=== PATIENT | male | born 1950 | race Caucasian/White ===

== ENCOUNTER 2018-05-23 15:29 | Observation (INO) | payer OTHER ==
[2018-05-23] MEDS ORDERED: FENTANYL CITR 100 MCG/2 ML ONE (16:17)
[2018-05-23] MEDS ORDERED: Ringers Lactate 1,000 ML IV ONE (16:17)
[2018-05-23] MEDS ORDERED: ONDANSETRON 4 MG/2 ML VIAL ONE (16:17)
[2018-05-23 16:32] LABS: Absolute Lymphocytes (CBC) 2.6 K/uL (0.7-4.9); Absolute Monocytes 1.2 K/uL (0.1-1.3); Absolute Neutrophil 11.6 K/uL (1.8-8.0); Basophils % 0.6 % (0-1.3); Eosinophils % 0.4 % (0-4.4); Hematocrit 50.7 % (39.6-49.0); Lymphocytes % 16.6 % (15.3-44.8); MCH 30.5 pg (27.0-35.0); MCV 88.4 fL (80-100); MPV 7.9 fL (7.6-11.3); Monocytes % 7.7 % (3.3-12.3); RBC Red Blood Cell Count 5.74 M/uL (4.33-5.43)
[2018-05-23 17:03] LABS: Albumin 4.3 g/dL (3.4-5.0); Bilirubin Direct 0.2 mg/dL (0-0.2); Bilirubin Total 0.8 mg/dL (0.2-1.0); Potassium 3.5 mmol/L (3.5-5.1); Protein, Total 8.4 g/dL (6.4-8.2)
--- NOTE | 2018-05-23 17:26 | RAD REPORT ---
EXAM DESCRIPTION: CT - Stone Protocol - 05/23/2018 5:17 pm CLINICAL HISTORY: Flank pain. abdominal pain COMPARISON: No comparisons TECHNIQUE: Axial images were obtained without oral or IV contrast. Lack of contrast limits solid org an and vascular assessment. The [id number] spans the entirety of the system partially obscuring uppermost abdomen and lung bases. Coronal reformatted images were obtained and reviewed. All CT scans are performed using dose optimization technique as appropriate and may include automated exposure control or mA/KV adjustment according to patient size. FINDINGS: The inferior lung bob are emphysematous but clear. Imaged portions of the liver and spleen show no suspicious findings on non-contrast imaging. The panc reas and adrenal glands are normal.Heavy atherosclerosis is present. No pathologic lymphadenopathy in the abdomen or pelvis. No urinary tract stones or obstructive uropathy. No bowel obstruction, free air, free fluid or abscess. Normal appendix noted. Fat containing umbilical hernia is noted measuring 4.6 x 4.6 cm with anterior abdominal wall fascia d efect measuring 2 cm. Larger fat containing supraumbilical hernia is present with hernia sac measurin g 6.8 x 4.4 cm and fascia defect measuring 2 cm. No bowel involvement seen in either hernia No significant bony abnormality. IMPRESSION: Fat containing ventral hernias as described above.
--- NOTE | 2018-05-23 18:34 | RAD REPORT ---
EXAM DESCRIPTION: US - Abdomen Exam Limited - 05/23/2018 6:20 pm CLINICAL HISTORY: epigastric abdominal pain COMPARISON: Stone Protocol dated 05/23/2018; CHEST PA AND LAT 2 VIEW dated 09/16/2015 FINDINGS: The gallbladder demonstrates no gallstones. No pericholecystic fluid or gallbladder wall t hickening. The common bile duct is normal measuring 3 mm. The liver demonstrates no findings of intrahepatic biliary dilatation. IMPRESSION: Unremarkable examination.
[2018-05-23] MEDS ORDERED: KETOROLAC 30 MG/ML INJ ONE (18:58)
[2018-05-23] MEDS ORDERED: DICYCLOMINE HCL 10 MG CAP ONE (18:58)
--- NOTE | 2018-05-23 20:16 | EDPHYS ---
Physician Documentation [facility] Name: Carlos Alberto Astorga Age: 68 yrs Sex: Male : 1950 Arrival Date: 05/23/2018 Time: 15:32 Bed 19 Private MD: Nilda Mills ED Physician Giacomo Oliver HPI: 05/23 15:51 This 68 yrs old Male presents to ER via Ambulatory with complaints of jmm Abdominal Pain. 15:51 The patient presents with abdominal pain in the epigastric area. Onset: The jmm symptoms/episode began/occurred gradually, 6 day(s) ago. The symptoms do not radiate. Associated signs and symptoms: Pertinent positives: nausea and vomiting, diarrhea. The symptoms are described as achy. This is a 68 year old male with a history of htn that presents to the ED with epigastric abdominal pain beginning approx 6 days ago with vomiting a diarrhea. Patient denies recent travel, sick contacts, recent abx use. . Historical: - Allergies: 15:42 Codeine; sv 15:42 Lotensin; sv 16:10 Iodinated Contrast Media - IV Dye (Hives); aa5 - PMHx: 15:42 Hypertension; Pneumonia; sv - PSHx: 15:42 colon resection; right finger; sv - Immunization history:: Flu vaccine is not up to date. - Social history:: Smoking status: Patient/guardian denies using tobacco. - Ebola Screening: : No symptoms or risks identified at this time. ROS: 15:51 Constitutional: Negative for fever, chills, and weight loss, Cardiovascular: Negative jmm for chest pain, palpitations, and edema, Respiratory: Negative for shortness of breath, cough, wheezing, and pleuritic chest pain. 15:51 Back: Negative for injury and pain, : Negative for injury, bleeding, discharge, and swelling, MS/Extremity: Negative for injury and deformity, Skin: Negative for injury, rash, and discoloration, Neuro: Negative for headache, weakness, numbness, tingling, and seizure. 15:51 Abdomen/GI: Positive for abdominal pain, nausea and vomiting, diarrhea. 15:51 All other systems are negative. Exam: 15:51 Head/Face: atraumatic. Chest/axilla: Normal chest wall appearance and motion. jmm Cardiovascular: Regular rate and rhythm. No edema appreciated Respiratory: Normal respirations, no respiratory distress appreciated 15:51 Constitutional: The patient appears in no acute distress, alert, awake. 15:51 Abdomen/GI: Inspection: abdomen appears normal, Bowel sounds: normal, Palpation: soft, moderate abdominal tenderness, in the right upper quadrant and left upper quadrant. 15:51 Musculoskeletal/extremity: ROM: intact in all extremities. 15:51 Skin: Appearance: Color: normal in color. 15:51 Neuro: Orientation: is normal, Mentation: is normal, Memory: is normal. 15:51 Psych: Behavior/mood is pleasant, cooperative. Vital Signs: 15:43 BP 127 / 86; Pulse 120; Resp 22; Temp 98.5; Pulse Ox 97% ; Weight 88.45 kg; Height 5 sv ft. 6 in. (167.64 cm); Pain 10/10; 16:35 BP 122 / 78; Pulse 83; Resp 18 S; Pulse Ox 98% on R/A; Pain 8/10; aa5 17:30 BP 127 / 71; Pulse 82; Resp 18 S; Pulse Ox 99% on R/A; aa5 19:39 BP 150 / 89; Pulse 69; Resp 17 S; Pulse Ox 98% on R/A; Pain 10/10; jd3 20:38 BP 137 / 74; Pulse 93; Resp 16 S; Pulse Ox 96% on R/A; jd3 15:43 Body Mass Index 31.47 (88.45 kg, 167.64 cm) sv MDM: 15:51 Patient medically screened. [facility] 18:24 Data reviewed: vital signs, nurses notes. [facility] 20:00 Data reviewed: lab test result(s), radiologic studies. [facility] 20:00 Counseling: I had a detailed discussion with the patient and/or guardian regarding: the [facility] historical points, exam findings, and any diagnostic results supporting the discharge/admit diagnosis, lab results, radiology results, the need for further work-up and treatment in the hospital. ED course: Patient continue to have abdominal pain which is not well relieved. Patient will be admitted for observation. . 20:12 ED course: I discussed the patient with Dr. Bennett whom accepted admission. . [facility] 05/23 15:53 Order name: Basic Metabolic Panel [facility] 05/23 15:53 Order name: CBC with Diff [facility] 05/23 15:53 Order name: Creatinine for Radiology [facility] 05/23 15:53 Order name: Hepatic Function [facility] 05/23 15:53 Order name: Lipase [facility] 05/23 15:53 Order name: Procalcitonin [facility] 05/23 15:53 Order name: Blood Culture Adult (2) [facility] 05/23 15:53 Order name: Lactate [facility] 05/23 16:33 Order name: CBC with Automated Diff; Complete Time: 16:49 EDMS 05/23 16:56 Order name: Creatinine (Radiology Only); Complete Time: 17:00 EDMS 05/23 17:03 Order name: Basic Metabolic Panel; Complete Time: 17:20 EDMS 05/23 17:03 Order name: Liver (Hepatic) Function; Complete Time: 17:20 EDMS 05/23 17:03 Order name: Lipase; Complete Time: 17:20 EDMS 05/23 17:11 Order name: Lactate; Complete Time: 17:20 EDMS 05/23 15:53 Order name: IV Saline Lock; Complete Time: 16:39 [facility] 05/23 15:53 Order name: Labs collected and sent; Complete Time: 16:39 [facility] 05/23 17:02 Order name: CT Stone Protocol [facility] 05/23 17:25 Order name: Procalcitonin; Complete Time: 17:32 EDMS 05/23 17:26 Order name: CT; Complete Time: 17:32 EDMS 05/23 17:35 Order name: US Abdomen Limited [facility] 05/23 18:35 Order name: US; Complete Time: 18:37 EDMS Administered Medications: 16:10 Drug: Lactated Ringers Solution 1000 ml Route: IV; Rate: 61437 bolus; Site: right aa5 forearm; 17:07 Follow up: IV Status: Completed infusion aa5 16:10 Drug: fentaNYL (PF) 50 mcg Route: IVP; Site: right forearm; aa5 16:20 Follow up: Response: No adverse reaction aa5 16:10 Drug: Zofran 4 mg Route: IVP; Site: right forearm; aa5 16:20 Follow up: Response: No adverse reaction aa5 17:06 Drug: fentaNYL (PF) 50 mcg Route: IVP; Site: right forearm; aa5 17:11 Follow up: Response: No adverse reaction aa5 18:55 Drug: Ketorolac 15 mg Route: IVP; Site: right forearm; aa5 19:00 Follow up: Response: No adverse reaction aa5 18:55 Drug: Bentyl 20 mg Route: PO; aa5 21:30 Follow up: Response: No adverse reaction jd3 Disposition: 05/23/18 20:13 Hospitalization ordered by Ted Bennett for Observation. Preliminary diagnosis is Generalized abdominal pain. - Bed requested for Telemetry/MedSurg (observation). - Status is Observation. jd3 - Condition is Stable. - Problem is new. - Symptoms are unchanged. UTI on Admission? No Signatures: Dispatcher [employer] EDMS Dara Das, RN RN Rolando Mckeon PA PA jmm Calderon, Audri RN RN aa Margarita Yoo RN RN Monty Bautista RN RN jd3 Corrections: (The following items were deleted from the chart) 20:37 20:13 Hospitalization Ordered by Ted Bennett MD for Observation. Preliminary cg diagnosis is Generalized abdominal pain. Bed requested for Telemetry/MedSurg (observation). Status is Observation. Condition is Stable. Problem is new. Symptoms are unchanged. UTI on Admission? No. tomas 21:31 20:37 05/23/2018 20:13 Hospitalization Ordered by Ted Bennett MD for Observation. jd3 Preliminary diagnosis is Generalized abdominal pain. Bed requested for Telemetry/MedSurg (observation). Status is Observation. Condition is Stable. Problem is new. Symptoms are unchanged. UTI on Admission? No.
--- NOTE | 2018-05-23 20:16 | ER ---
Nurse's Notes [facility] Name: Carlos Alberto Astorga Age: 68 yrs Sex: Male : 1950 Arrival Date: 05/23/2018 Time: 15:32 Bed 19 Private MD: Nilda Mills Diagnosis: Generalized abdominal pain Presentation: 05/23 15:40 Presenting complaint: Patient states: abd pain from a hernia pain started 6 days ago. sv Pt reports unable to eat a well and diarrhea. Transition of care: patient was not received from another setting of care. Onset of symptoms was May 2018. Care prior to arrival: None. 15:40 Method Of Arrival: Ambulatory sv 15:40 Acuity: MONIKA 3 sv 16:00 Initial Sepsis Screen: Does the patient meet any 2 criteria? HR > 90 bpm. Does the aa5 patient have a suspected source of infection? No. Patient's initial sepsis screen is negative. 16:00 Risk Assessment: Do you want to hurt yourself or someone else? Patient reports no aa5 desire to harm self or others. Triage Assessment: 15:44 General: Appears in no apparent distress. uncomfortable, Behavior is calm, cooperative, sv appropriate for age. Pain: Complains of pain in right upper quadrant and left upper quadrant Pain currently is 10 out of 10 on a pain scale. Neuro: Level of Consciousness is awake, alert, obeys commands, Oriented to person, place, time, situation, Moves all extremities. Full function Gait is steady. Respiratory: Respiratory effort is even, unlabored, Respiratory pattern is regular, symmetrical. GI: Reports upper abdominal pain, diarrhea, intolerance of food. Historical: - Allergies: 15:42 Codeine; sv 15:42 Lotensin; sv 16:10 Iodinated Contrast Media - IV Dye (Hives); aa5 - PMHx: 15:42 Hypertension; Pneumonia; sv - PSHx: 15:42 colon resection; right finger; sv - Immunization history:: Flu vaccine is not up to date. - Social history:: Smoking status: Patient/guardian denies using tobacco. - Ebola Screening: : No symptoms or risks identified at this time. Screenin:00 Abuse screen: Denies threats or abuse. Nutritional screening: No deficits noted. aa5 Tuberculosis screening: No symptoms or risk factors identified. Fall Risk None identified. Assessment: 16:00 General: Appears uncomfortable, Behavior is calm, cooperative. Pain: Complains of pain aa5 in left upper quadrant Pain does not radiate. Pain currently is 10 out of 10 on a pain scale. Quality of pain is described as sharp, tender, Pain began 1 week ago Is continuous. Neuro: Level of Consciousness is awake, alert, obeys commands, Oriented to person, place, time, situation. Cardiovascular: Heart tones S1 S2 present Rhythm is regular. Respiratory: Airway is patent Respiratory effort is even, unlabored, Respiratory pattern is regular, symmetrical. GI: Abdomen is round Bowel sounds present X 4 quads. Abdomen is tender to palpation in right upper quadrant and left upper quadrant Reports diarrhea, Patient currently denies nausea, vomiting. : No signs and/or symptoms were reported regarding the genitourinary system. EENT: No signs and/or symptoms were reported regarding the EENT system. Derm: Skin is pink, warm \T\ dry. Musculoskeletal: Range of motion: intact in all extremities. 16:20 Reassessment: Patient and/or family updated on plan of care and expected duration. Pain aa5 level reassessed. Patient is alert, oriented x 3, equal unlabored respirations, skin warm/dry/pink. Patient states feeling better. Pt sitting up in bed. Pt's at bedside. . Pain: Pain currently is 8 out of 10 on a pain scale. 17:30 Reassessment: Patient and/or family updated on plan of care and expected duration. Pain aa5 level reassessed. Patient is alert, oriented x 3, equal unlabored respirations, skin warm/dry/pink. Pain: Pain currently is 6 out of 10 on a pain scale. 18:55 Reassessment: Patient is alert, oriented x 3, equal unlabored respirations, skin aa5 warm/dry/pink. Pain: Pain currently is 10 out of 10 on a pain scale. 19:38 Reassessment: Patient appears in no apparent distress at this time. No changes from jd3 previously documented assessment. Patient and/or family updated on plan of care and expected duration. Pain level reassessed. Patient is alert, oriented x 3, equal unlabored respirations, skin warm/dry/pink. 20:38 Reassessment: Patient appears in no apparent distress at this time. No changes from jd3 previously documented assessment. Patient and/or family updated on plan of care and expected duration. Pain level reassessed. Patient is alert, oriented x 3, equal unlabored respirations, skin warm/dry/pink. 21:29 Reassessment: Patient appears in no apparent distress at this time. No changes from jd3 previously documented assessment. Patient and/or family updated on plan of care and expected duration. Pain level reassessed. Patient is alert, oriented x 3, equal unlabored respirations, skin warm/dry/pink. report given to Best MAST. Vital Signs: 15:43 BP 127 / 86; Pulse 120; Resp 22; Temp 98.5; Pulse Ox 97% ; Weight 88.45 kg; Height 5 sv ft. 6 in. (167.64 cm); Pain 10/10; 16:35 BP 122 / 78; Pulse 83; Resp 18 S; Pulse Ox 98% on R/A; Pain 8/10; aa5 17:30 BP 127 / 71; Pulse 82; Resp 18 S; Pulse Ox 99% on R/A; aa5 19:39 BP 150 / 89; Pulse 69; Resp 17 S; Pulse Ox 98% on R/A; Pain 10/10; jd3 20:38 BP 137 / 74; Pulse 93; Resp 16 S; Pulse Ox 96% on R/A; jd3 15:43 Body Mass Index 31.47 (88.45 kg, 167.64 cm) sv ED Course: 15:32 Patient arrived in ED. mr 15:33 Nilda Mills MD is Private Physician. mr 15:41 Triage completed. sv 15:44 Arm band placed on Patient placed in an exam room, on a stretcher. sv 15:46 Rolando Mckeon PA is PHCP. [facility] 15:46 Giacomo Oliver MD is Attending Physician. [facility] 15:49 Inez Quiñones, KEZIA is Primary Nurse. aa5 16:00 Patient has correct armband on for positive identification. Placed in gown. Bed in low aa5 position. Call light in reach. Side rails up X2. 16:05 Initial lab(s) drawn, by me, sent to lab. Inserted saline lock: 20 gauge in right aa5 forearm, using aseptic technique. Blood collected. 16:44 No provider procedures requiring assistance completed. aa5 16:49 Radiology exam delayed due to lab results not completed at this time. (BUN/Creatinine). nj 17:[address] via wheelchair. nj 17:17 CT completed. Patient tolerated procedure well. Patient moved back from CT. la 19:00 Report given to KEZIA Millan. aa5 20:13 Ted Bennett MD is Hospitalizing Provider. [facility] 21:30 Patient admitted, IV remains in place. jd3 Administered Medications: 16:10 Drug: Lactated Ringers Solution 1000 ml Route: IV; Rate: 60013 bolus; Site: right aa5 forearm; 17:07 Follow up: IV Status: Completed infusion aa5 16:10 Drug: fentaNYL (PF) 50 mcg Route: IVP; Site: right forearm; aa5 16:20 Follow up: Response: No adverse reaction aa5 16:10 Drug: Zofran 4 mg Route: IVP; Site: right forearm; aa5 16:20 Follow up: Response: No adverse reaction aa5 17:06 Drug: fentaNYL (PF) 50 mcg Route: IVP; Site: right forearm; aa5 17:11 Follow up: Response: No adverse reaction aa5 18:55 Drug: Ketorolac 15 mg Route: IVP; Site: right forearm; aa5 19:00 Follow up: Response: No adverse reaction aa5 18:55 Drug: Bentyl 20 mg Route: PO; aa5 21:30 Follow up: Response: No adverse reaction jd3 Outcome: 20:13 Decision to Hospitalize by Provider. [facility] 21:29 Admitted to Med/surg accompanied by tech, via wheelchair, room 406, with chart, Report jd3 called to Best MAST 21:29 Condition: stable 21:29 Instructed on the need for admit, Demonstrated understanding of instructions. 21:31 Patient left the ED. jd3 Signatures: Dara Das RN RN Rolando Smalls PA PA [facility] Vesna Teixeira Inez Quiñones RN RN aa5 Stanislav Garcia Jonathon, RN RN jd3 Corrections: (The following items were deleted from the chart) 15:45 15:43 Pulse 120bpm; Resp 22bpm; Pulse Ox 97%; Temp 98.5F; 88.45 kg; Height 5 ft. 6 in.; sv BMI: 31.4; Pain 10/10; sv
[2018-05-23] MEDS ORDERED: ONDANSETRON 4 MG/2 ML VIAL IV PRN (20:46)
[2018-05-23] MEDS ORDERED: ACETAMINOPHEN 500 MG TAB PO PRN (20:46)
[2018-05-23] MEDS: MORPHINE 2 MG/ML SYR IV PRN (22:11)
[2018-05-23] MEDS: NA CHLORIDE 0.9% 1,000 ML IV SCH (22:11)
[2018-05-23 22:41] VITALS: BMI 26.6
[2018-05-23 23:08] LABS: Urine Appearance TURBID; Urine Blood NEGATIVE (NEG); Urine Color DK YELLOW; Urine Glucose NEGATIVE (NEG); Urine Protein NEGATIVE (NEG); Urine Specific Gravity 1.025 (1.005-1.030); Urine Urobilinogen 0.2 mg/dL (0.2-1.0)
[2018-05-23 23:16] LABS: Urine Microscopic Reflex ORDER UMIC
[2018-05-23 23:37] LABS: Urine Bilirubin NEGATIVE (NEG)
[2018-05-24 01:22] LABS: Urine Amorphous Sediment 4+ /HPF (NONE SEEN); Urine Bacteria >50 /HPF (NONE SEEN); Urine Culture Reflex Order NOT NEEDED; Urine RBC NONE SEEN /HPF (NONE SEEN)
[2018-05-24] MEDS: MORPHINE 2 MG/ML SYR IV PRN ×2 (02:47→12:29)
[2018-05-24 04:19] LABS: Absolute Lymphocytes (CBC) 2.3 K/uL (0.7-4.9); Absolute Monocytes 1.2 K/uL (0.1-1.3); Absolute Neutrophil 10.1 K/uL (1.8-8.0); Basophils % 0.7 % (0-1.3); Hematocrit 43.3 % (39.6-49.0); Lymphocytes % 16.7 % (15.3-44.8); MCH 30.9 pg (27.0-35.0); MCV 89.7 fL (80-100); MPV 8.3 fL (7.6-11.3); Monocytes % 8.9 % (3.3-12.3); RBC Red Blood Cell Count 4.83 M/uL (4.33-5.43)
[2018-05-24 04:30] LABS: Albumin 3.4 g/dL (3.4-5.0); Bilirubin Total 0.6 mg/dL (0.2-1.0); Potassium 3.4 mmol/L (3.5-5.1); Protein, Total 6.7 g/dL (6.4-8.2)
[2018-05-24] MEDS ORDERED: MAGNESIUM HYDROXIDE 8% 30 ML PO ONE (05:50)
[2018-05-24] MEDS: NA CHLORIDE 0.9% 1,000 ML IV SCH ×2 (06:03→17:00)
--- NOTE | 2018-05-24 07:25 | P.HP ---
Certification for Inpatient Patient admitted to: Observation With expected LOS: <2 Midnights Patient will require the following post-hospital care: None Practitioner: I am a practitioner with admitting privileges, knowledge of patient current condition, hospital course, and medical plan of care. Services: Services provided to patient in accordance with Admission requirements found in Title 42 Section 412.3 of the Code of Federal Regulations Patient History Date of Service: 05/23/18 Reason for admission: Abdominal pain; leukocytosis History of Present Illness: Patient is a 68-year-old gentleman who came to the hospital with intractable abdominal pain. Patient also had leukocytosis. Pain was mainly lateral to the umbilicus. Patient's symptoms were not improving. Patient came into the emergency room for further evaluation. In the emergency room patient's workup revealed that he had of ventral hernia with fat that appear to be trapped. On exam his abdomen was distended. The hernia was reducible. Afterwards, he was still having some tenderness in that region. We decided to admit him to the hospital as he is not been moving any gas. Will go ahead and admit him to the hospital and reassess in. He has not had a bowel movement in a few days either. He may need a laxative to assist him. Allergies benazepril HCl [From Lotensin] Allergy (Verified 07/04/14 22:10) Hives codeine Allergy (Verified 07/04/14 22:10) Hives/Rash codeine sulfate Allergy (Uncoded 07/04/14 22:15) Unknown iv dye Allergy (Uncoded 07/04/14 22:10) Anaphylaxis Home Medications: Lisinopril [Prinivil*] 20 mg PO DAILY 07/04/14 Sertraline [Zoloft*] 100 mg PO DAILY 05/23/18 - Past Medical/Surgical History Has patient received pneumonia vaccine in the past: Yes Diabetic: No -: Ventral hernia -: HTN -: COPD -: colon resection -: middle right finger surgery - Family History Father History Unknown: Yes Mother History Unknown: Yes - Social History Smoking Status: Former smoker Alcohol use: No CD- Drugs: No Caffeine use: Yes Place of Residence: Home Review of Systems 10-point ROS is otherwise unremarkable Physical Examination - Vital Signs Temperature: 98 F Blood Pressure: 114/63 Pulse: 82 Respirations: 20 Pulse Ox (%): 96 - Physical Exam General: Alert, In no apparent distress, Oriented x3 HEENT: Atraumatic, Normocephalic, PERRLA, Mucous membr. moist/pink Neck: Supple, 2+ carotid pulse no bruit, JVD not distended, No Thyromegaly Respiratory: Clear to auscultation bilaterally, Normal air movement Cardiovascular: Normal pulses, Regular rate/rhythm, Normal S1 S2, No rubs, No murmurs Gastrointestinal: Soft and benign, Non-distended, No tenderness Musculoskeletal: No clubbing, No swelling, No contractures Integumentary: No rashes Neurological: Normal gait - Studies Laboratory Data (last 24 hrs) 05/23/18 16:15: Creatinine 1.00 05/23/18 16:15: WBC 15.5 H, Hgb 17.5, Hct 50.7 H, Plt Count 342 05/23/18 16:15: Sodium 133 L, Potassium 3.5, BUN 19 H, Creatinine 1.00, Glucose 106, Total Bilirubin 0.8, AST 22, ALT 25, Alkaline Phosphatase 65, Lipase 130 Assessment & Plan - Plan 1. Continue with IV hydration 2. Continue with IV antibiotics 3. Continue with pain control 4. Start clear liquid diet in the morning if symptoms improve 5. GI & general surgery consultation as an outpatient to evaluate repair of hernia 6. Serial H&H, and we will monitor CBC, BMP, LFTs and lipase along with electrolytes. 7. GI and DVT prophylaxis - Advance Directives Does patient have a Living Will: No Does patient have a Durable POA for Healthcare: No - Code Status/Comfort Care Code Status Assessed: Yes Code Status: Full Code Critical Care: No Time Spent Managing PTS Care (In Minutes): 50
[2018-05-24] MEDS ORDERED: INFLUENZA VACCINE (for 3y+) 0.5 ML DOSE IMVAC ONE (08:00)
[2018-05-24] MEDS: SERTRALINE HCL 100 MG TAB PO SCH (09:20)
[2018-05-24] MEDS: LISINOPRIL 20 MG TAB PO SCH (09:20)
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
[2018-05-24] MEDS ORDERED: TRAMADOL HCL 50 MG TAB PO PRN (17:26)
[2018-05-24 22:35] VITALS: O2SAT 95
[2018-05-25] MEDS: LISINOPRIL 20 MG TAB PO SCH (10:02)
[2018-05-25] MEDS: SERTRALINE HCL 100 MG TAB PO SCH (10:02)
[2018-05-25 12:39] VITALS: BP 156/78; TEMP 98.4
--- NOTE | 2018-05-25 16:07 | P.DS ---
Admission Date: 05/23/18 Discharge Date: 05/25/18 Disposition: ROUTINE DISCHARGE Discharge Condition: GOOD Reason for Admission: Abdominal pain; leukocytosis Procedures: Ventral hernia reduction in the ER Brief History of Present Illness: Patient is a 68-year-old gentleman who came to the hospital with intractable abdominal pain. Patient also had leukocytosis. Pain was mainly lateral to the umbilicus. Patient's symptoms were not improving. Patient came into the emergency room for further evaluation. In the emergency room patient's workup revealed that he had of ventral hernia with fat that appear to be trapped. On exam his abdomen was distended. The hernia was reducible. Afterwards, he was still having some tenderness in that region. We decided to admit him to the hospital as he is not been moving any gas. Will go ahead and admit him to the hospital and reassess in. He has not had a bowel movement in a few days either. He may need a laxative to assist him. Hospital Course: Patient was admitted for a hernia, reduced in the ER. Hernia, reduced Patient was started on a clear liquid diet,. Uncooperative with the diet, stating that he does not do liquid diet because he does not like it. He needs to eat fried steak and things like that. Explained to patient that the reason we start with clear liquids because of the reason he came in with abdominal pain. Patient does not want to listen stated he wanted food. Regular diet given to patient, though he still refused to eat hospital food because he did not like the taste of it. He got multiple trays for breakfast, so pretty and cooperative. Refused medications, though stated that he did not refused medications. Patient not complaining of pain, noted donuts on the table, outside food as well. He states he is tolerating the food well without any abdominal pain, nausea or vomiting. The time of my exam, patient was visibly upset with the food situation and stated that he was not happy with the food the was not in any acute distress. He was hemodynamically stable. He was discharged with instructions for outpatient consultation for general surgery for the hernia repair. Information provided to patient. He was also instructed to follow up with his primary care physician in 1 week. He will need outpatient surgical consultation for repair. Diarrhea This is likely secondary to milk a magnesia that he received earlier this morning. Stool studies negative, diarrhea resolved. Essential Hypertension Stable, no changes made to his medication on discharge Vital Signs/Physical Exam: Temp Pulse Resp BP Pulse Ox 98.4 F 112 H 20 156/78 H 96 05/25/18 12:00 05/25/18 12:00 05/25/18 12:00 05/25/18 12:00 05/25/18 12:00 General: Alert, In no apparent distress, Oriented x3 HEENT: Atraumatic, PERRLA, EOMI Neck: Supple, JVD not distended Respiratory: Clear to auscultation bilaterally, Normal air movement Cardiovascular: Regular rate/rhythm, Normal S1 S2 Gastrointestinal: Normal bowel sounds, No tenderness Musculoskeletal: No tenderness Integumentary: No rashes Neurological: Normal speech, Normal tone, Normal affect Lymphatics: No axilla or inguinal lymphadenopathy Laboratory Data at Discharge: WBC 13.9 K/uL (4.3-10.9) H 05/24/18 03:38 Hgb 14.9 g/dL (13.6-17.9) D 05/24/18 03:38 Hct 43.3 % (39.6-49.0) 05/24/18 03:38 Plt Count 256 K/uL (152-406) D 05/24/18 03:38 Sodium 135 mmol/L (136-145) L 05/24/18 03:38 Potassium 3.4 mmol/L (3.5-5.1) L 05/24/18 03:38 BUN 20 mg/dL (7-18) H 05/24/18 03:38 Creatinine 0.90 mg/dL (0.55-1.3) 05/24/18 03:38 Glucose 98 mg/dL (74-106) 05/24/18 03:38 Total Bilirubin 0.6 mg/dL (0.2-1.0) 05/24/18 03:38 AST 16 U/L (15-37) 05/24/18 03:38 ALT 21 U/L (12-78) 05/24/18 03:38 Alkaline Phosphatase 52 U/L (45-117) 05/24/18 03:38 Lipase 130 U/L (73-393) 05/23/18 16:15 Home Medications: Lisinopril [Prinivil*] 20 mg PO DAILY 07/04/14 Sertraline [Zoloft*] 100 mg PO DAILY 05/23/18 Patient Discharge Instructions: Please follow up with your primary care physician in 1 week. We recommend that you discuss a posisble surgery consultation outpatient for evaluation of your hernia. Your primary care physician will be able to help you with that but we have also provided information for a surgeon with your discharge paperwork. Diet: GI soft, as tolerated Activity: Ad yeison Followup: Nilda Mills MD [Primary Care Provider] - Time spent managing pt's care (in minutes): 55
== END 2018-05-25 14:08 | disposition home or self-care (01) ==
LOC: ER 15:29 → ERHOLD 20:32 → 4TH 21:11
PROVIDERS: ADMIT Hospitalist; ATTEND Hospitalist
DX: K43.9 Ventral hernia without obstruction or gangrene (principal); R19.7 Diarrhea, unspecified; I10 Essential (primary) hypertension; J44.9 Chronic obstructive pulmonary disease, unspecified; R10.9 Unspecified abdominal pain
CPT/HCPCS: 36415; 74176; 76377; 76705; 80048; 80053; 80076; 82274; 83605; 83690; 84145; 85025 ×2; 87040 ×2; 87086; 87088; 87493; 96361; 96374; 96375; 99285; J2270 ×2; J2405; J3010; J7030 ×2; 81003; 81015; G0378

== ENCOUNTER 2021-03-31 09:56 | Emergency (ER) | payer OTHER ==
[2021-03-31] MEDS ORDERED: MORPHINE 4 MG/ML SYR ONE ×3 (10:56→18:38)
[2021-03-31] MEDS ORDERED: NA CHLORIDE 0.9% 1,000 ML ONE ×2 (10:57→15:33)
[2021-03-31] MEDS ORDERED: ONDANSETRON 4 MG/2 ML VIAL ONE ×2 (10:57→18:38)
[2021-03-31 11:15] LABS: Absolute Lymphocytes (CBC) 1.9 K/uL (0.7-4.9); Basophils % 0.6 % (0-1.3); Hematocrit 48.9 % (39.6-49.0); Lymphocytes % 13.3 % (15.3-44.8); MPV 7.6 fL (7.6-11.3); RBC Red Blood Cell Count 5.32 M/uL (4.33-5.43)
[2021-03-31 11:26] LABS: Albumin 3.7 g/dL (3.4-5.0); Bilirubin Direct 0.1 mg/dL (0-0.2); Bilirubin Total 0.5 mg/dL (0.2-1.0); Protein, Total 8.1 g/dL (6.4-8.2)
[2021-03-31] MEDS ORDERED: FAMOTIDINE 20 MG/2 ML VIAL IV ONE (12:19)
[2021-03-31] MEDS ORDERED: METHYLPREDNISOLONE 125 MG INJ ONE (12:19)
[2021-03-31] MEDS ORDERED: DIPHENHYDRAMINE 50 MG/ML VIAL ONE (12:19)
--- NOTE | 2021-03-31 12:54 | RAD REPORT ---
EXAM DESCRIPTION: CTAbdomen Pelvis W Contrast - 03/31/2021 12:39 pm CLINICAL HISTORY: Abdominal pain. ABD PAIN COMPARISON: No comparisons TECHNIQUE: Biphasic CT imaging of the abdomen and pelvis was performed with 100 ml non-ionic IV cont rast. All CT scans are performed using dose optimization technique as appropriate and may include automated exposure control or mA/KV adjustment according to patient size. FINDINGS: Emphysematous changes are present in the lung bases. Mild fatty liver is present. The spleen, pancreas, adrenal glands show no suspicious findings. Small nodule left adrenal gland measuring 12 mm is noted probably an adenoma. Both kidneys are normal in si ze without no mass or hydronephrosis. There is quite significant atherosclerotic vascular disease of aorta and iliac vessels. 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 Moderate fat containing umbilical hernia is seen. Moderate to large fat containing ventral hernia is seen along the midline superior to the umbilicus. Several mildly prominent fluid filled and contrast filled small bowel loops are present in a non orga nized pattern. An obstruction is not evident. No free air is seen. No evidence of significant lymphad enopathy. Moderate lumbosacral degenerative changes. IMPRESSION: Mild nonspecific small bowel dilatation seen in an non-organized pattern, likely represe nting an ileus. Follow-up study would be recommended if the patient develops obstruction like symptom s. Moderate fat containing umbilical hernia gland large fat containing supraumbilical ventral hernia see n. Heavy aortoiliac atherosclerosis.
--- NOTE | 2021-03-31 13:57 | EDPHYS ---
Physician Documentation [facility] Name: Carlos Alberto Astorga Age: 71 yrs Sex: Male : 1950 Arrival Date: 03/31/2021 Time: 09:57 Bed 27 Private MD: Monty [facility] ED Physician Paxton Mendes HPI: 03/31 13:23 This 71 yrs old Male presents to ER via Wheelchair with complaints of kb Abdominal Pain. 13:23 The patient presents with abdominal pain. Onset: The symptoms/episode began/occurred 2 kb month(s) ago. The symptoms do not radiate. Associated signs and symptoms: none. The symptoms are described as constant. Modifying factors: The symptoms are alleviated by nothing, the symptoms are aggravated by nothing. Severity of pain: At its worst the pain was moderate in the emergency department the pain is unchanged. The patient has not experienced similar symptoms in the past. The patient has been recently seen by a physician: admitted to [place] 3 weeks ago with pneumonia. States he had this pain then, but they didn't address it. Historical: - Allergies: 10:09 Codeine; aa5 10:09 Iodinated Contrast Media - IV Dye (Hives); aa5 10:09 Lotensin; aa5 - PMHx: 10:09 Hypertension; Pneumonia; COPD; aa5 - PSHx: 10:09 Colon resection; Perforated colon repair; aa5 - Immunization history:: Client reports receiving the 1st dose of the Covid vaccine. - Social history:: Smoking status: Patient denies any tobacco usage or history of. ROS: 13:22 Constitutional: Negative for fever, chills, and weight loss. kb 13:22 Abdomen/GI: Positive for abdominal pain, Negative for nausea, vomiting, and diarrhea. 13:22 All other systems are negative. Exam: 13:22 Constitutional: This is a well developed, well nourished patient who is awake, alert, kb and in no acute distress. Head/Face: Normocephalic, atraumatic. ENT: Moist Mucous membranes Respiratory: Respirations even and unlabored. No increased work of breathing, no retractions or nasal flaring. Skin: Warm, dry with normal turgor. Normal color. MS/ Extremity: Pulses equal, no cyanosis. Neurovascular intact. Full, normal range of motion. Neuro: Awake and alert, GCS 15, oriented to person, place, time, and situation. Moves all extremities. Normal gait. Psych: Awake, alert, with orientation to person, place and time. Behavior, mood, and affect are within normal limits. 13:22 Abdomen/GI: Inspection: abdomen appears normal, Bowel sounds: normal, in all quadrants, Palpation: soft, in all quadrants, mild abdominal tenderness, in all quadrants, Hernia: noted in the epigastric area. Vital Signs: 10:00 BP 154 / 93; Pulse 130; Resp 20 S; Temp 98.4(O); Pulse Ox 96% on R/A; Weight 73.94 kg aa5 (R); Height 5 ft. 6 in. (167.64 cm) (R); 11:00 BP 113 / 65; Pulse 89; Resp 18; Pulse Ox 100% ; kh1 12:00 BP 150 / 99; Pulse 120; Resp 20; Temp 98.0(TE); Pulse Ox 100% ; kh1 14:00 BP 127 / 77; Pulse 101 MON; Resp 18 S; Pulse Ox 95% on R/A; kh1 15:00 BP 126 / 60; Pulse 81; Resp 20; Pulse Ox 100% on R/A; kh1 16:00 BP 141 / 88; Pulse 116; Resp 18; Pulse Ox 96% ; kh1 17:30 BP 134 / 68; Pulse 117; Resp 20; Pulse Ox 95% ; kh1 20:00 BP 138 / 75; Pulse 112; Resp 20; Temp 98.4(O); Pulse Ox 94% on R/A; cc4 10:00 Body Mass Index 26.31 (73.94 kg, 167.64 cm) aa5 MDM: 10:08 Patient medically screened. kb 13:23 Data reviewed: vital signs, nurses notes. Data interpreted: Pulse oximetry: on room air kb is 100 %. Interpretation: normal. 13:32 Counseling: I had a detailed discussion with the patient and/or guardian regarding: the kb historical points, exam findings, and any diagnostic results supporting the discharge/admit diagnosis, lab results, radiology results, the need for further work-up and treatment in the hospital. Physician consultation: was called at 13:32, regarding admission, to the medical/surgical unit. patient's condition, and will see patient in ED, shortly, Case discussed with BERENICE Shipman with the hospitalist group. 14:42 Physician consultation: Alejandro Cr MD was contacted at 14:43, regarding consult, after kb a discussion of the case, a recommendation for transfer for higher level of care is made. ED course: Hospitalist and surgeon request transfer due to significant atherosclerosis. . 17:17 ED course: Pt has been accepted for transfer to [facility] by hospitalist with an kb accepted consult by vascular surgery to tele. Awaiting room assignment. 03/31 10:09 Order name: Basic Metabolic Panel; Complete Time: 11:32 kb 03/31 10:09 Order name: CBC with Diff; Complete Time: 11:22 kb 03/31 10:09 Order name: Hepatic Function; Complete Time: 11:32 kb 03/31 10:09 Order name: Lipase; Complete Time: 11:32 kb 03/31 14:37 Order name: Lactate; Complete Time: 15:55 kb 03/31 10:09 Order name: CT Abd/Pelvis - IV Contrast Only; Complete Time: 12:55 kb 03/31 17:27 Order name: SARS-COV-2 RT PCR; Complete Time: 20:55 EDMS 03/31 19:33 Order name: Lactate Sepsis 2 HR Follow-up; Complete Time: 20:55 EDMS 03/31 10:09 Order name: IV Saline Lock; Complete Time: 10:42 kb 03/31 10:09 Order name: Labs collected and sent; Complete Time: 10:42 kb Administered Medications: 10:41 Drug: NS 0.9% 1000 ml Route: IV; Rate: 1000 ml; Site: left forearm; kh1 10:41 Drug: Zofran (Ondansetron) 4 mg Route: IVP; Site: left forearm; kh1 10:41 Drug: morphine 4 mg Route: IVP; Site: left forearm; kh1 12:05 Drug: Pepcid (famotidine) 20 mg Route: IVP; Site: left forearm; kh1 12:05 Drug: SOLU-Medrol (methylPrednisoLONE) 125 mg Route: IVP; Site: left forearm; kh1 12:05 Drug: Benadryl (diphenhydrAMINE) 25 mg Route: IVP; Site: left forearm; kh1 13:04 Drug: morphine 4 mg Route: IVP; Site: left antecubital; kh1 15:25 Drug: Flagyl (metroNIDAZOLE) 500 mg Volume: 100 ml; Route: IVPB; Rate: 200 ml/hr; kh1 Infused Over: 30 mins; Site: left forearm; 15:25 Drug: NS 0.9% 1000 ml Route: IV; Rate: 75 ml/hr; Site: left forearm; kh1 16:15 Drug: Cipro (ciprofloxacin) 400 mg Volume: 200 ml; Route: IVPB; Infused Over: 60 mins; kh1 Site: left forearm; 18:25 Drug: morphine 4 mg Route: IVP; Site: left forearm; kh1 18:25 Drug: Zofran (Ondansetron) 4 mg Route: IVP; Site: left forearm; kh1 Disposition: 04/01 05:53 Co-signature as Attending Physician, Paxton Mendes MD I agree with the assessment and neela plan of care. Disposition Summary: 03/31/21 17:17 Transfer Ordered Transfer Location: [facility] kb Reason: Higher level of care kb Condition: Stable(03/31/21 17:17) kb Problem: new(03/31/21 17:17) kb Symptoms: are unchanged(03/31/21 17:17) kb Accepting Physician: (03/31/21 21:33) cc4 Diagnosis - Ileus kb - Significant athlerosclerosis kb - Abdominal pain, Generalized(03/31/21 17:17) kb - Elevated white blood cell count(03/31/21 17:17) kb Forms: - Medication Reconciliation Form kb - SBAR form kb Signatures: Dispatcher [employer] EDJuly Blackwell, NEENAC TUBE WASHER-Paxton Malloy MD MD cha Mickail, Joel, PA PA jmm Calderon, Audri, RN RN Radha Guerrero 1 Janie Ware, RN RN cc4 Corrections: (The following items were deleted from the chart) 03/31 14:44 13:56 Observation kb kb 14:44 13:56 Jose Young kb kb 14:44 13:56 Telemetry/MedSurg (observation) kb kb 14:44 13:56 Stable kb kb 14:44 13:56 new kb kb 14:44 13:56 are unchanged kb kb 14:44 13:56 Standard kb kb 14:44 13:56 kb kb 14:44 13:56 Ileus kb kb 14:44 13:56 Elevated white blood cell count kb kb 14:44 13:56 Abdominal pain, Generalized kb kb 16:14 14:38 CORONAVIRUS+MR.LAB.BRZ ordered. EDMS EDMS 21:33 17:17 Dr pisano cc4
--- NOTE | 2021-03-31 13:57 | ER ---
Nurse's Notes [facility] Name: Carlos Alberto Astorga Age: 71 yrs Sex: Male : 1950 Arrival Date: 03/31/2021 Time: 09:57 Bed 27 Private MD: Timur Millan Diagnosis: Ileus;Significant athlerosclerosis ;Abdominal pain, Generalized;Elevated white blood cell count Presentation: 03/31 10:00 Chief complaint: Patient states: abdominal pain x "months". Pt states "I was admitted aa5 with Pneumonia about 3 weeks ago at [facility]". Pt reports vomiting yesterday. 10:00 Coronavirus screen: vomiting. Ebola Screen: Patient negative for fever greater than or aa5 equal to 101.5 degrees Fahrenheit, and additional compatible Ebola Virus Disease symptoms. Initial Sepsis Screen: Does the patient meet any 2 criteria? HR > 90 bpm. Does the patient have a suspected source of infection? No. Patient's initial sepsis screen is negative. Risk Assessment: Do you want to hurt yourself or someone else? Patient reports no desire to harm self or others. Onset of symptoms was 2020. 10:00 Method Of Arrival: Wheelchair aa5 10:00 Acuity: MONIKA 3 aa5 Historical: - Allergies: 10:09 Codeine; aa5 10:09 Iodinated Contrast Media - IV Dye (Hives); aa5 10:09 Lotensin; aa5 - PMHx: 10:09 Hypertension; Pneumonia; COPD; aa5 - PSHx: 10:09 Colon resection; Perforated colon repair; aa5 - Immunization history:: Client reports receiving the 1st dose of the Covid vaccine. - Social history:: Smoking status: Patient denies any tobacco usage or history of. Screenin:50 Abuse screen: Denies threats or abuse. Nutritional screening: No deficits noted. kh1 Tuberculosis screening: No symptoms or risk factors identified. Fall Risk None identified. IV access (20 points). Gait- Normal/Bed Rest/Wheelchair (0 pts). Assessment: 10:48 General: Appears in no apparent distress. uncomfortable, Behavior is cooperative, kh1 anxious. Pain: Complains of pain in abdomen Pain does not radiate. Pain currently is 10 out of 10 on a pain scale. at worst was 10 out of 10 on a pain scale. level that patient reports is acceptable is 3 out of 10 on a pain scale. Quality of pain is described as sharp. 10:48 Neuro: No deficits noted. Level of Consciousness is awake, alert, obeys commands, kh1 confused, Oriented to person, place, time, situation, Appropriate for age Gait is Speech is normal, Facial symmetry appears normal. GI: Abdomen is round distended, Abd is soft Abdomen is tender to palpation Reports lower abdominal pain, upper abdominal pain, nausea, vomiting. 13:12 Reassessment: Patient appears in no apparent distress at this time. No changes from [facility] previously documented assessment. Patient and/or family updated on plan of care and expected duration. Pain level reassessed. Patient is alert, oriented x 3, equal unlabored respirations, skin warm/dry/pink. 15:26 Reassessment: Patient appears in no apparent distress at this time. No changes from [facility] previously documented assessment. Patient and/or family updated on plan of care and expected duration. Pain level reassessed. Patient is alert, oriented x 3, equal unlabored respirations, skin warm/dry/pink. GI: No deficits noted. 16:30 Reassessment: Patient appears in no apparent distress at this time. No changes from [facility] previously documented assessment. Patient and/or family updated on plan of care and expected duration. Pain level reassessed. Patient is alert, oriented x 3, equal unlabored respirations, skin warm/dry/pink. 17:30 Reassessment: Patient appears in no apparent distress at this time. No changes from [facility] previously documented assessment. Patient and/or family updated on plan of care and expected duration. Pain level reassessed. Patient is alert, oriented x 3, equal unlabored respirations, skin warm/dry/pink. 20:00 Reassessment: Patient appears in no apparent distress at this time. Standing \\T\\ bedside cc4 urinating 350 ml clear yellow urine per urinal with no stated difficulty; reports feeling better \\T\\ present time; sinus tachycardia with VR 112 noted; BP 138/75; RR 20; T 98.4 oral; O2 sat 94% RA; abd distended with sluggish BS's auscultated x 4 quads of abd; IV NS patent/infusing left inner FA \\T\\ 75 ml/hr/pump with no s/sx's of infiltration/infection of site; NADN. 20:40 Reassessment: Report telephoned to Sunny Acuña RN \\T\\ [facility] in [place], [facility]; dial-a -flow added to IV NS primary line for transport via EMS to [place]; awaiting transport; v/u of transport; NADN. 21:27 Reassessment: Patient appears in no apparent distress at this time. Transferred to [address] via stretcher per [facility]; NADN.. Vital Signs: 10:00 BP 154 / 93; Pulse 130; Resp 20 S; Temp 98.4(O); Pulse Ox 96% on R/A; Weight 73.94 kg aa5 (R); Height 5 ft. 6 in. (167.64 cm) (R); 11:00 BP 113 / 65; Pulse 89; Resp 18; Pulse Ox 100% ; kh1 12:00 BP 150 / 99; Pulse 120; Resp 20; Temp 98.0(TE); Pulse Ox 100% ; kh1 14:00 BP 127 / 77; Pulse 101 MON; Resp 18 S; Pulse Ox 95% on R/A; kh1 15:00 BP 126 / 60; Pulse 81; Resp 20; Pulse Ox 100% on R/A; kh1 16:00 BP 141 / 88; Pulse 116; Resp 18; Pulse Ox 96% ; kh1 17:30 BP 134 / 68; Pulse 117; Resp 20; Pulse Ox 95% ; kh1 20:00 BP 138 / 75; Pulse 112; Resp 20; Temp 98.4(O); Pulse Ox 94% on R/A; 4 10:00 Body Mass Index 26.31 (73.94 kg, 167.64 cm) aa5 ED Course: 09:57 Patient arrived in ED. as 09:57 Timur Millan DO is Private Physician. as 10:07 July Huynh [facility]-C [facility] kb 10:07 Paxton Mendes MD is Attending Physician. kb 10:08 Arm band placed on Patient placed in an exam room, on a stretcher. aa5 10:09 Triage completed. aa5 10:14 Radha Templeton is Primary Nurse. kh1 10:42 Basic Metabolic Panel Sent. kh1 10:42 CBC with Diff Sent. kh1 10:42 Hepatic Function Sent. kh1 10:42 Lipase Sent. kh1 10:50 Patient has correct armband on for positive identification. Bed in low position. Call kh1 light in reach. Side rails up X 1. lehr cutter on. Pulse ox on. NIBP on. 12:41 CT Abd/Pelvis - IV Contrast Only In Process Unspecified. EDMS 13:56 Jose Young is Hospitalizing Provider. kb 15:22 initiated transfer to [facility]. bd 15:25 Lactate Sent. kh1 15:30 pt denied at [facility], no med surg,tele or icu beds at this time. bd 15:41 initiated transfer to [facility]. bd 20:00 No provider procedures requiring assistance completed. IV is patent, is intact, with cc4 fluids infusing freely. 21:27 Maintain EMS IV. Dressing intact. Site clean \\T\\ dry. Gauge \\T\\ site: #20 g angiocath/IV NS cc 4 \\T\\ 75ml/hr/dial-a-flow left inner forearm with no s/sx's of infiltration/infection.. Patient transferred, IV remains in place. Administered Medications: 10:41 Drug: NS 0.9% 1000 ml Route: IV; Rate: 1000 ml; Site: left forearm; kh1 10:41 Drug: Zofran (Ondansetron) 4 mg Route: IVP; Site: left forearm; kh1 10:41 Drug: morphine 4 mg Route: IVP; Site: left forearm; kh1 12:05 Drug: Pepcid (famotidine) 20 mg Route: IVP; Site: left forearm; kh1 12:05 Drug: SOLU-Medrol (methylPrednisoLONE) 125 mg Route: IVP; Site: left forearm; kh1 12:05 Drug: Benadryl (diphenhydrAMINE) 25 mg Route: IVP; Site: left forearm; kh1 13:04 Drug: morphine 4 mg Route: IVP; Site: left antecubital; kh1 15:25 Drug: Flagyl (metroNIDAZOLE) 500 mg Volume: 100 ml; Route: IVPB; Rate: 200 ml/hr; kh1 Infused Over: 30 mins; Site: left forearm; 15:25 Drug: NS 0.9% 1000 ml Route: IV; Rate: 75 ml/hr; Site: left forearm; kh1 16:15 Drug: Cipro (ciprofloxacin) 400 mg Volume: 200 ml; Route: IVPB; Infused Over: 60 mins; 1 Site: left forearm; 18:25 Drug: morphine 4 mg Route: IVP; Site: left forearm; kh1 18:25 Drug: Zofran (Ondansetron) 4 mg Route: IVP; Site: left forearm; [facility] Outcome: 13:56 Decision to Hospitalize by Provider. kb 17:17 ER care complete, transfer ordered by MD. kb 21:27 Transferred by ground EMS to [facility], Transfer form completed. cc4 21:27 Condition: stable 21:27 Instructed on the need for transfer, Demonstrated understanding of 21:33 Patient left the ED. cc4 Signatures: Dispatcher [employer] EDJuly Blackwell, ASSISTANT PURCHASING MANAGER-C ASSISTANT PURCHASING MANAGER-Ckb Leah Sanchez Amelia as Calderon, Audri, RN RN Radha Guerrero [facility] Janie Ware RN RN cc4 Corrections: (The following items were deleted from the chart) 15:29 11:00 BP 100 / 60; Pulse 81bpm; Resp 20bpm; Pulse Ox 100% RA; [place] [id number] 16:14 15:25 CORONAVIRUS+CHLOÉNeva drawn and sent. [facility] EDNY
[2021-03-31] MEDS ORDERED: CIPROFLOXACIN 400mg IV 400 MG/200 ML BAG IV ONE (15:29)
[2021-03-31] MEDS ORDERED: METRONIDAZOLE 500mg IVPB 500 MG/100 ML BAG IV ONE (15:30)
[2021-04-01 08:19] VITALS: BP 138/75; TEMP 98.4; O2SAT 94
== END 2021-03-31 21:33 | disposition short-term general hospital (02) ==
LOC: ER 09:56
DX: K56.7 Ileus, unspecified (principal); I70.90 Unspecified atherosclerosis; D72.829 Elevated white blood cell count, unspecified; I10 Essential (primary) hypertension; Z20.822 Contact with and (suspected) exposure to COVID-19; Z88.5 Allergy status to narcotic agent; Z88.8 Allergy status to other drugs, medicaments and biological substances
CPT/HCPCS: 85025; 80048; 36415; 80076; 83605 ×2; 83690; 74177; 99285; U0003; Q9967; J1200; J7030 ×2; J2930; J2405 ×2; J0744

== ENCOUNTER 2021-04-05 18:24 | Emergency (ER) | payer OTHER ==
[2021-04-05] MEDS ORDERED: METHYLPREDNISOLONE 125 MG INJ ONE (20:23)
[2021-04-05] MEDS ORDERED: DIPHENHYDRAMINE 50 MG/ML VIAL ONE ×2 (20:23→22:08)
[2021-04-05] MEDS ORDERED: MORPHINE 2 MG/ML SYR ONE (20:23)
[2021-04-05 20:24] LABS: Basophils % 0.2 % (0-1.3); Hematocrit 53.8 % (39.6-49.0); Lymphocytes % 6.6 % (15.3-44.8); MPV 7.3 fL (7.6-11.3)
[2021-04-05] MEDS ORDERED: FAMOTIDINE 20 MG/2 ML VIAL IV ONE (20:24)
[2021-04-05] MEDS ORDERED: NA CHLORIDE 0.9% 1,000 ML ONE ×2 (20:24→23:46)
[2021-04-05] MEDS ORDERED: ONDANSETRON 4 MG/2 ML VIAL ONE (20:24)
[2021-04-05 20:40] LABS: Albumin 4.2 g/dL (3.4-5.0); Bilirubin Direct 0.2 mg/dL (0-0.2); Bilirubin Total 0.9 mg/dL (0.2-1.0); Protein, Total 8.1 g/dL (6.4-8.2)
[2021-04-05 20:53] LABS: Platelet Estimate INCR; Platelets, Giant SEEN
[2021-04-05 20:54] LABS: Blood Morphology Comment NOT SEEN (NOT SEEN)
[2021-04-05] MEDS ORDERED: HYDROMORPHONE HCL 2 MG/ML inj ONE ×2 (21:13→23:23)
[2021-04-05] MEDS ORDERED: NA CHLORIDE 0.9% 100 ML ONE (22:20)
[2021-04-05] MEDS ORDERED: PIPERACIL/TAZO 3.375 GM VIAL IV ONE (22:20)
[2021-04-05 22:56] LABS: Urine Blood Negative (Negative); Urine Glucose Negative (Negative); Urine Protein Negative (Negative)
[2021-04-06 00:52] LABS: Protime INR 1.36
--- NOTE | 2021-04-06 02:00 | ER ---
Nurse's Notes [facility] Name: Carlos Alberto Astorga Age: 71 yrs Sex: Male : 1950 Arrival Date: 04/05/2021 Time: 18:25 Bed 19 Private MD: Diagnosis: Upper abdominal pain, unspecified-Possible Mesenteric Ischemia;Nausea with vomiting, unspecified Presentation: 04/05 18:59 Chief complaint: Severe upper abdominal pain x 2 days, recently inpatient at [facility] for hb ileus. Coronavirus screen: At this time, the client does not indicate any symptoms associated with coronavirus-19. Ebola Screen: No symptoms or risks identified at this time. Initial Sepsis Screen: Does the patient meet any 2 criteria? No. Patient's initial sepsis screen is negative. Does the patient have a suspected source of infection? No. Patient's initial sepsis screen is negative. Risk Assessment: Do you want to hurt yourself or someone else? Patient reports no desire to harm self or others. Onset of symptoms was April 04, 2021. 18:59 Method Of Arrival: Wheelchair hb 18:59 Acuity: MONIKA 3 hb Historical: - Allergies: 19:00 Codeine; hb 19:00 Iodinated Contrast Media - IV Dye (Hives); hb 19:00 Lotensin; hb - PMHx: 19:00 COPD; Hypertension; Pneumonia; hb - PSHx: 19:00 colon resection; Perforated colon repair; hb - Immunization history:: Client reports receiving the 2nd dose of the Covid vaccine, Flu vaccine is up to date. - Social history:: Smoking status: Patient denies any tobacco usage or history of. Screenin:10 Abuse screen: Denies threats or abuse. Denies injuries from another. Nutritional bs2 screening: No deficits noted. Tuberculosis screening: No symptoms or risk factors identified. Fall Risk None identified. Assessment: 19:10 General: Appears in no apparent distress. uncomfortable, well groomed, well developed, bs2 well nourished, Behavior is calm, cooperative, appropriate for age. Pain: Complains of pain in paraumbilical area and left upper quadrant and right upper quadrant and epigastric area Pain currently is 10 out of 10 on a pain scale. Pain began gradually, 1 day ago. Neuro: No deficits noted. Cardiovascular: No deficits noted. Respiratory: Respiratory pattern is tachypnea. GI: Bowel sounds hypoactive in right upper quadrant, left upper quadrant, right lower quadrant and left lower quadrant Abd is soft X 4 quads Abdomen is tender to palpation in umbilical area, right upper quadrant and left upper quadrant Reports upper abdominal pain, constipation. : No signs and/or symptoms were reported regarding the genitourinary system. EENT: No signs and/or symptoms were reported regarding the EENT system. Derm: No signs and/or symptoms reported regarding the dermatologic system. Vital Signs: 18:59 BP 106 / 69; Pulse 96; Resp 20; Temp 98.1; Pulse Ox 100% on R/A; Pain 10/10; hb 20:00 BP 127 / 83; Pulse 97; Resp 22; Pulse Ox 100% on R/A; bs2 21:00 BP 137 / 78; Pulse 83; Resp 24; Pulse Ox 100% on R/A; bs2 22:00 BP 138 / 70; Pulse 94; Resp 24; Temp 97.9(O); Pulse Ox 100% ; bs2 23:00 BP 119 / 83; Pulse 94; Resp 19; Pulse Ox 100% ; bs2 10 00:00 BP 118 / 72; Pulse 92; Resp 15; Pulse Ox 100% ; bs2 01:00 BP 100 / 70; Pulse 89; Resp 19; Pulse Ox 96% on R/A; bs2 02:00 BP 110 / 72; Pulse 85; Resp 19; Temp 98.4; Pulse Ox 100% ; bs2 ED Course: 04/05 18:25 Patient arrived in ED. as 19:00 Triage completed. hb 19:00 Arm band placed on. hb 19:06 Odilon Acosta MD is Attending Physician. mh7 19:10 Patient has correct armband on for positive identification. Placed in gown. Bed in low bs2 position. Call light in reach. Side rails up X 1. monitoring and evaluation advisor on. Pulse ox on. NIBP on. Door closed. Warm blanket given. Pillow given. 19:10 Inserted saline lock: 20 gauge in right hand, using aseptic technique. bs2 19:45 Ashley Prasad, RN is Primary Nurse. bs2 20:10 Basic Metabolic Panel Sent. bs2 20:10 CBC with Diff Sent. bs2 20:10 Hepatic Function Sent. bs2 20:10 Lipase Sent. bs2 20:10 No provider procedures requiring assistance completed. Inserted saline lock: 20 gauge bs2 in left antecubital area, using aseptic technique. Blood collected. 21:45 Blood Culture Adult (2) Sent. bs2 22:42 Chest Single View XRAY In Process Unspecified. EDMS 22:43 Angio Aorta For Dissection In Process Unspecified. EDMS 04/06 00:19 Protime (+inr) Sent. bs2 00:20 COVID-19 : Document "Date of Symptom Onset" if Symptomatic. Sent. bs2 00:31 Ptt, Activated Sent. bs2 00:31 Lactate Sent. bs2 00:51 Initiated transfer at [facility] with Kaylee Barker. tt3 01:01 Called to update Kaylee and inform her Dr. Acosta was requesting to speak to the tt3 surgeon. 01:14 Kaylee called back with their surgeon to consult with Dr. Acosta regarding the tt3 transfer request. 01:47 Kaylee called back with Dr. Samuels, the hospitalist to consult with Dr. Acosta tt3 regarding the transfer request. 02:04 Kaylee gave admin approval. The accepting physician is Dr. Samuels. The pt is going tt3 to [facility] to Room 1605. Nurse to call report to or [phone]. 02:47 Patient transferred, IV remains in place. bs2 Administered Medications: 04/05 20:09 Drug: Pepcid (famotidine) 20 mg Route: IVP; Site: right hand; bs2 21:45 Follow up: Response: No adverse reaction bs2 20:09 Drug: Benadryl (diphenhydrAMINE) 25 mg Route: IVP; Site: right hand; bs2 21:45 Follow up: Response: No adverse reaction bs2 20:09 Drug: SOLU-Medrol (methylPrednisoLONE) 125 mg Route: IVP; Site: right hand; bs2 21:45 Follow up: Response: No adverse reaction bs2 20:10 Drug: NS 0.9% 1000 ml Route: IV; Rate: 1000 ml; Site: right hand; bs2 21:50 Follow up: IV Status: Completed infusion; IV Intake: 1000ml bs2 20:10 Drug: morphine 2 mg Route: IVP; Site: right hand; bs2 21:46 Follow up: Response: Adverse reaction, Physician notified; Adverse reaction, Physician bs2 notifiedm pt had red hives and itching on RT arm, IV was located posterior RT wrist and rash with itching developed on the entire circumfrence of RT arm from Wrist to upper arm. Benadryl was given immediately after rash finally resolved about 45 min later. 20:10 Drug: Zofran (Ondansetron) 4 mg Route: IVP; Site: right hand; bs2 21:46 Follow up: Response: No adverse reaction bs2 21:18 Drug: Dilaudid (HYDROmorphone) 0.5 mg Route: IVP; Site: right wrist; bs2 22:15 Follow up: Response: No adverse reaction; Pain is decreased bs2 21:44 Drug: Benadryl (diphenhydrAMINE) 25 mg Route: IVP; Site: left antecubital; bs2 23:05 Follow up: Response: No adverse reaction bs2 22:49 Drug: Zosyn (piperacillin-tazobactam) 3.375 grams Route: IVPB; Infused Over: 60 mins; bs2 Site: right hand; 23:51 Follow up: IV Status: Completed infusion; IV Intake: 100ml bs2 23:05 Drug: Dilaudid (HYDROmorphone) 0.5 mg Route: IVP; Site: right wrist; bs2 04/06 00:19 Follow up: Response: No adverse reaction; Pain is decreased bs2 04/05 23:38 Drug: NS 0.9% 1000 ml Route: IV; Rate: 100 ml/hr; Site: right hand; bs2 04/06 02:49 Follow up: IV Status: Infusion continued upon transfer bs2 02:15 Drug: Dilaudid (HYDROmorphone) 0.5 mg Route: IVP; Site: right hand; bs2 02:29 Follow up: Response: No adverse reaction; Pain is decreased bs2 Intake: 04/05 21:50 IV: 1000ml; Total: 1000ml. bs2 23:51 IV: 100ml; Total: 1100ml. bs2 Outcome: 04/06 01:59 ER care complete, transfer ordered by MD. martini 02:46 Transferred by ground EMS to [facility], [facility] [place], Transfer form completed. bs2 X-rays sent w/ patient. 02:46 Condition: stable 02:46 Discharge instructions given to patient, significant other, Instructed on the need for transfer. 03:03 Patient left the ED. bs2 Signatures: Dispatcher [employer] Laine Hernandes Heather, RN RN Odilon Acosta MD MD 7 Skip Urias 3 Ashley Prasad RN RN bs2
--- NOTE | 2021-04-06 02:00 | EDPHYS ---
Physician Documentation [facility] Name: Carlos Alberto Astorga Age: 71 yrs Sex: Male : 1950 Arrival Date: 04/05/2021 Time: 18:25 Bed 19 Private MD: ED Physician Odilon Acosta HPI: 04/05 19:30 This 71 yrs old Male presents to ER via Wheelchair with complaints of mh7 Abdominal Pain - ileus. 19:30 The patient presents with abdominal pain in the upper abdomen. Onset: The mh7 symptoms/episode began/occurred 5 day(s) ago. The symptoms do not radiate. 19:30 Associated signs and symptoms: Pertinent positives: nausea and vomiting, Pertinent mh7 negatives: anorexia, blood in stools, chest pain, constipation, diarrhea, dysuria, fever, headache, hematuria, palpitations, shortness of breath, testicular pain, vomiting blood. 19:30 The symptoms are described as intermittent, vague, waxing/waning. Modifying factors: mh7 The symptoms are alleviated by nothing, the symptoms are aggravated by nothing. Severity of pain: At its worst the pain was moderate 2 day(s) ago, in the emergency department the pain is unchanged despite home interventions. The patient has been recently seen at the [facility], last week. Historical: - Allergies: 19:00 Codeine; hb 19:00 Iodinated Contrast Media - IV Dye (Hives); hb 19:00 Lotensin; hb - PMHx: 19:00 COPD; Hypertension; Pneumonia; hb - PSHx: 19:00 colon resection; Perforated colon repair; hb - Immunization history:: Client reports receiving the 2nd dose of the Covid vaccine, Flu vaccine is up to date. - Social history:: Smoking status: Patient denies any tobacco usage or history of. ROS: 19:30 Constitutional: Negative for fever, chills, and weight loss, Eyes: Negative for injury, mh7 pain, redness, and discharge, ENT: Negative for injury, pain, and discharge, Neck: Negative for injury, pain, and swelling, Cardiovascular: Negative for chest pain, palpitations, and edema, Respiratory: Negative for shortness of breath, cough, wheezing, and pleuritic chest pain, Back: Negative for injury and pain, : Negative for injury, bleeding, discharge, and swelling, MS/Extremity: Negative for injury and deformity, Skin: Negative for injury, rash, and discoloration, Neuro: Negative for headache, weakness, numbness, tingling, and seizure, Psych: Negative for depression, anxiety, suicide ideation, homicidal ideation, and hallucinations, Allergy/Immunology: Negative for hives, rash, and allergies, Endocrine: Negative for neck swelling, polydipsia, polyuria, polyphagia, and marked weight changes, Hematologic/Lymphatic: Negative for swollen nodes, abnormal bleeding, and unusual bruising. Exam: 19:30 Head/Face: Normocephalic, atraumatic. Eyes: Pupils equal round and reactive to light, mh7 extra-ocular motions intact. Lids and lashes normal. Conjunctiva and sclera are non-icteric and not injected. Cornea within normal limits. Periorbital areas with no swelling, redness, or edema. Neck: Trachea midline, no thyromegaly or masses palpated, and no cervical lymphadenopathy. Supple, full range of motion without nuchal rigidity, or vertebral point tenderness. No Meningismus. Chest/axilla: Normal chest wall appearance and motion. Nontender with no deformity. No lesions are appreciated. Cardiovascular: Regular rate and rhythm with a normal S1 and S2. No gallops, murmurs, or rubs. Normal PMI, no JVD. No pulse deficits. Respiratory: Lungs have equal breath sounds bilaterally, clear to auscultation and percussion. No rales, rhonchi or wheezes noted. No increased work of breathing, no retractions or nasal flaring. 19:30 Back: No spinal tenderness. No costovertebral tenderness. Full range of motion. Skin: Warm, dry with normal turgor. Normal color with no rashes, no lesions, and no evidence of cellulitis. MS/ Extremity: Pulses equal, no cyanosis. Neurovascular intact. Full, normal range of motion. Neuro: Awake and alert, GCS 15, oriented to person, place, time, and situation. Cranial nerves II-XII grossly intact. Motor strength 5/5 in all extremities. Sensory grossly intact. Cerebellar exam normal. Normal gait. Psych: Awake, alert, with orientation to person, place and time. Behavior, mood, and affect are within normal limits. 19:30 Constitutional: The patient appears in no acute distress, alert, awake, uncomfortable. 19:30 Abdomen/GI: Inspection: scar(s), are noted in the epigastric area, Bowel sounds: normal, in all quadrants, Palpation: moderate abdominal tenderness, in the epigastric area, right upper quadrant and left upper quadrant, mass, is not appreciated, rebound tenderness, is not appreciated, voluntary guarding, is not appreciated, involuntary guarding, is not appreciated, no appreciated organomegaly, Rectal exam: the exam is deferred, because of patient request, Indicators: McBurney's point is not tender, Hernandez's sign is negative, Rovsing's sign is negative, Obturator sign is negative, Psoas sign is negative, Liver: no appreciated palpable abnormalities, Hernia: noted in the paraumbilical area, incarceration, is not appreciated, tenderness, is not appreciated. Vital Signs: 18:59 BP 106 / 69; Pulse 96; Resp 20; Temp 98.1; Pulse Ox 100% on R/A; Pain 10/10; hb 20:00 BP 127 / 83; Pulse 97; Resp 22; Pulse Ox 100% on R/A; bs2 21:00 BP 137 / 78; Pulse 83; Resp 24; Pulse Ox 100% on R/A; bs2 22:00 BP 138 / 70; Pulse 94; Resp 24; Temp 97.9(O); Pulse Ox 100% ; bs2 23:00 BP 119 / 83; Pulse 94; Resp 19; Pulse Ox 100% ; bs2 10/03 00:00 BP 118 / 72; Pulse 92; Resp 15; Pulse Ox 100% ; bs2 01:00 BP 100 / 70; Pulse 89; Resp 19; Pulse Ox 96% on R/A; bs2 02:00 BP 110 / 72; Pulse 85; Resp 19; Temp 98.4; Pulse Ox 100% ; bs2 MDM: 01:56 Differential diagnosis: bowel obstruction, diverticulitis, Mesenteric ischemia or mh7 infarction, non-specific abd pain, pancreatitis, Peptic Ulcer Disease. Data reviewed: vital signs, nurses notes. Data interpreted: Pulse oximetry: on room air is 100 %. Interpretation: normal. Counseling: I had a detailed discussion with the patient and/or guardian regarding: the historical points, exam findings, and any diagnostic results supporting the discharge/admit diagnosis, lab results, radiology results, the need to transfer to another facility, [facility] does not immediately have the required specialist. Response to treatment: the patient's symptoms have mildly improved after treatment. 01:59 Patient medically screened. [facility] 04/05 19:45 Order name: Basic Metabolic Panel; Complete Time: 20:50 [facility] 04/05 19:45 Order name: CBC with Diff; Complete Time: 20:56 [facility] 04/05 19:45 Order name: Hepatic Function; Complete Time: 20:50 [facility] 04/05 19:45 Order name: Lipase; Complete Time: 20:50 [facility] 04/05 20:30 Order name: Manual Differential; Complete Time: 20:56 [facility] 04/05 20:51 Order name: Blood Culture Adult (2) [facility] 04/05 21:31 Order name: COVID-19 : Document "Date of Symptom Onset" if Symptomatic. lp1 04/05 21:32 Order name: Lactate; Complete Time: 01:10 [facility] 04/05 22:56 Order name: Urine Dipstick-Ancillary; Complete Time: 23:24 [facility] 04/05 23:24 Order name: Protime (+inr); Complete Time: 01:04 [facility] 04/05 23:24 Order name: Ptt, Activated; Complete Time: 01:04 [facility] 04/06 00:31 Order name: SARS-COV-2 RT PCR; Complete Time: 00:41 [facility] 04/05 20:41 Order name: Angio Aorta For Dissection [facility] 04/05 21:31 Order name: Chest Single View XRAY [facility] 04/05 19:45 Order name: IV Saline Lock; Complete Time: 20:10 [facility] 04/05 19:45 Order name: Labs collected and sent; Complete Time: 20:10 [facility] 04/05 19:45 Order name: Urine Dipstick-Ancillary (obtain specimen); Complete Time: 00:20 [facility] Administered Medications: 04/05 20:09 Drug: Pepcid (famotidine) 20 mg Route: IVP; Site: right hand; bs2 21:45 Follow up: Response: No adverse reaction bs2 20:09 Drug: Benadryl (diphenhydrAMINE) 25 mg Route: IVP; Site: right hand; bs2 21:45 Follow up: Response: No adverse reaction bs2 20:09 Drug: SOLU-Medrol (methylPrednisoLONE) 125 mg Route: IVP; Site: right hand; bs2 21:45 Follow up: Response: No adverse reaction bs2 20:10 Drug: NS 0.9% 1000 ml Route: IV; Rate: 1000 ml; Site: right hand; bs2 21:50 Follow up: IV Status: Completed infusion; IV Intake: 1000ml bs2 20:10 Drug: morphine 2 mg Route: IVP; Site: right hand; bs2 21:46 Follow up: Response: Adverse reaction, Physician notified; Adverse reaction, Physician bs2 notifiedm pt had red hives and itching on RT arm, IV was located posterior RT wrist and rash with itching developed on the entire circumfrence of RT arm from Wrist to upper arm. Benadryl was given immediately after rash finally resolved about 45 min later. 20:10 Drug: Zofran (Ondansetron) 4 mg Route: IVP; Site: right hand; bs2 21:46 Follow up: Response: No adverse reaction bs2 21:18 Drug: Dilaudid (HYDROmorphone) 0.5 mg Route: IVP; Site: right wrist; bs2 22:15 Follow up: Response: No adverse reaction; Pain is decreased bs2 21:44 Drug: Benadryl (diphenhydrAMINE) 25 mg Route: IVP; Site: left antecubital; bs2 23:05 Follow up: Response: No adverse reaction bs2 22:49 Drug: Zosyn (piperacillin-tazobactam) 3.375 grams Route: IVPB; Infused Over: 60 mins; bs2 Site: right hand; 23:51 Follow up: IV Status: Completed infusion; IV Intake: 100ml bs2 23:05 Drug: Dilaudid (HYDROmorphone) 0.5 mg Route: IVP; Site: right wrist; bs2 04/06 00:19 Follow up: Response: No adverse reaction; Pain is decreased bs2 04/05 23:38 Drug: NS 0.9% 1000 ml Route: IV; Rate: 100 ml/hr; Site: right hand; bs2 04/06 02:49 Follow up: IV Status: Infusion continued upon transfer bs2 02:15 Drug: Dilaudid (HYDROmorphone) 0.5 mg Route: IVP; Site: right hand; bs2 02:29 Follow up: Response: No adverse reaction; Pain is decreased bs2 Disposition Summary: 04/06/21 01:59 Transfer Ordered Transfer Location: [place] [address] Reason: Higher level of care mh7 Condition: Fair mh7 Problem: an ongoing problem mh7 Symptoms: have improved mh7 Accepting Physician: Dr. Samuels(04/06/21 03:03) bs2 Diagnosis - Upper abdominal pain, unspecified - Possible Mesenteric Ischemia mh7 - Nausea with vomiting, unspecified mh7 Forms: - Medication Reconciliation Form 7 - SBAR form 7 Signatures: Dispatcher [employer] EDMS Cristian Wild, PHYTOCHEMISTRY PROFESSOR-C PHYTOCHEMISTRY PROFESSOR-Cla1 Sophia Landin, RN RN Odilon Acosta MD MD 7 Ashley Prasad RN RN bs2 Corrections: (The following items were deleted from the chart) 04/05 20:35 19:49 Abdomen Pelvis W Con+CT.RAD.BRZ ordered. EDMS EDMS 20:41 20:06 Abdomen Angio+CT.RAD.BRZ ordered. EDMS EDMS 21:32 21:32 CORONAVIRUS+MR.LAB.BRZ ordered. EDMS EDMS 23:26 21:31 CORONAVIRUS ordered. EDMS EDMS 04/06 03:03 01:59 Dr. Samuels 7 bs2
[2021-04-06 03:25] VITALS: BP 110/72; TEMP 98.4; O2SAT 100
[2021-04-06] MEDS ORDERED: HYDROMORPHONE HCL 2 MG/ML inj ONE (04:07)
--- NOTE | 2021-04-06 07:58 | RAD REPORT ---
EXAM DESCRIPTION: RAD - Chest Single View - 04/05/2021 10:42 pm CLINICAL HISTORY: COUGH COMPARISON: CHEST PA AND LAT 2 VIEW dated 09/16/2015; CHEST SINGLE VIEW dated 07/04/2014; CHEST PA AN D LAT 2 VIEW dated 01/20/2013; CHEST PA AND LAT 2 VIEW dated 01/20/2012; Angio Aorta For Dissection da ria 04/05/2021 FINDINGS: Lines: None. Lungs: Increasing ill-defined opacities in the right mid lung and lung base. Calcified right upper lo be nodule. Pleural: No significant pleural effusions or pneumothorax. Cardiac: The heart size is within normal limits. Bones: No acute fractures. Other: IMPRESSION: Mild increased nonspecific reticulonodular opacities in the right lung could reflect a m ild or developing pneumonia.
--- NOTE | 2021-04-07 11:50 | RAD REPORT ---
EXAM DESCRIPTION: CT - Angio Aorta For Dissection - 04/06/2021 6:01 am CLINICAL HISTORY: 71 years, Male, ABD PAIN COMPARISON: 01/28/2021. TECHNIQUE: Multiple transaxial tomograms from the thoracic and abdominal aorta from the lung apex to the ischial tuberosities performed after the administration of large bolus of IV contrast for comple te opacification of the thoracic, abdominal aorta and iliac arteries utilizing 3 mm slice thickness a t 3 mm interval reconstruction. 2-D and 3-D multiplanar reformats, volume rendering technique and maximum intensity projection images were generated and reviewed. This exam was performed according to our departmental dose-optimization protocol, which includes auto mated exposure control, adjustment of the mA and/or kV according to patient size and/or use of iterat lawrence reconstruction technique. FINDINGS: Thoracic aorta: The thoracic aorta demonstrate intimal aortic calcification at the ascending aorta, aortic arch and d escending portion. There is no evidence for dissection and/or significant aneurysm. The ascending por tion measured 3.5 x 3.5 cm on image 55, the aortic arch measured 2.7 cm on image 34, the descending p ortion measured 2.8 x 2.9 cm on image 59. The aortic arch demonstrate minimal intimal calcification a t the origin of the great vessels with no evidence for significant proximal stenosis/or occlusion. Abdominal aorta: The abdominal aorta demonstrate atherosclerotic disease with the soft plaque. The thoracoabdominal ju nction measured 2.9 x 3 cm on image 92 the proximal aspect measured 2.1 x 2.2 cm, the midportion gutierrez ured 1.7 x 1.7 cm, the distal portion measured 2.5 x 2.4 cm on image 120. The left common iliac artery measured 1.6 cm on image 149, the right common iliac artery is markedly decreased in caliber measuring 0.5 cm on image 148 corresponding to at least a 50% stenosis. There is significant atheromatous plaque formation internal iliac arteries with significant focal are as of stenosis. The celiac trunk at its origin demonstrate significant atheromatous plaque formation an/or stenting w ith the focus of greater than 50% stenosis on image 99 and post stenotic dilatation. 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 There is occlusion o f the inferior mesenteric artery. There are single bilateral renal arteries with the ostial lesions and questionable significant stenos is right renal artery. Chest: The lung parenchyma demonstrate the presence of centrilobular emphysematous changes throughout . Calcified granuloma right upper lobe on image 51. Minimal dependent atelectatic changes lung bases. The trachea mainstem bronchus demonstrate to be unremarkable. There is no pleural/or pericardial eff usions. The heart is normal in size. There are coronary artery calcifications. There is no significan t mediastinal and/or hilar lymphadenopathy. The axillary regions demonstrate to be clear. The bone wi ndows demonstrate deformity of the posterior lower right ribs corresponding to old healed fractures. Abdomen and pelvis: The liver, gallbladder, spleen, adrenal glands, pancreas demonstrate to be unrema rkable. The kidneys demonstrate normal uptake of contrast media. There is no evidence for nephrolithiasis and /or hydronephrosis The opacified stomach demonstrate to be well distended with no gross abnormalities. There are fluid-f illed large bowel. Mild prominence of small bowel loops within the right flank. No definitive mucosal abnormality and/or enhancement could be identified. The urinary bladder is normal. The prostate gland is unremarkable. There is no evidence for ascites . There is no evidence for lymphadenopathy. The bone windows demonstrate to be unremarkable. There is a anterior superior abdominal wall hernia containing omentum on image [id number]. IMPRESSION: Atherosclerotic disease of the thoracic aorta and abdominal aorta. No evidence for significant aneurysm and/or dissection of the thoracic aorta. 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 Recommend follow-up every 3 years. Reference: J Am Co ll Radiol 2013;10:789-794. 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 There is significant atheromatous plaque formation internal iliac arteries with significant focal are as of stenosis. There is a anterior superior abdominal wall hernia containing omentum. Centrilobular emphysematous changes throughout the lung parenchyma. Dilated small bowel loops and fluid-filled large bowel. In light of the patient's significant atheros clerotic disease of the visceral branches possibility of early changes of mesenteric ischemia cannot be totally excluded. Correlate clinically. Electronically signed by: Cuco Wallace MD 04/05/2021 11:09 PM CDT Due to temporary technical issues with the PACS/Fluency reporting system, reports are being signed by the in house radiologist without review as a courtesy to ensure prompt reporting. The interpreting r adiologist is fully responsible for the content of the report.
== END 2021-04-06 03:03 | disposition short-term general hospital (02) ==
LOC: ER 18:24
DX: R10.10 Upper abdominal pain, unspecified (principal); R11.2 Nausea with vomiting, unspecified; Z88.6 Allergy status to analgesic agent; Z91.09 Other allergy status, other than to drugs and biological substances; Z88.8 Allergy status to other drugs, medicaments and biological substances; Z20.822 Contact with and (suspected) exposure to COVID-19
CPT/HCPCS: 87040 ×2; 85025; 80048; 36415; 85610; 80076; 83605; 85730; 81003; 83690; 71275; 74175; 71045; 99285; U0003; Q9967; J1200 ×2; J2543; J1170 ×3; J2270; J7030 ×2; J2930; J2405

== ENCOUNTER 2022-03-25 08:37 | Emergency (ER) | payer OTHER ==
--- OUTSIDE RECORDS SUMMARY | 2022-03-25 08:46 | XMS REPORT | Continuity of Care Document ---
:1950 Author Organization [facility] t Address [address] [place] [address] Care Team Providers Name Role Phone No, Pcp [facility] Primary Care Physician Unavailable Timur Millan Attending Clinician Unavailable Nilda Mills Attending Clinician Unavailable DANYELL WALLACE Attending Clinician Unavailable Kimmy Samuels MD Attending Clinician [phone] Radha Christine MD Attending Clinician RADHA CHRISTINE Attending Clinician Unavailable New Barber MD Attending Clinician Raffy Cowan MD Attending Clinician [phone] Danyell Wallace MD Attending Clinician Brijesh Rahman MD Attending Clinician Heather Soto MD Attending Clinician Tim-Mbayo_A_AH Attending Clinician Unavailable DANYELL WALLACE Admitting Clinician Unavailable KIMMY SAMUELS Admitting Clinician Unavailable ANABELLE HOPKINS Admitting Clinician Unavailable Tim-Mbayo_A_AH Admitting Clinician Unavailable Payers Payer Name Policy Type Policy Number Effective Date Expiration Date [facility] [id number] 2021 00:00:00 [facility] [id number] 2019 TEXTEDDY 00:00:00 (MEDICARE REPLACEMENT/ADVANT AGE - HMO) Problems Condition Condition Condition Status Onset Resolution Last Treating Co mments Source Name Details Category Date Date Treatment Clinician Date Mesenteric Mesenteric Disease Active 2020-[address] ischemia ischemia [facility] 00 [place] Depression Depression Disease Active 2020-[address] , , 0-03 [facility] unspecifie unspecifie 00:00: Me dical d d 00 Center depression depression type type History of History of Disease Active 2020-[address] intravascu intravascu 0-03 [facility] kes lar stent lar stent 00:00: Medi kenney placement placement 00 Cent er Hyperlipid Hyperlipid Disease Active 2020-[address] emia, emia, 0-03 [facility] unspecifie unspecifie 00:00: Me dical d d 00 Center hyperlipid hyperlipid emia type emia type Hypertensi Hypertensi Disease Active 2020-[address] on on 0-03 [facility] 00:[facility]: Medical 00 [place] JENNIFER (acute JENNIFER (acute Disease Active 2020-[address] kidney kidney 0-03 [facility] injury) injury) 00:00: Medical 00 [place] Ileus Ileus Disease Active [facility] 00 [place] Abdominal Abdominal Disease Active [facility] pain pain 9-28 [facility] 00:[facility]: Medical 00 Center Allergies, Adverse Reactions, Alerts Allergy Allergy Status Severity Reaction(s) Onset Inactive Treating Comm ents Source Name Type Date Date Clinician EPILOBIU Allergy Active 2020-[address] [facility] 0-05 [facility] ANGUSTIF 00:00: Medical OLIUM 00 Center Epilobiu Propensi Active 2020-[address] [facility] m ty to 0-05 [facility] Angustif adverse 00:00: Medical olium reaction 00 Center s CODEINE Allergy Active High Hives [facility] Center IODINE Allergy Active High Hives [facility] 00:[facility] Medical 00 Center BENAZEPR Allergy Active [facility] [place] [facility] 00[facility] Medical 00 Center Iodine Propensi Active Hives [facility] ty to 9-27 [facility] adverse 00:00: Medical reaction 00 Center s Benazepr Propensi Active [facility] to 9-27 [facility] adverse 00:00: Medical reaction 00 Center s Codeine Propensi Active Hives [facility] ty to 9-27 [facility] adverse 00:00: Medical reaction 00 [place] s codeine Adverse Active Info Not Common Reaction Available Spiri t - [facility] Family History Family Member Diagnosis Comments Start Date Stop Date Source Natural father No Known Problem [facility] Natural mother No Known Problem [facility] Social History Social Habit Start Date Stop Date Quantity Comments Source Tobacco use and 2021-04-06 2021-04-[address] [facility] exposure 00:00:00 00:00:00 [facility] Center Sex Assigned At [address] [facility] 00:00:00 00:00:00 [facility] Center Medications Ordered Filled Start Stop Current Ordering Indication Dosage Frequency Signature Comments Components Source Medication Medication Date Date Medication? Clinician (SIG) Name Name zinc 2020-07 Yes 50mg QD Take [address] [facility] gluconate 0-13 by mouth [facility] 50 mg 15:05: daily. Medical tablet 45 [place] zinc 2020-07 Yes 50mg QD Take [address] gluconate 0-13 by mouth [facility] 50 mg 15:05: daily. Medical tablet 45 [place] aspirin 81 2020-07 No 81mg QD Take [address] [facility] MG chewable 0-13 - tablet (81 L [facility]kes tablet 00:00: 23:59 mg total) Medic al 00 :00 by mouth Center daily for 90 days. pantoprazol 2020-07 No 40mg QD Take [address] [facility] e 0-13 -11 tablet (40 [facility] (PROTONIX) 00:00: 23:59 mg total) M edical 40 MG 00 :00 by mouth Center tablet daily for 90 days. tamsulosin 2020-07 No .4mg QD Take [address] [facility] [address] (FLOMAX) 0-13 -11 capsule [facility] 0.4 mg Cap 00:00: 23:59 (0.4 mg Med ical 24 hr 00 :00 total) by Center capsule mouth daily for 90 days. aspirin 81 2020-07 81mg QD Take [address] [facility] [address] MG chewable 0-07-15 tablet (81 L ukes tablet 00:00: 23:59 mg total) Medic al 00 :00 by mouth Center daily for 90 days. pantoprazol 2020-07 40mg QD Take [address] [facility] e -07-15 tablet (40 [facility] (PROTONIX) 00:00: 23:59 mg total) M edical 40 MG 00 :00 by mouth Center tablet daily for 90 days. tamsulosin 2020-07 .4mg QD Take [address] (FLOMAX) 07-15 capsule [facility] 0.4 mg Cap 00:00: 23:59 (0.4 mg Med ical 24 hr 00 :00 total) by Center capsule mouth daily for 90 days. HYDROcodone 2020-07 No 1{tbl} Take [address] -acetaminop 0-13 10-23 tablet by Maryse antony (NORCO 00:00: 23:59 mouth Medic al 5-325) 00 :00 every 6 Center 5-325 mg (six) per tablet hours as needed for up to 10 days. Max Daily Amount: 4 tablets HYDROcodone 2020-07 1{tbl} Take [address] -acetaminop 0-13 10-23 tablet by Maryse antony (NORCO 00:00: 23:59 mouth Medic al 5-325) 00 :00 every 6 Center 5-325 mg (six) per tablet hours as needed for up to 10 days. Max Daily Amount: 4 tablets lisinopril- No 1{tbl} QD Take [address] hydroCHLORO 9-30 09-30 tablet by Maryse rush thiazide 08:40: 00:00 mouth Medical (PRINZIDE,Z 20 :00 daily. Center ESTORETIC) 20-12.5 mg per tablet buPROPion No 150mg QD Take [address] (WELLBUTRIN 9-30 09-30 mg by Luadri XL) 150 MG 08:40: 00:00 mouth Medic al 24 hr 20 :00 daily. Center tablet pravastatin No 40mg QD Take [address] (PRAVACHOL) 04-03 by mouth Latoya es 40 MG 08:40: 00:00 daily. Medical tablet 20 :00 [place] clopidogreL No 75mg QD Take [address] (PLAVIX) 75 04-03 by mouth Latoya es mg tablet 08:40: 00:00 daily. Medic al 20 :00 [place] lisinopril- No 1{tbl} QD Take [address] hydroCHLORO 04-03 tablet by Maryse rush thiazide 08:40: 00:00 mouth Medical (PRINZIDE,Z 20 :00 daily. [place] ESTORETIC) 20-12.5 mg per tablet buPROPion No 150mg QD Take [address] (WELLBUTRIN 04-0330 mg by [facility] XL) 150 MG 08:40: 00:00 mouth Medic al 24 hr 20 :00 daily. [place] tablet pravastatin No 40mg QD Take [address] (PRAVACHOL) 04-03 by mouth Latoya es 40 MG 08:40: 00:00 daily. Medical tablet 20 :00 [place] clopidogreL No 75mg QD Take [address] (PLAVIX) 75 04-03 by mouth Latoya es mg tablet 08:40: 00:00 daily. Medic al 20 :00 [place] buPROPion Yes 150mg QD Take 1 [facility] (WELLBUTRIN 9-30 tablet [facility] XL) 150 MG 00:00: (150 mg Medi kenney 24 hr 00 total) by Center tablet mouth daily. buPROPion Yes 150mg QD Take 1 [facility] (WELLBUTRIN 9-30 tablet [facility] XL) 150 MG 00:00: (150 mg Medi kenney 24 hr 00 total) by Center tablet mouth daily. metoprolol No 50mg QD Take [address] succinate 04-03 tablet (50 Latoya es (TOPROL-XL) 00:00: 23:59 mg total) Medical 50 MG 24 hr 00 :00 by mouth Cent er tablet daily for 90 days. clopidogreL No 75mg QD Take [address] (PLAVIX) 75 04-03-29 tablet (75 L ukes mg tablet 00:00: 23:59 mg total) Me dical 00 :00 by mouth Center daily for 90 days. pravastatin 2020- No 40mg QD Take [address] (PRAVACHOL) 04-03- tablet (40 L ukes 40 MG 00:00: 23:59 mg total) Medica l tablet 00 :00 by mouth Center daily for 90 days. metoprolol 2020- No 50mg QD Take [address] succinate 04-03- tablet (50 Latoya es (TOPROL-XL) 00:00: 23:59 mg total) Medical 50 MG 24 hr 00 :00 by mouth Cent er tablet daily for 90 days. clopidogreL 2020- No 75mg QD Take [address] (PLAVIX) 75 04-03- tablet (75 L ukes mg tablet 00:00: 23:59 mg total) Me dical 00 :00 by mouth Center daily for 90 days. pravastatin 2020- No 40mg QD Take [address] (PRAVACHOL) 04-03- tablet (40 L ukes 40 MG 00:00: 23:59 mg total) Medica l tablet 00 :00 by mouth Center daily for 90 days. lisinopril- 2020- No 1{tbl} QD Take [address] hydroCHLORO 9-30 10-13 tablet by Maryse kes thiazide 00:00: 00:00 mouth Medical (PRINZIDE,Z 00 :[address] ESTORETIC) 90 days. 20-12.5 mg per tablet lisinopril- 2020- No 1{tbl} QD Take [address] hydroCHLORO 9-30 10-13 tablet by Maryse kes thiazide 00:00: 00:00 mouth Medical (PRINZIDE,Z 00 :[address] ESTORETIC) 90 days. 20-12.5 mg per tablet apixaban 2020- No 5mg Q.5D Take [address] (ELIQUIS) 5 -30 10-12 tablet (5 Maryse kes mg Tab 00:00: 00:00 mg total) Medic al tablet 00 :00 by mouth 2 Center (two) times daily for 90 days. apixaban No 5mg Q.5D Take [address] (ELIQUIS) 5 -30 10-12 tablet (5 Maryse kes mg Tab 00:00: 00:00 mg total) Medic al tablet 00 :00 by mouth 2 Center (two) times daily for 90 days. HYDROcodone 2020- No 1{tbl} Take [address] -acetaminop 9-30 -30 tablet by Maryse antony (NORCO 00:00: 00:00 mouth Medic al 10-325) 00 :00 every 6 Center 10-325 mg (six) per tablet hours as needed for Pain for up to 10 days. Max Daily Amount: 4 tablets HYDROcodone 2020- No 1{tbl} Take [address] -acetaminop -30 -30 tablet by Maryse antony (NORCO 00:00: 00:00 mouth Medic al 10-325) 00 :00 every 6 Center 10-325 mg (six) per tablet hours as needed for Pain for up to 10 days. Max Daily Amount: 4 tablets Zoloft Zoloft Yes Nilda 1 tablet Comm on 02-01 [facility] 00:00: - [facility] 00 [facility] Cyclobenzap Cyclobenzap Yes Nilda 1 tablet Common rine HCl rine HCl Millender as needed [facility] Symbicort Symbicort Yes Nilda 2 puffs C ommon Millender [facility] Breo Breo Yes Nilda 1 puff Common Ellipta Ellipta Millender Spir it [facility] Zoloft Zoloft Yes Nilda 1 tablet Common Millender [facility] Zestoretic Zestoretic Yes Nilda 1 tablet Common Millender [facility] Clopidogrel Clopidogrel Yes Nilda 1 tablet Common Bisulfate Bisulfate Millender [facility] Sertraline Sertraline Yes Nilda 1 tablet Common HCl HCl Millender [facility] Ventolin Ventolin Yes Nilda 2 puffs as Common HFA HFA Millender needed [facility] ProAir ProAir Yes Nilda 2 puffs as Comm on RespiClick RespiClick Millender needed [facility] Pravastatin Pravastatin Yes Nilda 1 tablet Common Sodium Sodium Millender in evening [facility] Lisinopril/ Lisinopril/ 2020- No Nilda 1 tablet Common HCTZ HCTZ 10-28 [facility] 00:00 - CHI :00 [facility] Immunizations Ordered Immunization Filled Immunization Date Status Commen ts Source Name Name TDAP > 7 TDAP > 7 2019-02-01 Completed Common [facility] Years-Adacel Years-Adacel 00:00:00 - [facility] Vital Signs Vital Name Observation Time Observation Value Comments Source HEIGHT 2021-03-31 22:55:00 167.6 cm WEIGHT 2021-03-31 22:55:00 70.353 kg HEIGHT 2021-03-31 22:55:00 167.6 cm WEIGHT 2021-03-31 22:55:00 70.353 kg HEIGHT 2021-03-31 22:55:00 167.6 cm WEIGHT 2021-03-31 22:55:00 70.353 kg Systolic blood 2021-04-16 11:50:00 110 mm[Hg] [facility] Diastolic blood 2021-04-16 11:50:00 56 mm[Hg] [facility] Heart rate 2021-04-16 11:50:00 77 /min [facility] Body temperature 2021-04-16 11:50:00 36.56 Syl [facility] Respiratory rate 2021-04-16 11:50:00 20 /min [facility] Oxygen saturation in 2021-04-16 11:50:00 98 /min [facility] Arterial blood by Medical Ce nter Pulse oximetry Body height 2021-03-31 22:55:00 167.6 cm [facility] Body weight 2021-03-31 22:55:00 70.353 kg [facility] BMI 2021-03-31 22:55:00 25.03 kg/m2 [facility] Procedures Procedure Date / Time Performed Performing Clinician Sourc e COMPREHENSIVE METABOLIC 2021-04-15 12:28:00 Edward Sampson [facility] CBC (HEMOGRAM ONLY) 2021-04-15 04:09:00 Khouqclaire, [facility] CBC W/PLT COUNT & AUTO 2021-04-14 14:20:17 Sunil [facility] CBC W/PLT COUNT & AUTO 2021-04-14 14:20:17 Sunil [facility] ARTERIOGRAM, PERIPHERAL 2021-04-14 12:04:00 [facility] SARS-COV2/RT-PCR ([facility] & 2021-04-14 10:41:00 [facility] 2021-04-14 [facility]OLIC PANEL (7) 2021-04-14 04:25:00 Radha Christine [facility] CBC (HEMOGRAM ONLY) 2021-04-14 04:25:00 Khouqakbarr, [facility] APTT 2021-04-13 18:19:00 [facility] 2021-04-13 12:19:00 [facility] CBC (HEMOGRAM ONLY) 2021-04-13 04:32:00 Bc, [facility] APTT 2021-04-13 04:32:00 [facility] APTT 2021-04-12 22:31:00 [facility] APTT 2021-04-12 15:58:00 [facility] LIPID PANEL 2021-04-12 08:44:00 [facility] HEMOGLOBIN A1C 2021-04-12 08:44:00 Flacaargstephane [facility] APTT 2021-04-12 08:44:00 Bc [facility] US RENAL COMPLETE 2021-04-12 06:20:00 [facility] APTT 2021-04-12 05:37:00 [facility] CBC (HEMOGRAM ONLY) 2021-04-12 05:37:00 [facility] 2021-04-11 22:00:00 [facility] APTT 2021-04-11 13:07:00 [facility] CBC (HEMOGRAM ONLY) 2021-04-11 04:00:00 [facility] BASIC METABOLIC PANEL (7) 2021-04-11 04:00:00 Darlyn Monsonee p [facility] PHOSPHORUS 2021-04-11 04:00:00 [facility] MAGNESIUM 2021-04-11 04:00:00 [facility] 2021-04-11 04:00:00 [facility] CATHETERIZATION, HEART, 2021-04-10 07:14:00 Nolan-Ra [facility] LEFT, WITH PERCUTANEOUS [facility] CORONARY INTERVENTION CBC (HEMOGRAM ONLY) 2021-04-10 03:38:00 [facility] bridgeTiara [facility] BASIC METABOLIC PANEL (7) 2021-04-10 03:38:00 [facility]me[facility]view [facility] centershayne, Darlynee p [facility] PHOSPHORUS 2021-04-10 03:38:00 Darlyn Monsoneep [facility] MAGNESIUM 2021-04-10 03:38:00 [facility] APTT 2021-04-10 03:38:00 [facility] HIGH SENSITIVITY TROPONIN 2021-04-09 21:24:00 Ali, Govind [facility] I [facility] APTT 2021-04-09 21:24:00 Bc [facility] ECG 12-LEAD 2021-04-09 19:22:31 Radha Christine [facility] APTT 2021-04-09 14:33:00 Bc [facility] APTT 2021-04-09 13:14:00 [facility] CBC (HEMOGRAM ONLY) 2021-04-09 06:13:00 [facility]k [facility] hospitalReuben castorena [facility] BASIC METABOLIC PANEL (7) 2021-04-09 06:13:00 Yaredmeadowview regional medical centerTiara bella p [facility] PHOSPHORUS 2021-04-09 06:13:00 Reuben Monson [facility] MAGNESIUM 2021-04-09 06:13:00 [facility] Reuben [facility] PROTHROMBIN TIME/INR 2021-04-09 06:13:00 Adrián [facility] APTT 2021-04-09 06:13:00 Bc [facility] ABORH, MANUAL 2021-04-09 06:13:00 Stacy Guevara [facility] APTT 2021-04-08 23:52:00 Bc [facility] TYPE AND SCREEN, 2021-04-08 23:52:00 Had[facility]id [facility] AUTOMATED [facility] APTT 2021-04-08 14:09:00 Bc [facility] NM MYOCARDIAL PERFUSION 2021-04-08 11:58:00 Camryn [facility] PET/CT (REST & STRESS) Raffy Hamm enter TREADMILL 2021-04-08 11:19:20 Unknown, Hl7 [facility] TOLERANCE(NON-NUCLEAR Medical Ce nter TREADMILL) ECG 12-LEAD 2021-04-08 11:07:49 Unknown, Hl7 Doctor [facility] ECG 12-LEAD 2021-04-08 11:07:49 Unknown, Hl7 [facility] ECG 12-LEAD 2021-04-08 11:07:49 Unknown, Hl7 [facility] 2D ECHO MODE W/O DOPPLER 2021-04-08 08:19:[address] [facility] APTT 2021-04-08 07:19:00 [facility] CBC (HEMOGRAM ONLY) 2021-04-08 04:29:00 [facility] BASIC METABOLIC PANEL (7) 2021-04-08 04:29:00 [facility] PHOSPHORUS 2021-04-08 04:29:00 [facility] MAGNESIUM 2021-04-08 04:29:00 [facility] APTT 2021-04-08 04:29:00 [facility] APTT 2021-04-07 21:42:[address] [facility] [address] ABDOMEN/PELVIS WITHOUT 2021-04-07 21:03:00 [facility] IV CONTRAST [facility] Center CBC W/PLT COUNT & AUTO 2021-04-07 17:46:00 [facility] DIFFERENTIAL [facility] CBC W/PLT COUNT & AUTO 2021-04-07 17:46:00 [facility] (CELLAVISION MANUAL DIFF) 2021-04-07 17:46:00 [facility] APTT 2021-04-07 13:08:00 Vamshi Yancey [facility] C. DIFFICILE GDH TOXIN 2021-04-07 11:58:00 [facility] SARS-COV2/RT-PCR ([facility] & 2021-04-07 11:56:00 Vamshi Yancey [facility] REF LABS) [facility] ECG 12-LEAD 2021-04-07 10:30:28 [facility] LACTIC ACID, VENOUS 2021-04-07 10:20:00 [facility] APTT 2021-04-07 04:33:00 [facility] CBC (HEMOGRAM ONLY) 2021-04-07 04:33:00 [facility] Reuben [facility] BASIC METABOLIC PANEL (7) 2021-04-07 04:33:00 [facility] HospitalkristyazTiara p [facility] PHOSPHORUS 2021-04-07 04:33:00 Yaredmeadowview regional medical centerliangTiara terryp [facility] MAGNESIUM 2021-04-07 04:33:00 [facility] Reuben [facility] PROTHROMBIN TIME/INR 2021-04-07 04:33:00 [facility] PLATELET COUNT 2021-04-06 20:33:00 [facility] APTT 2021-04-06 20:33:00 [facility] COMPREHENSIVE METABOLIC 2021-04-06 06:21:00 Adrian Kimmy I [facility] CBC W/PLT COUNT & AUTO 2021-04-06 06:21:00 [facility] MAGNESIUM 2021-04-06 06:21:00 [facility] LACTIC ACID, VENOUS 2021-04-06 06:21:00 [facility] CBC W/PLT COUNT & AUTO 2021-04-06 06:21:00 [facility] (CELLAVISION MANUAL DIFF) 2021-04-06 06:21:00 [facility] VASCULAR DIAGRAM -SCAN 2021-04-06 00:00:00 Provider, Default [facility] CARDIAC CATH REPORT - 2021-04-06 00:00:00 Provider, Default [facility] CTA ABDOMEN & PELVIS 2021-04-02 10:08:00 LaceyBrijesh [facility] CBC (HEMOGRAM ONLY) 2021-04-02 05:31:00 Lacey OnealTae [facility] BASIC METABOLIC PANEL (7) 2021-04-02 05:31:00 LaceyKoryRosalba I [facility] HEPATIC FUNCTION PANEL 2021-04-02 05:31:00 Lacey OnealalfredoVirgilg [facility] LACTIC ACID, VENOUS 2021-04-01 11:33:00 [facility] LIPASE 2021-04-01 11:33:00 [facility] BASIC METABOLIC PANEL (7) 2021-04-01 04:08:00 Anabelle Hopkins [facility] CBC W/PLT COUNT & AUTO 2021-04-01 04:08:00 Anabelle Hopkins [facility] CBC W/PLT COUNT & AUTO 2021-04-01 04:08:00 Anabelle Hopkins [facility] ECG 12-LEAD 2021-04-01 00:39:29 Unknown, 7 [facility] ECG 12-LEAD 2021-04-01 00:39:29 Unknown, 7 [facility] ECG 12-LEAD 2021-04-01 00:39:29 Unknown, 7 [facility] ECG 12-LEAD 2021-04-01 00:38:45 Unknown, 7 [facility] ECG 12-LEAD 2021-04-01 00:38:45 Unknown, 7 [facility] ECG 12-LEAD 2021-04-01 00:38:45 Unknown, 7 [facility] ECG 12-LEAD 2021-04-01 00:36:50 Unknown, 7 [facility] ECG 12-LEAD 2021-04-01 00:36:50 Unknown, Hl7 Doctor [facility] ECG 12-LEAD 2021-04-01 00:36:50 Unknown, Hl7 Doctor [facility] ECG 12-LEAD 2021-04-01 00:35:07 Anabelle Hopkins [facility] ECG 12-LEAD 2021-04-01 00:35:07 Unknown, Hl7 Doctor [facility] ECG 12-LEAD 2021-04-01 00:35:07 Unknown, Hl7 Doctor [facility] Plan of Care Planned Activity Planned Date Details Comments Source Future Scheduled 2029-02-01 DTAP/TDAP/TD VACCINES [facility]00 (2 - Td or Tdap) [code Medic al Center = DTAP/TDAP/TD VACCINES (2 - Td or Tdap)] Future Scheduled 2029-02-01 DTAP/TDAP/TD VACCINES [facility] Test 00:00:00 (2 - Td or Tdap) [code Medic al Center = DTAP/TDAP/TD VACCINES (2 - Td or Tdap)] Future Scheduled 2022-03-[address] [facility] Test 00:00:00 WELLNESS (YEAR 2 or Medical Center FIRST YEAR if no IPPE) [code = MEDICARE ANNUAL WELLNESS (YEAR 2 or FIRST YEAR if no IPPE)] Future Scheduled 2022-03-05 INFLUENZA VACCINE (#1) [facility] 00:[facility]:00 [code = INFLUENZA Medical Ce nter VACCINE (#1)] Future Scheduled 2022-03-05 INFLUENZA VACCINE (#1) [facility] 00:00:00 [code = INFLUENZA Medical Ce nter VACCINE (#1)] Future Scheduled 2021-07-05 FALLS RISK SCREENING [facility] Test 00:00:00 [code = FALLS RISK Medical C enter SCREENING] Future Scheduled 2021-07-05 FALLS RISK SCREENING [facility] Test 00:00:00 [code = FALLS RISK Medical C enter SCREENING] Future Scheduled 2021-04-11 COVID-19 VACCINE (2 - [facility] 00:00:00 Moderna series) [code = [facility] COVID-19 VACCINE (2 - Moderna series)] Future Scheduled 2021-04-11 COVID-19 VACCINE (2 - [facility] 00:00:00 Moderna series) [code = [facility] COVID-19 VACCINE (2 - Moderna series)] Future Scheduled 2021-03-05 Medicare IPPE (WELCOME [facility] 00:00:00 TO MEDICARE) [code = [facility] Center Medicare IPPE (WELCOME TO MEDICARE)] Future Scheduled 2013-01-11 PNEUMOCOCCAL 65+ YRS ([address] [facility] Test 00:00:00 - PCV) [code = Medical Cente r PNEUMOCOCCAL 65+ YRS (1 - PCV)] Future Scheduled 2013-01-11 PNEUMOCOCCAL 65+ YRS ([address] [facility] Test 00:00:00 - PCV) [code = Medical Cente r PNEUMOCOCCAL 65+ YRS (1 - PCV)] Future Scheduled 1998-01-11 SHINGLES VACCINES ([address] [facility] Test 00:00:00 2) [code = SHINGLES [facility] Center VACCINES (1 of 2)] Future Scheduled 1998-01-11 SHINGLES VACCINES ([address] [facility] Test 00:00:00 2) [code = SHINGLES Medical Center VACCINES (1 of 2)] Future Scheduled 1966-01-11 HEPATITIS C SCREENING [facility] 00:00:00 [code = HEPATITIS C Medical Center SCREENING] Future Scheduled 1966-01-11 HEPATITIS C SCREENING [facility] 00:00:00 [code = HEPATITIS C Medical Center SCREENING] Future Scheduled 1948 CT Colonography (combo) [facility] Test 00:00:00 [code = CT Colonography [facility] Center (combo)] Future Scheduled 1948 Screening for malignant [facility] Test 00:00:00 neoplasm of colon Medical Ce nter (procedure) [code = [id number]] Future Scheduled 1948 Screening for malignant [facility] Test 00:00:00 neoplasm of [facility] (procedure) [code = 317811881] Future Scheduled 1948 Screening for malignant [facility] 00:00:00 neoplasm of colon Medical Ce [facility]ter (procedure) [code = 204307805] Future Scheduled 1948 Screening for malignant [facility] 00:00:00 neoplasm of colon Medical Ce [facility] (procedure) [code = 928679592] Future Scheduled 1948 Sigmoidoscopy [facility]code = [facility]] Medical Cente r Future Scheduled 1948 CT Colonography (combo) [facility] 00:00:00 [code = CT Colonography [facility] (combo)] Future Scheduled 1948 Screening for malignant [facility] 00:00:00 neoplasm of colon Medical Ce [facility]ter (procedure) [code = 390079638] Future Scheduled 1948 Screening for malignant [facility] 00:00:00 neoplasm of colon Medical Ce [facility]ter (procedure) [code = 888216205] Future Scheduled 1948 Screening for malignant [facility] 00:00:00 neoplasm of colon Medical Ce [facility]ter (procedure) [code = 666526016] Future Scheduled 1948 Screening for malignant [facility] 00:00:00 neoplasm of colon Medical Ce nter (procedure) [code = 846305501] Future Scheduled 1948 Sigmoidoscopy [facility]code = [facility]oscopy] Medical Cente r Encounters Start End Encounter Admission Attending Care Care Encounter Source Date/Time Date/Time Type Type Clinicians Facility Department ID 2022-03-23 Outpatient Millan, STLMLC [facility] [id number] Common 13:35:00 Timur [facility] 2022-03-19 Outpatient Millan, STLMLC ST[facility] [id number] Common 10:14:01 Timur [facility] 2022-03-18 Outpatient Millan, STLMLC STLC [id number] Common 10:24:00 Timur [facility] 2021-07-30 Outpatient Millan, STLMLC STLC [id number] Common 14:08:27 Timur 70568 [facility] 2021-07-30 Outpatient Millan, STLMLC STLC [id number] Common 13:42:10 Timur 05848 [facility] 2021-07-30 Outpatient STLMLC STLMLC [id number] Common 13:41:40 56109 [facility] 2021-07-30 Outpatient Millender, STLMLC STLMLC [id number] Common 13:29:53 Nilda 50177 [facility] 2021-07-30 Outpatient Millender, STLMLC STLMLC [id number] Common 11:19:20 Nilda 23413 [facility] 2021-04-13 Inpatient ER WALLACE, [facility] [id number] [facility] 14:05:01 [facility] 2022-03-19 2022-03-19 ambulatory STLMLC STLMLC [id number] Common 00:00:00 00:00:00 [facility] 2022-03-19 2022-03-19 ambulatory STLMLC STLMLC [id number] Common 00:00:00 00:00:00 [facility] 2022-03-19 2022-03-19 ambulatory STLMLC STLMLC [id number] Common 00:00:00 00:00:00 [facility] 2021-11-18 2021-11-18 ambulatory STLMLC STLMLC [id number] Common 00:00:00 00:00:00 [facility] 2021-11-11 2021-11-11 ambulatory STLMLC STLMLC [id number] Common 00:00:00 00:00:00 [facility] 2021-08-19 2021-08-19 ambulatory STLMLC STLMLC [id number] Common 00:00:00 00:00:00 [facility] 2021-05-01 2021-05-01 Outpatient STLMLC STLMLC [id number] Common 00:00:00 00:00:00 [facility] 2021-04-30 2021-04-30 Outpatient STLMLC STLMLC [id number] Common 00:00:00 00:00:00 [facility] 2021-04-21 2021-04-21 Outpatient STLMLC STLMLC [id number] Common 00:00:00 00:00:00 [facility] 2021-04-06 2021-04-16 Hospital ER Kimmy Samuels [facility] [id number] [facility] 04[facility]06:00 13:20:00 Encounter Maddie [facility] 2021-04-06 2021-04-16 Inpatient ER RADHA CHRISTINE [facility] Cardiology 2 [id number] SLE 04:06:00 13:20:00 2021-04-06 2021-04-16 [facility] Kimmy Samuels [facility] [id number] [facility] 04[facility]06:00 13:20:00 Encounter Se [facility] 2021-04-14 2021-04-14 Surgery Sunil [facility] [id number] 12:47:00 15:20:00 [facility] 2021-04-14 2021-04-14 Surgery Sunil [facility] [id number] 12:47:00 15:20:00 [facility] 2021-04-10 2021-04-10 Surgery Francisco-Cam [facility] [id number] 07:00[facility]00 [facility] 2021-04-10 2021-04-10 Surgery [facility] [id number] 07:00[facility]00 09:28[facility]00 [facility] 2021-04-07 2021-04-[address] [facility] [id number] [facility] 00:00:00 23:59:00 Jose Medicin e 2021-04-06 2021-04-06 Travel [facility] [id number] [facility] 00:[facility]00 00:00:00 [facility] 2021-04-06 2021-04-06 Travel [facility] [id number] [facility] 00:[facility] 00:00:00 [facility] 2021-04-04 2021-04-04 Outpatient [facility] [id number] Common 00:00:00 00:00:00 [facility] 2021-03-31 2021-04-03 [facility] [id number] 22:25:00 10:52:00 [facility] 2021-03-[facility] 2021-04-03 [facility] Danyell Wallace [facility] [id number] 22:25:00 10:52:00 Encounter Brijesh Rahman, [facility] 2021-04-01 2021-04-[address] [facility] [id number] [facility] 00:00:00 23:59:00 Jose Medicin e 2021-04-01 2021-04-01 Orders [facility] [id number] 00:00:00 00:00:[address] [facility] 2021-04-01 2021-04-01 Orders [facility] [id number] 00:00:00 00:00:[address] [facility] 2021-03-21 2021-03-21 Outpatient STLMLC STLMLC [id number] Common 00:00:00 00:00:00 [facility] 2021-03-21 2021-03-21 Outpatient STLMLC STLMLC [id number] Common 00:00:00 00:00:00 [facility] 2021-03-03 2021-03-03 Outpatient STLMLC STLMLC [id number] Common 00:00:00 00:00:00 [facility] 2021-02-25 2021-02-25 Outpatient STLMLC STLMLC [id number] Common 00:00:00 00:00:00 [facility] 2019-08-31 2019-08-31 Outpatient Tim-Mbayo VFP VFP [id number] [facility] 02:42:00 02:42:00 _A_AH [id number] [facility] Pract[facility] 2019-08-31 2019-08-31 Outpatient Tim-Mbayo VFP VFP [address] 02:42:00 02:42:00 _A_AH 24285 Family Practic e 2019-08-31 2019-08-31 Outpatient Dusty [facility]LORP [facility] 02:42:00 02:42:00 _A_AH 71568 Family Practic e 2019-08-31 2019-08-31 Outpatient Dusty TAYLORP [facility] [address] [place] [address] 02:42:00 02:42:00 _A_AH 22046 Family Practic e 2019-08-31 2019-08-31 Outpatient Dusty TAYLORP [address] 02:42:00 02:42:00 _A_AH 43815 Family Practic e 2019-02-01 2019-02-01 Outpatient Azalea Sunil [id number] Common 10:00:00 10:00:00 [facility] 2018-01-26 2018-01-26 Outpatient Azalea Barber [id number] Common 10:00:00 10:00:00 [facility] Results Test Description Test Time Test Comments Results Result Comments Source Comprehensive metabolic panel 2021-04-15 12:55:32 Test Item Value Reference Range Interpretation Comme nts Protein, Total (test 6.1 See_Comment [Autom ated message] The code = 2885-2) system which generated this result tra nsmitted reference range : 6.0 - 8.3 gm/dL. The reference range was not u sed to interpret this result as normal/abnormal . Albumin (test code = 3.5 g/dL 3.5-5.0 04953-1) Alkaline Phosphatase 49 U/L 40-150 (test code = 6768-6) Total Bilirubin (test 0.5 mg/dL 0.2-1.2 code = 1975-2) Sodium (test code = 138 meq/L 980-080 6092-2) Potassium (test code = 4.1 meq/L 3.5-5.1 2823-3) Chloride (test code = 103 meq/L 98-107 5-0) CO2 (test code = 2027-9) 29 meq/L 22-29 BUN (test code = 3094-0) 12 mg/dL 7-21 Creatinine (test code = 0.75 mg/dL 0.57-1.25 0-0) Glucose (test code = 110 mg/dL 70-105 H 2345-7) Calcium (test code = 8.9 mg/dL 8.4-10.2 57425-9) AST (test code = 1920-8) 29 U/L 5-34 ALT (test code = 1742-6) 58 U/L 6-55 H EGFR (test code = 102 mL/min/1.73 [place] 00841-8) ACCURATE CRE ATININE CLEARANCE IN SC EDICTING GLOMERULAR FILT RATION RATE. ESTIMATED GFR IS NOT APPLICABLE FOR DIALYSIS PATIEN TS. PATRICIA (test code = PATRICIA) Machine Shop Inspector ID - MANISHA Zhang Lab Interpretation (test Abnormal code = 54778-6) [id number] 12:55:32 Test Item Value Reference Range Interpretation Comments Protein, Total (test 6.1 See_Comment [Autom ated code = 2885-2) message] The system which generated this result transmit ria reference range : 6.0 - 8.3 gm/dL . The reference range was not u sed to interpret th is result as normal/abnormal . Albumin (test code = 3.5 g/dL 3.5-5.0 55069-6) Alkaline Phosphatase 49 U/L 40-150 (test code = 6768-6) Total Bilirubin (test 0.5 mg/dL 0.2-1.2 code = 1975-2) Sodium (test code = 138 meq/L 379-119 8613-2) Potassium (test code 4.1 meq/L 3.5-5.1 = 2823-3) Chloride (test code = 103 meq/L 98-107 5-0) CO2 (test code = 29 meq/L 22-29 2027-9) BUN (test code = 12 mg/dL 7-21 3094-0) Creatinine (test code 0.75 mg/dL 0.57-1.25 = 2160-0) Glucose (test code = 110 mg/dL 70-105 H 2345-7) Calcium (test code = 8.9 mg/dL 8.4-10.2 22574-9) AST (test code = 29 U/L 5-34 1920-8) ALT (test code = 58 U/L 6-55 H 1742-6) EGFR (test code = 102 mL/min/1.[place] [address]-1) NOT ACCURATE CREATININE CLEARANCE IN PREDICTING GLOMERULAR FILTRATION RATE . ESTIMATED GFR I S NOT APPLICABLE FOR DIALYSIS PATIEN TS. PATRICIA (test code = PATRICIA) Machine Shop Inspector ID Jessica NEVES F Lab Interpretation Abnormal (test code = 30206-9) [facility] [id number] 12:55:32 Test Item Value Reference Range Interpretation Comments TOTAL PROTEIN 6.1 gm/dL 6.0-8.3 (BEAKER) (test code = 770) ALBUMIN (BEAKER) 3.5 g/dL 3.5-5.0 (test code = 1145) ALKALINE PHOSPHATASE 49 U/L 40-150 (BEAKER) (test code = 346) BILIRUBIN TOTAL 0.5 mg/dL 0.2-1.2 (BEAKER) (test code = 377) SODIUM (BEAKER) (test 138 meq/L 136-145 code = 381) POTASSIUM (BEAKER) 4.1 meq/L 3.5-5.1 (test code = 379) CHLORIDE (BEAKER) 103 meq/L 98-107 (test code = 382) CO2 (BEAKER) (test 29 meq/L 22-29 code = 355) BLOOD UREA NITROGEN 12 mg/dL 7-21 (BEAKER) (test code = 354) CREATININE (BEAKER) 0.75 mg/dL 0.57-1.25 (test code = 358) GLUCOSE RANDOM 110 mg/dL 70-105 H (BEAKER) (test code = 652) CALCIUM (BEAKER) 8.9 mg/dL 8.4-10.2 (test code = 697) AST (SGOT) (BEAKER) 29 U/L 5-34 (test code = 353) ALT (SGPT) (BEAKER) 58 U/L 6-55 H (test code = 347) EGFR (BEAKER) (test 102 ESTIMATE D GFR IS code = 1092) mL/min/1.73 sq NOT ACCURA TE m CREATININE CLEARANCE IN PREDICTING GLOMERULAR FILTRATION RATE . ESTIMATED GFR I S NOT APPLICABLE FOR DIALYSIS PATIEN TS. Machine Shop Inspector GRETCHEN NEVES [facility] (hemogram only)2021-04-15 04:42:51 Test Item Value Reference Range Interpretation Comments WBC (test code = 6690-2) 7.8 See_Comment [A utomated message] The system Swoopo generated this result transmitted ref erence range: 3.5 - 10 .5 K/L. The refe rence range was not u sed to interpret this result as normal/abnor mal. RBC (test code = 789-8) 3.76 See_Comment L [Au tomated message] The system Swoopo generated this result transmitted ref erence range: 4.63 - 6 .08 M/L. The refe rence range was not u sed to interpret this result as normal/abnor mal. MCHC (test code = 786-4) 32.6 See_Comment L [A utomated message] The system Swoopo generated this result transmitted ref erence range: 32.3 - 3 6.5 GM/DL. The refe rence range was not u sed to interpret this result as normal/abnor mal. Hematocrit (test code = 35.3 % 40.1-51.0 L 4544-3) MCV (test code = 787-2) 93.9 fL 79.0-92.2 H MCH (test code = 785-6) 30.6 pg 25.7-32.2 RDW (test code = 788-0) 12.9 % 11.6-14.4 Platelets (test code = 173 See_Comment [Aut omated message] 777-3) The system Swoopo generated this result transmitted ref erence range: 150 - 45 0 K/CU MM. The referen ce range was not u sed to interpret this result as normal/abnor mal. MPV (test code = 9.6 fL 9.4-12.4 45869-9) nRBC (test code = 413) 0 See_Comment [Aut omated message] The system Swoopo generated this result transmitted ref erence range: 0 - 0 /1 00 WBC. The refere nce range was not u sed to interpret this result as normal/abnor mal. Lab Interpretation (test Abnormal code = 63074-7) [facility]15 04:42:51 Test Item Value Reference Range Interpretation Comments WBC (test code = 6690-2) 7.8 See_Comment [A utomated message] The system Swoopo generated this result transmitted ref erence range: 3.5 - 10 .5 K/L. The refe rence range was not u sed to interpret this result as normal/abnor mal. RBC (test code = 789-8) 3.76 See_Comment L [Au tomated message] The system Swoopo generated this result transmitted ref erence range: 4.63 - 6 .08 M/L. The refe rence range was not u sed to interpret this result as normal/abnor mal. MCHC (test code = 786-4) 32.6 See_Comment L [A utomated message] The system Swoopo generated this result transmitted ref erence range: 32.3 - 3 6.5 GM/DL. The refe rence range was not u sed to interpret this result as normal/abnor mal. Hematocrit (test code = 35.3 % 40.1-51.0 L 4544-3) MCV (test code = 787-2) 93.9 fL 79.0-92.2 H MCH (test code = 785-6) 30.6 pg 25.7-32.2 RDW (test code = 788-0) 12.9 % 11.6-14.4 Platelets (test code = 173 See_Comment [Aut omated message] 777-3) The system Swoopo generated this result transmitted ref erence range: 150 - 45 0 K/CU MM. The referen ce range was not u sed to interpret this result as normal/abnor mal. MPV (test code = 9.6 fL 9.4-12.4 78988-4) nRBC (test code = 413) 0 See_Comment [Aut omated message] The system Swoopo generated this result transmitted ref erence range: 0 - 0 /1 00 WBC. The refere nce range was not u sed to interpret this result as normal/abnor mal. Lab Interpretation (test Abnormal code = 28842-0) [facility]2021-04-15 04:42:51 Test Item Value Reference Range Interpretation Comments WHITE BLOOD CELL COUNT (BEAKER) 7.8 K/ L 3.5-10.5 (test code = 775) RED BLOOD CELL COUNT (BEAKER) 3.76 M/ L 4.63-6.08 L (test code = 761) HEMOGLOBIN (BEAKER) (test code = 11.5 GM/DL 13.7-17.5 L 410) HEMATOCRIT (BEAKER) (test code = 35.3 % 40.1-51.0 L 411) MEAN CORPUSCULAR VOLUME (BEAKER) 93.9 fL 79.0-92.2 H (test code = 753) MEAN CORPUSCULAR HEMOGLOBIN 30.6 pg 25.7-32.2 (BEAKER) (test code = 751) MEAN CORPUSCULAR HEMOGLOBIN CONC 32.6 GM/DL 32.3-36.5 (BEAKER) (test code = 752) RED CELL DISTRIBUTION WIDTH 12.9 % 11.6-14.4 (BEAKER) (test code = 412) PLATELET COUNT (BEAKER) (test 173 K/CU MM 150-450 code = 756) MEAN PLATELET VOLUME (BEAKER) 9.6 fL 9.4-12.4 (test code = 754) NUCLEATED RED BLOOD CELLS 0 /100 WBC 0-0 (BEAKER) (test code = 413) SARS-CoV2/RT-PCR (Asymptomatic ONLY)2021-04-14 21:00:57 Test Item Value Reference Range Interpretation Comments SARS-COV2/RT-PCR (test Negative Negative code = 75603-5) PATRICIA (test code = PATRICIA) Negative result for this test determines that SARS-CoV-2 RNA was not present in the specimen above the Limit of Detection (LOD). However, Negative results do not preclude SARS-CoV-2 infection and should not be used as the sole basis for treatment or patient management decisions. Negative results must be combined with clinical observations, patient history, and epidemiological information. A false negative result may occur if a specimen is improperly collected, transported, or handled. A false negative result should be considered if patient's recent exposures or clinical presentation indicate that COVID-19 (SARS-CoV-2) is likely and diagnostic tests for other causes of illness are negative. Re-testing should be considered in cases of suspected false negatives. The limit of detection for this assay is 100 copies/mL. This SARS-CoV-2 test is a real-time RT_PCR test intended for the qualitative detection of nucleic acid from SARS-CoV-2 in a nasopharyngeal swab specimen collected from individuals suspected of COVID-19 by their healthcare provider. This test has not been Food and Drug Administration (FDA) cleared or approved. This is a modified version of an approved Emergency Use Authorization (EUA) and is in the process of review by the FDA. Once authorized by the FDA, the issued EUA will be effective until the declaration that circumstances exist justifying the authorization of the emergency use of in vitro diagnostic tests for detection and/or diagnosis of COVID-19 is terminated under Section 564(b)(2) of the Act or the EUA is revoked under Section 564(g) of the Act. Testing was performed using the [employer] SARS-CoV-2 assay. Fact Sheet for Healthcare Providers:https://www.reina saucedali/vinny/RT SARS-CoV-2 HCP Fact Sheet 51-743747.pdf Fact Sheet for Healthcare Patients:https://www.ollie lora[employer]/vinny/RT SARS-CoV-2 Patient Fact Sheet EN 51-009049S8.pdf Lab Interpretation Normal (test code = 25097-7) [facility]2021-04-14 21:00:57 Test Item Value Reference Range Interpretation Comments SARS-COV2/RT-PCR (test Negative Negative code = 90016-6) PATRICIA (test code = PATRICIA) Negative result for this test determines that SARS-CoV-2 RNA was not present in the specimen above the Limit of Detection (LOD). However, Negative results do not preclude SARS-CoV-2 infection and should not be used as the sole basis for treatment or patient management decisions. Negative results must be combined with clinical observations, patient history, and epidemiological information. A false negative result may occur if a specimen is improperly collected, transported, or handled. A false negative result should be considered if patient's recent exposures or clinical presentation indicate that COVID-19 (SARS-CoV-2) is likely and diagnostic tests for other causes of illness are negative. Re-testing should be considered in cases of suspected false negatives. The limit of detection for this assay is 100 copies/mL. This SARS-CoV-2 test is a real-time RT_PCR test intended for the qualitative detection of nucleic acid from SARS-CoV-2 in a nasopharyngeal swab specimen collected from individuals suspected of COVID-19 by their healthcare provider. This test has not been Food and Drug Administration (FDA) cleared or approved. This is a modified version of an approved Emergency Use Authorization (EUA) and is in the process of review by the FDA. Once authorized by the FDA, the issued EUA will be effective until the declaration that circumstances exist justifying the authorization of the emergency use of in vitro diagnostic tests for detection and/or diagnosis of COVID-19 is terminated under Section 564(b)(2) of the Act or the EUA is revoked under Section 564(g) of the Act. Testing was performed using the Tr[employer] SARS-CoV-2 assay. Fact Sheet for Healthcare Providers:https://www.reina hobson/vinny/RT SARS-CoV-2 HCP Fact Sheet 51-875748.pdf Fact Sheet for Healthcare Patients:https://www.ollie mariOpal Labs/vinny/RT SARS-CoV-2 Patient Fact Sheet EN 51-199186W1.pdf Lab Interpretation Normal (test code = 09451-3) [facility])2021-04-14 21:00:57 Test Item Value Reference Range Interpretation Comments SARS-COV2/RT-PCR (test code = Negative Negative 5022266) Negative result for this test determines that SARS-CoV-2 RNA was not present in the specimen above the Limit of Detection (LOD). However, Negative results do not preclude SARS-CoV-2 infection and should not be used as the sole basis for treatment or patient management decisions. Negative results must be combined with clinical observations, patient history, and epidemiological information. A false negative result may occur if a specimen is improperly collected, transported, or handled. A false negative result should be considered if patient's recent exposures or clinical presentation indicate that COVID-19 (SARS-CoV-2) is likely and diagnostic tests for other causes of illness are negative. Re-testing should be considered in cases of suspected false negatives.The limit of detection for this assay is 100 copies/mL.This SARS-CoV-2 test is a real-time RT_PCR test intended for the qualitative detection of nucleic acid from SARS-CoV-2 in a nasopharyngeal swab specimen collected from individuals suspected of COVID-19 by their healthcare provider.This test has not been Food and Drug Administration (FDA) cleared or approved. This is a modified version of an approved Emergency Use Authorization (EUA) and is in the process of review by the FDA. Once authorized by the FDA, the issued EUA will be effective until the declaration that circumstances exist justifying the authorization of the emergency use of in vitro diagnostic tests for detection and/or diagnosis of COVID-19 is terminated under Section 564(b)(2) of the Act or the EUA is revoked under Section 564(g) of the Act.Testing was performed using [employer] SARS-CoV-2 assay.Fact Sheet for Healthcare Providers:https://www.[employer]Foot.[employer]al [facility]/vinny/RT SARS-CoV-2 HCP Fact Sheet 51- 650744.pdfFact Sheet for Healthcare Patients:https://www.[employer]Net/vinny/RT SARS-CoV-2 Patient Fact Sheet EN 51-817773E3.pdfCBC with platelet count + automated [id number] 14:44:30 Test Item Value Reference Range Interpretation Comments WBC (test code = 6690-2) 6.7 See_Comment [A utomated message] The system Swoopo generated this result transmitted ref erence range: 3.5 - 10 .5 K/L. The refe rence range was not u sed to interpret this result as normal/abnor mal. RBC (test code = 789-8) 3.95 See_Comment L [Au tomated message] The system Swoopo generated this result transmitted ref erence range: 4.63 - 6 .08 M/L. The refe rence range was not u sed to interpret this result as normal/abnor mal. MCHC (test code = 786-4) 33.6 See_Comment L [A utomated message] The system Swoopo generated this result transmitted ref erence range: 32.3 - 3 6.5 GM/DL. The refe rence range was not u sed to interpret this result as normal/abnor mal. Hematocrit (test code = 36.6 % 40.1-51.0 L 4544-3) MCV (test code = 787-2) 92.7 fL 79.0-92.2 H MCH (test code = 785-6) 31.1 pg 25.7-32.2 RDW (test code = 788-0) 13.1 % 11.6-14.4 Platelets (test code = 172 See_Comment [Aut omated message] 777-3) The system Swoopo generated this result transmitted ref erence range: 150 - 45 0 K/CU MM. The referen ce range was not u sed to interpret this result as normal/abnor mal. MPV (test code = 9.6 fL 9.4-12.4 61050-9) nRBC (test code = 413) 0 See_Comment [Aut omated message] The system Swoopo generated this result transmitted ref erence range: 0 - 0 /1 00 WBC. The refere nce range was not u sed to interpret this result as normal/abnor mal. % Neutros (test code = 57 % 429) % Lymphs (test code = 29 % 430) % Monos (test code = 10 % 431) % Eos (test code = 432) 3 % % Baso (test code = 437) 1 % # Neutros (test code = 3.83 See_Comment [Aut omated message] 670) The system Swoopo generated this result transmitted ref erence range: 1.78 - 5 .38 K/L. The refe rence range was not u sed to interpret this result as normal/abnor mal. # Lymphs (test code = 1.94 See_Comment [Auto mated message] 414) The system Swoopo generated this result transmitted ref erence range: 1.32 - 3 .57 K/L. The refe rence range was not u sed to interpret this result as normal/abnor mal. # Monos (test code = 0.66 See_Comment [Autom ated message] 415) The system Swoopo generated this result transmitted ref erence range: 0.30 - 0 .82 K/L. The refe rence range was not u sed to interpret this result as normal/abnor mal. # Eos (test code = 416) 0.21 See_Comment [Au tomated message] The system Swoopo generated this result transmitted ref erence range: 0.04 - 0 .54 K/L. The refe rence range was not u sed to interpret this result as normal/abnor mal. # Baso (test code = 417) 0.05 See_Comment [A utomated message] The system Swoopo generated this result transmitted ref erence range: 0.01 - 0 .08 K/L. The refe rence range was not u sed to interpret this result as normal/abnor mal. Immature 0 % 0-1 Granulocytes-Relative (test code = 2801) Lab Interpretation (test Abnormal code = 22219-6) [facility] with platelet count + automated [id number] 14:44:30 Test Item Value Reference Range Interpretation Comments WBC (test code = 6690-2) 6.7 See_Comment [A utomated message] The system [employer]woopo generated this result transmitted ref erence range: 3.5 - 10 .5 K/L. The refe rence range was not u sed to interpret this result as normal/abnor mal. RBC (test code = 789-8) 3.95 See_Comment L [Au tomated message] The system [employer] generated this result transmitted ref erence range: 4.63 - 6 .08 M/L. The refe rence range was not u sed to interpret this result as normal/abnor mal. MCHC (test code = 786-4) 33.6 See_Comment L [A utomated message] The system [employer] generated this result transmitted ref erence range: 32.3 - 3 6.5 GM/DL. The refe rence range was not u sed to interpret this result as normal/abnor mal. Hematocrit (test code = 36.6 % 40.1-51.0 L 4544-3) MCV (test code = 787-2) 92.7 fL 79.0-92.2 H MCH (test code = 785-6) 31.1 pg 25.7-32.2 RDW (test code = 788-0) 13.1 % 11.6-14.4 Platelets (test code = 172 See_Comment [Aut omated message] 557-3) The system [employer] generated this result transmitted ref erence range: 150 - 45 0 K/CU MM. The referen ce range was not u sed to interpret this result as normal/abnor mal. MPV (test code = 9.6 fL 9.4-12.4 35263-1) nRBC (test code = 413) 0 See_Comment [Aut omated message] The system [employer] generated this result transmitted ref erence range: 0 - 0 /1 00 WBC. The refere nce range was not u sed to interpret this result as normal/abnor mal. % Neutros (test code = 57 % 429) % Lymphs (test code = 29 % 430) % Monos (test code = 10 % 431) % Eos (test code = 432) 3 % % Baso (test code = 437) 1 % # Neutros (test code = 3.83 See_Comment [Aut omated message] 670) The system [employer] generated this result transmitted ref erence range: 1.78 - 5 .38 K/L. The refe rence range was not u sed to interpret this result as normal/abnor mal. # Lymphs (test code = 1.94 See_Comment [Auto mated message] 414) The system [employer] generated this result transmitted ref erence range: 1.32 - 3 .57 K/L. The refe rence range was not u sed to interpret this result as normal/abnor mal. # Monos (test code = 0.66 See_Comment [Autom ated message] 415) The system [employer] generated this result transmitted ref erence range: 0.30 - 0 .82 K/L. The refe rence range was not u sed to interpret this result as normal/abnor mal. # Eos (test code = 416) 0.21 See_Comment [Au tomated message] The system [employer] generated this result transmitted ref erence range: 0.04 - 0 .54 K/L. The refe rence range was not u sed to interpret this result as normal/abnor mal. # Baso (test code = 417) 0.05 See_Comment [A utomated message] The system [employer] generated this result transmitted ref erence range: 0.01 - 0 .08 K/L. The refe rence range was not u sed to interpret this result as normal/abnor mal. Immature 0 % 0-1 Granulocytes-Relative (test code = 2801) Lab Interpretation (test Abnormal code = 92707-5) [facility] W/PLT COUNT & AUTO [id number] 14:44:30 Test Item Value Reference Range Interpretation Comments WHITE BLOOD CELL COUNT (BEAKER) 6.7 K/ L 3.5-10.5 (test code = 775) RED BLOOD CELL COUNT (BEAKER) 3.95 M/ L 4.63-6.08 L (test code = 761) HEMOGLOBIN (BEAKER) (test code = 12.3 GM/DL 13.7-17.5 L 410) HEMATOCRIT (BEAKER) (test code = 36.6 % 40.1-51.0 L 411) MEAN CORPUSCULAR VOLUME (BEAKER) 92.7 fL 79.0-92.2 H (test code = 753) MEAN CORPUSCULAR HEMOGLOBIN 31.1 pg 25.7-32.2 (BEAKER) (test code = 751) MEAN CORPUSCULAR HEMOGLOBIN CONC 33.6 GM/DL 32.3-36.5 (BEAKER) (test code = 752) RED CELL DISTRIBUTION WIDTH 13.1 % 11.6-14.4 (BEAKER) (test code = 412) PLATELET COUNT (BEAKER) (test 172 K/CU MM 150-450 code = 756) MEAN PLATELET VOLUME (BEAKER) 9.6 fL 9.4-12.4 (test code = 754) NUCLEATED RED BLOOD CELLS 0 /100 WBC 0-0 (BEAKER) (test code = 413) NEUTROPHILS RELATIVE PERCENT 57 % (BEAKER) (test code = 429) LYMPHOCYTES RELATIVE PERCENT 29 % (BEAKER) (test code = 430) MONOCYTES RELATIVE PERCENT 10 % (BEAKER) (test code = 431) EOSINOPHILS RELATIVE PERCENT 3 % (BEAKER) (test code = 432) BASOPHILS RELATIVE PERCENT 1 % (BEAKER) (test code = 437) NEUTROPHILS ABSOLUTE COUNT 3.83 K/ L 1.78-5.38 (BEAKER) (test code = 670) LYMPHOCYTES ABSOLUTE COUNT 1.94 K/ L 1.32-3.57 (BEAKER) (test code = 414) MONOCYTES ABSOLUTE COUNT (BEAKER) 0.66 K/ L 0.30-0.82 (test code = 415) EOSINOPHILS ABSOLUTE COUNT 0.21 K/ L 0.04-0.54 (BEAKER) (test code = 416) BASOPHILS ABSOLUTE COUNT (BEAKER) 0.05 K/ L 0.01-0.08 (test code = 417) IMMATURE GRANULOCYTES-RELATIVE 0 % 0-1 PERCENT (BEAKER) (test code = 2801) Basic Metabolic [id number] 06:44:09 Test Item Value Reference Range Interpretation Comments Sodium (test code = 139 meq/L 748-350 3265-2) Potassium (test code = 3.6 meq/L 3.5-5.1 2823-3) Chloride (test code = 104 meq/L 98-107 2075-0) CO2 (test code = 28 meq/L -2027-) BUN (test code = 14 mg/dL - 3094-0) Creatinine (test code 0.73 mg/dL 0.57-1.25 = 2160-0) Glucose (test code = 109 mg/dL 70-105 H 2345-7) Calcium (test code = 8.8 mg/dL 8.4-10.2 64889-6) EGFR (test code = 105 mL/min/1.[place] [address]-7) NOT ACCURATE CREATININE CLEARANCE IN PREDICTING GLOMERULAR FILTRATION RATE . ESTIMATED GFR I S NOT APPLICABLE FOR DIALYSIS PATIENTS. PATRICIA (test code = PATRICIA) Machine Shop Inspector ID - PIAYA L Lab Interpretation Abnormal (test code = 80609-2) [facility] [id number] 06:44:09 Test Item Value Reference Range Interpretation Comments Sodium (test code = 139 meq/L 039-681 7969-2) Potassium (test code = 3.6 meq/L 3.5-5.1 2823-3) Chloride (test code = 104 meq/L 98-107 5-0) CO2 (test code = 28 meq/L 2027-9) BUN (test code = 14 mg/dL - 3094-0) Creatinine (test code 0.73 mg/dL 0.57-1.25 = 2160-0) Glucose (test code = 109 mg/dL 70-105 H 2345-7) Calcium (test code = 8.8 mg/dL 8.4-10.2 41047-0) EGFR (test code = 105 mL/min/1.[place] [address]-0) NOT ACCURATE CREATININE CLEARANCE IN PREDICTING GLOMERULAR FILTRATION RATE . ESTIMATED GFR I S NOT APPLICABLE FOR DIALYSIS PATIENTS. PATRICIA (test code = PATRICIA) Machine Shop Inspector ID - GIO Mcguire Lab Interpretation Abnormal (test code = 25210-3) [facility] [id number] 06:44:09 Test Item Value Reference Range Interpretation Comments SODIUM (BEAKER) 139 meq/L 136-145 (test code = 381) POTASSIUM (BEAKER) 3.6 meq/L 3.5-5.1 (test code = 379) CHLORIDE (BEAKER) 104 meq/L 98-107 (test code = 382) CO2 (BEAKER) (test 28 meq/L 22-29 code = 355) BLOOD UREA NITROGEN 14 mg/dL 7-21 (BEAKER) (test code = 354) CREATININE (BEAKER) 0.73 mg/dL 0.57-1.25 (test code = 358) GLUCOSE RANDOM 109 mg/dL 70-105 H (BEAKER) (test code = 652) CALCIUM (BEAKER) 8.8 mg/dL 8.4-10.2 (test code = 697) EGFR (BEAKER) (test 105 mL/min/1.73 ESTIM ATED GFR IS code = 1092) sq m NOT ACCURATE CREATININE CLEARANCE IN PREDICTING GLOMERULAR FILTRATION RATE . ESTIMATED GFR I S NOT APPLICABLE FOR DIALYSIS PATIEN TS. Machine Shop Inspector ID - GIO [id number] 05:23:01 Test Item Value Reference Range Interpretation Comments PTT (test code = 73124-9) 28.7 See_Comment [ Automated message] The system Swo[employer] generated this result transmitted ref erence range: 22.5 - 3 6.0 seconds. The re ference range was not u sed to interpret this result as normal/abnor mal. Lab Interpretation (test Normal code = 95390-4) [facility] Test Item Value Reference Range Interpretation Comments PTT (test code = 78706-0) 28.7 See_Comment [ Automated message] The system [employer] generated this result transmitted ref erence range: 22.5 - 3 6.0 seconds. The re ference range was not u sed to interpret this result as normal/abnor mal. Lab Interpretation (test Normal code = 16141-1) [facility] 05:23[facility]01 Test Item Value Reference Range Interpretation Comments PARTIAL THROMBOPLASTIN TIME 28.7 seconds 22.5-36.0 (BEAKER) (test code = 760) CBC (HEMOGRAM ONLY)2021-04-14 04:39:46 Test Item Value Reference Range Interpretation Comments WHITE BLOOD CELL COUNT (BEAKER) 7.3 K/ L 3.5-10.5 (test code = 775) RED BLOOD CELL COUNT (BEAKER) 4.10 M/ L 4.63-6.08 L (test code = 761) HEMOGLOBIN (BEAKER) (test code = 12.6 GM/DL 13.7-17.5 L 410) HEMATOCRIT (BEAKER) (test code = 37.8 % 40.1-51.0 L 411) MEAN CORPUSCULAR VOLUME (BEAKER) 92.2 fL 79.0-92.2 (test code = 753) MEAN CORPUSCULAR HEMOGLOBIN 30.7 pg 25.7-32.2 (BEAKER) (test code = 751) MEAN CORPUSCULAR HEMOGLOBIN CONC 33.3 GM/DL 32.3-36.5 (BEAKER) (test code = 752) RED CELL DISTRIBUTION WIDTH 13.1 % 11.6-14.4 (BEAKER) (test code = 412) PLATELET COUNT (BEAKER) (test 183 K/CU MM 150-450 code = 756) MEAN PLATELET VOLUME (BEAKER) 9.3 fL 9.4-12.4 L (test code = 754) NUCLEATED RED BLOOD CELLS 0 /100 WBC 0-0 (BEAKER) (test code = 413) [id number] 18:39:22 Test Item Value Reference Range Interpretation Comments PARTIAL THROMBOPLASTIN TIME 65.1 seconds 22.5-36.0 H (BEAKER) (test code = 760) [id number] 12:50:08 Test Item Value Reference Range Interpretation Comments PARTIAL THROMBOPLASTIN TIME 68.6 seconds 22.5-36.0 H (BEAKER) (test code = 760) [id number] 05:10:10 Test Item Value Reference Range Interpretation Comments PARTIAL THROMBOPLASTIN TIME 97.4 seconds 22.5-36.0 H (BEAKER) (test code = 760) CBC (HEMOGRAM ONLY)2021-04-13 04:51:03 Test Item Value Reference Range Interpretation Comments WHITE BLOOD CELL COUNT (BEAKER) 7.9 K/ L 3.5-10.5 (test code = 775) RED BLOOD CELL COUNT (BEAKER) 4.16 M/ L 4.63-6.08 L (test code = 761) HEMOGLOBIN (BEAKER) (test code = 12.8 GM/DL 13.7-17.5 L 410) HEMATOCRIT (BEAKER) (test code = 38.4 % 40.1-51.0 L 411) MEAN CORPUSCULAR VOLUME (BEAKER) 92.3 fL 79.0-92.2 H (test code = 753) MEAN CORPUSCULAR HEMOGLOBIN 30.8 pg 25.7-32.2 (BEAKER) (test code = 751) MEAN CORPUSCULAR HEMOGLOBIN CONC 33.3 GM/DL 32.3-36.5 (BEAKER) (test code = 752) RED CELL DISTRIBUTION WIDTH 12.9 % 11.6-14.4 (BEAKER) (test code = 412) PLATELET COUNT (BEAKER) (test 188 K/CU MM 150-450 code = 756) MEAN PLATELET VOLUME (BEAKER) 9.5 fL 9.4-12.4 (test code = 754) NUCLEATED RED BLOOD CELLS 0 /100 WBC 0-0 (BEAKER) (test code = 413) [id number] 22:49:02 Test Item Value Reference Range Interpretation Comments PARTIAL THROMBOPLASTIN TIME 66.1 seconds 22.5-36.0 H (BEAKER) (test code = 760) [id number] 16:14:23 Test Item Value Reference Range Interpretation Comments PARTIAL THROMBOPLASTIN TIME 94.6 seconds 22.5-36.0 H (BEAKER) (test code = 760) Hemoglobin [id number] 10:50:57 Test Item Value Reference Range Interpretation Comments Hemoglobin A1C (test code = 4548-4) 6.1 % 4.3-6.1 Lab Interpretation (test code = Normal 85392-6) [facility] [id number] 10:50:57 Test Item Value Reference Range Interpretation Comments Hemoglobin A1C (test code = 4548-4) 6.1 % 4.3-6.1 Lab Interpretation (test code = Normal 90734-8) [facility] [id number] 10:50:57 Test Item Value Reference Range Interpretation Comments HEMOGLOBIN A1C (BEAKER) (test code = 6.1 % 4.3-6.1 368) Lipid [id number] 10:07:44 Test Item Value Reference Range Interpretation Comments Triglycerides (test 144 mg/dL code = 2571-8) Cholesterol (test code 154 mg/dL = 3-3) HDL (test code = 32 mg/dL 2084-9) LDL Calculated (test 93 mg/dL code = 24919-5) PATRICIA (test code = PATRICIA) Triglyceride Reference Range: Low Risk <150 Borderline 150-199 High Risk 200-499 Very High Risk >=500 Cholesterol Reference Range: Low Risk <200 Borderline 200-239 High Risk >240 HDL Cholesterol Reference Range: Low Risk >=60 High Risk <40 LDL Cholesterol Reference Range: Optimal <100 Near Optimal 100-129 Borderline 130-159 High 160-189 Very High >=190 Machine Shop Inspector ID - DB [facility] [id number] 10:07:44 Test Item Value Reference Range Interpretation Comments Triglycerides (test 144 mg/dL code = 2571-8) Cholesterol (test code 154 mg/dL = 2093-3) HDL (test code = 32 mg/dL 2084-9) LDL Calculated (test 93 mg/dL code = 05005-4) PATRICIA (test code = PATRICIA) Triglyceride Reference Range: Low Risk <150 Borderline 150-199 High Risk 200-499 Very High Risk >=500 Cholesterol Reference Range: Low Risk <200 Borderline 200-239 High Risk >240 HDL Cholesterol Reference Range: Low Risk >=60 High Risk <40 LDL Cholesterol Reference Range: Optimal <100 Near Optimal 100-129 Borderline 130-159 High 160-189 Very High >=190 Machine Shop Inspector ID - DB [facility] [id number] 10:07:44 Test Item Value Reference Range Interpretation Comments TRIGLYCERIDES (BEAKER) (test code = 144 mg/dL 540) CHOLESTEROL (BEAKER) (test code = 154 mg/dL 631) HDL CHOLESTEROL (JEFERSON) (test code 32 mg/dL = 976) LDL CHOLESTEROL CALCULATED (JEFERSON) 93 mg/dL (test code = 633) Triglyceride Reference Range: Low Risk <150 Borderline 150-199 High Risk 200- 499 Very High Risk >=500Cholesterol Reference Range: Low Risk <200 Borderline 200-239 High Risk >240HDL Cholesterol Reference Range: Low Risk >=60 High Risk <40LDL Cholesterol Reference Range: Optimal <100 Near Optimal 100-129 Borderline 130-159 High 160-189 Very High >=190 Machine Shop Inspector ID - [id number] 09:15:58 Test Item Value Reference Range Interpretation Comments PARTIAL THROMBOPLASTIN TIME 65.5 seconds 22.5-36.0 H (JEFERSON) (test code = 760) U/S, RENAL, [id number] 06:46:00Reason for exam:->?[facility] : 1950 Sex: MFINAL REPORT Ultrasound of the Kidneys Clinical History: ?BPH Comparison: None. Discussion: Sonographic evaluation of the kidneys was performed. Right kidney: 9.8 x 4.6 x 4.8 cm, with cortical thickness of 1.0 cm. Normal cortical echogenicity. No mass. No shadowing calculus. No hydronephrosis. Left kidney: 11.4 x 5.3 x 5.2 cm, with cortical thickness of 1.4 cm. Normal cortical echogenicity. No mass. No shadowing calculus. No hydronephrosis. Limited doppler evaluation of bilateral main renal arteries and veins demonstrate patency. Bladder: Unremarkable. Impression: No hydronephrosis. Signed: Brandi Russell MDReport Verified Date/Time: 04/12/2021 06:46:19 [facility] (HEMOGRAM ONLY)2021-04-12 06:30:24 Test Item Value Reference Range Interpretation Comments WHITE BLOOD CELL COUNT 9.5 K/ L 3.5-10.5 (BEAKER) (test code = 775) RED BLOOD CELL COUNT 4.31 M/ L 4.63-6.08 L (BEAKER) (test code = 761) HEMOGLOBIN (BEAKER) 13.4 GM/DL 13.7-17.5 L (test code = 410) HEMATOCRIT (BEAKER) 39.7 % 40.1-51.0 L (test code = 411) MEAN CORPUSCULAR 92.1 fL 79.0-92.2 Discordant MCV VOLUME (BEAKER) (test result s compared to code = 753) previous result s; clinical correl ation required. MEAN CORPUSCULAR 31.1 pg 25.7-32.2 HEMOGLOBIN (BEAKER) (test code = 751) MEAN CORPUSCULAR 33.8 GM/DL 32.3-36.5 HEMOGLOBIN CONC (BEAKER) (test code = 752) RED CELL DISTRIBUTION 12.9 % 11.6-14.4 WIDTH (BEAKER) (test code = 412) PLATELET COUNT 197 K/CU MM 150-450 (BEAKER) (test code = 756) MEAN PLATELET VOLUME 9.7 fL 9.4-12.4 (BEAKER) (test code = 754) NUCLEATED RED BLOOD 0 /100 WBC 0-0 CELLS (BEAKER) (test code = 413) [id number] 06:22:45 Test Item Value Reference Range Interpretation Comments PARTIAL THROMBOPLASTIN TIME 141.1 seconds 22.5-36.0 H (BEAKER) (test code = 760) [id number] 22:22:12 Test Item Value Reference Range Interpretation Comments PARTIAL THROMBOPLASTIN TIME 92.4 seconds 22.5-36.0 H (BEAKER) (test code = 760) [id number] 14:39:42 Test Item Value Reference Range Interpretation Comments PARTIAL THROMBOPLASTIN TIME 29.4 seconds 22.5-36.0 (BEAKER) (test code = 760) [id number] 04:29:23 Test Item Value Reference Range Interpretation Comments PARTIAL THROMBOPLASTIN TIME 54.0 seconds 22.5-36.0 H (BEAKER) (test code = 760) [id number] 04:28:43 Test Item Value Reference Range Interpretation Comments Phosphorus (test code = 2.2 mg/dL 2.3-4.7 L 2777-1) PATRICIA (test code = PATRICIA) Machine Shop Inspector ID - jrl Lab Interpretation (test Abnormal code = 90589-2) [facility] 04:28:43 Test Item Value Reference Range Interpretation Comments Phosphorus (test code = 2.2 mg/dL 2.3-4.7 L 2777-1) PATRICIA (test code = PATRICIA) Machine Shop Inspector ID - jrl Lab Interpretation (test Abnormal code = 17096-4) [facility] 04:28:43 Test Item Value Reference Range Interpretation Comments PHOSPHORUS (BEAKER) (test code = 2.2 mg/dL 2.3-4.7 L 604) Machine Shop Inspector ID - [id number] 04:28:42 Test Item Value Reference Range Interpretation Comments Magnesium (test code = 1.9 mg/dL 1.6-2.6 58168-2) PATRICIA (test code = PATRICIA) Machine Shop Inspector ID - jrl Lab Interpretation (test Normal code = 44453-9) [facility] 04:28:42 Test Item Value Reference Range Interpretation Comments Magnesium (test code = 1.9 mg/dL 1.6-2.6 86121-8) PATRICIA (test code = PATRICIA) Machine Shop Inspector ID - jrl Lab Interpretation (test Normal code = 29885-9) [facility] 04:28:42 Test Item Value Reference Range Interpretation Comments MAGNESIUM (BEAKER) (test code = 1.9 mg/dL 1.6-2.6 627) Machine Shop Inspector ID - jrlBASIC METABOLIC [id number] 04:28:41 Test Item Value Reference Range Interpretation Comments SODIUM (BEAKER) 140 meq/L 136-145 (test code = 381) POTASSIUM (BEAKER) 3.4 meq/L 3.5-5.1 L (test code = 379) CHLORIDE (BEAKER) 103 meq/L 98-107 (test code = 382) CO2 (BEAKER) (test 25 meq/L 22-29 code = 355) BLOOD UREA NITROGEN 15 mg/dL 7-21 (BEAKER) (test code = 354) CREATININE (BEAKER) 0.74 mg/dL 0.57-1.25 (test code = 358) GLUCOSE RANDOM 105 mg/dL 70-105 (BEAKER) (test code = 652) CALCIUM (BEAKER) 9.2 mg/dL 8.4-10.2 (test code = 697) EGFR (BEAKER) (test 104 mL/min/1.73 ESTIM ATED GFR IS code = 1092) sq m NOT ACCURATE CREATININE CLEARANCE IN PREDICTING GLOMERULAR FILTRATION RATE . ESTIMATED GFR I S NOT APPLICABLE FOR DIALYSIS PATIEN TS. Machine Shop Inspector ID - jrlCBC (HEMOGRAM ONLY)2021-04-11 04:14:58 Test Item Value Reference Range Interpretation Comments WHITE BLOOD CELL COUNT 13.7 K/ L 3.5-10.5 H (BEAKER) (test code = 775) RED BLOOD CELL COUNT 4.73 M/ L 4.63-6.08 (BEAKER) (test code = 761) HEMOGLOBIN (BEAKER) 14.5 GM/DL 13.7-17.5 (test code = 410) HEMATOCRIT (BEAKER) 40.9 % 40.1-51.0 (test code = 411) MEAN CORPUSCULAR 86.5 fL 79.0-92.2 Discordant result VOLUME (BEAKER) (test compar ed to previous code = 753) result. Clinica l correlation req uired MEAN CORPUSCULAR 30.7 pg 25.7-32.2 HEMOGLOBIN (BEAKER) (test code = 751) MEAN CORPUSCULAR 35.5 GM/DL 32.3-36.5 HEMOGLOBIN CONC (BEAKER) (test code = 752) RED CELL DISTRIBUTION 12.6 % 11.6-14.4 WIDTH (BEAKER) (test code = 412) PLATELET COUNT 247 K/CU MM 150-450 (BEAKER) (test code = 756) MEAN PLATELET VOLUME 9.0 fL 9.4-12.4 L (BEAKER) (test code = 754) NUCLEATED RED BLOOD 0 /100 WBC 0-0 CELLS (BEAKER) (test code = 413) CBC (HEMOGRAM ONLY)2021-04-10 05:40:47 Test Item Value Reference Range Interpretation Comments WHITE BLOOD CELL COUNT (BEAKER) 9.9 K/ L 3.5-10.5 (test code = 775) RED BLOOD CELL COUNT (BEAKER) 4.73 M/ L 4.63-6.08 (test code = 761) HEMOGLOBIN (BEAKER) (test code = 14.5 GM/DL 13.7-17.5 410) HEMATOCRIT (BEAKER) (test code = 43.4 % 40.1-51.0 411) MEAN CORPUSCULAR VOLUME (BEAKER) 91.8 fL 79.0-92.2 (test code = 753) MEAN CORPUSCULAR HEMOGLOBIN 30.7 pg 25.7-32.2 (BEAKER) (test code = 751) MEAN CORPUSCULAR HEMOGLOBIN CONC 33.4 GM/DL 32.3-36.5 (BEAKER) (test code = 752) RED CELL DISTRIBUTION WIDTH 12.7 % 11.6-14.4 (BEAKER) (test code = 412) PLATELET COUNT (BEAKER) (test 262 K/CU MM 150-450 code = 756) MEAN PLATELET VOLUME (BEAKER) 9.5 fL 9.4-12.4 (test code = 754) NUCLEATED RED BLOOD CELLS 0 /100 WBC 0-0 (BEAKER) (test code = 413) [id number] 05:34:03 Test Item Value Reference Range Interpretation Comments PHOSPHORUS (BEAKER) (test code = 2.8 mg/dL 2.3-4.7 604) Machine Shop Inspector ID - ISMAEL [id number] 05:34:02 Test Item Value Reference Range Interpretation Comments MAGNESIUM (BEAKER) (test code = 1.6 mg/dL 1.6-2.6 627) Machine Shop Inspector ID - ISMAEL MBASIC METABOLIC [id number] 05:34:01 Test Item Value Reference Range Interpretation Comments SODIUM (BEAKER) 140 meq/L 136-145 (test code = 381) POTASSIUM (BEAKER) 2.9 meq/L 3.5-5.1 L (test code = 379) CHLORIDE (BEAKER) 102 meq/L 98-107 (test code = 382) CO2 (BEAKER) (test 27 meq/L 22-29 code = 355) BLOOD UREA NITROGEN 8 mg/dL 7-21 (BEAKER) (test code = 354) CREATININE (BEAKER) 0.70 mg/dL 0.57-1.25 (test code = 358) GLUCOSE RANDOM 96 mg/dL 70-105 (BEAKER) (test code = 652) CALCIUM (BEAKER) 8.8 mg/dL 8.4-10.2 (test code = 697) EGFR (BEAKER) (test 111 mL/min/1.73 ESTIM ATED GFR IS code = 1092) sq m NOT ACCURATE CREATININE CLEARANCE IN PREDICTING GLOMERULAR FILTRATION RATE . ESTIMATED GFR I S NOT APPLICABLE FOR DIALYSIS PATIEN TS. Machine Shop Inspector ID - ISMAEL [id number] 05:12:09 Test Item Value Reference Range Interpretation Comments PARTIAL THROMBOPLASTIN TIME 92.0 seconds 22.5-36.0 H (BEAKER) (test code = 760) High Sensitivity Troponin I ([facility]/[place] Only)2021-04-09 22:25:20 Test Item Value Reference Range Interpretation Comments Troponin I HS (test 24 pg/ml See_Comment [[employer] code = 60123-3) message] The system which generated this result transmitted reference range : <=35. The reference range was not used to interpret this result as normal/abnormal . PATRICIA (test code = Machine Shop Inspector ID - PATRICIA) CDPThe ENGINEERING MATHEMATICIAN STAT High Sensitivity Troponin-I results should be used in conjunction with other diagnostic information such as ECG, clinical observations and information, and patient symptoms to aid in the diagnosis of SC. Lab Interpretation Normal (test code = 19265-9) [facility]/[place] Only) 2021-04-09 22:25:20 Test Item Value Reference Range Interpretation Comments Troponin I HS (test 24 pg/ml See_Comment [[employer] code = 00764-8) message] The system which generated this result transmitted reference range : <=35. The reference range was not used to interpret this result as normal/abnormal . PATRICIA (test code = Machine Shop Inspector ID - PATRICIA) CDPThe ENGINEERING MATHEMATICIAN STAT High Sensitivity Troponin-I results should be used in conjunction with other diagnostic information such as ECG, clinical observations and information, and patient symptoms to aid in the diagnosis of SC. Lab Interpretation Normal (test code = 02203-2) [facility] TROPONIN [id number] 22:25:20 Test Item Value Reference Range Interpretation Comments HIGH SENSITIVITY 24 pg/ml See_Comment [Automated message] TROPONIN I (test code = The system which [id number]) generated this result transmitted ref erence range: <=35. Th e reference range was not used to int erpret this result as normal/abnormal . Machine Shop Inspector ID - CDPThe ENGINEERING MATHEMATICIAN STAT High Sensitivity Troponin-I results should be used in conjunction with other diagnostic information such as ECG, clinical observations and information, and patient symptoms to aid in the diagnosis of SC.[id number] 21:46:16 Test Item Value Reference Range Interpretation Comments PARTIAL THROMBOPLASTIN TIME 73.0 seconds 22.5-36.0 H (BEAKER) (test code = 760) [id number] 14:58:24 Test Item Value Reference Range Interpretation Comments PARTIAL THROMBOPLASTIN TIME 26.1 seconds 22.5-36.0 (BEAKER) (test code = 760) [id number] 14:49:24 Test Item Value Reference Range Interpretation Comments PARTIAL THROMBOPLASTIN TIME 26.0 seconds 22.5-36.0 (BEAKER) (test code = 760) ABORH, [id number] 08:22:00 Test Item Value Reference Range Interpretation Comments ABO Grouping (test code = 2588) B Rh Factor (test code = 2589) [facility] [id number] 08:22:00 Test Item Value Reference Range Interpretation Comments ABO Grouping (test code = 2588) B Rh Factor (test code = 2589) [facility] 07:30:43 Test Item Value Reference Range Interpretation Comments PHOSPHORUS (BEAKER) (test code = 2.0 mg/dL 2.3-4.7 L 604) Machine Shop Inspector ID - ISMAEL [id number] 07:30:42 Test Item Value Reference Range Interpretation Comments MAGNESIUM (BEAKER) (test code = 1.7 mg/dL 1.6-2.6 627) Machine Shop Inspector ID - ISMAEL MBASIC METABOLIC [id number] 07:30:41 Test Item Value Reference Range Interpretation Comments SODIUM (BEAKER) 140 meq/L 136-145 (test code = 381) POTASSIUM (BEAKER) 3.7 meq/L 3.5-5.1 (test code = 379) CHLORIDE (BEAKER) 103 meq/L 98-107 (test code = 382) CO2 (BEAKER) (test 28 meq/L 22-29 code = 355) BLOOD UREA NITROGEN 8 mg/dL 7-21 (BEAKER) (test code = 354) CREATININE (BEAKER) 0.73 mg/dL 0.57-1.25 (test code = 358) GLUCOSE RANDOM 111 mg/dL 70-105 H (BEAKER) (test code = 652) CALCIUM (BEAKER) 8.6 mg/dL 8.4-10.2 (test code = 697) EGFR (BEAKER) (test 105 mL/min/1.73 ESTIM ATED GFR IS code = 1092) sq m NOT ACCURATE CREATININE CLEARANCE IN PREDICTING GLOMERULAR FILTRATION RATE . ESTIMATED GFR I S NOT APPLICABLE FOR DIALYSIS PATIEN TS. Machine Shop Inspector ID - ISMAEL [id number] 07:24:03 Test Item Value Reference Range Interpretation Comments PARTIAL THROMBOPLASTIN TIME 101.7 seconds 22.5-36.0 H (BEAKER) (test code = 760) Prothrombin time/[id number] 07:20:53 Test Item Value Reference Interpretation Comments Range Protime (test code = 14.5 See_Comment H [Autom ated 9582-2) message] The system which generated this result transmitted reference range : 11.9 - 14.2 seconds. The reference range was not used to interpret this result as normal/abnormal . INR (test code = 1.15 See_Comment [Automated 4501-6) message] The system which generated this result transmitted reference range : <=5.90. The reference range was not used to interpret this result as normal/abnormal . PATRICIA (test code = RECOMMENDED PATRICIA) COUMADIN/WARFARIN INR THERAPY RANGESSTANDARD DOSE: 2.0 - 3.0 Includes: PROPHYLAXIS for venous thrombosis, systemic embolization; TREATMENT for venous thrombosis and/or pulmonary embolus.HIGH RISK: Target INR is 2.5-3.5 for patients with mechanical heart valves. Lab Interpretation Abnormal (test code = 11728-2) [facility]/[id number] 07:20:53 Test Item Value Reference Interpretation Comments Range Protime (test code = 14.5 See_Comment H [Autom ated 5902-2) message] The system which generated this result transmitted reference range : 11.9 - 14.2 seconds. The reference range was not used to interpret this result as normal/abnormal . INR (test code = 1.15 See_Comment [Automated 6301-6) message] The system which generated this result transmitted reference range : <=5.90. The reference range was not used to interpret this result as normal/abnormal . PATRICIA (test code = RECOMMENDED PATRICIA) COUMADIN/WARFARIN INR THERAPY RANGESSTANDARD DOSE: 2.0 - 3.0 Includes: PROPHYLAXIS for venous thrombosis, systemic embolization; TREATMENT for venous thrombosis and/or pulmonary embolus.HIGH RISK: Target INR is 2.5-3.5 for patients with mechanical heart valves. Lab Interpretation Abnormal (test code = 63655-8) [facility] HospitalPROTHROMBIN TIME/[id number] 07:20:53 Test Item Value Reference Range Interpretation Comments PROTIME (BEAKER) 14.5 seconds 11.9-14.2 H (test code = 759) INR (BEAKER) (test 1.15 See_Comment [Automat ed message] code = 370) The system [employer] generated this result transmitted ref erence range: <=5.90. The reference range was not used to int erpret this result as normal/abnormal . RECOMMENDED COUMADIN/WARFARIN INR THERAPY RANGESSTANDARD DOSE: 2.0 - 3.0 Includes: PROPHYLAXIS for venous thrombosis, systemic embolization; TREATMENT for venous thrombosis and/or pulmonary embolus.HIGH RISK: Target INR is 2.5-3.5 for patients with mechanical heart valves.CBC (HEMOGRAM ONLY)2021-04-09 07:15:15 Test Item Value Reference Range Interpretation Comments WHITE BLOOD CELL COUNT (BEAKER) 11.3 K/ L 3.5-10.5 H (test code = 775) RED BLOOD CELL COUNT (BEAKER) 4.31 M/ L 4.63-6.08 L (test code = 761) HEMOGLOBIN (BEAKER) (test code = 13.4 GM/DL 13.7-17.5 L 410) HEMATOCRIT (BEAKER) (test code = 40.0 % 40.1-51.0 L 411) MEAN CORPUSCULAR VOLUME (BEAKER) 92.8 fL 79.0-92.2 H (test code = 753) MEAN CORPUSCULAR HEMOGLOBIN 31.1 pg 25.7-32.2 (BEAKER) (test code = 751) MEAN CORPUSCULAR HEMOGLOBIN CONC 33.5 GM/DL 32.3-36.5 (BEAKER) (test code = 752) RED CELL DISTRIBUTION WIDTH 12.9 % 11.6-14.4 (BEAKER) (test code = 412) PLATELET COUNT (BEAKER) (test 240 K/CU MM 150-450 code = 756) MEAN PLATELET VOLUME (BEAKER) 9.3 fL 9.4-12.4 L (test code = 754) NUCLEATED RED BLOOD CELLS 0 /100 WBC 0-0 (BEAKER) (test code = 413) Type and screen, [id number] 00:43:00 Test Item Value Reference Range Interpretation Comments ABO/RH AUTOMATED (BEAKER) (test B POSITIVE code = 2260) Ab Scrn (test code = 890-4) NEGATIVE [facility], [id number] 00:43:00 Test Item Value Reference Range Interpretation Comments ABO/RH AUTOMATED (BEAKER) (test B POSITIVE code = 2260) Ab Scrn (test code = 890-4) NEGATIVE [facility] 00:14:02 Test Item Value Reference Range Interpretation Comments PARTIAL THROMBOPLASTIN TIME 73.8 seconds 22.5-36.0 H (BEAKER) (test code = 760) [id number] 14:25:15 Test Item Value Reference Range Interpretation Comments PARTIAL THROMBOPLASTIN TIME 28.3 seconds 22.5-36.0 (BEAKER) (test code = 760) PET/CT, CARDIAC PERF REST AND [id number] 14:20:00Reason for exam:->pre op [facility]OL[facility] : 1950 Sex: MFINAL REPORT PROCEDURE: MYOCARDIAL PERFUSION PET/CT IMAGING (Rest/Stress)CPT CODE: 20760 INDICATION: Preoperative evaluation CARDIOVASCULAR PROFILE:CAD History: NoneSymptoms: NoneRisk Factors: Hypertension, hyperlipidemia, peripheral vascular diseaseBMI: 25.1Medications: Metoprolol, pra vastatin STRESS PROTOCOL:Pharmacologic stress was achieved with a 10-second intravenous infusion of regadenoson 0.4 mg. The radiopharmaceutical was administered 30 seconds after the start of the regadenoson infusion. IMAGING PROTOCOL:Limited low-dose CT imaging was performed for attenuation correction. 40.0 mCi of Rb-82 chloride was injected intravenously at rest, and gated PET images were obtained. Then, 40.0 mCi of Rb-82 chloride was injected intravenously at peak stress, and gated PET images wereobtained. REST FINDINGS:HR: 90/minBP: 122/73 mmHgPrelim. EKG: Inferolateral T wave inversions.Perfusion: There is mild perfusion defect in the mid to apical inferior wall.Wall Motion: Normal (LVEF 57%).LV Volume: Normal. STRESS FINDINGS:HR: 115/min (78% of MPHR)BP: 151/70 mmHgPrelim. EKG: Inferolateral T wave inversions.Symptoms: Flushing (treatment not required).Perfusion: There is a moderate perfusion defect of the mid to apical inferior wall.Wall Motion: Normal (LVEF 57%).LV Volume: Not significantly changed from rest. IMPRESSION:1. Abnormal study.2. Abnormal myocardial perfusion. There is a moderate size, moderate severity, most reversible perfusion abnormality in the mid to apical-inferolateral wall of the LV.3. Normal resting LVEF, which does not deteriorate with pharmacologic stress.4. Normal extracardiac tracer distribution.5. There is no prior study for comparison. Signed: Hayden, Eleni MDRepnhan Verified Date/Time: 04/08/2021 14:20:41 Reading Location: [address] ReadingRoom 2D Echo W/O Doppler(No Doppler)2021-04-08 12:22:07Ejection FractionSLEH ECHO [facility](No Doppler)2021-04-08 12:22:07Ejection FractionSLEH ECHO HEARTLAB [facility]AP[facility]2021-10-05 07:45:41 Test Item Value Reference Range Interpretation Comments PARTIAL THROMBOPLASTIN TIME 57.8 seconds 22.5-36.0 H (BEAKER) (test code = 760) [id number] 05:42:59 Test Item Value Reference Range Interpretation Comments PHOSPHORUS (BEAKER) (test code = 2.2 mg/dL 2.3-4.7 L 604) Machine Shop Inspector ID - ISMAEL MBASIC METABOLIC [id number] 05:42:58 Test Item Value Reference Range Interpretation Comments SODIUM (BEAKER) 138 meq/L 136-145 (test code = 381) POTASSIUM (BEAKER) 3.5 meq/L 3.5-5.1 (test code = 379) CHLORIDE (BEAKER) 103 meq/L 98-107 (test code = 382) CO2 (BEAKER) (test 25 meq/L 22-29 code = 355) BLOOD UREA NITROGEN 8 mg/dL 7-21 (BEAKER) (test code = 354) CREATININE (BEAKER) 0.73 mg/dL 0.57-1.25 (test code = 358) GLUCOSE RANDOM 80 mg/dL 70-105 (BEAKER) (test code = 652) CALCIUM (BEAKER) 8.1 mg/dL 8.4-10.2 L (test code = 697) EGFR (BEAKER) (test 105 mL/min/1.73 ESTIM ATED GFR IS code = 1092) sq m NOT ACCURATE CREATININE CLEARANCE IN PREDICTING GLOMERULAR FILTRATION RATE . ESTIMATED GFR I S NOT APPLICABLE FOR DIALYSIS PATIEN TS. Machine Shop Inspector ID - ISMAEL [id number] 05:42:58 Test Item Value Reference Range Interpretation Comments MAGNESIUM (BEAKER) (test code = 1.6 mg/dL 1.6-2.6 627) Machine Shop Inspector GRETCHEN GUAMAN2021-10-05 05:35:30 Test Item Value Reference Range Interpretation Comments PARTIAL THROMBOPLASTIN TIME 129.2 seconds 22.5-36.0 H (BEAKER) (test code = 760) CBC (HEMOGRAM ONLY)2021-04-08 05:06:32 Test Item Value Reference Range Interpretation Comments WHITE BLOOD CELL COUNT (BEAKER) 12.5 K/ L 3.5-10.5 H (test code = 775) RED BLOOD CELL COUNT (BEAKER) 4.22 M/ L 4.63-6.08 L (test code = 761) HEMOGLOBIN (BEAKER) (test code = 13.3 GM/DL 13.7-17.5 L 410) HEMATOCRIT (BEAKER) (test code = 39.9 % 40.1-51.0 L 411) MEAN CORPUSCULAR VOLUME (BEAKER) 94.5 fL 79.0-92.2 H (test code = 753) MEAN CORPUSCULAR HEMOGLOBIN 31.5 pg 25.7-32.2 (BEAKER) (test code = 751) MEAN CORPUSCULAR HEMOGLOBIN CONC 33.3 GM/DL 32.3-36.5 (BEAKER) (test code = 752) RED CELL DISTRIBUTION WIDTH 12.8 % 11.6-14.4 (BEAKER) (test code = 412) PLATELET COUNT (BEAKER) (test 241 K/CU MM 150-450 code = 756) MEAN PLATELET VOLUME (BEAKER) 9.3 fL 9.4-12.4 L (test code = 754) NUCLEATED RED BLOOD CELLS 0 /100 WBC 0-0 (BEAKER) (test code = 413) SARS-COV2/RT-PCR ([facility])2021-04-07 22:58:34 Test Item Value Reference Range Interpretation Comments SARS-COV2/RT-PCR (test code = Negative Negative [id number]) Negative result for this test determines that SARS-CoV-2 RNA was not present in the specimen above the Limit of Detection (LOD). However, Negative results do not preclude SARS-CoV-2 infection and should not be used as the sole basis for treatment or patient management decisions. Negative results must be combined with clinical observations, patient history, and epidemiological information. A false negative result may occur if a specimen is improperly collected, transported, or handled. A false negative result should be considered if patient's recent exposures or clinical presentation indicate that COVID-19 (SARS-CoV-2) is likely and diagnostic tests for other causes of illness are negative. Re-testing should be considered in cases of suspected false negatives.The limit of detection for this assay is 100 copies/mL.This SARS-CoV-2 test is a real-time RT_PCR test intended for the qualitative detection of nucleic acid from SARS-CoV-2 in a nasopharyngeal swab specimen collected from individuals suspected of COVID-19 by their healthcare provider.This test has not been Food and Drug Administration (FDA) cleared or approved. This is a modified version of an approved Emergency Use Authorization (EUA) and is in the process of review by the FDA. Once authorized by the FDA, the issued EUA will be effective until the declaration that circumstances exist justifying the authorization of the emergency use of in vitro diagnostic tests for detection and/or diagnosis of COVID-19 is terminated under Section 564(b)(2) of the Act or the EUA is revoked under Section 564(g) of the Act.Testing was performed using [employer] SARS-CoV-2 assay.Fact Sheet for Healthcare Providers:https://www.TheSquareFoot.li/vinny/RT SARS-CoV-2 HCP Fact Sheet 51- 483652.pdfFact Sheet for Healthcare Patients:https://www.TheS[employer].li/vinny/RT SARS-CoV-2 Patient Fact Sheet EN 51-446262D9.[id number] 22:00:42 Test Item Value Reference Range Interpretation Comments PARTIAL THROMBOPLASTIN TIME 48.0 seconds 22.5-36.0 H (BEAKER) (test code = 760) CT, [id number] 21:33:00Pain and tenderness at the site of ventral abdominal herniaUnlisted Reason for Exam - Click Yes and Enter Reason Below- >NoWill this procedure require oral contrast?->No [facility]ENTER[facility]GA : 1950 Sex: MFINAL REPORT EXAM/TECHNIQUE: CT of the abdomen and pelvis without contrast. Lower dose optimization was performed. INDICATION: Abdominal pain. COMPARISON: CT abdomen and pelvis from 04/02/2021. FINDINGS: Lower thorax: Subpleural reticulation is present on the right. Liver: Unremarkable noncontrast appearance of the liver. Biliary: The gallbladder and intrahepatic and extrahepatic biliary systems are unremarkable. Spleen: Punctate calcifications likely reflect prior granulomatous process. Pancreas: Unremarkable. Adrenals: Left adrenal gland is thickened and irregular without discrete nodule. Kidneys: 2 mm right renal upper pole nonobstructing calculi. No hydronephrosis. Bowel: Normalappearance of the colon. Appendix is normal in appearance. Dilated loops of small bowel without transition point favors ileus. Lymph nodes: No lymphadenopathy by size criteria. Mesentery: No ascites. No pneumoperitoneum. Periumbilical fat-containing hernias. Pelvis: Prostatomegaly may represent benignprostatic hyperplasia. Seminal vesicles are unremarkable. The bladder is unremarkable in appearance.Vessels: Calcific atherosclerosis of the aorta and branch vessels without aneurysmal dilatation. Osseous: No acute osseous process. No suspicious osseous lesions. Impression: 1. Dilated loops of small bowel without focal transition point favors ileus/enteritis over small bowel obstruction. 2. Fat-containing periumbilical hernias are present. 3. Nonobstructing 2 mm calculus in the right renal upper pole. Signed: Nima Hale MDReport Verified Date/Time: 04/07/2021 21:33:08 Manual [id number] 18:30:02 Test Item Value Reference Range Interpretation Comments % Neutros (test code = 81 % 2816) % Lymphs (test code = 10 % 2817) % Monos (test code = 4 % 2818) % Promyelo (test code = 1 % 0-0 H 2825) % Bands (test code = 4 % 0-10 2826) # Neutros (test code = 18.87 K/ul 1.78-5.38 H 2830) # Lymphs (test code = 2.33 K/ul 1.32-3.57 2831) # Monos (test code = 0.93 K/uL 0.30-0.82 H 2832) # Promyelo (test code = 0.23 K/uL 0.00-0.00 H 2838) # Bands (test code = 0.93 K/uL 0.00-0.80 H 2840) Total Counted (test code 100 = 1351) Platelet Morphology (test Normal code = 486) Smudge Cells (test code = Present 1371) Anisocytosis (test code = 1+ few 961) Microcytes (test code = 1+ few 965) Platelet Conc (test code Adequate = 3438) PATRICIA (test code = PATRICIA) Machine Shop Inspector ID - gibran Tony comments: Slide comments: Lab Interpretation (test Abnormal code = 27842-2) [facility] [id number] 18:30:02 Test Item Value Reference Range Interpretation Comments % Neutros (test code = 81 % 2816) % Lymphs (test code = 10 % 2817) % Monos (test code = 4 % 2818) % Promyelo (test code = 1 % 0-0 H 2825) % Bands (test code = 4 % 0-10 2826) # Neutros (test code = 18.87 K/ul 1.78-5.38 H 2830) # Lymphs (test code = 2.33 K/ul 1.32-3.57 2831) # Monos (test code = 0.93 K/uL 0.30-0.82 H 2832) # Promyelo (test code = 0.23 K/uL 0.00-0.00 H 2838) # Bands (test code = 0.93 K/uL 0.00-0.80 H 2840) Total Counted (test code 100 = 1351) Platelet Morphology (test Normal code = 486) Smudge Cells (test code = Present 1371) Anisocytosis (test code = 1+ few 961) Microcytes (test code = 1+ few 965) Platelet Conc (test code Adequate = 3438) PATRICIA (test code = PATRICIA) Machine Shop Inspector ID - gibran Tony comments: Slide comments: Lab Interpretation (test Abnormal code = 83654-8) [facility](CELLAVISION MANUAL DIFF)2021-04-07 18:30:02 Test Item Value Reference Range Interpretation Comments NEUTROPHILS - REL 81 % (CELLAVISION)(BEAKER) (test code = 2816) LYMPHOCYTES - REL 10 % (CELLAVISION)(BEAKER) (test code = 2817) MONOCYTES - REL 4 % (CELLAVISION)(BEAKER) (test code = 2818) PROMYELOCYTES - REL 1 % 0-0 H (CELLAVSION)(BEAKER) (test code = 2825) BANDS - REL (CELLAVISION)(BEAKER) 4 % 0-10 (test code = 2826) NEUTROPHILS - ABS 18.87 K/ul 1.78-5.38 H (CELLAVISION)(BEAKER) (test code = 2830) LYMPHOCYTES - ABS 2.33 K/ul 1.32-3.57 (CELLAVISION)(BEAKER) (test code = 2831) MONOCYTES - ABS 0.93 K/uL 0.30-0.82 H (CELLAVISION)(BEAKER) (test code = 2832) PROMYELOCYTES - ABS 0.23 K/uL 0.00-0.00 H (CELLAVISION)(BEAKER) (test code = 2838) BANDS - ABS (CELLAVISION)(BEAKER) 0.93 K/uL 0.00-0.80 H (test code = 2840) TOTAL COUNTED (BEAKER) (test code 100 = 1351) PLT MORPHOLOGY (BEAKER) (test code Normal = 486) SMUDGE CELLS (BEAKER) (test code = Present 1371) ANISOCYTOSIS (BEAKER) (test code = 1+ few 961) MICROCYTES (BEAKER) (test code = 1+ few 965) PLATELET CONCENTRATION Adequate (CELLAVISION)(BEAKER) (test code = 3438) Machine Shop Inspector ID - gibran Tony comments: Slide comments:CBC W/PLT COUNT & AUTO [id number] 18:08:57 Test Item Value Reference Range Interpretation Comments WHITE BLOOD CELL COUNT (BEAKER) 23.3 K/ L 3.5-10.5 H (test code = 775) RED BLOOD CELL COUNT (BEAKER) 4.88 M/ L 4.63-6.08 (test code = 761) HEMOGLOBIN (BEAKER) (test code = 15.0 GM/DL 13.7-17.5 410) HEMATOCRIT (BEAKER) (test code = 45.4 % 40.1-51.0 411) MEAN CORPUSCULAR VOLUME (BEAKER) 93.0 fL 79.0-92.2 H (test code = 753) MEAN CORPUSCULAR HEMOGLOBIN 30.7 pg 25.7-32.2 (BEAKER) (test code = 751) MEAN CORPUSCULAR HEMOGLOBIN CONC 33.0 GM/DL 32.3-36.5 (BEAKER) (test code = 752) RED CELL DISTRIBUTION WIDTH 12.8 % 11.6-14.4 (BEAKER) (test code = 412) PLATELET COUNT (BEAKER) (test 321 K/CU MM 150-450 code = 756) MEAN PLATELET VOLUME (BEAKER) 8.7 fL 9.4-12.4 L (test code = 754) NUCLEATED RED BLOOD CELLS 0 /100 WBC 0-0 (BEAKER) (test code = 413) NEUTROPHILS RELATIVE PERCENT 77 % (BEAKER) (test code = 429) LYMPHOCYTES RELATIVE PERCENT 14 % (BEAKER) (test code = 430) MONOCYTES RELATIVE PERCENT 8 % (BEAKER) (test code = 431) EOSINOPHILS RELATIVE PERCENT 0 % (BEAKER) (test code = 432) BASOPHILS RELATIVE PERCENT 0 % (BEAKER) (test code = 437) NEUTROPHILS ABSOLUTE COUNT 17.83 K/ L 1.78-5.38 H (BEAKER) (test code = 670) LYMPHOCYTES ABSOLUTE COUNT 3.32 K/ L 1.32-3.57 (BEAKER) (test code = 414) MONOCYTES ABSOLUTE COUNT (BEAKER) 1.85 K/ L 0.30-0.82 H (test code = 415) EOSINOPHILS ABSOLUTE COUNT 0.05 K/ L 0.04-0.54 (BEAKER) (test code = 416) BASOPHILS ABSOLUTE COUNT (BEAKER) 0.06 K/ L 0.01-0.08 (test code = 417) IMMATURE GRANULOCYTES-RELATIVE 1 % 0-1 PERCENT (BEAKER) (test code = 2801) Clostridium difficile GDH [id number] 14:07:12 Test Item Value Reference Range Interpretation Comments C. Difficle Toxin Negative Negative (test code = 7861904415) C. Difficile [facility] Negative Negative No indicati on of Antigen (test code = Clostri dium 8508139500) difficile infection and n o colonization. Discontinue enteric isolati on and therapy. PATRICIA (test code = Testing performed PATRICIA) by [employer] Rapid Cassette Assay. For G[facility], published sensitivity of the assay is 98.7% compared to cytotoxicity testing. For Toxin AB, published sensitivity is 87.8% and specificity 99.4% compared to cytotoxicity testing.Verificati on of kit performance was done by the [facility] prior to clinical use. Lab Interpretation Normal (test code = 27931-6) [facility] [id number] 14:07:12 Test Item Value Reference Range Interpretation Comments C. Difficle Toxin Negative Negative (test code = 6112311612) C. Difficile G[facility] Negative Negative No indicati on of Antigen (test code = Clostri dium 1464874460) difficile infection and n o colonization. Discontinue enteric isolati on and therapy. PATRICIA (test code = Testing performed PATRICIA) by [employer] Rapid Cassette Assay. For GDH, published sensitivity of the assay is 98.7% compared to cytotoxicity testing. For Toxin AB, published sensitivity is 87.8% and specificity 99.4% compared to cytotoxicity testing.Verificati on of kit performance was done by the [facility] prior to clinical use. Lab Interpretation Normal (test code = 88245-4) [facility] DIFFICILE [facility] [id number] 14:07:12 Test Item Value Reference Range Interpretation Comments CDT TOXIN (test code Negative Negative = 1716875410) CDT [facility] ANTIGEN (test Negative Negative No ind ication of code = 4607566345) Clostridi um difficile infection and n o colonization. Discontinue ent morgan isolation and t herapy. Testing performed by [employer] Rapid Cassette Assay. For GDH, published sensitivity of the assay is 98.7% compared to cytotoxicity testing. For Toxin AB, published sensitivity is 87.8% and specificity 99.4% compared to cytotoxicity testing.Verification of kit performance was done by the [facility] prior to clinical use.[id number] 13:29:03 Test Item Value Reference Range Interpretation Comments PARTIAL THROMBOPLASTIN TIME 65.1 seconds 22.5-36.0 H (BEAKER) (test code = 760) Lactic acid, [id number] 10:36:33 Test Item Value Reference Range Interpretation Comments Lactate, Venous (test 1.04 mmol/L 0.50-2.20 Specim en code = 2872) slightly hemolyzed PATRICIA (test code = PATRICIA) Machine Shop Inspector ID Jessica Zhang Lab Interpretation Normal (test code = 34178-0) [facility], [id number] 10:36:33 Test Item Value Reference Range Interpretation Comments Lactate, Venous (test 1.04 mmol/L 0.50-2.20 Specim en code = 2872) slightly hemolyzed PATRICIA (test code = PATRICIA) Machine Shop Inspector ID Jessica Zhang Lab Interpretation Normal (test code = 55234-5) [facility]CT[facility]ID, [id number] 10:36:33 Test Item Value Reference Range Interpretation Comments LACTATE BLOOD VENOUS 1.04 mmol/L 0.50-2.20 Specime n slightly (2) (BEAKER) (test hemolyzed code = 2872) Machine Shop Inspector ID Jessica NEVES [id number] 06:41:06 Test Item Value Reference Range Interpretation Comments MAGNESIUM (BEAKER) (test code = 1.8 mg/dL 1.6-2.6 627) Machine Shop Inspector ID - ARVIND [id number] 06:41:06 Test Item Value Reference Range Interpretation Comments PHOSPHORUS (BEAKER) (test code = 1.8 mg/dL 2.3-4.7 L 604) Machine Shop Inspector ID - ARVIND WBASIC METABOLIC [id number] 06:41:05 Test Item Value Reference Range Interpretation Comments SODIUM (BEAKER) 138 meq/L 136-145 (test code = 381) POTASSIUM (BEAKER) 3.9 meq/L 3.5-5.1 (test code = 379) CHLORIDE (BEAKER) 106 meq/L 98-107 (test code = 382) CO2 (BEAKER) (test 25 meq/L 22-29 code = 355) BLOOD UREA NITROGEN 16 mg/dL 7-21 (BEAKER) (test code = 354) CREATININE (BEAKER) 0.74 mg/dL 0.57-1.25 (test code = 358) GLUCOSE RANDOM 82 mg/dL 70-105 (BEAKER) (test code = 652) CALCIUM (BEAKER) 8.4 mg/dL 8.4-10.2 (test code = 697) EGFR (BEAKER) (test 104 mL/min/1.73 ESTIM ATED GFR IS code = 1092) sq m NOT ACCURATE CREATININE CLEARANCE IN PREDICTING GLOMERULAR FILTRATION RATE . ESTIMATED GFR I S NOT APPLICABLE FOR DIALYSIS PATIEN TS. Machine Shop Inspector ID - ARVIND [id number] 06:36:06 Test Item Value Reference Range Interpretation Comments PARTIAL THROMBOPLASTIN TIME 49.3 seconds 22.5-36.0 H (BEAKER) (test code = 760) PROTHROMBIN TIME/[id number] 06:35:06 Test Item Value Reference Range Interpretation Comments PROTIME (BEAKER) 16.8 seconds 11.9-14.2 H (test code = 759) INR (BEAKER) (test 1.39 See_Comment [Automat ed message] code = 370) The system [employer] generated this result transmitted ref erence range: <=5.90. The reference range was not used to int erpret this result as normal/abnormal . RECOMMENDED COUMADIN/WARFARIN INR THERAPY RANGESSTANDARD DOSE: 2.0 - 3.0 Includes: PROPHYLAXIS for venous thrombosis, systemic embolization; TREATMENT for venous thrombosis and/or pulmonary embolus.HIGH RISK: Target INR is 2.5-3.5 for patients with mechanical heart valves.CBC (HEMOGRAM ONLY)2021-04-07 06:12:06 Test Item Value Reference Range Interpretation Comments WHITE BLOOD CELL COUNT (BEAKER) 22.6 K/ L 3.5-10.5 H (test code = 775) RED BLOOD CELL COUNT (BEAKER) 4.46 M/ L 4.63-6.08 L (test code = 761) HEMOGLOBIN (BEAKER) (test code = 13.8 GM/DL 13.7-17.5 410) HEMATOCRIT (BEAKER) (test code = 42.2 % 40.1-51.0 411) MEAN CORPUSCULAR VOLUME (BEAKER) 94.6 fL 79.0-92.2 H (test code = 753) MEAN CORPUSCULAR HEMOGLOBIN 30.9 pg 25.7-32.2 (BEAKER) (test code = 751) MEAN CORPUSCULAR HEMOGLOBIN CONC 32.7 GM/DL 32.3-36.5 (BEAKER) (test code = 752) RED CELL DISTRIBUTION WIDTH 13.0 % 11.6-14.4 (BEAKER) (test code = 412) PLATELET COUNT (BEAKER) (test 285 K/CU MM 150-450 code = 756) MEAN PLATELET VOLUME (BEAKER) 9.4 fL 9.4-12.4 (test code = 754) NUCLEATED RED BLOOD CELLS 0 /100 WBC 0-0 (BEAKER) (test code = 413) [id number] 21:01:04 Test Item Value Reference Range Interpretation Comments PARTIAL THROMBOPLASTIN TIME 29.7 seconds 22.5-36.0 (BEAKER) (test code = 760) Platelet [id number] 20:53:41 Test Item Value Reference Range Interpretation Comments Platelets (test code 325 See_Comment [Autom ated = 777-3) message] The system which generated this result transmit ria reference range : 150 - 450 K/CU MM. The reference range was not u sed to interpret th is result as normal/abnormal . PATRICIA (test code = PATRICIA) Machine Shop Inspector ID - [id number] Lab Interpretation Normal (test code = 83652-0) [facility] [id number] 20:53:41 Test Item Value Reference Range Interpretation Comments Platelets (test code 325 See_Comment [Autom ated = 777-3) message] The system which generated this result transmit ria reference range : 150 - 450 K/CU MM. The reference range was not u sed to interpret th is result as normal/abnormal . PATRICIA (test code = PATRICIA) Machine Shop Inspector ID - [id number] Lab Interpretation Normal (test code = 12548-5) [facility] [id number] 20:53:41 Test Item Value Reference Range Interpretation Comments PLATELET COUNT (BEAKER) (test 325 K/CU MM 150-450 code = 756) Machine Shop Inspector ID - [id number](CELLAVISION MANUAL DIFF)2021-04-06 08:15:11 Test Item Value Reference Range Interpretation Comments NEUTROPHILS - REL 95 % (CELLAVISION)(BEAKER) (test code = 2816) LYMPHOCYTES - REL 2 % (CELLAVISION)(BEAKER) (test code = 2817) MONOCYTES - REL 3 % (CELLAVISION)(BEAKER) (test code = 2818) NEUTROPHILS - ABS 27.08 K/ul 1.78-5.38 H (CELLAVISION)(BEAKER) (test code = 2830) LYMPHOCYTES - ABS 0.57 K/ul 1.32-3.57 L (CELLAVISION)(BEAKER) (test code = 2831) MONOCYTES - ABS 0.86 K/uL 0.30-0.82 H (CELLAVISION)(BEAKER) (test code = 2832) TOTAL COUNTED (BEAKER) (test code 100 = 1351) WBC MORPHOLOGY (BEAKER) (test code Normal = 487) GIANT PLATELETS (BEAKER) (test Present code = 313) LARGE PLT(BEAKER) (test code = Present 2156) BASOPHILIC STIPPLING (BEAKER) Present (test code = 473) ARTIFACT (CELLAVISION)(BEAKER) Present (test code = 3432) PLATELET CONCENTRATION Adequate (CELLAVISION)(BEAKER) (test code = 3438) Machine Shop Inspector ID - Manisha RecinosJaylen comments: Slide comments:CBC W/PLT COUNT & AUTO [id number] 08:15:10 Test Item Value Reference Range Interpretation Comments WHITE BLOOD CELL COUNT (BEAKER) 28.5 K/ L 3.5-10.5 H (test code = 775) RED BLOOD CELL COUNT (BEAKER) 4.78 M/ L 4.63-6.08 (test code = 761) HEMOGLOBIN (BEAKER) (test code = 14.9 GM/DL 13.7-17.5 410) HEMATOCRIT (BEAKER) (test code = 43.8 % 40.1-51.0 411) MEAN CORPUSCULAR VOLUME (BEAKER) 91.6 fL 79.0-92.2 (test code = 753) MEAN CORPUSCULAR HEMOGLOBIN 31.2 pg 25.7-32.2 (BEAKER) (test code = 751) MEAN CORPUSCULAR HEMOGLOBIN CONC 34.0 GM/DL 32.3-36.5 (BEAKER) (test code = 752) RED CELL DISTRIBUTION WIDTH 12.8 % 11.6-14.4 (BEAKER) (test code = 412) PLATELET COUNT (BEAKER) (test 386 K/CU MM 150-450 code = 756) MEAN PLATELET VOLUME (BEAKER) 9.2 fL 9.4-12.4 L (test code = 754) NUCLEATED RED BLOOD CELLS 0 /100 WBC 0-0 (BEAKER) (test code = 413) LACTIC ACID, [id number] 07:17:13 Test Item Value Reference Range Interpretation Comments LACTATE BLOOD VENOUS 0.95 mmol/L 0.50-2.20 Specime n moderately (2) (BEAKER) (test hemolyzed code = 2802) Machine Shop Inspector GRETCHEN SAMUELS WCOMPREHENSIVE METABOLIC [id number] 07:15:35 Test Item Value Reference Range Interpretation Comments TOTAL PROTEIN 6.2 gm/dL 6.0-8.3 Specimen sligh tly (BEAKER) (test code = hemoly zed 770) ALBUMIN (BEAKER) 3.4 g/dL 3.5-5.0 L Specimen sl ightly (test code = 1145) hemolyzed ALKALINE PHOSPHATASE 53 U/L 40-150 (BEAKER) (test code = 346) BILIRUBIN TOTAL 0.4 mg/dL 0.2-1.2 Specimen sli ghtly (BEAKER) (test code = hemoly zed 377) SODIUM (BEAKER) (test 135 meq/L 136-145 L code = 381) POTASSIUM (BEAKER) 4.1 meq/L 3.5-5.1 Specimen slightly (test code = 379) hemolyzed CHLORIDE (BEAKER) 105 meq/L 98-107 (test code = 382) CO2 (BEAKER) (test 20 meq/L 22-29 L code = 355) BLOOD UREA NITROGEN 25 mg/dL 7-21 H (BEAKER) (test code = 354) CREATININE (BEAKER) 0.79 mg/dL 0.57-1.25 Specimen slightly (test code = 358) hemolyzed GLUCOSE RANDOM 137 mg/dL 70-105 H (BEAKER) (test code = 652) CALCIUM (BEAKER) 8.3 mg/dL 8.4-10.2 L (test code = 697) AST (SGOT) (BEAKER) 20 U/L 5-34 Specimen slightly (test code = 353) hemolyzed ALT (SGPT) (BEAKER) 23 U/L 6-55 Specimen slightly (test code = 347) hemolyzed EGFR (BEAKER) (test 96 mL/min/1.73 ESTIMA RIA GFR IS code = 1092) sq m NOT ACCURATE CREATININE CLEARANCE IN PREDICTING GLOMERULAR FILTRATION RATE . ESTIMATED GFR I S NOT APPLICABLE FOR DIALYSIS PATIEN TS. 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 TECHNIQUE: CT angiography of the abdomen and pelvis, including precontrast, arterial phase, and venous phase. Positive oral contrast was administered. The examination was performed according to the departmental dose-optimization program, which includes automated exposure control, adjustment of the mA and/or kV according to patient size and/or use of iterative reconstruction technique. FINDINGS: Vascular Findings:Atherosclerotic calcifications: Extensive.Aorta: No aneurysm or dissection. Ectasia of the infrarenal abdominal aorta up to 2.8 cm in diameter. Ectasia of the distal descending thoracic aorta up to 3.7 cm in diameter.Celiac artery: Patent. 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 Reconstitution of the mid to distal superior mesenteric artery.JEREMIAS: A very diminutive and tortuous vessel is seen near the ex pected location of the inferior mesenteric artery.Renal arteries: Patent.Right common iliac artery: Moderately narrowed proximally.Left common iliac artery: Patent, 1.6 cm diameter ectasia Right external iliac artery: PatentLeft external iliac artery: Mildly narrowed proximally, otherwise patent.Rightinternal iliac artery: PatentLeft internal iliac artery: Occluded proximally. Reconstituted distally.Right common femoral artery: Severely narrowed distally.Left common femoral artery: Severely narrowed mid to distal.Bilateral superficial femoral arteries: Severely narrowed proximally.Bilateral profunda femoris arteries: Severely narrowed at the origin bilaterally with poststenotic ectasia on the right. SMV: Patent.IMV: Not visualized.IVC: Patent. Non-Vascular Findings:Lung bases: Mild emphysema.Liver: Unremarkable.Gallbladder and bile ducts: Unremarkable.Spleen: Unremarkable.Pancreas: Unremarkable.Adrenals: UnremarkableKidneys and ureters: Unremarkable.Bowel: Nondilated bowel with no wall thickening. No appendicitis. No hypoenhancing bowel or bowel wall thickening to suggest bowel ischemia, withlimited evaluation of the mucosa in the colon related to PO contrast.Bladder: Unremarkable.Reproductive organs: Moderate prostatomegaly with median lobe hypertrophy.Lymph nodes: Unremarkable.Peritoneum: Unremarkable.Vessels: As above.Abdominal wall: Large fat-containing periumbilical hernia and large fat-containing supraumbilical ventral hernia.Bones: An old healed right 10th rib fracture.. IMPRESSION: 1.Severe atherosclerotic disease. 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 Occluded left internal iliac artery with distal reconstitution. Severe narrowing of the bilateral common femoral arteries, bilateral proximal superficial femoral arteries, and origin of the bilateral profunda femoris arteries. 2.No hypoenhancing bowel or bowel wall thickening to suggest bowel ischemia, with limited evaluation of the mucosa in the colon related to PO contrast. 3.No normal inferior mesenteric artery identified. Inferior mesenteric artery is either occluded or very diminutive. No inferior mesenteric vein identified. There are a large number of anatomic variations regarding theinferior mesenteric vein. Signed: Morgan Fullerepnhan Verified Date/Time: 04/02/2021 12:38:28 Reading Location: [facility] C013Y CT Body Reading Room Hepatic function [id number] 07:57:44 Test Item Value Reference Range Interpretation Comments Protein, Total (test 7.5 See_Comment [Autom ated code = 2885-2) message] The system which generated this result transmit ria reference range : 6.0 - 8.3 gm/dL . The reference range was not u sed to interpret th is result as normal/abnormal . Albumin (test code = 4.1 g/dL 3.5-5.0 32050-5) Total Bilirubin (test 0.5 mg/dL 0.2-1.2 code = 1974-) Bilirubin, Direct 0.2 mg/dL 0.1-0.5 (test code = 1967-) Alkaline Phosphatase 77 U/L 40-150 (test code = 6768-6) AST (test code = 23 U/L 1919-8) ALT (test code = 22 U/L 1741-6) PATRICIA (test code = PATRICIA) Machine Shop Inspector ID - ADMIN Lab Interpretation Normal (test code = 91131-0) [facility] [id number] 07:57:44 Test Item Value Reference Range Interpretation Comments Protein, Total (test 7.5 See_Comment [Autom ated code = 2885-2) message] The system which generated this result transmit ria reference range : 6.0 - 8.3 gm/dL . The reference range was not u sed to interpret th is result as normal/abnormal . Albumin (test code = 4.1 g/dL 3.5-5.0 55858-1) Total Bilirubin (test 0.5 mg/dL 0.2-1.2 code = 1974-) Bilirubin, Direct 0.2 mg/dL 0.1-0.5 (test code = 1967-) Alkaline Phosphatase 77 U/L 40-150 (test code = 6768-6) AST (test code = 23 U/L 5-34 192-8) ALT (test code = 22 U/L -55 1742-6) PATRICIA (test code = PATRICIA) Machine Shop Inspector ID - ADMIN Lab Interpretation Normal (test code = 84314-6) [facility] [id number] 07:57:44 Test Item Value Reference Range Interpretation Comments TOTAL PROTEIN (BEAKER) (test code = 7.5 gm/dL 6.0-8.3 770) ALBUMIN (BEAKER) (test code = 1145) 4.1 g/dL 3.5-5.0 BILIRUBIN TOTAL (BEAKER) (test code 0.5 mg/dL 0.2-1.2 = 377) BILIRUBIN DIRECT (BEAKER) (test 0.2 mg/dL 0.1-0.5 code = 706) ALKALINE PHOSPHATASE (BEAKER) (test 77 U/L 40-150 code = 346) AST (SGOT) (BEAKER) (test code = 23 U/L 5-34 353) ALT (SGPT) (BEAKER) (test code = 22 U/L 6-55 347) Machine Shop Inspector ID - ADMINBASIC METABOLIC [id number] 07:57:43 Test Item Value Reference Range Interpretation Comments SODIUM (BEAKER) 139 meq/L 136-145 (test code = 381) POTASSIUM (BEAKER) 5.5 meq/L 3.5-5.1 H (test code = 379) CHLORIDE (BEAKER) 101 meq/L 98-107 (test code = 382) CO2 (BEAKER) (test 28 meq/L 22-29 code = 355) BLOOD UREA NITROGEN 18 mg/dL 7-21 (BEAKER) (test code = 354) CREATININE (BEAKER) 0.82 mg/dL 0.57-1.25 (test code = 358) GLUCOSE RANDOM 128 mg/dL 70-105 H (BEAKER) (test code = 652) CALCIUM (BEAKER) 10.0 mg/dL 8.4-10.2 (test code = 697) EGFR (BEAKER) (test 92 mL/min/1.73 ESTIMA RIA GFR IS code = 1092) sq m NOT ACCURATE CREATININE CLEARANCE IN PREDICTING GLOMERULAR FILTRATION RATE . ESTIMATED GFR I S NOT APPLICABLE FOR DIALYSIS PATIEN TS. Machine Shop Inspector ID - ADMINCBC (HEMOGRAM ONLY)2021-04-02 05:47:53 Test Item Value Reference Range Interpretation Comments WHITE BLOOD CELL COUNT (BEAKER) 13.4 K/ L 3.5-10.5 H (test code = 775) RED BLOOD CELL COUNT (BEAKER) 5.21 M/ L 4.63-6.08 (test code = 761) HEMOGLOBIN (BEAKER) (test code = 16.1 GM/DL 13.7-17.5 410) HEMATOCRIT (BEAKER) (test code = 50.0 % 40.1-51.0 411) MEAN CORPUSCULAR VOLUME (BEAKER) 96.0 fL 79.0-92.2 H (test code = 753) MEAN CORPUSCULAR HEMOGLOBIN 30.9 pg 25.7-32.2 (BEAKER) (test code = 751) MEAN CORPUSCULAR HEMOGLOBIN CONC 32.2 GM/DL 32.3-36.5 L (BEAKER) (test code = 752) RED CELL DISTRIBUTION WIDTH 12.8 % 11.6-14.4 (BEAKER) (test code = 412) PLATELET COUNT (BEAKER) (test 393 K/CU MM 150-450 code = 756) MEAN PLATELET VOLUME (BEAKER) 8.8 fL 9.4-12.4 L (test code = 754) NUCLEATED RED BLOOD CELLS 0 /100 WBC 0-0 (BEAKER) (test code = 413) [id number] 12:27:55 Test Item Value Reference Range Interpretation Comments Lipase (test code = 31 U/L 3040-3) PATRICIA (test code = PATRICIA) Machine Shop Inspector ID Jessica NEVES F Lab Interpretation (test Normal code = 37127-1) [facility]21-[facility] 12:27:55 Test Item Value Reference Range Interpretation Comments Lipase (test code = 31 U/L 3040-3) PATRICIA (test code = PATRICIA) Machine Shop Inspector ID - CAROLINA F Lab Interpretation (test Normal code = 58884-1) [facility] 12:27:55 Test Item Value Reference Range Interpretation Comments LIPASE (BEAKER) (test code = 749) 31 U/L Machine Shop Inspector ID MANISHA FLACTIC ACID, [id number] 12:17:53 Test Item Value Reference Range Interpretation Comments LACTATE BLOOD VENOUS (2) (BEAKER) 1.65 mmol/L 0.50-2.20 (test code = 2872) Machine Shop Inspector ID - MANISHA FBASIC METABOLIC [id number] 04:50:29 Test Item Value Reference Range Interpretation Comments SODIUM (BEAKER) 135 meq/L 136-145 L (test code = 381) POTASSIUM (BEAKER) 4.1 meq/L 3.5-5.1 (test code = 379) CHLORIDE (BEAKER) 100 meq/L 98-107 (test code = 382) CO2 (BEAKER) (test 25 meq/L 22-29 code = 355) BLOOD UREA NITROGEN 11 mg/dL 7-21 (BEAKER) (test code = 354) CREATININE (BEAKER) 0.89 mg/dL 0.57-1.25 (test code = 358) GLUCOSE RANDOM 120 mg/dL 70-105 H (BEAKER) (test code = 652) CALCIUM (BEAKER) 9.4 mg/dL 8.4-10.2 (test code = 697) EGFR (BEAKER) (test 84 mL/min/1.73 ESTIMA RIA GFR IS code = 1092) sq m NOT ACCURATE CREATININE CLEARANCE IN PREDICTING GLOMERULAR FILTRATION RATE . ESTIMATED GFR I S NOT APPLICABLE FOR DIALYSIS PATIEN TS. Machine Shop Inspector ID - ISMAEL MCBC W/PLT COUNT & AUTO [id number] 04:44:23 Test Item Value Reference Range Interpretation Comments WHITE BLOOD CELL COUNT (BEAKER) 15.3 K/ L 3.5-10.5 H (test code = 775) RED BLOOD CELL COUNT (BEAKER) 4.82 M/ L 4.63-6.08 (test code = 761) HEMOGLOBIN (BEAKER) (test code = 14.9 GM/DL 13.7-17.5 410) HEMATOCRIT (BEAKER) (test code = 45.2 % 40.1-51.0 411) MEAN CORPUSCULAR VOLUME (BEAKER) 93.8 fL 79.0-92.2 H (test code = 753) MEAN CORPUSCULAR HEMOGLOBIN 30.9 pg 25.7-32.2 (BEAKER) (test code = 751) MEAN CORPUSCULAR HEMOGLOBIN CONC 33.0 GM/DL 32.3-36.5 (BEAKER) (test code = 752) RED CELL DISTRIBUTION WIDTH 12.8 % 11.6-14.4 (BEAKER) (test code = 412) PLATELET COUNT (BEAKER) (test 410 K/CU MM 150-450 code = 756) MEAN PLATELET VOLUME (BEAKER) 8.8 fL 9.4-12.4 L (test code = 754) NUCLEATED RED BLOOD CELLS 0 /100 WBC 0-0 (BEAKER) (test code = 413) NEUTROPHILS RELATIVE PERCENT 81 % (BEAKER) (test code = 429) LYMPHOCYTES RELATIVE PERCENT 10 % (BEAKER) (test code = 430) MONOCYTES RELATIVE PERCENT 8 % (BEAKER) (test code = 431) EOSINOPHILS RELATIVE PERCENT 0 % (BEAKER) (test code = 432) BASOPHILS RELATIVE PERCENT 0 % (BEAKER) (test code = 437) NEUTROPHILS ABSOLUTE COUNT 12.39 K/ L 1.78-5.38 H (BEAKER) (test code = 670) LYMPHOCYTES ABSOLUTE COUNT 1.60 K/ L 1.32-3.57 (BEAKER) (test code = 414) MONOCYTES ABSOLUTE COUNT (BEAKER) 1.20 K/ L 0.30-0.82 H (test code = 415) EOSINOPHILS ABSOLUTE COUNT 0.00 K/ L 0.04-0.54 L (BEAKER) (test code = 416) BASOPHILS ABSOLUTE COUNT (BEAKER) 0.02 K/ L 0.01-0.08 (test code = 417) IMMATURE GRANULOCYTES-RELATIVE 1 % 0-1 PERCENT (BEAKER) (test code = 3391)
[2022-03-25 09:51] LABS: Absolute Lymphocytes (CBC) 1.8 K/uL (0.7-4.9); Hematocrit 45.7 % (39.6-49.0); Lymphocytes % 19.9 % (15.3-44.8); MCV 92.1 fL (80-100); MPV 7.2 fL (7.6-11.3); RBC Red Blood Cell Count 4.96 M/uL (4.33-5.43)
[2022-03-25] MEDS ORDERED: MORPHINE 2 MG/ML SYR ONE (09:56)
[2022-03-25] MEDS ORDERED: ONDANSETRON 4 MG/2 ML VIAL ONE (09:56)
[2022-03-25 10:10] LABS: Bilirubin Total 0.4 mg/dL (0.2-1.0); Potassium 4.5 mmol/L (3.5-5.1); Protein, Total 8.4 g/dL (6.4-8.2)
--- NOTE | 2022-03-25 11:03 | RAD REPORT ---
EXAM DESCRIPTION: RAD - Foot Left 3 View - 03/25/2022 10:14 am CLINICAL HISTORY: Left Foot pain FINDINGS: No fracture or dislocation is seen. No bony destructive lesions seen. No significant bone or joint abnormality noted
[2022-03-25] MEDS ORDERED: SMZ./TMP. 800/160 MG TABLET ONE (11:38)
[2022-03-25] MEDS ORDERED: DOXYCYCLINE 100 MG CAP PO ONE (11:38)
--- NOTE | 2022-03-25 13:26 | ER ---
Nurse's Notes [facility] Name: Carlos Alberto Astorga Age: 72 yrs Sex: Male : 1950 Arrival Date: 03/25/2022 Time: 08:41 Bed 13 Private MD: Timur Millan Diagnosis: Cellulitis of the Great Toe Presentation: 03/25 09:13 Chief complaint: Patient states: Wound to toe that does not seem to be healing. ss Coronavirus screen: Client denies travel out of the [place] in the last 14 days. Ebola Screen: Patient denies exposure to infectious person. Patient denies travel to an Ebola-affected area in the 21 days before illness onset. Initial Sepsis Screen: Does the patient meet any 2 criteria? No. Patient's initial sepsis screen is negative. Does the patient have a suspected source of infection? Yes: Bone or joint infection. Risk Assessment: Do you want to hurt yourself or someone else? Patient reports no desire to harm self or others. Onset of symptoms is unknown. 09:13 Method Of Arrival: Ambulatory ss 09:13 Acuity: MONIKA 3 ss Historical: - Allergies: 09:14 Codeine; ss 09:14 Iodinated Contrast Media - IV Dye (Hives); ss 09:14 Lotensin; ss - Home Meds: 11:31 tamsulosin 0.4 mg oral cap 1 cap once daily [Active]; pravastatin 40 mg oral tab 1 tab tw2 once daily [Active]; lisinopril-hydrochlorothiazide 20-12.5 mg oral tab 1 tab once daily [Active]; metoprolol tartrate 50 mg Oral tab 1 tab 2 times per day [Active]; bupropion HCl 300 mg Oral Tb24 1 tab once daily [Active]; clopidogrel 75 mg oral tab 1 tab once daily [Active]; Men's Daily oral cmpk [Active]; - PMHx: 09:14 COPD; Hypertension; Pneumonia; ss - PSHx: 09:14 colon resection; Perforated colon repair; ss - Immunization history:: Adult Immunizations. - Social history:: Smoking status: . Screenin:28 Abuse screen: Denies threats or abuse. Nutritional screening: No deficits noted. tw2 Tuberculosis screening: No symptoms or risk factors identified. Fall Risk None identified. Assessment: 10:27 Reassessment: Patient appears in no apparent distress at this time. No changes from tw2 previously documented assessment. Patient and/or family updated on plan of care and expected duration. Pain level reassessed. Patient is alert, oriented x 3, equal unlabored respirations, skin warm/dry/pink. 10:27 General: Appears in no apparent distress. well groomed, Behavior is calm, cooperative, tw2 appropriate for age. Pain: Complains of pain in left first toe and left second toe. Neuro: Level of Consciousness is awake, alert, obeys commands, Oriented to person, place, time, situation. Respiratory: Airway is patent Respiratory effort is even, unlabored, Respiratory pattern is regular, symmetrical. Derm: redness and wound noted to 2nd toe on the LEFT foot. redness noted to great toe and great toe joint medial aspect. 11:26 Reassessment: Patient appears in no apparent distress at this time. No changes from tw2 previously documented assessment. Patient and/or family updated on plan of care and expected duration. Pain level reassessed. Patient is alert, oriented x 3, equal unlabored respirations, skin warm/dry/pink. 12:37 Reassessment: Patient appears in no apparent distress at this time. No changes from tw2 previously documented assessment. Patient and/or family updated on plan of care and expected duration. Pain level reassessed. Patient is alert, oriented x 3, equal unlabored respirations, skin warm/dry/pink. 14:09 Reassessment: Patient appears in no apparent distress at this time. No changes from tw2 previously documented assessment. Patient and/or family updated on plan of care and expected duration. Pain level reassessed. Patient is alert, oriented x 3, equal unlabored respirations, skin warm/dry/pink. Vital Signs: 09:09 BP 143 / 94; Pulse 80; Resp 18; Temp 98.2; Pulse Ox 97% ; Weight 81.19 kg; Height 5 ft. kc6 4 in. (162.56 cm); Pain 10/10; 10:27 BP 111 / 66; Pulse 64; Resp 17; Pulse Ox 99% on R/A; tw2 11:26 BP 138 / 67; Pulse 66; Resp 17; Pulse Ox 100% on R/A; tw2 12:37 BP 130 / 70; Pulse 70; Resp 17; Pulse Ox 99% on R/A; tw2 13:43 BP 126 / 73; Pulse 65; Resp 17; Pulse Ox 99% on R/A; tw2 09:09 Body Mass Index 30.72 (81.19 kg, 162.56 cm) [facility] ED Course: 08:41 Patient arrived in ED. am2 08:41 Timur Millan DO is Private Physician. am2 08:55 Rolando Mckeon PA is PHCP. jm 08:56 Paxton Mendes MD is Attending Physician. [facility] 09:01 Bed in low position. Call light in reach. Adult w/ patient. Pulse ox on. NIBP on. tw2 09:14 Triage completed. ss 09:14 Arm band placed on right wrist. ss 09:22 Joanne Alcala, KEZIA is Primary Nurse. tw2 09:42 Inserted saline lock: 20 gauge in left antecubital area, using aseptic technique. Blood tw2 collected. 12:00 Awaiting: [facility] consult PRIOR to discharge. tw2 13:25 Edmond Bryant MD is Referral Physician. [facility] 13:49 Awaiting: prescriptions and discharge paper from provider. tw2 14:09 No provider procedures requiring assistance completed. IV discontinued, intact, tw2 bleeding controlled, No redness/swelling at site. Pressure dressing applied. Administered Medications: 09:54 Drug: Zofran (Ondansetron) 4 mg Route: IVP; Site: left antecubital; tw2 10:43 Follow up: Response: No adverse reaction tw2 09:56 Drug: morphine 2 mg {Note: RASS 0.} Route: IVP; Infused Over: 4 mins; Site: left tw2 antecubital; 10:43 Follow up: Response: No adverse reaction; Pain is decreased; RASS: Alert and Calm (0) tw2 11:30 Drug: Bactrim (trimethoprim-sulfamethoxazole) (160 mg-800 mg (DS) 1 tablet Route: PO; tw2 12:00 Follow up: Response: No adverse reaction tw2 11:30 Drug: Doxycycline 100 mg Route: PO; tw2 14:10 Follow up: Response: No adverse reaction tw2 Medication: 14:10 VIS not applicable for this client. tw2 Outcome: 13:26 Discharge ordered by . [facility] 14:09 Discharged to home via wheelchair, with significant other. tw2 14:09 Condition: stable 14:09 Discharge instructions given to patient, significant other, Instructed on discharge instructions, follow up and referral plans. medication usage, safety practices, wound care, [facility] instructions printed and given to pt and pts spouse. Demonstrated understanding of instructions, follow-up care, medications, wound care, Prescriptions given X 3. 14:10 Patient left the ED. tw2 Signatures: Rolando Mckeon PA PA jmm Smirch, Shelby, RN RN Joanne Alcala RN RN tw2 Rani Cochran am2 Luz Crocker kc6 Corrections: (The following items were deleted from the chart) 11:34 10:27 Reassessment: Patient appears in no apparent distress at this time. No changes tw2 from previously documented assessment. Patient and/or family updated on plan of care and expected duration. Pain level reassessed. Patient is alert, oriented x 3, equal unlabored respirations, skin warm/dry/pink. tw2
--- NOTE | 2022-03-25 13:27 | EDPHYS ---
Physician Documentation [facility] Name: Carlos Alberto Astorga Age: 72 yrs Sex: Male : 1950 Arrival Date: 03/25/2022 Time: 08:41 Bed 13 Private MD: [facility] ED Physician Paxton Mendes HPI: 03/25 11:25 This 72 yrs old Male presents to ER via Ambulatory with complaints of Wound Check - [facility] toe, Foot Pain. 11:25 This is a 72-year-old male with a history of COPD, hypertension the presents emerged [facility] department with complaints of swelling to the left great toe and fourth toe. Patient states symptoms began as a wound. Redness developed over the past few days. Patient also complains of pain. Denies fever or chills. Advised by his PCP to go to the ER for further evaluation. Historical: - Allergies: 09:14 Codeine; ss 09:14 Iodinated Contrast Media - IV Dye (Hives); ss 09:14 Lotensin; ss - Home Meds: 11:31 tamsulosin 0.4 mg oral cap 1 cap once daily [Active]; pravastatin 40 mg oral tab 1 tab tw2 once daily [Active]; lisinopril-hydrochlorothiazide 20-12.5 mg oral tab 1 tab once daily [Active]; metoprolol tartrate 50 mg Oral tab 1 tab 2 times per day [Active]; bupropion HCl 300 mg Oral Tb24 1 tab once daily [Active]; clopidogrel 75 mg oral tab 1 tab once daily [Active]; Men's Daily oral cmpk [Active]; - PMHx: 09:14 COPD; Hypertension; Pneumonia; ss - PSHx: 09:14 colon resection; Perforated colon repair; ss - Immunization history:: Adult Immunizations. - Social history:: Smoking status: . ROS: 09:13 Constitutional: Negative for fever, chills, and weight loss, Cardiovascular: Negative jm for chest pain, palpitations, and edema, Respiratory: Negative for shortness of breath, cough, wheezing, and pleuritic chest pain. 09:13 Skin: Positive for erythema. 09:13 All other systems are negative. Exam: 09:13 Constitutional: This is a well developed, well nourished patient who is awake, alert, jmm and in no acute distress. Head/Face: atraumatic. Eyes: EOMI, no conjunctival erythema appreciated ENT: Moist Mucus Membranes Neck: Trachea midline, Supple Chest/axilla: Normal chest wall appearance and motion. Cardiovascular: Regular rate and rhythm. No edema appreciated Respiratory: Normal respirations, no respiratory distress appreciated Abdomen/GI: Non distended Back: Normal ROM 09:13 Musculoskeletal/extremity: Full range of motion appreciated to the left great toe and fourth toe full dorsalis pedis pulse, compartments are soft, neurovascular intact. 09:13 Skin: erythema noted to the left great toe and the fourth toe. An ulcer is noted to the dorsum of the fourth toe at the proximal phalanx. 09:13 Neuro: Orientation: is normal, Mentation: is normal, Memory: is normal. 09:13 Psych: Behavior/mood is pleasant, cooperative, Affect is Vital Signs: 09:09 BP 143 / 94; Pulse 80; Resp 18; Temp 98.2; Pulse Ox 97% ; Weight 81.19 kg; Height 5 ft. kc6 4 in. (162.56 cm); Pain 10/10; 10:27 BP 111 / 66; Pulse 64; Resp 17; Pulse Ox 99% on R/A; tw2 11:26 BP 138 / 67; Pulse 66; Resp 17; Pulse Ox 100% on R/A; tw2 12:37 BP 130 / 70; Pulse 70; Resp 17; Pulse Ox 99% on R/A; tw2 13:43 BP 126 / 73; Pulse 65; Resp 17; Pulse Ox 99% on R/A; tw2 09:09 Body Mass Index 30.72 (81.19 kg, 162.56 cm) [facility] MDM: 09:01 Patient medically screened. [facility] 13:25 Data reviewed: vital signs, nurses notes. Counseling: I had a detailed discussion with terrence the patient and/or guardian regarding: the historical points, exam findings, and any diagnostic results supporting the discharge/admit diagnosis, lab results, radiology results, the need for outpatient follow up, to return to the emergency department if symptoms worsen or persist or if there are any questions or concerns that arise at home. 03/25 09:07 Order name: CBC with Diff; Complete Time: 10:14 [facility] 03/25 09:07 Order name: CMP; Complete Time: 10:14 [facility] 03/25 09:07 Order name: Lactate; Complete Time: 10:14 [facility] 03/25 09:07 Order name: Blood Culture Adult (2) [facility] 03/25 09:07 Order name: Foot Left 3 View XRAY [facility] 03/25 11:04 Order name: RAD; Complete Time: 11:06 EDMS 03/25 09:07 Order name: Saline Lock; Complete Time: 09:44 [facility] 03/25 13:08 Order name: [facility] EDMS Administered Medications: 09:54 Drug: Zofran (Ondansetron) 4 mg Route: IVP; Site: left antecubital; tw2 10:43 Follow up: Response: No adverse reaction tw2 09:56 Drug: morphine 2 mg {Note: RASS 0.} Route: IVP; Infused Over: 4 mins; Site: left tw2 antecubital; 10:43 Follow up: Response: No adverse reaction; Pain is decreased; RASS: Alert and Calm (0) tw2 11:30 Drug: Bactrim (trimethoprim-sulfamethoxazole) (160 mg-800 mg (DS) 1 tablet Route: PO; tw2 12:00 Follow up: Response: No adverse reaction tw2 11:30 Drug: Doxycycline 100 mg Route: PO; tw2 14:10 Follow up: Response: No adverse reaction tw2 Disposition Summary: 03/25/22 13:26 Discharge Ordered Location: Home [facility] Condition: Stable [facility] Diagnosis - Cellulitis of the Great Toe [facility] Followup: [facility] - With: Edmond Bryant MD - When: 2 - 3 days - Reason: Recheck today's complaints, Continuance of care, Re-evaluation by your physician Discharge Instructions: - Discharge Summary Sheet [facility] - Cellulitis, Adult [facility] Forms: - Medication Reconciliation Form [facility] - Thank You Letter [facility] - Antibiotic Education [facility] - Prescription Opioid Use [facility] Prescriptions: - Augmentin 875-125 mg Oral Tablet - take 1 tablet by ORAL route every 12 hours for 10 days; 20 tablet; Refills: 0, [facility] Product Selection Permitted - Doxycycline Hyclate 100 mg Oral Tablet - take 1 tablet by ORAL route every 12 hours; 20 tablet; Refills: 0, Product [facility] Selection Permitted - Tramadol 50 mg Oral Tablet - take 1 tablet by ORAL route every 8 hours as needed; 12 tablet; Refills: 0, [facility] Product Selection Permitted Signatures: Dispatcher [employer] Paxton Sood MD MD cha Mickail, Joel, PA PA jmm Smirch, Shelby, RN RN ss Joanne Alcala RN RN tw2
[2022-03-26 20:23] VITALS: TEMP 98.2
[2022-03-26 20:29] VITALS: O2SAT 99
[2022-03-26 20:31] VITALS: BP 126/73
== END 2022-03-25 14:10 | disposition home or self-care (01) ==
LOC: ER 08:37
DX: L03.032 Cellulitis of left toe (principal); I10 Essential (primary) hypertension; Z88.5 Allergy status to narcotic agent; Z88.8 Allergy status to other drugs, medicaments and biological substances; Z91.041 Radiographic dye allergy status
CPT/HCPCS: 87040 ×2; 85025; 36415; 83605; 80053; 73630; 99251; 96375; 96374; 99284; J2270; J2405

== ENCOUNTER 2022-05-13 09:52 | Inpatient (IN) | payer OTHER ==
--- OUTSIDE RECORDS SUMMARY | 2022-05-13 10:02 | XMS REPORT | Continuity of Care Document ---
:1950 Author Organization [facility] t Address [address] [place] [address] [address] [place] [address] Care Team Providers Name Role Phone No, Pcp [facility] Primary Care Physician Unavailable Timur Millan Attending Clinician Unavailable Nilda Mills Attending Clinician Unavailable DANYELL WALLACE Attending Clinician Unavailable Kimmy Samuels MD Attending Clinician [phone] Radha Christine MD Attending Clinician RADHA CHRISTINE Attending Clinician Unavailable New Barber MD Attending Clinician Raffy Cowan MD Attending Clinician [phone] Danyell Wallace MD Attending Clinician Brijesh Rahman MD Attending Clinician Heather Soto MD Attending Clinician Tim-Mbayo_A_AH Attending Clinician Unavailable DANYELL WALLACE Admitting Clinician Unavailable KIMMY SAMUELS Admitting Clinician Unavailable ANABELLE HOPKINS Admitting Clinician Unavailable Tim-Mbayo_A_AH Admitting Clinician Unavailable Payers Payer Name Policy Type Policy Number Effective Date Expiration Date S [facility] MAPS [id number] 2021 00:00:00 [facility] [id number] 2021 [facility] 00:00:00 - [facility] C1 [id number] 2021 [facility] 00:00:00 - [facility] C1 [id number] 2021 [facility] 00:00:[place] [id number] 2021 [facility] 00:[facility] - [place] [id number] 2021 [facility] 00:00:[address] - [facility] [place] [id number] 2019 - [employer] 00:00:00 (MEDICARE REPLACEMENT/ADV ANTAGE - HMO) Problems Condition Condition Condition Status Onset Resolution Last Treating Co mments Source Name Details Category Date Date Treatment Clinician Date Mesenteric Mesenteric Disease Active 2020-[address] ischemia ischemia [facility] 00 [place] Depression Depression Disease Active 2020-[address] , , [facility] unspecifie unspecifie 00:00: Me dical d d 00 [place] depression depression type type History of History of Disease Active 2020-[address] intravascu intravascu 0-03 Maryse kes lar stent lar stent 00:00: Medi kenney placement placement 00 Cent er Hyperlipid Hyperlipid Disease Active 2020-[address] emia, emia, 0-03 [facility] unspecifie unspecifie 00:00: Me dical d d 00 [place] hyperlipid hyperlipid emia type emia type Hypertensi Hypertensi Disease Active 2020-[address] on on 0-03 [facility] 00 [place] JENNIFER (acute JENNIFER (acute Disease Active 2020-[address] kidney kidney 0-03 [facility] injury) injury) 00:00: Medical 00 [place] Ileus Ileus Disease Active [facility] 00 [place] Abdominal Abdominal Disease Active [facility] pain pain 9- [facility] 00:[facility]: Medical 00 [place] [id number] Chronic Problem Commo n mesenteric Spirit ischemia - [facility] [id number] 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 30.0-30.9, [facility] Imaging Abnormal Problem Common result findings Spirit abnormal on - CHI diagnostic St imaging of [facility] other Medical specified Center body structures [id number] Ventral Problem Commo n hernia [facility] without - [facility] [id number] Bitten by Problem Com mon dog, Spirit initial - CH[facility] encounter [facility] [id number] Prediabete Problem Co mmon s Spirit CH[facility] [id number] Chronic Problem Common obstructiv [facility] e - [facility] Center type [id number] Leukocytos Problem Co mmon is, Spirit unspecifie - CHI d type [facility] [id number] Wound of Problem Comm on skin Spirit [facility] Disorder Prostate Problem Commo n of troubles [facility] prostate [facility] [id number] PVD Problem Common (periphera Spirit l vascular - CHI disease) [facility] [id number] MAEGAN Problem Common (generaliz Spirit ed anxiety - CHI disorder) [facility] [id number] 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 [id number] [place] [address] (BMI [facility] 30.0-34.9) - [facility] Seasonal Seasonal Problem Commo n allergy allergies [facility] Depression Depression Problem C ommon [facility] Allergies, Adverse Reactions, Alerts Allergy Allergy Status Severity Reaction(s) Onset Inactive Treating Comm ents Source Name Type Date Date Clinician EPILOBIU Allergy Active 2020-[address] [facility] [facility] 0-05 [facility] ANGUSTIF 00:00: Medical OLIUM 00 Center Epilobiu Propensi Active 2021-[address] m ty to 0-05 [facility] Angustif adverse 00:00: Medical olium reaction 00 Center s CODEINE Allergy Active High Hives 2020- [facility] 00[facility]: Medical 00 Center IODINE Allergy Active High Hives 2020-[address] [facility] 9[facility] 00:[facility]: Medical 00 Center BENAZEPR Allergy Active 2020- [facility] [place] [facility] 00:[facility]: Medical 00 Center Codeine Propensi Active Hives 2020- [facility] ty to 9-27 [facility] adverse 00:00: Medical reaction 00 Center s Iodine Propensi Active Hives [facility] ty to 9-27 [facility] adverse 00:00: Medical reaction 00 Center s Benazepr Propensi Active [facility] ty to 9-27 [facility] adverse 00:00: Medical reaction 00 Center s benazepr benazepr Active Unknown Commo n il il Spirit - [facility] Family History Family Member Diagnosis Comments Start Date Stop Date Source Natural father No Known Problem [facility] Natural mother No Known Problem [facility] Social History Social Habit Start Date Stop Date Quantity Comments Source History of Tobacco [facility] - Use [facility] Tobacco use and 2021-04-06 2021-04-06 Never used [facility] exposure 00:00:00 00:00:00 [facility] Sex [birth year] [facility] 00:00:00 00:00:00 [facility] Smoking Status Start Date Stop Date Source Former Smoker 2022-05-11 00:00:00 2022-05-11 00:00:00 Common S pirit - [facility] Medications Ordered Filled Start Stop Current Ordering Indication Dosage Frequency Signature Comments Components Source Medication Medication Date Date Medication? Clinician (SIG) Name Name Lisinopril/ Lisinopril/ 2021- No Lisinopril HCTZ HCTZ -15 -16 /HCTZ 00:00: 00:00 00 :00 Lisinopril/ Lisinopril/ 2021- No Lisinopril HCTZ HCTZ 2-15 -16 /HCTZ 20/12.5 20/12.5 00:00: 00:00 /12.5 00 :00 zinc 2020-07 Yes 50mg QD Take [address] gluconate 0-13 by mouth [facility] 50 mg 15:05: daily. Medical tablet 45 Center zinc 2020-07 Yes 50mg QD Take [address] gluconate 0-13 by mouth [facility] 50 mg 15:05: daily. Medical tablet 45 Center zinc 2020-07 Yes 50mg QD Take [address] gluconate 0-13 by mouth [facility] 50 mg 15:05: daily. Medical tablet 45 Center aspirin 81 2020-07- No 81mg QD Take [address] MG chewable 0-13 01-11 tablet (81 L ukes tablet 00:00: 23:59 mg total) Medic al 00 :00 by mouth Center daily for 90 days. pantoprazol 2020-07 No 40mg QD Take [address] e 0-13 -11 tablet (40 [facility] (PROTONIX) 00:00: 23:59 mg total) M edical 40 MG 00 :00 by mouth Center tablet daily for 90 days. tamsulosin 2020-07- No .4mg QD Take [address] (FLOMAX) 0-13 -11 capsule [facility] 0.4 mg Cap 00:00: 23:59 (0.4 mg Med ical 24 hr 00 :00 total) by Center capsule mouth daily for 90 days. aspirin 81 2020-07- No 81mg QD Take [address] MG chewable 0-13 -11 tablet (81 L ukes tablet 00:00: 23:59 mg total) Medic al 00 :00 by mouth Center daily for 90 days. pantoprazol 2020-07- No 40mg QD Take [address] e 0-13 01-11 tablet (40 [facility] (PROTONIX) 00:00: 23:59 mg total) M edical 40 MG 00 :00 by mouth Center tablet daily for 90 days. tamsulosin 2020-07- No .4mg QD Take [address] (FLOMAX) 0-13 01-11 capsule [facility] 0.4 mg Cap 00:00: 23:59 (0.4 mg Med ical 24 hr 00 :00 total) by Center capsule mouth daily for 90 days. aspirin 81 2020-07 81mg QD Take [address] MG chewable 07-15 tablet (81 L ukes tablet 00:00: 23:59 [...] mouth daily for 90 days. HYDROcodone 2020-07 1{tbl} Take 1 C HI [...] QD Take [address] hydroCHLORO - 09-30 tablet by Maryse rush thiazide 08:40: 00:00 mouth Medical (PRINZIDE,Z 20 :00 daily. Center ESTORETIC) 20-12.5 mg per tablet buPROPion 2020- No 150mg QD Take [address] (WELLBUTRIN -30 09-30 mg by [facility] XL) 150 MG 08:40: 00:00 mouth Medic al 24 hr 20 :00 daily. Center tablet pravastatin 2020- No 40mg QD Take [address] (PRAVACHOL) 9-30 09-30 by mouth Latoya es 40 MG 08:40: 00:00 daily. Medical tablet 20 :00 [place] clopidogreL No 75mg QD Take [address] (PLAVIX) 75 04-03 by mouth Latoya es mg tablet 08:40: 00:00 daily. Medic al 20 :00 [place] lisinopril- 2020- No 1{tbl} QD Take [address] hydroCHLORO 04-03 tablet by Maryse rush thiazide 08:40: 00:00 mouth Medical (PRINZIDE,Z 20 :00 daily. [place] ESTORETIC) 20-12.5 mg per tablet buPROPion 2020- No 150mg QD Take [address] (WELLBUTRIN 04-03-30 mg by [facility] XL) 150 MG 08:40: 00:00 mouth Medic al 24 hr 20 :00 daily. [facility] tablet pravastatin No 40mg QD Take [address] (PRAVACHOL) 04-03 by mouth Latoya es 40 MG 08:40: 00:00 daily. Medical tablet 20 :00 [place] clopidogreL No 75mg QD Take [address] (PLAVIX) 75 04-03 by mouth Latoya es mg tablet 08:40: 00:00 daily. Medic al 20 :00 [place] buPROPion Yes 150mg QD Take 1 [facility] t (WELLBUTRIN 9-30 tablet [facility] XL) 150 MG 00:00: (150 mg Medi kenney 24 hr 00 total) by Center tablet mouth daily. buPROPion Yes 150mg QD Take 1 [facility] t (WELLBUTRIN 9-30 tablet [facility] XL) 150 MG 00:00: (150 mg Medi kenney 24 hr 00 total) by Center tablet mouth daily. buPROPion 0 Yes 150mg QD Take 1 [facility] t (WELLBUTRIN 9-30 tablet [facility] XL) 150 MG 00:00: (150 mg Medi kenney 24 hr 00 total) by Center tablet mouth daily. metoprolol No 50mg QD Take [address] succinate 04-03 12-29 tablet (50 Latoya es (TOPROL-XL) 00:00: 23:59 mg total) Medical 50 MG 24 hr 00 :00 by mouth Cent er tablet daily for 90 days. clopidogreL 2020- No 75mg QD Take [address] (PLAVIX) 75 - 12-29 tablet (75 L ukes mg tablet 00:00: 23:59 mg total) Me dical 00 :00 by mouth Center daily for 90 days. pravastatin 2020- No 40mg QD Take [address] (PRAVACHOL) 04-03-29 tablet (40 L ukes 40 MG 00:00: 23:59 mg total) Medica l tablet 00 :00 by mouth Center daily for 90 days. metoprolol 2020- No 50mg QD Take [address] succinate -03 07- tablet (50 Latoya es (TOPROL-XL) 00:00: 23:59 [...] QD Take [address] (PLAVIX) 75 - 12-29 tablet (75 L ukes mg tablet 00:00: 23:59 mg total) Me dical 00 :00 by mouth Center daily for 90 days. pravastatin 2020- No 40mg QD Take [address] (PRAVACHOL) 9-30 12-29 tablet (40 L ukes 40 MG 00:00: 23:59 mg total) Medica l tablet 00 :00 by mouth Center daily for 90 days. lisinopril- 2020- No 1{tbl} QD Take [address] hydroCHLORO 9-30 10-13 tablet by Maryse rush thiazide 00:00: 00:00 mouth Medical (PRINZIDE,Z 00 :[address] ESTORETIC) 90 days. 20-12.5 mg per tablet lisinopril- 2020- No 1{tbl} QD Take [address] hydroCHLORO 9-30 10-13 tablet by Maryse rush thiazide 00:00: 00:00 mouth Medical (PRINZIDE,Z 00 :[address] ESTORETIC) 90 days. 20-12.5 mg per tablet apixaban 2020- No 5mg Q.5D Take [address] (ELIQUIS) 5 9-30 10-12 tablet (5 Maryse kes mg Tab 00:00: 00:00 mg total) Medic al tablet 00 :00 by mouth 2 Center (two) times daily for 90 days. apixaban 2020- No 5mg Q.5D Take [address] (ELIQUIS) 5 9-30 10-12 tablet (5 Maryse kes mg Tab 00:00: 00:00 mg total) Medic al tablet 00 :00 by mouth 2 Center (two) times daily for 90 days. HYDROcodone 2020- No 1{tbl} Take [address] -acetaminop 9-30 09-30 tablet by Maryse antony (NORCO 00:00: 00:00 mouth Medic al 10-325) 00 :00 every 6 Center 10-325 mg (six) per tablet hours as needed for Pain for up to 10 days. Max Daily Amount: 4 tablets HYDROcodone 2020- No 1{tbl} Take [address] -acetaminop 9-30 09-30 tablet by Maryse antony (NORCO 00:00: 00:00 mouth Medic al 10-325) 00 :00 every 6 Center 10-325 mg (six) per tablet hours as needed for Pain for up to 10 days. Max Daily Amount: 4 tablets Advair HFA Advair HFA No 2{puffs BID Advair HFA 230-21 230-21 9-17 } 230-21 MCG/ACT MCG/ACT 00:00: MCG/ACT 00 Advair HFA Advair HFA No 2{puffs BID Advair HFA 230-21 230-21 9-17 } 230-21 MCG/ACT MCG/ACT 00:00: MCG/ACT 00 Flomax 0.4 Flomax 0.4 2020- No 1{capsu QD Flomax 0.4 MG MG 03-21-17 le} MG 00:00: 00:00 00 :00 Flomax 0.4 Flomax 0.4 2020- No 1{capsu QD Flomax 0.4 MG MG - 10-17 le} MG 00:00: 00:00 00 :00 Zoloft Zoloft 2019-0 Yes Nilda 1 tablet Comm on 02-01 [facility] 00:00: - [facility] 00 [facility] Zoloft 50 Zoloft 50 2019-0 No 1{table Zoloft 50 MG MG 7-31 t} MG 00:00: 00 Zoloft 50 Zoloft 50 2018-0 No 1{table Zoloft 50 MG MG 7-31 t} MG 00:00: 00 Zoloft 50 Zoloft 50 2019-0 No 1{table Zoloft 50 MG MG 7-31 t} MG 00:00: 00 Ventolin Ventolin Yes Nilda 2 puffs as Common HFA HFA Millender needed [facility] ProAir ProAir Yes Nilda 2 puffs as Comm on RespiClick RespiClick Millender needed [facility] Pravastatin Pravastatin Yes Nilda 1 tablet Common Sodium Sodium Millender in evening [facility] Cyclobenzap Cyclobenzap Yes Nilda 1 tablet Common rine HCl rine HCl Millender as needed [facility] Symbicort Symbicort Yes Nilda 2 puffs C ommon Millender [facility] Breo Breo Yes Nilda 1 puff Common Ellipta Ellipta Millender Spir [facility] Zoloft Zoloft Yes Nilda 1 tablet Common Millender [facility] Zestoretic Zestoretic Yes Nilda 1 tablet Common Millender [facility] Clopidogrel Clopidogrel Yes Nilda 1 tablet Common Bisulfate Bisulfate [facility] Sertraline Sertraline Yes Nilda 1 tablet Common HCl HCl [facility] Flomax 0.4 Flomax 0.4 No 1{capsu QD Flomax 0.4 MG MG le} MG Pravastatin Pravastatin No Pravastati Sodium 40 Sodium 40 n Sodium MG MG 40 MG Vitamin D3 Vitamin D3 No 1{table QD Vitamin D3 125 MCG 125 MCG t} 125 MCG (5000 UT) (5000 UT) (5000 UT) buPROPion buPROPion No 1{table QD buPROPion HCl ER (XL) HCl ER (XL) t_in_th HCl ER 300 MG 300 MG e_morni (XL) 300 ng} MG traMADol traMADol No 1{table QD traMADol HCl 50 MG HCl 50 MG t_as_ne HCl 50 MG eded} Vitamin C Vitamin C No 1{table QD Vitamin C 500 MG 500 MG t} 500 MG Multi Multi No Multi Vitamin Vitamin Vitamin Mens Mens Mens Advair HFA Advair HFA No 2{puffs BID Advair HFA 230-21 230-21 } 230-21 MCG/ACT MCG/ACT MCG/ACT Aspirin 81 Aspirin 81 No 1{table QD Aspirin 81 MG MG t} MG Carvedilol Carvedilol No 1{table QD Carvedilol 12.5 MG 12.5 MG t_with_ 12.5 MG food} Zestoretic Zestoretic No 1{table QD Zestoretic 20-12.5 MG 20-12.5 MG t} 20-12.5 MG Ventolin Ventolin No 2{puffs QID Ventolin HFA 90 HFA 90 _as_nee HFA 90 MCG/ACT MCG/ACT ded} MCG/ACT Pravastatin Pravastatin No QD Pravastati Sodium 40 Sodium 40 n Sodium MG MG 40 MG Vitamin C Vitamin C No 1{table QD Vitamin C 500 MG 500 MG t} 500 MG ProAir ProAir No 2{puffs QID ProAir RespiClick RespiClick _as_nee RespiClick 108 (90 108 (90 ded} 108 (90 Base) Base) Base) MCG/ACT MCG/ACT MCG/ACT buPROPion buPROPion No 1{table QD buPROPion HCl ER (XL) HCl ER (XL) t_in_th HCl ER 300 MG 300 MG e_morni (XL) 300 ng} MG Vitamin D3 Vitamin D3 No 1{table QD Vitamin D3 125 MCG 125 MCG t} 125 MCG (5000 UT) (5000 UT) (5000 UT) Zinc 50 MG Zinc 50 MG No 1{table QD Zinc 50 MG t} Lisinopril- Lisinopril- No Lisinopril hydroCHLORO hydroCHLORO -hydroCHLO thiazide thiazide ROthiazide 20-12.5 MG 20-12.5 MG 20-12.5 MG Cyclobenzap Cyclobenzap No 1{table BID Cyclobenza rine HCl 10 rine HCl 10 t_as_ne luba HCl MG MG eded} 10 MG traMADol traMADol No 1{table QD traMADol HCl 50 MG HCl 50 MG t_as_ne HCl 50 MG eded} Multi Multi No Multi Vitamin Vitamin Vitamin Mens Mens Mens Zoloft 100 Zoloft 100 No 1{table QD Zoloft 100 mg mg t} mg Clopidogrel Clopidogrel No 1{table QD Clopidogre Bisulfate Bisulfate t} l 75 MG 75 MG Bisulfate 75 MG Pravastatin Pravastatin No Pravastati Sodium 40 Sodium 40 n Sodium MG MG 40 MG Carvedilol Carvedilol No 1{table QD Carvedilol 12.5 MG 12.5 MG t_with_ 12.5 MG food} Zestoretic Zestoretic No 1{table QD Zestoretic 20-12.5 MG 20-12.5 MG t} 20-12.5 MG Ventolin Ventolin No 2{puffs QID Ventolin HFA 90 HFA 90 _as_nee HFA 90 MCG/ACT MCG/ACT ded} MCG/ACT Pravastatin Pravastatin No QD Pravastati Sodium 40 Sodium 40 n Sodium MG MG 40 MG Vitamin C Vitamin C No 1{table QD Vitamin C 500 MG 500 MG t} 500 MG ProAir ProAir No 2{puffs QID ProAir RespiClick RespiClick _as_nee RespiClick 108 (90 108 (90 ded} 108 (90 Base) Base) Base) MCG/ACT MCG/ACT MCG/ACT buPROPion buPROPion No 1{table QD buPROPion HCl ER (XL) HCl ER (XL) t_in_th HCl ER 300 MG 300 MG e_morni (XL) 300 ng} MG Vitamin D3 Vitamin D3 No 1{table QD Vitamin D3 125 MCG 125 MCG t} 125 MCG (5000 UT) (5000 UT) (5000 UT) Zinc 50 MG Zinc 50 MG No 1{table QD Zinc 50 MG t} Lisinopril- Lisinopril- No Lisinopril hydroCHLORO hydroCHLORO -hydroCHLO thiazide thiazide ROthiazide 20-12.5 MG 20-12.5 MG 20-12.5 MG Cyclobenzap Cyclobenzap No 1{table BID Cyclobenza rine HCl 10 rine HCl 10 t_as_ne luba HCl MG MG eded} 10 MG traMADol traMADol No 1{table QD traMADol HCl 50 MG HCl 50 MG t_as_ne HCl 50 MG eded} Multi Multi No Multi Vitamin Vitamin Vitamin Mens Mens Mens Zoloft 100 Zoloft 100 No 1{table QD Zoloft 100 mg mg t} mg Clopidogrel Clopidogrel No 1{table QD Clopidogre Bisulfate Bisulfate t} l 75 MG 75 MG Bisulfate 75 MG Pravastatin Pravastatin No Pravastati Sodium 40 Sodium 40 n Sodium MG MG 40 MG Advair HFA Advair HFA No 2{puffs BID Advair HFA 230-21 230-21 } 230-21 MCG/ACT MCG/ACT MCG/ACT Flomax 0.4 Flomax 0.4 No 1{capsu QD Flomax 0.4 MG MG le} MG Lisinopril- Lisinopril- No Lisinopril hydroCHLORO hydroCHLORO -hydroCHLO thiazide thiazide ROthiazide 20-12.5 MG 20-12.5 MG 20-12.5 MG Multi Multi No Multi Vitamin Vitamin Vitamin Mens Mens Mens Cyclobenzap Cyclobenzap No 1{table BID Cyclobenza rine HCl 10 rine HCl 10 t_as_ne luba HCl MG MG eded} 10 MG Pravastatin Pravastatin No Pravastati Sodium 40 Sodium 40 n Sodium MG MG 40 MG ProAir ProAir No 2{puffs QID ProAir RespiClick RespiClick _as_nee RespiClick 108 (90 108 (90 ded} 108 (90 Base) Base) Base) MCG/ACT MCG/ACT MCG/ACT Vitamin C Vitamin C No 1{table QD Vitamin C 500 MG 500 MG t} 500 MG Vitamin D3 Vitamin D3 No 1{table QD Vitamin D3 125 MCG 125 MCG t} 125 MCG (5000 UT) (5000 UT) (5000 UT) buPROPion buPROPion No 1{table QD buPROPion HCl ER (XL) HCl ER (XL) t_in_th HCl ER 300 MG 300 MG e_morni (XL) 300 ng} MG Zinc 50 MG Zinc 50 MG No 1{table QD Zinc 50 MG t} traMADol traMADol No 1{table QD traMADol HCl 50 MG HCl 50 MG t_as_ne HCl 50 MG eded} Pravastatin Pravastatin No QD Pravastati Sodium 40 Sodium 40 n Sodium MG MG 40 MG Tamsulosin Tamsulosin No Tamsulosin HCl 0.4 MG HCl 0.4 MG HCl 0.4 MG Zestoretic Zestoretic No 1{table QD Zestoretic 20-12.5 MG 20-12.5 MG t} 20-12.5 MG Clopidogrel Clopidogrel No 1{table QD Clopidogre Bisulfate Bisulfate t} l 75 MG 75 MG Bisulfate 75 MG Zoloft 100 Zoloft 100 No 1{table QD Zoloft 100 mg mg t} mg Ventolin Ventolin No 2{puffs QID Ventolin HFA 90 HFA 90 _as_nee HFA 90 MCG/ACT MCG/ACT ded} MCG/ACT Carvedilol Carvedilol No 1{table QD Carvedilol 12.5 MG 12.5 MG t_with_ 12.5 MG food} Zinc 50 MG Zinc 50 MG No 1{table QD Zinc 50 MG t} Vitamin D3 Vitamin D3 No 1{table QD Vitamin D3 125 MCG 125 MCG t} 125 MCG (5000 UT) (5000 UT) (5000 UT) Advair HFA Advair HFA No 2{puffs BID Advair HFA 230-21 230-21 } 230-21 MCG/ACT MCG/ACT MCG/ACT ProAir ProAir No 2{puffs QID ProAir RespiClick RespiClick _as_nee RespiClick 108 (90 108 (90 ded} 108 (90 Base) Base) Base) MCG/ACT MCG/ACT MCG/ACT Multi Multi No Multi Vitamin Vitamin Vitamin Mens Mens Mens Pantoprazol Pantoprazol No Pantoprazo e Sodium e Sodium le Sodium Aspirin 81 Aspirin 81 No 1{table QD Aspirin 81 MG MG t} MG Clopidogrel Clopidogrel No 1{table QD Clopidogre Bisulfate Bisulfate t} l 75 MG 75 MG Bisulfate 75 MG Flomax 0.4 Flomax 0.4 No 1{capsu QD Flomax 0.4 MG MG le} MG Vitamin C Vitamin C No 1{table QD Vitamin C 500 MG 500 MG t} 500 MG traMADol traMADol No 1{table QD traMADol HCl 50 MG HCl 50 MG t_as_ne HCl 50 MG eded} Pravastatin Pravastatin No QD Pravastati Sodium 40 Sodium 40 n Sodium MG MG 40 MG buPROPion buPROPion No 1{table QD buPROPion HCl ER (XL) HCl ER (XL) t_in_th HCl ER 300 MG 300 MG e_morni (XL) 300 ng} MG Metoprolol Metoprolol No 1{table QD Metoprolol Succinate Succinate t} Succinate ER 50 MG ER 50 MG ER 50 MG Pravastatin Pravastatin No Pravastati Sodium 40 Sodium 40 n Sodium MG MG 40 MG Tamsulosin Tamsulosin No Tamsulosin HCl 0.4 MG HCl 0.4 MG HCl 0.4 MG Zinc 50 MG Zinc 50 MG No 1{table QD Zinc 50 MG t} Vitamin D3 Vitamin D3 No 1{table QD Vitamin D3 125 MCG 125 MCG t} 125 MCG (5000 UT) (5000 UT) (5000 UT) Advair HFA Advair HFA No 2{puffs BID Advair HFA 230-21 230-21 } 230-21 MCG/ACT MCG/ACT MCG/ACT ProAir ProAir No 2{puffs QID ProAir RespiClick RespiClick _as_nee RespiClick 108 (90 108 (90 ded} 108 (90 Base) Base) Base) MCG/ACT MCG/ACT MCG/ACT Multi Multi No Multi Vitamin Vitamin Vitamin Mens Mens Mens Pantoprazol Pantoprazol No Pantoprazo e Sodium e Sodium le Sodium Aspirin 81 Aspirin 81 No 1{table QD Aspirin 81 MG MG t} MG Clopidogrel Clopidogrel No 1{table QD Clopidogre Bisulfate Bisulfate t} l 75 MG 75 MG Bisulfate 75 MG Flomax 0.4 Flomax 0.4 No 1{capsu QD Flomax 0.4 MG MG le} MG Vitamin C Vitamin C No 1{table QD Vitamin C 500 MG 500 MG t} 500 MG traMADol traMADol No 1{table QD traMADol HCl 50 MG HCl 50 MG t_as_ne HCl 50 MG eded} Pravastatin Pravastatin No QD Pravastati Sodium 40 Sodium 40 n Sodium MG MG 40 MG buPROPion buPROPion No 1{table QD buPROPion HCl ER (XL) HCl ER (XL) t_in_th HCl ER 300 MG 300 MG e_morni (XL) 300 ng} MG Metoprolol Metoprolol No 1{table QD Metoprolol Succinate Succinate t} Succinate ER 50 MG ER 50 MG ER 50 MG Pravastatin Pravastatin No Pravastati Sodium 40 Sodium 40 n Sodium MG MG 40 MG Tamsulosin Tamsulosin No Tamsulosin HCl 0.4 MG HCl 0.4 MG HCl 0.4 MG Zinc 50 MG Zinc 50 MG No 1{table QD Zinc 50 MG t} Vitamin D3 Vitamin D3 No 1{table QD Vitamin D3 125 MCG 125 MCG t} 125 MCG (5000 UT) (5000 UT) (5000 UT) Advair HFA Advair HFA No 2{puffs BID Advair HFA 230-21 230-21 } 230-21 MCG/ACT MCG/ACT MCG/ACT ProAir ProAir No 2{puffs QID ProAir RespiClick RespiClick _as_nee RespiClick 108 (90 108 (90 ded} 108 (90 Base) Base) Base) MCG/ACT MCG/ACT MCG/ACT Multi Multi No Multi Vitamin Vitamin Vitamin Mens Mens Mens Pantoprazol Pantoprazol No Pantoprazo e Sodium e Sodium le Sodium Aspirin 81 Aspirin 81 No 1{table QD Aspirin 81 MG MG t} MG Clopidogrel Clopidogrel No 1{table QD Clopidogre Bisulfate Bisulfate t} l 75 MG 75 MG Bisulfate 75 MG Flomax 0.4 Flomax 0.4 No 1{capsu QD Flomax 0.4 MG MG le} MG Vitamin C Vitamin C No 1{table QD Vitamin C 500 MG 500 MG t} 500 MG traMADol traMADol No 1{table QD traMADol HCl 50 MG HCl 50 MG t_as_ne HCl 50 MG eded} Pravastatin Pravastatin No QD Pravastati Sodium 40 Sodium 40 n Sodium MG MG 40 MG buPROPion buPROPion No 1{table QD buPROPion HCl ER (XL) HCl ER (XL) t_in_th HCl ER 300 MG 300 MG e_morni (XL) 300 ng} MG Metoprolol Metoprolol No 1{table QD Metoprolol Succinate Succinate t} Succinate ER 50 MG ER 50 MG ER 50 MG Pravastatin Pravastatin No Pravastati Sodium 40 Sodium 40 n Sodium MG MG 40 MG Tamsulosin Tamsulosin No Tamsulosin HCl 0.4 MG HCl 0.4 MG HCl 0.4 MG Clopidogrel Clopidogrel No 1{table QD Clopidogre Bisulfate Bisulfate t} l 75 MG 75 MG Bisulfate 75 MG Flomax 0.4 Flomax 0.4 No 1{capsu QD Flomax 0.4 MG MG le} MG Zinc 50 MG Zinc 50 MG No 1{table QD Zinc 50 MG t} buPROPion buPROPion No 1{table QD buPROPion HCl ER (XL) HCl ER (XL) t_in_th HCl ER 300 MG 300 MG e_morni (XL) 300 ng} MG Multi Multi No Multi Vitamin Vitamin Vitamin Mens Mens Mens Vitamin C Vitamin C No 1{table QD Vitamin C 500 MG 500 MG t} 500 MG Pravastatin Pravastatin No Pravastati Sodium 40 Sodium 40 n Sodium MG MG 40 MG traMADol traMADol No 1{table QD traMADol HCl 50 MG HCl 50 MG t_as_ne HCl 50 MG eded} Vitamin D3 Vitamin D3 No 1{table QD Vitamin D3 125 MCG 125 MCG t} 125 MCG (5000 UT) (5000 UT) (5000 UT) Aspirin 81 Aspirin 81 No 1{table QD Aspirin 81 MG MG t} MG Metoprolol Metoprolol No 1{table QD Metoprolol Succinate Succinate t} Succinate ER 50 MG ER 50 MG ER 50 MG ProAir ProAir No 2{puffs QID ProAir RespiClick RespiClick _as_nee RespiClick 108 (90 108 (90 ded} 108 (90 Base) Base) Base) MCG/ACT MCG/ACT MCG/ACT Advair HFA Advair HFA No 2{puffs BID Advair HFA 230-21 230-21 } 230-21 MCG/ACT MCG/ACT MCG/ACT Tamsulosin Tamsulosin No Tamsulosin HCl 0.4 MG HCl 0.4 MG HCl 0.4 MG Pantoprazol Pantoprazol No Pantoprazo e Sodium e Sodium le Sodium Pravastatin Pravastatin No QD Pravastati Sodium 40 Sodium 40 n Sodium MG MG 40 MG Clopidogrel Clopidogrel No 1{table QD Clopidogre Bisulfate Bisulfate t} l 75 MG 75 MG Bisulfate 75 MG Pravastatin Pravastatin No QD Pravastati Sodium 40 Sodium 40 n Sodium MG MG 40 MG Vitamin D3 Vitamin D3 No 1{table QD Vitamin D3 125 MCG 125 MCG t} 125 MCG (5000 UT) (5000 UT) (5000 UT) Aspirin 81 Aspirin 81 No 1{table QD Aspirin 81 MG MG t} MG Multi Multi No Multi Vitamin Vitamin Vitamin Mens Mens Mens Vitamin C Vitamin C No 1{table QD Vitamin C 500 MG 500 MG t} 500 MG Tamsulosin Tamsulosin No Tamsulosin HCl 0.4 MG HCl 0.4 MG HCl 0.4 MG traMADol traMADol No 1{table QD traMADol HCl 50 MG HCl 50 MG t_as_ne HCl 50 MG eded} Pantoprazol Pantoprazol No Pantoprazo e Sodium e Sodium le Sodium Advair HFA Advair HFA No 2{puffs BID Advair HFA 230-21 230-21 } 230-21 MCG/ACT MCG/ACT MCG/ACT Zinc 50 MG Zinc 50 MG No 1{table QD Zinc 50 MG t} buPROPion buPROPion No buPROPion HCl ER (XL) HCl ER (XL) HCl ER 300 MG 300 MG (XL) 300 MG Pravastatin Pravastatin No Pravastati Sodium 40 Sodium 40 n Sodium MG MG 40 MG ProAir ProAir No 2{puffs QID ProAir RespiClick RespiClick _as_nee RespiClick 108 (90 108 (90 ded} 108 (90 Base) Base) Base) MCG/ACT MCG/ACT MCG/ACT Metoprolol Metoprolol No 1{table QD Metoprolol Succinate Succinate t} Succinate ER 50 MG ER 50 MG ER 50 MG Metoprolol Metoprolol No 1{table QD Metoprolol Succinate Succinate t} Succinate ER 50 MG ER 50 MG ER 50 MG Zinc 50 MG Zinc 50 MG No 1{table QD Zinc 50 MG t} traMADol traMADol No 1{table QD traMADol HCl 50 MG HCl 50 MG t_as_ne HCl 50 MG eded} Multi Multi No Multi Vitamin Vitamin Vitamin Mens Mens Mens Metoprolol Metoprolol No Metoprolol Succinate Succinate Succinate ER 50 MG ER 50 MG ER 50 MG Pravastatin Pravastatin No Pravastati Sodium 40 Sodium 40 n Sodium MG MG 40 MG buPROPion buPROPion No 1{table QD buPROPion HCl ER (XL) HCl ER (XL) t_in_th HCl ER 300 MG 300 MG e_morni (XL) 300 ng} MG buPROPion buPROPion No buPROPion HCl ER (XL) HCl ER (XL) HCl ER 300 MG 300 MG (XL) 300 MG Tamsulosin Tamsulosin No Tamsulosin HCl 0.4 MG HCl 0.4 MG HCl 0.4 MG Pantoprazol Pantoprazol No Pantoprazo e Sodium e Sodium le Sodium Vitamin C Vitamin C No 1{table QD Vitamin C 500 MG 500 MG t} 500 MG Advair HFA Advair HFA No 2{puffs BID Advair HFA 230-21 230-21 } 230-21 MCG/ACT MCG/ACT MCG/ACT Aspirin 81 Aspirin 81 No 1{table QD Aspirin 81 MG MG t} MG Flomax 0.4 Flomax 0.4 No 1{capsu QD Flomax 0.4 MG MG le} MG ProAir ProAir No 2{puffs QID ProAir RespiClick RespiClick _as_nee RespiClick 108 (90 108 (90 ded} 108 (90 Base) Base) Base) MCG/ACT MCG/ACT MCG/ACT Clopidogrel Clopidogrel No 1{table QD Clopidogre Bisulfate Bisulfate t} l 75 MG 75 MG Bisulfate 75 MG Pravastatin Pravastatin No QD Pravastati Sodium 40 Sodium 40 n Sodium MG MG 40 MG Vitamin D3 Vitamin D3 No 1{table QD Vitamin D3 125 MCG 125 MCG t} 125 MCG (5000 UT) (5000 UT) (5000 UT) Tamsulosin Tamsulosin No Tamsulosin HCl 0.4 MG HCl 0.4 MG HCl 0.4 MG Clopidogrel Clopidogrel No 1{table QD Clopidogre Bisulfate Bisulfate t} l 75 MG 75 MG Bisulfate 75 MG Metoprolol Metoprolol No Metoprolol Succinate Succinate Succinate ER 50 MG ER 50 MG ER 50 MG Pravastatin Pravastatin No Pravastati Sodium 40 Sodium 40 n Sodium MG MG 40 MG Lisinopril- Lisinopril- No Lisinopril hydroCHLORO hydroCHLORO -hydroCHLO thiazide thiazide ROthiazide 20-12.5 MG 20-12.5 MG 20-12.5 MG Metoprolol Metoprolol No 1{table QD Metoprolol Succinate Succinate t} Succinate ER 50 MG ER 50 MG ER 50 MG buPROPion buPROPion No buPROPion HCl ER (XL) HCl ER (XL) HCl ER 300 MG 300 MG (XL) 300 MG Pantoprazol Pantoprazol No Pantoprazo e Sodium e Sodium le Sodium Zinc 50 MG Zinc 50 MG No 1{table QD Zinc 50 MG t} ProAir ProAir No 2{puffs QID ProAir RespiClick RespiClick _as_nee RespiClick 108 (90 108 (90 ded} 108 (90 Base) Base) Base) MCG/ACT MCG/ACT MCG/ACT Pravastatin Pravastatin No QD Pravastati Sodium 40 Sodium 40 n Sodium MG MG 40 MG Flomax 0.4 Flomax 0.4 No 1{capsu QD Flomax 0.4 MG MG le} MG Vitamin D3 Vitamin D3 No 1{table QD Vitamin D3 125 MCG 125 MCG t} 125 MCG (5000 UT) (5000 UT) (5000 UT) buPROPion buPROPion No 1{table QD buPROPion HCl ER (XL) HCl ER (XL) t_in_th HCl ER 300 MG 300 MG e_morni (XL) 300 ng} MG traMADol traMADol No 1{table QD traMADol HCl 50 MG HCl 50 MG t_as_ne HCl 50 MG eded} Vitamin C Vitamin C No 1{table QD Vitamin C 500 MG 500 MG t} 500 MG Multi Multi No Multi Vitamin Vitamin Vitamin Mens Mens Mens Advair HFA Advair HFA No 2{puffs BID Advair HFA 230-21 230-21 } 230-21 MCG/ACT MCG/ACT MCG/ACT Aspirin 81 Aspirin 81 No 1{table QD Aspirin 81 MG MG t} MG Tamsulosin Tamsulosin No Tamsulosin HCl 0.4 MG HCl 0.4 MG HCl 0.4 MG Clopidogrel Clopidogrel No 1{table QD Clopidogre Bisulfate Bisulfate t} l 75 MG 75 MG Bisulfate 75 MG Metoprolol Metoprolol No Metoprolol Succinate Succinate Succinate ER 50 MG ER 50 MG ER 50 MG Pravastatin Pravastatin No Pravastati Sodium 40 Sodium 40 n Sodium MG MG 40 MG Lisinopril- Lisinopril- No Lisinopril hydroCHLORO hydroCHLORO -hydroCHLO thiazide thiazide ROthiazide 20-12.5 MG 20-12.5 MG 20-12.5 MG Metoprolol Metoprolol No 1{table QD Metoprolol Succinate Succinate t} Succinate ER 50 MG ER 50 MG ER 50 MG buPROPion buPROPion No buPROPion HCl ER (XL) HCl ER (XL) HCl ER 300 MG 300 MG (XL) 300 MG Pantoprazol Pantoprazol No Pantoprazo e Sodium e Sodium le Sodium Zinc 50 MG Zinc 50 MG No 1{table QD Zinc 50 MG t} ProAir ProAir No 2{puffs QID ProAir RespiClick RespiClick _as_nee RespiClick 108 (90 108 (90 ded} 108 (90 Base) Base) Base) MCG/ACT MCG/ACT MCG/ACT Pravastatin Pravastatin No QD Pravastati Sodium 40 Sodium 40 n Sodium MG MG 40 MG Flomax 0.4 Flomax 0.4 No 1{capsu QD Flomax 0.4 MG MG le} MG Vitamin D3 Vitamin D3 No 1{table QD Vitamin D3 125 MCG 125 MCG t} 125 MCG (5000 UT) (5000 UT) (5000 UT) buPROPion buPROPion No 1{table QD buPROPion HCl ER (XL) HCl ER (XL) t_in_th HCl ER 300 MG 300 MG e_morni (XL) 300 ng} MG traMADol traMADol No 1{table QD traMADol HCl 50 MG HCl 50 MG t_as_ne HCl 50 MG eded} Vitamin C Vitamin C No 1{table QD Vitamin C 500 MG 500 MG t} 500 MG Multi Multi No Multi Vitamin Vitamin Vitamin Mens Mens Mens Advair HFA Advair HFA No 2{puffs BID Advair HFA 230-21 230-21 } 230-21 MCG/ACT MCG/ACT MCG/ACT Aspirin 81 Aspirin 81 No 1{table QD Aspirin 81 MG MG t} MG Tamsulosin Tamsulosin No Tamsulosin HCl 0.4 MG HCl 0.4 MG HCl 0.4 MG Clopidogrel Clopidogrel No 1{table QD Clopidogre Bisulfate Bisulfate t} l 75 MG 75 MG Bisulfate 75 MG Metoprolol Metoprolol No Metoprolol Succinate Succinate Succinate ER 50 MG ER 50 MG ER 50 MG Pravastatin Pravastatin No Pravastati Sodium 40 Sodium 40 n Sodium MG MG 40 MG Lisinopril- Lisinopril- No Lisinopril hydroCHLORO hydroCHLORO -hydroCHLO thiazide thiazide ROthiazide 20-12.5 MG 20-12.5 MG 20-12.5 MG Metoprolol Metoprolol No 1{table QD Metoprolol Succinate Succinate t} Succinate ER 50 MG ER 50 MG ER 50 MG buPROPion buPROPion No buPROPion HCl ER (XL) HCl ER (XL) HCl ER 300 MG 300 MG (XL) 300 MG Pantoprazol Pantoprazol No Pantoprazo e Sodium e Sodium le Sodium Zinc 50 MG Zinc 50 MG No 1{table QD Zinc 50 MG t} ProAir ProAir No 2{puffs QID ProAir RespiClick RespiClick _as_nee RespiClick 108 (90 108 (90 ded} 108 (90 Base) Base) Base) MCG/ACT MCG/ACT MCG/ACT Pravastatin Pravastatin No QD Pravastati Sodium 40 Sodium 40 n Sodium MG MG 40 MG Flomax 0.4 Flomax 0.4 No 1{capsu QD Flomax 0.4 MG MG le} MG Vitamin D3 Vitamin D3 No 1{table QD Vitamin D3 125 MCG 125 MCG t} 125 MCG (5000 UT) (5000 UT) (5000 UT) buPROPion buPROPion No 1{table QD buPROPion HCl ER (XL) HCl ER (XL) t_in_th HCl ER 300 MG 300 MG e_morni (XL) 300 ng} MG traMADol traMADol No 1{table QD traMADol HCl 50 MG HCl 50 MG t_as_ne HCl 50 MG eded} Vitamin C Vitamin C No 1{table QD Vitamin C 500 MG 500 MG t} 500 MG Multi Multi No Multi Vitamin Vitamin Vitamin Mens Mens Mens Advair HFA Advair HFA No 2{puffs BID Advair HFA 230-21 230-21 } 230-21 MCG/ACT MCG/ACT MCG/ACT Aspirin 81 Aspirin 81 No 1{table QD Aspirin 81 MG MG t} MG Tamsulosin Tamsulosin No Tamsulosin HCl 0.4 MG HCl 0.4 MG HCl 0.4 MG Clopidogrel Clopidogrel No 1{table QD Clopidogre Bisulfate Bisulfate t} l 75 MG 75 MG Bisulfate 75 MG Metoprolol Metoprolol No Metoprolol Succinate Succinate Succinate ER 50 MG ER 50 MG ER 50 MG Pravastatin Pravastatin No Pravastati Sodium 40 Sodium 40 n Sodium MG MG 40 MG Lisinopril- Lisinopril- No Lisinopril hydroCHLORO hydroCHLORO -hydroCHLO thiazide thiazide ROthiazide 20-12.5 MG 20-12.5 MG 20-12.5 MG Metoprolol Metoprolol No 1{table QD Metoprolol Succinate Succinate t} Succinate ER 50 MG ER 50 MG ER 50 MG buPROPion buPROPion No buPROPion HCl ER (XL) HCl ER (XL) HCl ER 300 MG 300 MG (XL) 300 MG Pantoprazol Pantoprazol No Pantoprazo e Sodium e Sodium le Sodium Zinc 50 MG Zinc 50 MG No 1{table QD Zinc 50 MG t} ProAir ProAir No 2{puffs QID ProAir RespiClick RespiClick _as_nee RespiClick 108 (90 108 (90 ded} 108 (90 Base) Base) Base) MCG/ACT MCG/ACT MCG/ACT Pravastatin Pravastatin No QD Pravastati Sodium 40 Sodium 40 n Sodium MG MG 40 MG Flomax 0.4 Flomax 0.4 No 1{capsu QD Flomax 0.4 MG MG le} MG Vitamin D3 Vitamin D3 No 1{table QD Vitamin D3 125 MCG 125 MCG t} 125 MCG (5000 UT) (5000 UT) (5000 UT) buPROPion buPROPion No 1{table QD buPROPion HCl ER (XL) HCl ER (XL) t_in_th HCl ER 300 MG 300 MG e_morni (XL) 300 ng} MG traMADol traMADol No 1{table QD traMADol HCl 50 MG HCl 50 MG t_as_ne HCl 50 MG eded} Vitamin C Vitamin C No 1{table QD Vitamin C 500 MG 500 MG t} 500 MG Multi Multi No Multi Vitamin Vitamin Vitamin Mens Mens Mens Advair HFA Advair HFA No 2{puffs BID Advair HFA 230-21 230-21 } 230-21 MCG/ACT MCG/ACT MCG/ACT Aspirin 81 Aspirin 81 No 1{table QD Aspirin 81 MG MG t} MG Tamsulosin Tamsulosin No Tamsulosin HCl 0.4 MG HCl 0.4 MG HCl 0.4 MG Clopidogrel Clopidogrel No 1{table QD Clopidogre Bisulfate Bisulfate t} l 75 MG 75 MG Bisulfate 75 MG buPROPion buPROPion No buPROPion HCl ER (XL) HCl ER (XL) HCl ER 300 MG 300 MG (XL) 300 MG Lisinopril- Lisinopril- No Lisinopril hydroCHLORO hydroCHLORO -hydroCHLO thiazide thiazide ROthiazide 20-12.5 MG 20-12.5 MG 20-12.5 MG Metoprolol Metoprolol No Metoprolol Succinate Succinate Succinate ER 50 MG ER 50 MG ER 50 MG Metoprolol Metoprolol No 1{table QD Metoprolol Succinate Succinate t} Succinate ER 50 MG ER 50 MG ER 50 MG Pantoprazol Pantoprazol No Pantoprazo e Sodium e Sodium le Sodium Zinc 50 MG Zinc 50 MG No 1{table QD Zinc 50 MG t} ProAir ProAir No 2{puffs QID ProAir RespiClick RespiClick _as_nee RespiClick 108 (90 108 (90 ded} 108 (90 Base) Base) Base) MCG/ACT MCG/ACT MCG/ACT Flomax 0.4 Flomax 0.4 No 1{capsu QD Flomax 0.4 MG MG le} MG Pravastatin Pravastatin No Pravastati Sodium 40 Sodium 40 n Sodium MG MG 40 MG Vitamin D3 Vitamin D3 No 1{table QD Vitamin D3 125 MCG 125 MCG t} 125 MCG (5000 UT) (5000 UT) (5000 UT) buPROPion buPROPion No 1{table QD buPROPion HCl ER (XL) HCl ER (XL) t_in_th HCl ER 300 MG 300 MG e_morni (XL) 300 ng} MG traMADol traMADol No 1{table QD traMADol HCl 50 MG HCl 50 MG t_as_ne HCl 50 MG eded} Vitamin C Vitamin C No 1{table QD Vitamin C 500 MG 500 MG t} 500 MG Multi Multi No Multi Vitamin Vitamin Vitamin Mens Mens Mens Advair HFA Advair HFA No 2{puffs BID Advair HFA 230-21 230-21 } 230-21 MCG/ACT MCG/ACT MCG/ACT Aspirin 81 Aspirin 81 No 1{table QD Aspirin 81 MG MG t} MG Tamsulosin Tamsulosin No Tamsulosin HCl 0.4 MG HCl 0.4 MG HCl 0.4 MG Clopidogrel Clopidogrel No 1{table QD Clopidogre Bisulfate Bisulfate t} l 75 MG 75 MG Bisulfate 75 MG buPROPion buPROPion No buPROPion HCl ER (XL) HCl ER (XL) HCl ER 300 MG 300 MG (XL) 300 MG Zinc 50 MG Zinc 50 MG No 1{table QD Zinc 50 MG t} ProAir ProAir No 2{puffs QID ProAir RespiClick RespiClick _as_nee RespiClick 108 (90 108 (90 ded} 108 (90 Base) Base) Base) MCG/ACT MCG/ACT MCG/ACT Pantoprazol Pantoprazol No Pantoprazo e Sodium e Sodium le Sodium Multi Multi No Multi Vitamin Vitamin Vitamin Mens Mens Mens Pravastatin Pravastatin No Pravastati Sodium 40 Sodium 40 n Sodium MG MG 40 MG Lisinopril- Lisinopril- No Lisinopril hydroCHLORO hydroCHLORO -hydroCHLO thiazide thiazide ROthiazide 20-12.5 MG 20-12.5 MG 20-12.5 MG Vitamin D3 Vitamin D3 No 1{table QD Vitamin D3 125 MCG 125 MCG t} 125 MCG (5000 UT) (5000 UT) (5000 UT) Vitamin C Vitamin C No 1{table QD Vitamin C 500 MG 500 MG t} 500 MG traMADol traMADol No 1{table QD traMADol HCl 50 MG HCl 50 MG t_as_ne HCl 50 MG eded} Flomax 0.4 Flomax 0.4 No 1{capsu QD Flomax 0.4 MG MG le} MG Metoprolol Metoprolol No Metoprolol Succinate Succinate Succinate ER 50 MG ER 50 MG ER 50 MG Advair HFA Advair HFA No 2{puffs BID Advair HFA 230-21 230-21 } 230-21 MCG/ACT MCG/ACT MCG/ACT Aspirin 81 Aspirin 81 No 1{table QD Aspirin 81 MG MG t} MG Tamsulosin Tamsulosin No Tamsulosin HCl 0.4 MG HCl 0.4 MG HCl 0.4 MG Clopidogrel Clopidogrel No 1{table QD Clopidogre Bisulfate Bisulfate t} l 75 MG 75 MG Bisulfate 75 MG Metoprolol Metoprolol No Metoprolol Succinate Succinate Succinate ER 50 MG ER 50 MG ER 50 MG Pravastatin Pravastatin No Pravastati Sodium 40 Sodium 40 n Sodium MG MG 40 MG Lisinopril- Lisinopril- No Lisinopril hydroCHLORO hydroCHLORO -hydroCHLO thiazide thiazide ROthiazide 20-12.5 MG 20-12.5 MG 20-12.5 MG Metoprolol Metoprolol No 1{table QD Metoprolol Succinate Succinate t} Succinate ER 50 MG ER 50 MG ER 50 MG buPROPion buPROPion No buPROPion HCl ER (XL) HCl ER (XL) HCl ER 300 MG 300 MG (XL) 300 MG Pantoprazol Pantoprazol No Pantoprazo e Sodium e Sodium le Sodium Zinc 50 MG Zinc 50 MG No 1{table QD Zinc 50 MG t} ProAir ProAir No 2{puffs QID ProAir RespiClick RespiClick _as_nee RespiClick 108 (90 108 (90 ded} 108 (90 Base) Base) Base) MCG/ACT MCG/ACT MCG/ACT Pravastatin Pravastatin No QD Pravastati Sodium 40 Sodium 40 n Sodium MG MG 40 MG Flomax 0.4 Flomax 0.4 No 1{capsu QD Flomax 0.4 MG MG le} MG Vitamin D3 Vitamin D3 No 1{table QD Vitamin D3 125 MCG 125 MCG t} 125 MCG (5000 UT) (5000 UT) (5000 UT) buPROPion buPROPion No 1{table QD buPROPion HCl ER (XL) HCl ER (XL) t_in_th HCl ER 300 MG 300 MG e_morni (XL) 300 ng} MG traMADol traMADol No 1{table QD traMADol HCl 50 MG HCl 50 MG t_as_ne HCl 50 MG eded} Vitamin C Vitamin C No 1{table QD Vitamin C 500 MG 500 MG t} 500 MG Multi Multi No Multi Vitamin Vitamin Vitamin Mens Mens Mens Advair HFA Advair HFA No 2{puffs BID Advair HFA 230-21 230-21 } 230-21 MCG/ACT MCG/ACT MCG/ACT Aspirin 81 Aspirin 81 No 1{table QD Aspirin 81 MG MG t} MG Tamsulosin Tamsulosin No Tamsulosin HCl 0.4 MG HCl 0.4 MG HCl 0.4 MG Clopidogrel Clopidogrel No 1{table QD Clopidogre Bisulfate Bisulfate t} l 75 MG 75 MG Bisulfate 75 MG buPROPion buPROPion No buPROPion HCl ER (XL) HCl ER (XL) HCl ER 300 MG 300 MG (XL) 300 MG Lisinopril- Lisinopril- No Lisinopril hydroCHLORO hydroCHLORO -hydroCHLO thiazide thiazide ROthiazide 20-12.5 MG 20-12.5 MG 20-12.5 MG Metoprolol Metoprolol No Metoprolol Succinate Succinate Succinate ER 50 MG ER 50 MG ER 50 MG Metoprolol Metoprolol No 1{table QD Metoprolol Succinate Succinate t} Succinate ER 50 MG ER 50 MG ER 50 MG Pantoprazol Pantoprazol No Pantoprazo e Sodium e Sodium le Sodium Zinc 50 MG Zinc 50 MG No 1{table QD Zinc 50 MG t} ProAir ProAir No 2{puffs QID ProAir RespiClick RespiClick _as_nee RespiClick 108 (90 108 (90 ded} 108 (90 Base) Base) Base) MCG/ACT MCG/ACT MCG/ACT Lisinopril/ Lisinopril/ 2020- No Nilda 1 tablet [facility] 10-28 [facility] 00:00 - [facility] :00 [facility] Immunizations Ordered Immunization Filled Immunization Date Status Commen ts Source Name Name FLUZONE HIGH DOSE FLUZONE HIGH DOSE 2022-03-19 Completed [facility] OVER 65 OVER 65 10:03:00 - [facility] FLUZONE HIGH DOSE FLUZONE HIGH DOSE 2022-03-19 Completed [facility] OVER 65 OVER 65 10:03:00 - [facility] FLUZONE HIGH DOSE FLUZONE HIGH DOSE 2022-03-19 Completed [facility] OVER 65 OVER 65 10:03:00 - [facility] FLUZONE HIGH DOSE FLUZONE HIGH DOSE 2022-03-19 Completed [facility] OVER 65 OVER 65 10:03:00 - [facility] FLUZONE HIGH DOSE FLUZONE HIGH DOSE 2022-03-19 Completed [facility] OVER 65 OVER 65 10:03:00 - [facility] FLUZONE HIGH DOSE FLUZONE HIGH DOSE 2022-03-19 Completed [facility] OVER 65 OVER 65 10:03:00 - [facility] FLUZONE HIGH DOSE FLUZONE HIGH DOSE 2022-03-19 Completed [facility] OVER 65 OVER 65 10:03:00 - [facility] FLUZONE HIGH DOSE FLUZONE HIGH DOSE 2022-03-19 Completed [facility] OVER 65 OVER 65 10:03:00 [facility] Moderna COVID-19 Moderna COVID-19 2021-03-14 Completed [facility] Vaccine 10:18:00 [facility] Moderna COVID-19 Moderna COVID-19 2021-03-14 Completed [facility] Vacc[facility] 10:18:00 - [facility] Moderna COVID-19 Moderna COVID-19 2021-03-14 Completed [facility] Vaccine 10:18:00 - [facility] Moderna COVID-19 Moderna COVID-19 2021-03-14 Completed [facility] Vaccine 10:18:00 - [facility] Moderna COVID-19 Moderna COVID-19 2021-03-14 Completed [facility] Vaccine 10:18:00 - [facility] Moderna COVID-19 Moderna COVID-19 2021-03-14 Completed [facility] Vaccine 10:18:00 - [facility] Moderna COVID-19 Moderna COVID-19 2021-03-14 Completed [facility] Vaccine 10:18:00 - [facility] Moderna COVID-19 Moderna COVID-19 2021-03-14 Completed [facility] Vaccine 10:18:00 - [facility] Moderna COVID-19 Moderna COVID-19 2021-03-14 Completed [facility] Vaccine 10:18:00 - [facility] Moderna COVID-19 Moderna COVID-19 2021-03-14 Completed [facility] Vaccine 10:18:00 - [facility] Moderna COVID-19 Moderna COVID-19 2021-03-14 Completed [facility] Vaccine 10:18:00 - [facility] Moderna COVID-19 Moderna COVID-19 2021-03-14 Completed [facility]ine Vaccine 10:18:00 - [facility] Moderna COVID-19 Moderna COVID-19 2021-03-14 Completed [facility]ine Vaccine 10:18:00 - [facility] Moderna COVID-19 Moderna COVID-19 2021-03-14 Completed [facility] Vaccine 10:18:00 - [facility] Moderna COVID-19 Moderna COVID-19 2021-03-14 Completed [facility]ine Vaccine 10:18:00 - [facility] Moderna COVID-19 Moderna COVID-19 2021-03-14 Completed [facility] Vaccine 10:18:00 - [facility] Moderna COVID-19 Moderna COVID-19 2021-03-14 Completed [facility] Vaccine 10:18:00 - [facility] Adacel (Tdap) Adacel (Tdap) 2019-02-01 Completed [facility] 11:31:00 - [facility] Adacel (Tdap) Adacel (Tdap) 2019-02-01 Completed [facility] 11:31:00 - [facility] Adacel (Tdap) Adacel (Tdap) 2019-02-01 Completed [facility] 11:31:00 - [facility] Adacel (Tdap) Adacel (Tdap) 2019-02-01 Completed [facility] 11:31:00 - [facility] Adacel (Tdap) Adacel (Tdap) 2019-02-01 Completed [facility] 11:31:00 - [facility] Adacel (Tdap) Adacel (Tdap) 2019-02-01 Completed [facility] 11:31:00 - [facility] Adacel (Tdap) Adacel (Tdap) 2019-02-01 Completed [facility] 11:31:00 - [facility] Adacel (Tdap) Adacel (Tdap) 2019-02-01 Completed [facility] 11:31:00 - [facility] Adacel (Tdap) Adacel (Tdap) 2019-02-01 Completed [facility] 11:31:00 - [facility] Adacel (Tdap) Adacel (Tdap) 2019-02-01 Completed [facility] 11:31:00 - [facility] Adacel (Tdap) Adacel (Tdap) 2019-02-01 Completed [facility] 11:31:00 - [facility] Adacel (Tdap) Adacel (Tdap) 2019-02-01 Completed [facility] 11:31:00 - [facility] Adacel (Tdap) Adacel (Tdap) 2019-02-01 Completed [facility] 11:31:00 - [facility] Adacel (Tdap) Adacel (Tdap) 2019-02-01 Completed [facility] 11:31:00 - [facility] Adacel (Tdap) Adacel (Tdap) 2019-02-01 Completed [facility] 11:31:00 - [facility] Adacel (Tdap) Adacel (Tdap) 2019-02-01 Completed [facility] 11:31:00 - [facility] Adacel (Tdap) Adacel (Tdap) 2019-02-01 Completed [facility] 11:31:00 - [facility] TDAP > 7 TDAP > 7 2019-02-01 Completed [facility]Adacel Years-Adacel 00:00:00 - [facility] Vital Signs Vital Name Observation Time Observation Value Comments Source HEIGHT 2021-03-31 22:55:00 167.6 cm WEIGHT 2021-03-31 22:55:00 70.353 kg height 2022-03-19 09:40:00 64 [in_i] [facility] weight 2022-03-19 09:40:00 179 [lb_av] [facility] [place] temperature 2022-03-19 09:40:00 97.5 [degF] [facility] bmi 2022-03-19 09:40:00 30.72 kg/m2 [facility] oximetry 2022-03-19 09:40:00 96 % [facility] respiratory rate 2022-03-19 09:40:00 16 /min [facility] blood pressure 2022-03-19 09:40:00 138 mm[Hg] [facility] - systolic [facility] blood pressure 2022-03-19 09:40:00 72 mm[Hg] [facility] - diastolic [facility] height 2022-03-19 09:30:00 64 [in_i] [facility] weight 2022-03-19 09:30:00 179 [lb_av] [facility] temperature 2022-03-19 09:30:00 97.5 [degF] [facility] bmi 2022-03-19 09:30:00 30.72 kg/m2 [facility] oximetry 2022-03-19 09:30:00 96 % [facility] respiratory rate 2022-03-19 09:30:00 16 /min [facility] blood pressure 2022-03-19 09:30:00 138 mm[Hg] [facility] - systolic [facility] blood pressure 2022-03-19 09:30:00 72 mm[Hg] [facility] - diastolic [facility] height 2021-11-18 10:30:00 64.5 [in_i] [facility] weight 2021-11-18 10:30:00 181.6 [lb_av] [facility] temperature 2021-11-18 10:30:00 98.2 [degF] [facility] bmi 2021-11-18 10:30:00 30.69 kg/m2 [facility] oximetry 2021-11-18 10:30:00 96 % [facility] respiratory rate 2021-11-18 10:30:00 17 /min Comm on [facility] blood pressure 2021-11-18 10:30:00 132 mm[Hg] [facility] - systolic [facility] blood pressure 2021-11-18 10:30:00 67 mm[Hg] [facility] - diastolic [facility] height 2021-08-19 15:40:00 64.5 [in_i] Common [facility] weight 2021-08-19 15:40:00 179.8 [lb_av] [facility] temperature 2021-08-19 15:40:00 97.8 [degF] [facility] bmi 2021-08-19 15:40:00 30.38 kg/m2 [facility] oximetry 2021-08-19 15:40:00 97 % [facility] respiratory rate 2021-08-19 15:40:00 17 /min Comm on [facility] blood pressure 2021-08-19 15:40:00 138 mm[Hg] Common [facility] - systolic [facility] blood pressure 2021-08-19 15:40:00 70 mm[Hg] Common [facility] - diastolic [facility] height 2021-04-30 09:30:00 64.5 [in_i] Common [facility] weight 2021-04-30 09:30:00 161.4 [lb_av] [facility] temperature 2021-04-30 09:30:00 97.6 [degF] Common [facility] bmi 2021-04-30 09:30:00 27.27 kg/m2 [facility] oximetry 2021-04-30 09:30:00 97 % [facility] respiratory rate 2021-04-30 09:30:00 18 /min Comm on [facility] blood pressure 2021-04-30 09:30:00 131 mm[Hg] [facility] - systolic [facility] blood pressure 2021-04-30 09:30:00 72 mm[Hg] Common [facility] - diastolic [facility] HEIGHT 2021-03-31 22:55:00 167.6 cm WEIGHT 2021-03-31 22:55:00 70.353 kg height 2021-03-21 10:00:00 64.5 [in_i] Common [facility] weight 2021-03-21 10:00:00 163.6 [lb_av] [facility] temperature 2021-03-21 10:00:00 97.1 [degF] Common [facility] bmi 2021-03-21 10:00:00 27.65 kg/m2 [facility] oximetry 2021-03-21 10:00:00 97 % Common [facility] - [facility] respiratory rate 2021-03-21 10:00:00 18 /min Comm on [facility] - [facility] blood pressure 2021-03-21 10:00:00 139 mm[Hg] Common [facility] - systolic [facility] blood pressure 2021-03-21 10:00:00 60 mm[Hg] Common [facility] - diastolic [facility] Systolic blood 2021-04-16 11:50:00 110 mm[Hg] [facility] Diastolic blood 2021-04-16 11:50:00 56 mm[Hg] [facility] Heart rate 2021-04-16 11:50:00 77 /min [facility] Body temperature 2021-04-16 11:50:00 36.56 Syl [facility] Respiratory rate 2021-04-16 11:50:00 20 /min [facility] Oxygen saturation in 2021-04-16 11:50:00 98 /min [facility] Arterial blood by Medical Ce nter Pulse oximetry Body height 2021-03-31 22:55:00 167.6 cm [facility] Body weight 2021-03-31 22:55:00 70.353 kg [facility] BMI 2021-03-31 22:55:00 25.03 kg/m2 [facility] Procedures Procedure Date / Time Performed Performing Clinician Sour e COMPREHENSIVE METABOLIC 2021-04-15 12:28:00 Edward Sampson [facility] CBC (HEMOGRAM ONLY) 2021-04-15 04:09:[address] [facility] CBC W/PLT COUNT & AUTO 2021-04-14 14:20:17 [facility] CBC W/PLT COUNT & AUTO 2021-04-14 14:20:17 [facility] ARTERIOGRAM, PERIPHERAL 2021-04-14 12:04:00 [place] [facility] SARS-COV2/RT-PCR ([facility] & 2021-04-14 10:41:00 Bc, [facility] APTT 2021-04-14 04:34:[facility] BASIC METABOLIC PANEL (7) 2021-04-14 04:25:00 Maddie [facility] CBC (HEMOGRAM ONLY) 2021-04-14 04:25:00 Bc, [facility] APTT 2021-04-13 18:19:00 [facility] APTT 2021-04-13 12:19:00 [facility] CBC (HEMOGRAM ONLY) 2021-04-13 04:32[facility] 2021-04-13 04:32:00 [facility] AP[facility] 2021-04-12 22:31:00 [facility] AP[facility] 2021-04-12 15:58:00 [facility] LIPID PANEL 2021-04-12 08:44:00 [facility] HEMOGLOBIN A1C 2021-04-12 08:44:00 [facility] APTT 2021-04-12 08:44:00 Bc, [facility] US RENAL COMPLETE 2021-04-12 06:20:00 [facility] APTT 2021-04-12 05:37:00 [facility] CBC (HEMOGRAM ONLY) 2021-04-12 05:37:00 [facility] 2021-04-11 22:00:00 [facility] APTT 2021-04-11 13:07:[address] [facility] CBC (HEMOGRAM ONLY) 2021-04-11 04:00:00 DominikDarlyn castorenaeep [facility] BASIC METABOLIC PANEL (7) 2021-04-11 04:00:00 Yaredravenkell, Sudee p [facility] PHOSPHORUS 2021-04-11 04:00:00 [facility]a, Reuben [facility] MAGNESIUM 2021-04-11 04:00:00 [facility], [facility] APTT 2021-04-11 04:00:00 Se [facility] CATHETERIZATION, HEART, 2021-04-10 07:14:00 Camryn [facility] LEFT, WITH PERCUTANEOUS [facility] CORONARY INTERVENTION CBC (HEMOGRAM ONLY) 2021-04-10 03:38:00 [facility] Reuben [facility] BASIC METABOLIC PANEL (7) 2021-04-10 03:38:00 [facility] Sudee p [facility] PHOSPHORUS 2021-04-10 03:38:00 [facility], Reuben [facility] MAGNESIUM 2021-04-10 03:38:00 [facility] Reuben [facility] APTT 2021-04-10 03:38:[address] [facility] HIGH SENSITIVITY TROPONIN 2021-04-09 21:24:00 AliArshed [facility] APTT 2021-04-09 21:24:[address] [facility] ECG 12-LEAD 2021-04-09 19:22:31 Maddie [facility] APTT 2021-04-09 14:33:[address] [facility] APTT 2021-04-09 13:14:00 [facility] CBC (HEMOGRAM ONLY) 2021-04-09 06:13:00 Dominikkristymara, Reuben [facility] BASIC METABOLIC PANEL (7) 2021-04-09 06:13:00 Ermias, Darlynee p [facility] PHOSPHORUS 2021-04-09 06:13:00 Kubarbaramara, Reuben [facility] MAGNESIUM 2021-04-09 06:13:00 [facility]a, [facility] PROTHROMBIN TIME/INR 2021-04-09 06:13:00 [facility] APTT 2021-04-09 06:13:00 [facility] ABORH, MANUAL 2021-04-09 06:13:00 Stacy Guevara [facility] APTT 2021-04-08 23:52:[address] [facility] TYPE AND SCREEN, 2021-04-08 23:52:00 Adrián [facility] APTT 2021-04-08 14:09:[address] [facility] NM MYOCARDIAL PERFUSION 2021-04-08 11:58:00 [facility] & STRESS[facility] enter TREADMILL 2021-04-08 11:19:20 Unknown, Hl7 [facility] TOLERANCE(NON-NUCLEAR Medical Ce nter TREADMILL) ECG 12-LEAD 2021-04-08 11:07:49 Unknown, Hl7 [facility] ECG 12-LEAD 2021-04-08 11:07:49 Unknown, 7 [facility] 2D ECHO MODE W/O DOPPLER 2021-04-08 08:19:[address] [facility] APTT 2021-04-08 07:19:00 ArifRadha [facility] CBC (HEMOGRAM ONLY) 2021-04-08 04:29:00 KuchiReuben bella [facility] BASIC METABOLIC PANEL (7) 2021-04-08 04:29:00 Taira Monson p [facility] PHOSPHORUS 2021-04-08 04:29:00 [facility] MAGNESIUM 2021-04-08 04:29:00 [facility] APTT 2021-04-08 04:29:00 [facility] APTT 2021-04-07 21:42:00 [facility] CT ABDOMEN/PELVIS WITHOUT 2021-04-07 21:03:00 [facility] CONTRAST [facility] CBC W/PLT COUNT & AUTO 2021-04-07 17:46:00 [facility] CBC W/PLT COUNT & AUTO 2021-04-07 17:46:00 [facility] (CELLAVISION MANUAL DIFF) 2021-04-07 17:46:00 [facility] APTT 2021-04-07 13:08:[address] [facility] C. DIFFICILE GDH TOXIN 2021-04-07 11:58:00 [facility] SARS-COV2/RT-PCR ([facility] & 2021-04-07 11:56:00 Bc [facility] REF LABS) [facility] ECG 12-LEAD 2021-04-07 10:30:28 [facility] LACTIC ACID, VENOUS 2021-04-07 10:20:00 [facility] APTT 2021-04-07 04:33:00 Manoj Urbina [facility] CBC (HEMOGRAM ONLY) 2021-04-07 04:33:00 [facility] Reuben [facility] BASIC METABOLIC PANEL (7) 2021-04-07 04:33:00 [facility]ias [facility] PHOSPHORUS 2021-04-07 04:33:00 JonnyTiara terryp [facility] MAGNESIUM 2021-04-07 04:33:00 [facility]mara [facility] PROTHROMBIN TIME/INR 2021-04-07 04:33:00 Orefield Kimmy [facility] HC LAB PLATELET COUNT 2021-04-06 20:33:00 [facility] APTT 2021-04-06 20:33:00 [facility] Manoj [facility] COMPREHENSIVE METABOLIC 2021-04-06 06:21:00 [facility] CBC W/PLT COUNT & AUTO 2021-04-06 06:21:00 [facility] MAGNESIUM 2021-04-06 06:21:00 [facility] LACTIC ACID, VENOUS 2021-04-06 06:21:00 [facility] CBC W/PLT COUNT & AUTO 2021-04-06 06:21:00 [facility] (CELLAVISION MANUAL DIFF) 2021-04-06 06:21:00 [facility] VASCULAR DIAGRAM -SCAN 2021-04-06 00:00:00 Provider [facility] CARDIAC CATH REPORT - 2021-04-06 00:00:00 Provider, [facility] CTA ABDOMEN & PELVIS 2021-04-02 10:08:00 Brijesh Rahman [facility] CBC (HEMOGRAM ONLY) 2021-04-02 05:31:00 Brijesh Rahman [facility] BASIC METABOLIC PANEL (7) 2021-04-02 05:31:00 Brijesh Rahman [facility] HEPATIC FUNCTION PANEL 2021-04-02 05:31:00 Brijesh Rahman [facility] LACTIC ACID, VENOUS 2021-04-01 11:33:00 [facility] LIPASE 2021-04-01 11:33:00 [facility] BASIC METABOLIC PANEL (7) 2021-04-01 04:08:00 Anabelle Hopkins [facility] CBC W/PLT COUNT & AUTO 2021-04-01 04:08:[address] [facility] CBC W/PLT COUNT & AUTO 2021-04-01 04:08:[address] [facility] ECG 12-LEAD 2021-04-01 00:39:29 Unknown, [address] ECG 12-LEAD 2021-04-01 00:39:29 Unknown, [address] ECG 12-LEAD 2021-04-01 00:38:45 Unknown, 7 [facility] ECG 12-LEAD 2021-04-01 00:38:45 Unknown, [address] ECG 12-LEAD 2021-04-01 00:36:50 Unknown, [address] ECG 12-LEAD 2021-04-01 00:36:50 Unknown, [address] ECG 12-LEAD 2021-04-01 00:35:07 Anabelle Hopkins [facility] ECG 12-LEAD 2021-04-01 00:35:07 Unknown, 7 [facility] Plan of Care Planned Activity Planned Date [...] FIRST YEAR if no IPPE)] Future Scheduled 2022-03-[address] [facility] 00:00:00 Moderna series) [code = [facility] COVID-19 VACCINE (2 - Moderna series)] Future Scheduled 2021-04-11 COVID-19 VACCINE ([facility] Moderna series) [code = [facility] COVID-19 VACCINE (2 - Moderna series)] Future Scheduled 2021-04-11 COVID-19 VACCINE ([facility] 00:00[facility]00 Moderna series) [code = [facility] COVID-19 VACCINE (2 - Moderna series)] Future Scheduled 2021-03-05 Medicare IPPE (WELCOME [facility] 00:[facility]00 TO MEDICARE) [code = Medical Center Medicare IPPE (WELCOME TO MEDICARE)] Future [...] [facility] Test 00:00:00 2) [code = SHINGLES [facility] VACCINES (1 of 2)] Future Scheduled 1998-01-11 SHINGLES VACCINES ([address] [facility] 00:00:00 2) [code = SHINGLES [facility] VACCINES (1 of 2)] Future Scheduled 1998-01-11 SHINGLES VACCINES ([address] [facility] 00:00:00 2) [code = SHINGLES [facility] VACCINES (1 of 2)] Future Scheduled [...] C [facility] SCREENING] Future Scheduled 1948 Screening for malignant [facility] 00:00:00 neoplasm of colon Medical Ce nter (procedure) [code = 564546259] Future Scheduled 1948 Sigmoidoscopy [code = [facility] Sigmoidoscopy] Medical Cente r Future Scheduled 1948 CT Colonography (combo) [facility] 00:00:00 [code = CT [facility] ([facility])] Future Scheduled 1948 Screening for malignant [facility] Test 00:00:00 neoplasm of colon Medical Ce nter (procedure) [code = 695396569] Future Scheduled 1948 Screening for malignant [facility] Test 00:00:00 neoplasm of colon Medical Ce nter (procedure) [code = 043721691] Future Scheduled 1948 Screening for malignant [facility] Test 00:00:00 neoplasm of colon Medical Ce nter (procedure) [code = 544317957] Future Scheduled 1948 Screening for malignant [facility] Test 00:00:00 neoplasm of colon Medical Ce nter (procedure) [code = 730000974] Future Scheduled 1948 Sigmoidoscopy [code = [facility] 00:[facility]:00 Sigmoidoscopy] Medical Cente r Future Scheduled 1948 CT Colonography (combo) [facility] 00:00:00 [code = CT [facility] (combo)] Future Scheduled 1948 Screening for malignant [facility] Test 00:00:00 neoplasm of colon Medical Ce nter (procedure) [code = 440563453] Future Scheduled 1948 Screening for malignant [facility] Test 00:00:00 neoplasm of colon Medical Ce nter (procedure) [code = 594648379] Future Scheduled 1948 Screening for malignant [facility] Test 00:00:00 neoplasm of colon Medical Ce nter (procedure) [code = 440637715] Future Scheduled 1948 Screening for malignant [facility] Test 00:00:00 neoplasm of colon Medical Ce nter (procedure) [code = 424172987] Future Scheduled 1948 Sigmoidoscopy [code = [facility] 00:00:00 Sigmoidoscopy] Medical Cente r Future Scheduled 1948 CT Colonography (combo) [facility] Test 00:00:00 [code = CT Colonography [facility] (combo)] Future Scheduled 1948 Screening for malignant [facility] Test 00:00:00 neoplasm of colon Medical Ce nter (procedure) [code = 508722289] Future Scheduled 1948 Screening for malignant [facility] Test 00:00:00 neoplasm of colon Medical Ce nter (procedure) [code = 828569779] Future Scheduled 1948 Screening for malignant [facility] Test 00:00:00 neoplasm of colon Medical Ce nter (procedure) [code = 151999730] Encounters Start End Encounter Admission Attending Care Care Encounter Source Date/Time Date/Time Type Type Clinicians Facility Department ID 2022-03-23 Outpatient Millan, STLMLC STLMLC [id number] Common 13:35:00 [facility] 2022-03-19 Outpatient Millan, STLMLC STLMLC [id number] Common 10:14:01 [facility] 2022-03-18 Outpatient Millan, STLMLC STLMLC [id number] Common 10:24:00 [facility] [address] [facility] 2021-07-30 Outpatient Millan, STLMLC STLMLC [id number] Common 14:08:27 [facility] [address] [facility] 2021-07-30 Outpatient Millan, STLMLC STLMLC [id number] Common 13:42:10 Timur 19404 [facility] 2021-07-30 Outpatient STLMLC STLMLC [id number] Common 13:41:40 [address] [facility] 2021-07-30 Outpatient Millender, STLMLC STLMLC [id number] Common 13:29:53 Nilda [address] [facility] 2021-07-30 Outpatient Millender, STLMLC STLMLC [id number] Common 11:19:20 Nilda [address] [facility] 2021-04-13 Inpatient ER [facility], [facility] [id number] [facility] 14:05:01 [facility] 2022-05-11 2022-05-11 (TEL) STLMLC STLMLC [id number] Co mmon 00:00:00 00:00:00 [facility] 2022-03-30 2022-03-30 (TEL) STLMLC STLMLC [id number] Co mmon 00:00:00 00:00:00 [facility] 2022-03-20 2022-03-20 (TEL) STLMLC STLMLC [id number] Co mmon 00:00:00 00:00:00 [facility] 2022-03-19 2022-03-19 SUB ANNUAL STLMLC STLMLC [id number] Common 00:00:00 00:00:00 MCR [facility] WELLNESS - CHI VISIT [facility] 2022-03-19 2022-03-19 OFFICE STLMLC STLMLC [id number] Co mmon 00:00:00 00:00:00 VISIT [facility] ESTAB PT - CHI LEVEL 4 [facility] 2022-03-19 2022-03-19 (TEL) STLMLC STLMLC [id number] Co mmon 00:00:00 00:00:00 [facility] 2021-11-18 2021-11-18 OFFICE STLMLC STLMLC [id number] Co mmon 00:00:00 00:00:00 VISIT [facility] ESTAB PT - CHI LEVEL 4 [facility] 2021-11-11 2021-11-11 (TEL) STLMLC STLMLC [id number] Co mmon 00:00:00 00:00:00 [facility] 2021-08-19 2021-08-19 OFFICE STLMLC STLMLC [id number] Co mmon 00:00:00 00:00:00 VISIT [facility] ESTAB PT - CHI LEVEL 4 [facility] 2021-05-01 2021-05-01 (TEL) STLMLC STLMLC [id number] Co mmon 00:00:00 00:00:00 [facility] - [facility] 2021-04-30 2021-04-30 OFFICE STLMLC STLMLC [id number] Co mmon 00:00:00 00:00:00 VISIT [facility] ESTAB PT - CHI LEVEL 5 [facility] 2021-04-21 2021-04-21 (TEL) STLMLC STLMLC [id number] Co mmon 00:00:00 00:00:00 [facility] 2021-04-06 2021-04-16 Hospital ER Kimmy Samuels [facility] [id number] [facility] 04:06:00 13:20:00 Encounter Radha Christine [facility] 2021-04-06 2021-04-16 Inpatient ER RADHA CHRISTINE [facility] Cardiology 2 [id number] [facility] 04:06:00 13:20:00 2021-04-14 2021-04-14 Surgery Sunil, [facility] [id number] 12:47:00 15:20:00 [facility] 2021-04-10 2021-04-10 Surgery Francisco-Cam [facility] [id number] 07:00:00 09:28:00 Raffy syed [facility] 2021-04-07 2021-04-07 Outpatient M [facility] [id number] [facility] 00:00:00 23:59:00 [facility] 2021-04-06 2021-04-06 Travel [facility] [id number] [facility] 00:[facility]00 00:00:00 [facility] 2021-04-04 2021-04-04 (TEL) [facility] [id number] Co mmon 00:00:00 00:00:00 [facility] 2021-03-31 2021-04-03 Hospital ER Danyell Wallace [facility] [id number] 22:25:00 10:52:00 Encounter [facility] 2021-04-01 2021-04-01 Outpatient [facility] [id number] [facility] 00:00:00 23:59:00 [facility] 2021-04-01 2021-04-01 Orders [facility] [id number] 00:00:00 00:00:00 Only [facility] 2021-03-21 2021-03-21 Outpatient [facility] [id number] Common 00:00:00 00:00:00 [facility] 2021-03-21 2021-03-21 SUB ANNUAL [facility] [id number] Common 00:00:00 00:00:00 MCR [facility] VISIT [facility] 2021-03-03 2021-03-03 [facility] [id number] Common 00:00:00 00:00:00 [facility] 2021-02-25 2021-02-25 [facility] [id number] Common 00:00:00 00:00:00 [facility] 2019-08-31 2019-08-31 Outpatient Tim-Mbayo VFP VFP [id number] [facility] 02:42:00 02:42:00 _A_AH [id number] Family Practic e 2019-08-31 2019-08-31 Outpatient Tim-Mbayo VFP VFP [id number] [facility] 02:42:00 02:42:00 _A_AH [id number] Family Practic e 2019-08-31 2019-08-31 Outpatient Tim-Mbayo VFP VFP [id number] [facility] 02:42:00 02:42:00 _A_AH [id number] Family Practic e 2019-08-31 2019-08-31 Outpatient Tim-Mbayo VFP VFP [id number] [facility] 02:42:00 02:42:00 _A_AH [id number] Family Practic e 2019-08-31 2019-08-31 Outpatient Tim-Mbayo VFP VFP [id number] [facility] 02:42:00 02:42:00 _A_AH [id number] Family Practic e 2019-02-01 2019-02-01 Out[facility] [id number] Common 10:00:00 10:00:00 [facility] 2018-01-26 2018-01-26 [facility] [id number] Common 10:00:00 10:00:00 [facility] Results Test Description Test Time Test Comments Results Result Comments Source Comp. Metabolic Panel (14) (CMP) 2021-04-30 00:00:00 Test Item Value Reference Range Interpretation Comme nts Glucose (test code = 2345-7) 108 65-99 BUN (test code = 3094-0) 10 8-27 Creatinine (test code = 2160-0) 0.86 0.76-1.27 eGFR If NonAfricn Am (test code = 08589-1) 86 >59 eGFR If Africn Am (test code = 81791-5) 99 >59 BUN/Creatinine Ratio (test code = 3097-3) 12 10-24 Sodium (test code = 2951-2) 145 134-144 Potassium (test code = 2823-3) 5.1 3.5-5.2 Chloride (test code = 2075-0) 105 96-106 Carbon Dioxide, Total (test code = 2027-9) 26 20-29 Calcium (test code = 89308-6) 9.5 8.6-10.2 Protein, Total (test code = 2885-2) 6.5 6.0-8.5 Albumin (test code = 1751-7) 4.0 3.7-4.7 Globulin, Total (test code = 85281-7) 2.5 1.5-4.5 A/G Ratio (test code = 1759-0) 1.6 1.2-2.2 Bilirubin, Total (test code = 1975-2) <0.2 0.0-1.2 Alkaline Phosphatase (test code = 6768-6) 75 44-121 AST (SGOT) (test code = 1920-8) 15 0-40 ALT (SGPT) (test code = 1742-6) 13 0-44 CBC With Differential/[id number] 00:00:00 Test Item Value Reference Range Interpretation Comments WBC (test code = 6690-2) 10.4 3.4-10.8 RBC (test code = 789-8) 4.37 4.14-5.80 Hemoglobin (test code = 718-7) 13.7 13.0-17.7 Hematocrit (test code = 4544-3) 41.2 37.5-51.0 MCV (test code = 787-2) 94 79-97 MCH (test code = 785-6) 31.4 26.6-33.0 MCHC (test code = 786-4) 33.3 31.5-35.7 RDW (test code = 788-0) 13.5 11.6-15.4 Platelets (test code = 777-3) 267 150-450 Neutrophils (test code = 770-8) 70 Not Estab. Lymphs (test code = 736-9) 17 Not Estab. Monocytes (test code = 5905-5) 9 Not Estab. Eos (test code = 713-8) 3 Not Estab. Basos (test code = 706-2) 1 Not Estab. Immature Cells (test code = UNLOINC) Neutrophils (Absolute) (test code = 7.2 1.4-7.0 751-8) Lymphs (Absolute) (test code = 731-0) 1.8 0.7-3.1 Monocytes(Absolute) (test code = 742-7) 1.0 0.1-0.9 Eos (Absolute) (test code = 711-2) 0.3 0.0-0.4 Baso (Absolute) (test code = 704-7) 0.1 0.0-0.2 Immature Granulocytes (test code = 0 Not Estab. 05184-4) Immature Grans (Abs) (test code = 0.0 0.0-0.1 52508-6) NRBC (test code = 65842-3) Hematology Comments: (test code = 94560-7) Comprehensive metabolic [id number] 12:55:32 Test Item Value Reference Range Interpretation Comments Protein, Total (test 6.1 See_Comment [Autom ated code = 2885-2) message] The system which generated this result transmit ria reference range : 6.0 - 8.3 gm/dL . The reference range was not u sed to interpret th is result as normal/abnormal . Albumin (test code = 3.5 g/dL 3.5-5.0 55830-5) Alkaline Phosphatase 49 U/L 40-150 (test code = 6768-6) Total Bilirubin (test 0.5 mg/dL 0.2-1.2 code = 1974-2) Sodium (test code = 138 meq/L 790-561 0120-2) Potassium (test code 4.1 meq/L 3.5-5.1 = 2823-3) Chloride (test code = 103 meq/L 98-107 2075-0) CO2 (test code = 29 meq/L -2028-03) BUN (test code = 12 mg/dL 01-22 309-0) Creatinine (test code 0.75 mg/dL 0.57-1.25 = 2160-0) Glucose (test code = 110 mg/dL 70-105 H 234-7) Calcium (test code = 8.9 mg/dL 8.4-10.2 36005-6) AST (test code = 29 U/L -34 1919-8) ALT (test code = 58 U/L 6-55 H 174-6) EGFR (test code = 102 mL/min/1.73 [place] [address]-7) NOT ACCURATE CREATININE CLEARANCE IN PREDICTING GLOMERULAR FILTRATION RATE . ESTIMATED GFR I S NOT APPLICABLE FOR DIALYSIS PATIEN PATRICIA (test code = PATRICIA) [employer] Proof Reader ID - MANISHA Zhang Lab Interpretation Abnormal (test code = 62752-6) [facility] [id number] 12:55:32 Test Item Value Reference Range Interpretation Comments Protein, Total (test 6.1 See_Comment [Autom ated code = 2885-2) message] The system which generated this result transmit ria reference range : 6.0 - 8.3 gm/dL . The reference range was not u sed to interpret th is result as normal/abnormal . Albumin (test code = 3.5 g/dL 3.5-5.0 61040-3) Alkaline Phosphatase 49 U/L 40-150 (test code = 6768-6) Total Bilirubin (test 0.5 mg/dL 0.2-1.2 code = 1975-2) Sodium (test code = 138 meq/L 063-511 1864-2) Potassium (test code 4.1 meq/L 3.5-5.1 = 2823-3) Chloride (test code = 103 meq/L 98-107 2074-0) CO2 (test code = 29 meq/L 2028-03) BUN (test code = 12 mg/dL 01-22 309-0) Creatinine (test code 0.75 mg/dL 0.57-1.25 = 2160-0) Glucose (test code = 110 mg/dL 70-105 H 234-7) Calcium (test code = 8.9 mg/dL 8.4-10.2 12876-2) AST (test code = 29 U/L 5-34 1920-8) ALT (test code = 58 U/L 6-55 H 1742-6) EGFR (test code = 102 mL/min/1.73 [place] [address]-5) NOT ACCURATE CREATININE CLEARANCE IN PREDICTING GLOMERULAR FILTRATION RATE . ESTIMATED GFR I S NOT APPLICABLE FOR DIALYSIS PATIEN TSHenny GOMEZ (test code = PATRICIA) Whiskey Proof Reader ID - MANISHA Zhang Lab Interpretation Abnormal (test code = 79865-5) [facility] [id number] 12:55:32 Test Item Value Reference Range Interpretation [...] S NOT APPLICABLE FOR DIALYSIS PATIEN TS. Whiskey Proof Reader ID - MANISHA FCBC (hemogram only)2021-04-15 04:42:51 Test Item Value Reference Range Interpretation Comments WBC (test code = 6690-2) 7.8 See_Comment [A utomated message] The system [employer] generated this result transmitted ref erence range: 3.5 - 10 .5 K/L. The refe rence range was not u sed to interpret this result as normal/abnor mal. RBC (test code = 789-8) 3.76 See_Comment L [Au tomated message] The system [employer] generated this result transmitted ref erence range: 4.63 - 6 .08 M/L. The refe rence range was not u sed to interpret this result as normal/abnor mal. MCHC (test code = 786-4) 32.6 See_Comment L [A utomated message] The system [employer] generated this result transmitted ref erence range: [...] See_Comment [Aut omated message] 777-3) The system [employer] generated this result transmitted ref erence range: 150 - 45 0 K/CU MM. The referen ce range was not u sed to interpret this result as normal/abnor mal. MPV (test code = 9.6 fL 9.4-12.4 70038-4) nRBC (test code = 413) 0 See_Comment [Aut omated message] The system [employer] generated this result transmitted ref erence range: 0 - 0 /1 00 WBC. The refere nce range was not u sed to interpret this result as normal/abnor mal. Lab Interpretation (test Abnormal code = 86959-7) [facility] (hemogram only)2021-04-15 04:42:51 Test Item Value Reference Range Interpretation Comments WBC (test code = 6690-2) 7.8 See_Comment [A utomated message] The system [employer] generated this result transmitted ref erence range: 3.5 - 10 .5 K/L. The refe rence range was not u sed to interpret this result as normal/abnor mal. RBC (test code = 789-8) 3.76 See_Comment L [Au tomated message] The system [employer] generated this result transmitted ref erence range: 4.63 - 6 .08 M/L. The refe rence range was not u sed to interpret this result as normal/abnor mal. MCHC (test code = 786-4) 32.6 See_Comment L [A utomated message] The system [employer] generated this result transmitted ref erence range: [...] See_Comment [Aut omated message] 777-3) The system [employer] generated this result transmitted ref erence range: 150 - 45 0 K/CU MM. The referen ce range was not u sed to interpret this result as normal/abnor mal. MPV (test code = 9.6 fL 9.4-12.4 83523-6) nRBC (test code = 413) 0 See_Comment [Aut omated message] The system [employer] generated this result transmitted ref erence range: 0 - 0 /1 00 WBC. The refere nce range was not u sed to interpret this result as normal/abnor mal. Lab Interpretation (test Abnormal code = 71472-0) [facility] (HEMOGRAM ONLY)2021-04-15 04:42:51 Test Item Value Reference [...] Comments SARS-COV2/RT-PCR (test Negative Negative code = 96255-0) PATRICIA (test code = PATRICIA) Negative result [...] the Act. Testing was performed using the [employer] SARS-CoV-2 assay. Fact Sheet for Healthcare Providers:https://www.reina hobson/vinny/RT SARS-CoV-2 HCP Fact Sheet 51-854552.pdf Fact Sheet for Healthcare Patients:https://www.ollie lora[employer]/vinny/RT SARS-CoV-2 Patient Fact Sheet EN 51-170413M4.pdf Lab Interpretation Normal (test code = 65311-9) [facility]21-04-14 21:00:57 Test Item Value Reference Range Interpretation Comments SARS-COV2/RT-PCR (test Negative Negative code = 43907-9) PATRICIA (test code = PATRICIA) Negative result [...] the Act. Testing was performed using the [employer] SARS-CoV-2 assay. Fact Sheet for Healthcare Providers:https://www.reina hobson/vinny/RT SARS-CoV-2 HCP Fact Sheet 51-732678.pdf Fact Sheet for Healthcare Patients:https://www.ollie mariTandem/vinny/RT SARS-CoV-2 Patient Fact Sheet EN 51-395469S4.pdf Lab Interpretation Normal (test code = 37098-9) [facility])2021-04-14 21:00:57 Test Item Value Reference Range Interpretation Comments SARS-COV2/RT-PCR (test code = Negative Negative 4474058) Negative result for this test determines that [...] 564(g) of the Act.Testing was performed using [employer] SARS-CoV-2 assay.Fact Sheet for Healthcare Providers:https://www.[place].[employer]/vinny/RT SARS-CoV-2 HCP Fact Sheet 51- 321034.pdfFact Sheet for Healthcare Patients:https://www.[place].[employer]/vinny/RT SARS-CoV-2 Patient Fact Sheet EN 51-964080R4.pdfCBC with platelet count + automated [id number] 14:44:30 Test Item Value Reference Range Interpretation Comments WBC (test code = 6690-2) 6.7 See_Comment [A utomated message] The system [employer] generated this result transmitted ref erence range: 3.5 - 10 .5 K/L. The refe rence range was not u sed to interpret this result as normal/abnor mal. RBC (test code = 789-8) 3.95 See_Comment L [Au tomated message] The system [employer] generated this result transmitted ref erence range: 4.63 - 6 .08 M/L. The refe rence range was not u sed to interpret this result as normal/abnor mal. MCHC (test code = 786-4) 33.6 See_Comment L [A utomated message] The system [employer] generated this result transmitted ref erence range: [...] See_Comment [Aut omated message] 777-3) The system [employer] generated this result transmitted ref erence range: 150 - 45 0 K/CU MM. The referen ce range was not u sed to interpret this result as normal/abnor mal. MPV (test code = 9.6 fL 9.4-12.4 73655-3) nRBC (test code = 413) 0 See_Comment [Aut omated message] The system [employer] generated this result transmitted ref erence range: [...] See_Comment [Aut omated message] 670) The system [employer] generated this result transmitted ref erence range: 1.78 - 5 .38 K/L. The refe rence range was not u sed to interpret this result as normal/abnor mal. # Lymphs (test code = 1.94 See_Comment [Auto mated message] 414) The system [employer] generated this result transmitted ref erence range: 1.32 - 3 .57 K/L. The refe rence range was not u sed to interpret this result as normal/abnor mal. # Monos (test code = 0.66 See_Comment [Autom ated message] 415) The system [employer] generated this result transmitted ref erence range: 0.30 - 0 .82 K/L. The refe rence range was not u sed to interpret this result as normal/abnor mal. # Eos (test code = 416) 0.21 See_Comment [Au tomated message] The system [employer] generated this result transmitted ref erence range: 0.04 - 0 .54 K/L. The refe rence range was not u sed to interpret this result as normal/abnor mal. # Baso (test code = 417) 0.05 See_Comment [A utomated message] The system [employer] generated this result transmitted ref erence range: 0.01 - 0 .08 K/L. The refe rence range was not u sed to interpret this result as normal/abnor mal. Immature 0 % 0-1 Granulocytes-Relative (test code = 2801) Lab Interpretation (test Abnormal code = 58429-8) [facility] with platelet count + automated [id number] 14:44:30 Test Item Value Reference Range Interpretation Comments WBC (test code = 6690-2) 6.7 See_Comment [A utomated message] The system [employer] generated this result transmitted ref erence range: 3.5 - 10 .5 K/L. The refe rence range was not u sed to interpret this result as normal/abnor mal. RBC (test code = 789-8) 3.95 See_Comment L [Au tomated message] The system [employer] generated this result transmitted ref erence range: 4.63 - 6 .08 M/L. The refe rence range was not u sed to interpret this result as normal/abnor mal. MCHC (test code = 786-4) 33.6 See_Comment L [A utomated message] The system [employer] generated this result transmitted ref erence range: [...] code = 172 See_Comment [Aut omated message] 247-3) The system [employer] generated this result transmitted ref erence range: 150 - 45 0 K/CU MM. The referen ce range was not u sed to interpret this result as normal/abnor mal. MPV (test code = 9.6 fL 9.4-12.4 77772-6) nRBC (test code = 413) 0 See_Comment [Aut omated message] The system [employer] generated this result transmitted ref erence range: [...] See_Comment [Aut omated message] 670) The system [employer] generated this result transmitted ref erence range: 1.78 - 5 .38 K/L. The refe rence range was not u sed to interpret this result as normal/abnor mal. # Lymphs (test code = 1.94 See_Comment [Auto mated message] 414) The system [employer] generated this result transmitted ref erence range: 1.32 - 3 .57 K/L. The refe rence range was not u sed to interpret this result as normal/abnor mal. # Monos (test code = 0.66 See_Comment [Autom ated message] 415) The system [employer] generated this result transmitted ref erence range: 0.30 - 0 .82 K/L. The refe rence range was not u sed to interpret this result as normal/abnor mal. # Eos (test code = 416) 0.21 See_Comment [Au tomated message] The system [employer] generated this result transmitted ref erence range: 0.04 - 0 .54 K/L. The refe rence range was not u sed to interpret this result as normal/abnor mal. # Baso (test code = 417) 0.05 See_Comment [A utomated message] The system [employer] generated this result transmitted ref erence range: 0.01 - 0 .08 K/L. The refe rence range was not u sed to interpret this result as normal/abnor mal. Immature 0 % 0-1 Granulocytes-Relative (test code = 2801) Lab Interpretation (test Abnormal code = 95636-3) [facility] W/PLT COUNT & AUTO [id number] 14:44:30 Test Item Value Reference Range Interpretation [...] (BEAKER) (test code = 2801) Basic Metabolic [id number] 06:44:09 Test Item Value Reference Range Interpretation Comments Sodium (test code = 139 meq/L 876-993 9268-2) Potassium (test code = 3.6 meq/L 3.5-5.1 2823-3) Chloride (test code = 104 meq/L 98-107 2074-0) CO2 (test code = 28 meq/L -2028-03) BUN (test code = 14 mg/dL - 3094-0) Creatinine (test code 0.73 mg/dL 0.57-1.25 = 2160-0) Glucose (test code = 109 mg/dL 70-105 H 234-7) Calcium (test code = 8.8 mg/dL 8.4-10.2 45934-7) EGFR (test code = 105 mL/min/1.[place] [address]-0) NOT ACCURATE CREATININE CLEARANCE IN PREDICTING GLOMERULAR FILTRATION RATE . ESTIMATED GFR I S NOT APPLICABLE FOR DIALYSIS PATIENTS. PATRICIA (test code = PATRICIA) [employer] Reader ID - PIAYA L Lab Interpretation Abnormal (test code = 19885-8) [facility]abolic [id number] 06:44:09 Test Item Value Reference Range Interpretation Comments Sodium (test code = 139 meq/L 661-366 1402-2) Potassium (test code = 3.6 meq/L 3.5-5.1 2823-3) Chloride (test code = 104 meq/L 98-107 2074-0) CO2 (test code = 28 meq/L -2028-03) BUN (test code = 14 mg/dL - 3094-0) Creatinine (test code 0.73 mg/dL 0.57-1.25 = 2160-0) Glucose (test code = 109 mg/dL 70-105 H 2345-7) Calcium (test code = 8.8 mg/dL 8.4-10.2 74239-7) EGFR (test code = 105 mL/min/1.[place] [address]-9) NOT ACCURATE CREATININE CLEARANCE IN PREDICTING GLOMERULAR FILTRATION RATE . ESTIMATED GFR I S NOT APPLICABLE FOR DIALYSIS PATIENTS. PATRICIA (test code = PATRICIA) [employer] Reader ID - GIO Mcguire Lab Interpretation Abnormal (test code = 34528-6) [facility]OLIC [id number] 06:44:09 Test Item Value Reference Range Interpretation [...] S NOT APPLICABLE FOR DIALYSIS PATIEN TS. [employer]iskey Proof Reader ID - GIO [id number] 05:23:01 Test Item Value Reference Range Interpretation Comments PTT (test code = 17305-8) 28.7 See_Comment [ Automated message] The system [employer] generated this result transmitted ref erence range: 22.5 - 3 6.0 seconds. The re ference range was not u sed to interpret this result as normal/abnor mal. Lab Interpretation (test Normal code = 68667-1) [facility]aPTT2021-[facility] 05:23:01 Test Item Value Reference Range Interpretation Comments PTT (test code = 00299-6) 28.7 See_Comment [ Automated message] The system [employer] generated this result transmitted ref erence range: 22.5 - 3 6.0 seconds. The re ference range was not u sed to interpret this result as normal/abnor mal. Lab Interpretation (test Normal code = 01833-2) [facility]APTT2021-[facility] 05:23:01 Test Item Value Reference Range [...] WBC 0-0 (BEAKER) (test code = 413) [id number] 18:39:22 Test Item Value Reference Range Interpretation Comments PARTIAL THROMBOPLASTIN TIME 65.1 seconds 22.5-36.0 H (BEAKER) (test code = 760) [id number] 12:50:08 Test Item Value Reference Range Interpretation Comments PARTIAL THROMBOPLASTIN TIME 68.6 seconds 22.5-36.0 H (BEAKER) (test code = 760) [id number] 05:10:10 Test Item Value Reference Range Interpretation [...] WBC 0-0 (BEAKER) (test code = 413) [id number] 22:49:02 Test Item Value Reference Range Interpretation Comments PARTIAL THROMBOPLASTIN TIME 66.1 seconds 22.5-36.0 H (BEAKER) (test code = 760) [id number] 16:14:23 Test Item Value Reference Range Interpretation Comments PARTIAL THROMBOPLASTIN TIME 94.6 seconds 22.5-36.0 H (BEAKER) (test code = 760) Hemoglobin [id number] 10:50:57 Test Item Value Reference Range Interpretation Comments Hemoglobin A1C (test code = 4548-4) 6.1 % 4.3-6.1 Lab Interpretation (test code = Normal 14016-7) [facility] HospitalHemoglobin [id number] 10:50:57 Test Item Value Reference Range Interpretation Comments Hemoglobin A1C (test code = 4548-4) 6.1 % 4.3-6.1 Lab Interpretation (test code = Normal 75815-3) [facility] HospitalHEMOGLOBIN [id number] 10:50:57 Test Item Value Reference Range Interpretation Comments HEMOGLOBIN A1C (BEAKER) (test code = 6.1 % 4.3-6.1 368) Lipid [id number] 10:07:44 Test Item Value Reference Range Interpretation Comments Triglycerides (test 144 mg/dL code = 2571-8) Cholesterol (test code 154 mg/dL = 2093-3) HDL (test code = 32 mg/dL 2085-03) LDL Calculated (test 93 mg/dL code = 86656-7) PATRICIA (test code = PATRICIA) Triglyceride Reference Range: Low Risk <150 Borderline 150-199 High Risk 200-499 Very High Risk >=500 Cholesterol Reference Range: Low Risk <200 Borderline 200-239 High Risk >240 HDL Cholesterol Reference Range: Low Risk >=60 High Risk <40 LDL Cholesterol Reference Range: Optimal <100 Near Optimal 100-129 Borderline 130-159 High 160-189 Very High >=190 Whiskey Proof Reader ID - DB [facility] HospitalLipid [id number] 10:07:44 Test Item Value Reference Range Interpretation Comments Triglycerides (test 144 mg/dL code = 2571-8) Cholesterol (test code 154 mg/dL = 2093-3) HDL (test code = 32 mg/dL 2085-03) LDL Calculated (test 93 mg/dL code = 77940-3) PATRICIA (test code = PATRICIA) Triglyceride Reference Range: Low Risk <150 Borderline 150-199 High Risk 200-499 Very High Risk >=500 Cholesterol Reference Range: Low Risk <200 Borderline 200-239 High Risk >240 HDL Cholesterol Reference Range: Low Risk >=60 High Risk <40 LDL Cholesterol Reference Range: Optimal <100 Near Optimal 100-129 Borderline 130-159 High 160-189 Very High >=190 Whiskey Proof Reader ID - DB [facility] HospitalLIPID [id number] 10:07:44 Test Item Value Reference Range Interpretation Comments TRIGLYCERIDES (BEAKER) (test code = 144 mg/dL 540) CHOLESTEROL (BEAKER) (test code = 154 mg/dL 631) HDL CHOLESTEROL (BEAKER) (test code 32 mg/dL = 976) LDL CHOLESTEROL CALCULATED (BEAKER) 93 mg/dL (test code = 633) Triglyceride Reference Range: Low Risk <150 Borderline 150-199 High Risk 200-499 Very High Risk >=500Cholesterol Reference Range: Low Risk <200 Borderline 200-239 High Risk >240HDL Cholesterol Reference Range: Low Risk >=60 High Risk <40LDL Cholesterol Reference Range: Optimal <100 Near Optimal 100-129 Borderline 130-159 High 160-189 Very High >=190 Whiskey Proof Reader ID - [id number] 09:15:58 Test Item Value Reference Range Interpretation Comments PARTIAL THROMBOPLASTIN TIME 65.5 seconds 22.5-36.0 H (JEFERSON) (test code = 760) U/S, RENAL, [id number] 06:46:00Reason for exam:->?[facility] : 1950 Sex: [...] Brandi Russell MDReport Verified Date/Time: 04/12/2021 06:46:19 CBC (HEMOGRAM ONLY)2021-04-12 06:30:24 Test Item Value Reference [...] 0-0 CELLS (BEAKER) (test code = 413) [id number] 06:22:45 Test Item Value Reference Range Interpretation Comments PARTIAL THROMBOPLASTIN TIME 141.1 seconds 22.5-36.0 H (BEAKER) (test code = 760) [id number] 22:22:12 Test Item Value Reference Range Interpretation Comments PARTIAL THROMBOPLASTIN TIME 92.4 seconds 22.5-36.0 H (BEAKER) (test code = 760) [id number] 14:39:42 Test Item Value Reference Range Interpretation Comments PARTIAL THROMBOPLASTIN TIME 29.4 seconds 22.5-36.0 (BEAKER) (test code = 760) [id number] 04:29:23 Test Item Value Reference Range Interpretation Comments PARTIAL THROMBOPLASTIN TIME 54.0 seconds 22.5-36.0 H (BEAKER) (test code = 760) [id number] 04:28:43 Test Item Value Reference Range Interpretation Comments Phosphorus (test code = 2.2 mg/dL 2.3-4.7 L 2777-1) PATRICIA (test code = PATRICIA) Whiskey Proof Reader ID - jrl Lab Interpretation (test Abnormal code = 63009-2) [facility] HospitalPhosphorus2021-[facility] 04:28:43 Test Item Value Reference Range Interpretation Comments Phosphorus (test code = 2.2 mg/dL 2.3-4.7 L 2777-1) PATRICIA (test code = PATRICIA) [employer]key Proof Reader ID - jrl Lab Interpretation (test Abnormal code = 81365-8) [facility] HospitalPHOSPHORUS2021-10-08 04:28:43 Test Item Value Reference Range Interpretation Comments PHOSPHORUS (BEAKER) (test code = 2.2 mg/dL 2.3-4.7 L 604) [employer]key [employer] Reader ID - [id number] 04:28:42 Test Item Value Reference Range Interpretation Comments Magnesium (test code = 1.9 mg/dL 1.6-2.6 18759-1) PATRICIA (test code = PATRICIA) [employer]key Proof Reader ID - jrl Lab Interpretation (test Normal code = 92404-1) [facility] HospitalMagnesium2021-10-08 04:28:42 Test Item Value Reference Range Interpretation Comments Magnesium (test code = 1.9 mg/dL 1.6-2.6 91013-5) PATRICIA (test code = PATRICIA) [employer]key Proof Reader ID - jrl Lab Interpretation (test Normal code = 46535-3) [facility] HospitalMAGNESIUM2021-10-08 04:28:42 Test Item Value Reference Range Interpretation Comments MAGNESIUM (BEAKER) (test code = 1.9 mg/dL 1.6-2.6 627) Whiskey Proof Reader ID - jrlBASIC METABOLIC [id number] 04:28:41 Test Item Value Reference Range Interpretation [...] S NOT APPLICABLE FOR DIALYSIS PATIEN TS. Whiskey Proof Reader ID - jrlCBC (HEMOGRAM ONLY)2021-04-11 04:14:58 Test [...] WBC 0-0 (BEAKER) (test code = 413) [id number] 05:34:03 Test Item Value Reference Range Interpretation Comments PHOSPHORUS (BEAKER) (test code = 2.8 mg/dL 2.3-4.7 604) [employer] Reader ID - ISMAEL [id number] 05:34:02 Test Item Value Reference Range Interpretation Comments MAGNESIUM (BEAKER) (test code = 1.6 mg/dL 1.6-2.6 627) [employer]key [employer] Reader ID - ISMAEL MBASIC METABOLIC [id number] 05:34:01 Test Item Value Reference Range Interpretation [...] S NOT APPLICABLE FOR DIALYSIS PATIEN TS. Whiskey Proof Reader ID - ISMAEL [id number] 05:12:09 Test Item Value Reference Range Interpretation Comments PARTIAL THROMBOPLASTIN TIME 92.0 seconds 22.5-36.0 H (BEAKER) (test code = 760) High Sensitivity Troponin I ([facility]/[place] Only)2021-04-09 22:25:20 Test Item Value Reference Range Interpretation Comments Troponin I HS (test 24 pg/ml See_Comment [[employer] code = 14248-1) message] The system which generated this result transmitted reference range : <=35. The reference range was not used to interpret this result as normal/abnormal . PATRICIA (test code = Whiskey Proof Reader ID - PATRICIA) CDPThe DIRECTOR HEMATOLOGY STAT High Sensitivity Troponin-I results should be used in conjunction with other diagnostic information such as ECG, clinical observations and information, and patient symptoms to aid in the diagnosis of OR. Lab Interpretation Normal (test code = 27134-6) [facility] [facility] 2021-04-09 22:25:20 Test Item Value Reference Range Interpretation Comments Troponin I HS (test 24 pg/ml See_Comment [[employer] ria code = 32583-7) message] The system which generated this result transmitted reference range : <=35. The reference range was not used to interpret this result as normal/abnormal . PATRICIA (test code = Wh[employer]key Proof Reader ID - PATRICIA) CDPThe DIRECTOR HEMATOLOGY STAT High Sensitivity Troponin-I results should be used in conjunction with other diagnostic information such as ECG, clinical observations and information, and patient symptoms to aid in the diagnosis of OR. Lab Interpretation Normal (test code = 04134-9) [facility] HospitalHIGH SENSITIVITY TROPONIN [id number] 22:25:20 Test Item Value Reference Range Interpretation Comments HIGH SENSITIVITY 24 pg/ml See_Comment [Automated message] TROPONIN I (test code = The system which 7140095) generated this result transmitted ref erence range: <=35. Th e reference range was not used to int erpret this result as normal/abnormal . Whiskey Proof Reader ID - CDPThe DIRECTOR HEMATOLOGY STAT High Sensitivity Troponin-I results should be used in conjunction with other diagnostic information such as ECG, clinical observations and information, and patient symptoms to aid in the diagnosis of OR.[id number] 21:46:16 Test Item Value Reference Range Interpretation Comments PARTIAL THROMBOPLASTIN TIME 73.0 seconds 22.5-36.0 H (BEAKER) (test code = 760) [id number] 14:58:24 Test Item Value Reference Range Interpretation Comments PARTIAL THROMBOPLASTIN TIME 26.1 seconds 22.5-36.0 (BEAKER) (test code = 760) [id number] 14:49:24 Test Item Value Reference Range Interpretation Comments PARTIAL THROMBOPLASTIN TIME 26.0 seconds 22.5-36.0 (BEAKER) (test code = 760) ABORH, [id number] 08:22:00 Test Item Value Reference Range Interpretation Comments ABO Grouping (test code = 2588) B Rh Factor (test code = 2589) POS [facility] HospitalABORH, [id number] 08:22:00 Test Item Value Reference Range Interpretation Comments ABO Grouping (test code = 2588) B Rh Factor (test code = 2589) POS [facility] HospitalPHOSPHORUS2021-10-06 07:30:43 Test Item Value Reference Range Interpretation Comments PHOSPHORUS (BEAKER) (test code = 2.0 mg/dL 2.3-4.7 L 604) Whiskey Proof Reader ID - ISMAEL [id number] 07:30:42 Test Item Value Reference Range Interpretation Comments MAGNESIUM (BEAKER) (test code = 1.7 mg/dL 1.6-2.6 627) Whiskey Proof Reader ID - ISMAEL MBASIC METABOLIC [id number] 07:30:41 Test Item Value Reference Range Interpretation [...] S NOT APPLICABLE FOR DIALYSIS PATIEN TS. Whiskey Proof Reader ID - ISMAEL [id number] 07:24:03 Test Item Value Reference Range Interpretation Comments PARTIAL THROMBOPLASTIN TIME 101.7 seconds 22.5-36.0 H (BEAKER) (test code = 760) Prothrombin time/[id number] 07:20:53 Test Item Value Reference Interpretation Comments [...] valves. Lab Interpretation Abnormal (test code = 85209-8) [facility] HospitalProthrombin time/[id number] 07:20:53 Test Item Value Reference Interpretation Comments [...] valves. Lab Interpretation Abnormal (test code = 34232-0) [facility] HospitalPROTHROMBIN TIME/[id number] 07:20:53 Test Item Value Reference Range Interpretation Comments PROTIME (BEAKER) 14.5 seconds 11.9-14.2 H (test code = 759) INR (BEAKER) (test 1.15 See_Comment [Automat ed message] code = 370) The system [employer] generated this result transmitted ref erence range: [...] (test code = 413) Type and screen, [id number] 00:43:00 Test Item Value Reference Range Interpretation Comments ABO/RH AUTOMATED (BEAKER) (test B POSITIVE code = 2260) Ab Scrn (test code = 890-4) NEGATIVE [facility] HospitalType and screen, [id number] 00:43:00 Test Item Value Reference Range Interpretation Comments ABO/RH AUTOMATED (BEAKER) (test B POSITIVE code = 2260) Ab Scrn (test code = 890-4) NEGATIVE [facility] HospitalAPTT2021-10-06 00:14:02 Test Item Value Reference Range Interpretation Comments PARTIAL THROMBOPLASTIN TIME 73.8 seconds 22.5-36.0 H (BEAKER) (test code = 760) [id number] 14:25:15 Test Item Value Reference Range Interpretation Comments PARTIAL THROMBOPLASTIN TIME 28.3 seconds 22.5-36.0 (BEAKER) (test code = 760) PET/CT, CARDIAC PERF REST AND [id number] 14:20:00Reason for exam:->pre op evaluationWE[facility]Name: [facility] : 1950 Sex: MFINAL REPORT PROCEDURE: MYOCARDIAL PERFUSION PET/CT IMAGING (Rest/Stress)CPT CODE: 38847 INDICATION: Preoperative evaluation CARDIOVASCULAR PROFILE:CAD History: NoneSymptoms: [...] is no prior study for comparison. Signed: Eleni Haydeneport Verified Date/Time: 04/08/2021 14:20:41 Reading Location: [place] [id number] ReadingRoom 2D Echo W/O Doppler(No Doppler)2021-04-08 12:22:07Ejection FractionSLEH ECHO HEARTLAB [facility] Doppler(No Doppler)2021-04-08 12:22:07Ejection FractionSLEH ECHO HEARTLAB [facility]21[facility] 07:45:41 Test Item Value Reference Range Interpretation Comments PARTIAL THROMBOPLASTIN TIME 57.8 seconds 22.5-36.0 H (BEAKER) (test code = 760) [id number] 05:42:59 Test Item Value Reference Range Interpretation Comments PHOSPHORUS (BEAKER) (test code = 2.2 mg/dL 2.3-4.7 L 604) [employer]key Proof Reader ID - ISMAEL MBASIC METABOLIC [id number] 05:42:58 Test Item Value Reference Range Interpretation [...] S NOT APPLICABLE FOR DIALYSIS PATIEN TS. [employer] Proof Reader ID - ISMAEL [id number] 05:42:58 Test Item Value Reference Range Interpretation Comments MAGNESIUM (BEAKER) (test code = 1.6 mg/dL 1.6-2.6 627) [employer] Proof Reader ID - ISMAEL [id number] 05:35:30 Test Item Value Reference Range Interpretation [...] 0-0 (BEAKER) (test code = 413) SARS-COV2/RT-PCR ([facility])2021-04-07 22:58:34 Test Item Value Reference Range Interpretation Comments SARS-COV2/RT-PCR (test code = Negative Negative 9049273) Negative result for this test determines that [...] 564(g) of the Act.Testing was performed using mParticle SARS-CoV-2 assay.Fact Sheet for Healthcare Providers:https://www.[place].Tandem/vinny/RT SARS-CoV-2 HCP Fact Sheet 51- 122273.pdfFact Sheet for Healthcare Patients:https://www.[place].Tandem/vinny/RT SARS-CoV-2 Patient Fact Sheet EN 51-005630L6.eluQRPC0212-87-79 22:00:42 Test Item Value Reference Range Interpretation Comments PARTIAL THROMBOPLASTIN TIME 48.0 seconds 22.5-36.0 H (BEAKER) (test code = 760) CT, [id number] 21:33:00Pain and tenderness at the site of ventral abdominal herniaUnlisted Reason for Exam - Click Yes and Enter Reason Below- >NoWill this procedure require oral contrast?->No [facility]Name: [facility] : 1950 Sex: [...] [place] MDReport Verified Date/Time: 04/07/2021 21:33:08 Manual [id number] 18:30:02 Test Item Value Reference Range Interpretation [...] = 3438) PATRICIA (test code = PATRICIA) [employer]key Proof Reader ID - gibran Tony comments: Slide comments: Lab Interpretation (test Abnormal code = 89618-6) [facility] HospitalManual [id number] 18:30:02 Test Item Value Reference Range Interpretation [...] = 3438) PATRICIA (test code = PATRICIA) [employer]key Proof Reader ID - gibran Tony comments: Slide comments: Lab Interpretation (test Abnormal code = 74371-6) [facility](CELLAVISION MANUAL DIFF)2021-04-07 18:30:02 Test Item Value [...] CONCENTRATION Adequate (CELLAVISION)(BEAKER) (test code = 3438) [employer]iskey Proof Reader ID - gibran Tony comments: Slide comments:CBC W/PLT COUNT & AUTO [id number] 18:08:57 Test Item Value Reference Range Interpretation [...] (test code = 2801) Clostridium difficile GDH [id number] 14:07:12 Test Item Value Reference Range Interpretation Comments C. Difficle Toxin Negative Negative (test code = 6119280601) C. Difficile GDH Negative Negative No indicati on of Antigen (test code = Clostri dium 2761677828) difficile infection and n o colonization. Discontinue enteric isolati on and therapy. PATRICIA (test code = Testing performed PATRICIA) by Alere Rapid Cassette Assay. For GDH, published sensitivity of the assay is 98.7% compared to cytotoxicity testing. For Toxin AB, published sensitivity is 87.8% and specificity 99.4% compared to cytotoxicity testing.Verificati on of kit performance was done by the [facility] Microbiology Lab prior to clinical use. Lab Interpretation Normal (test code = 20453-6) [facility] HospitalClostridium difficile GDH [id number] 14:07:12 Test Item Value Reference Range Interpretation Comments C. Difficle Toxin Negative Negative (test code = 3941476431) C. Difficile GDH Negative Negative No indicati on of Antigen (test code = Clostri dium 0922333953) difficile infection and n o colonization. Discontinue enteric isolati on and therapy. PATRICIA (test code = Testing performed PATRICIA) by Alere Rapid Cassette Assay. For GDH, published sensitivity of the assay is 98.7% compared to cytotoxicity testing. For Toxin AB, published sensitivity is 87.8% and specificity 99.4% compared to cytotoxicity testing.Verificati on of kit performance was done by the [facility] Microbiology Lab prior to clinical use. Lab Interpretation Normal (test code = 10255-1) [facility] HospitalC. DIFFICILE GDH [id number] 14:07:12 Test Item Value Reference Range Interpretation Comments CDT TOXIN (test code Negative Negative = 8742856047) CDT GDH ANTIGEN (test Negative Negative No ind ication of code = 3242554299) Clostridi um difficile infection and n o colonization. Discontinue ent morgan isolation and t herapy. Testing performed by Alere Rapid Cassette Assay. For GDH, published sensitivity of the assay is 98.7% compared to cytotoxicity testing. For Toxin AB, published sensitivity is 87.8% and specificity 99.4% compared to cytotoxicity testing.Verification of kit performance was done by the [facility] prior to clinical use.[id number] 13:29:03 Test Item Value Reference Range Interpretation Comments PARTIAL THROMBOPLASTIN TIME 65.1 seconds 22.5-36.0 H (BEAKER) (test code = 760) Lactic acid, [id number] 10:36:33 Test Item Value Reference Range Interpretation Comments Lactate, Venous (test 1.04 mmol/L 0.50-2.20 Specim en code = 2872) slightly hemolyzed PATRICIA (test code = PATRICIA) [employer]key Proof Reader ID Jessica Zhang Lab Interpretation Normal (test code = 60451-5) [facility] HospitalLactic acid, [id number] 10:36:33 Test Item Value Reference Range Interpretation Comments Lactate, Venous (test 1.04 mmol/L 0.50-2.20 Specim en code = 2872) slightly hemolyzed PATRICIA (test code = PATRICIA) [employer]key Proof Reader ID Jessica Zhang Lab Interpretation Normal (test code = 54278-6) [facility] HospitalLACTIC ACID, [id number] 10:36:33 Test Item Value Reference Range Interpretation Comments LACTATE BLOOD VENOUS 1.04 mmol/L 0.50-2.20 Specime n slightly (2) (BEAKER) (test hemolyzed code = 2872) [employer] Proof Reader ID Jessica NEVES [id number] 06:41:06 Test Item Value Reference Range Interpretation Comments MAGNESIUM (BEAKER) (test code = 1.8 mg/dL 1.6-2.6 627) [employer]key Proof Reader ID - ARVIND [id number] 06:41:06 Test Item Value Reference Range Interpretation Comments PHOSPHORUS (BEAKER) (test code = 1.8 mg/dL 2.3-4.7 L 604) [employer]key Proof Reader ID - ARVIND WBASIC METABOLIC [id number] 06:41:05 Test Item Value Reference Range Interpretation [...] I S NOT APPLICABLE FOR DIALYSIS PATIEN [employer] Proof Reader ID - ARVIND [id number] 06:36:06 Test Item Value Reference Range Interpretation Comments PARTIAL THROMBOPLASTIN TIME 49.3 seconds 22.5-36.0 H (BEAKER) (test code = 760) PROTHROMBIN TIME/[id number] 06:35:06 Test Item Value Reference Range Interpretation Comments PROTIME (BEAKER) 16.8 seconds 11.9-14.2 H (test code = 759) INR (BEAKER) (test 1.39 See_Comment [Automat ed message] code = 370) The system [employer] generated this result transmitted ref erence range: [...] WBC 0-0 (BEAKER) (test code = 413) [id number] 21:01:04 Test Item Value Reference Range Interpretation Comments PARTIAL THROMBOPLASTIN TIME 29.7 seconds 22.5-36.0 (BEAKER) (test code = 760) Platelet [id number] 20:53:41 Test Item Value Reference Range Interpretation Comments Platelets (test code 325 See_Comment [Autom ated = 777-3) message] The system which generated this result transmit ria reference range : 150 - 450 K/CU MM. The reference range was not u sed to interpret th is result as normal/abnormal . PATRICIA (test code = PATRICIA) Whiskey Proof Reader ID - [id number] Lab Interpretation Normal (test code = 98863-1) [facility] HospitalPlatelet [id number] 20:53:41 Test Item Value Reference Range Interpretation Comments Platelets (test code 325 See_Comment [Autom ated = 777-3) message] The system which generated this result transmit ria reference range : 150 - 450 K/CU MM. The reference range was not u sed to interpret th is result as normal/abnormal . PATRICIA (test code = PATRICIA) Whiskey Proof Reader ID - [id number] Lab Interpretation Normal (test code = 17196-9) [facility] HospitalPLATELET [id number] 20:53:41 Test Item Value Reference Range Interpretation Comments PLATELET COUNT (BEAKER) (test 325 K/CU MM 150-450 code = 756) Whiskey Proof Reader ID - [id number](CELLAVISION MANUAL DIFF)2021-04-06 08:15:11 Test [...] CONCENTRATION Adequate (CELLAVISION)(BEAKER) (test code = 3438) [employer]iskey Proof Reader ID - Manisha Chio comments: Slide comments:CBC W/PLT COUNT & AUTO [id number] 08:15:10 Test Item Value Reference Range Interpretation [...] (BEAKER) (test code = 413) LACTIC ACID, [id number] 07:17:13 Test Item Value Reference Range Interpretation Comments LACTATE BLOOD VENOUS 0.95 mmol/L 0.50-2.20 Specime n moderately (2) (BEAKER) (test hemolyzed code = 2041) [employer]key Proof Reader ID - ARVIND WCOMPREHENSIVE METABOLIC [id number] 07:15:35 Test Item Value Reference Range Interpretation [...] S NOT APPLICABLE FOR DIALYSIS PATIEN TS. [employer]key Proof Reader ID - ARVIND [id number] 07:15:34 Test Item Value Reference Range Interpretation Comments MAGNESIUM (BEAKER) 1.8 mg/dL 1.6-2.6 Specimen slightly (test code = 627) hemolyzed Whiskey Proof Reader ID - ARVIND WCT, CTA [id number] 12:38:00Unlisted Reason for Exam - Click Yes and Enter Reason Below->No [facility] : 1950 Sex: [...] variations regarding theinferior mesenteric vein. Signed: Morgan Fuller Verified Date/Time: 04/02/2021 12:38:28 Reading Location: [facility] B1 C013Y CT Body Reading Room Hepatic function [id number] 07:57:44 Test Item Value Reference Range Interpretation Comments Protein, Total (test 7.5 See_Comment [Autom ated code = 2885-2) message] The system which generated this result transmit ria reference range : 6.0 - 8.3 gm/dL . The reference range was not u sed to interpret th is result as normal/abnormal . Albumin (test code = 4.1 g/dL 3.5-5.0 70404-4) Total Bilirubin (test 0.5 mg/dL 0.2-1.2 code = 1974-) Bilirubin, Direct 0.2 mg/dL 0.1-0.5 (test code = 1967-) Alkaline Phosphatase 77 U/L 40-150 (test code = 6768-6) AST (test code = 23 U/L 5-34 1920-8) ALT (test code = 22 U/L 6-55 2-6) PATRICIA (test code = PATRICIA) Whiskey Proof Reader ID - ADMIN Lab Interpretation Normal (test code = 81410-7) [facility] HospitalHepatic function [id number] 07:57:44 Test Item Value Reference Range Interpretation Comments Protein, Total (test 7.5 See_Comment [Autom ated code = 2885-2) message] The system which generated this result transmit ria reference range : 6.0 - 8.3 gm/dL . The reference range was not u sed to interpret th is result as normal/abnormal . Albumin (test code = 4.1 g/dL 3.5-5.0 18971-9) Total Bilirubin (test 0.5 mg/dL 0.2-1.2 code = 1974-2) Bilirubin, Direct 0.2 mg/dL 0.1-0.5 (test code = 1967-) Alkaline Phosphatase 77 U/L 40-150 (test code = 6768-6) AST (test code = 23 U/L 5-34 1920-8) ALT (test code = 22 U/L 6-55 1742-6) PATRICIA (test code = PATRICIA) Whiskey Proof Reader ID - ADMIN Lab Interpretation Normal (test code = 35046-8) [facility] HospitalHEPATIC FUNCTION [id number] 07:57:44 Test Item Value Reference Range Interpretation [...] (test code = 22 U/L 6-55 347) Whiskey Proof Reader ID - ADMINBASIC METABOLIC [id number] 07:57:43 Test Item Value Reference Range Interpretation [...] S NOT APPLICABLE FOR DIALYSIS PATIEN TS. Whiskey Proof Reader ID - ADMINCBC (HEMOGRAM ONLY)2021-04-02 05:47:53 Test [...] WBC 0-0 (BEAKER) (test code = 413) [id number] 12:27:55 Test Item Value Reference Range Interpretation Comments Lipase (test code = 31 U/L 3040-3) PATRICIA (test code = PATRICIA) [employer]iskey Proof Reader GRETCHEN Lopez MANISHA F Lab Interpretation (test Normal code = 51557-1) [facility] HospitalLipase2021-09-28 12:27:55 Test Item Value Reference Range Interpretation Comments Lipase (test code = 31 U/L 8 3040-3) PATRICIA (test code = PATRICIA) Whiskey Proof Reader ID Jessica NEVES F Lab Interpretation (test Normal code = 68401-2) [facility] HospitalLIPASE2021-09-28 12:27:55 Test Item Value Reference Range Interpretation Comments LIPASE (BEAKER) (test code = 749) 31 U/L 878 Whiskey Proof Reader ID Jessica NEVES FLACTIC ACID, [id number] 12:17:53 Test Item Value Reference Range Interpretation Comments LACTATE BLOOD VENOUS (2) (BEAKER) 1.65 mmol/L 0.50-2.20 (test code = 2872) Whiskey Proof Reader ID - MANISHA FBASIC METABOLIC [id number] 04:50:29 Test Item Value Reference Range Interpretation [...] S NOT APPLICABLE FOR DIALYSIS PATIEN TS. Whiskey Proof Reader ID - ISMAEL MCBC W/PLT COUNT & AUTO [id number] 04:44:23 Test Item Value Reference Range Interpretation [...] % 0-1 PERCENT (BEAKER) (test code = 4908)
--- NOTE | 2022-05-13 10:58 | RAD REPORT ---
EXAM DESCRIPTION: RAD - Foot Left 3 View - 05/13/2022 10:51 am CLINICAL HISTORY: Pain COMPARISON: Foot Left 3 View dated 03/25/2022 FINDINGS/IMPRESSION: No acute fracture. No malalignment. No significant focal degenerative changes. No radiographic evidence of osteomyelitis. MRI is more sensitive for osteomyelitis in the acute phase of clinically indicated.
[2022-05-13 11:10] LABS: MCV 92.7 fL (80-100); MPV 7.1 fL (7.6-11.3); RBC Red Blood Cell Count 4.42 M/uL (4.33-5.43)
[2022-05-13 11:24] LABS: Albumin 3.7 g/dL (3.4-5.0); Bilirubin Total 0.5 mg/dL (0.2-1.0); Potassium 4.1 mmol/L (3.5-5.1); Protein, Total 7.7 g/dL (6.4-8.2)
[2022-05-13] MEDS ORDERED: ACETAMINOPHEN 325 MG TABLET PO PRN (11:39)
[2022-05-13] MEDS ORDERED: ONDANSETRON 4 MG/2 ML VIAL ONE (11:50)
[2022-05-13] MEDS ORDERED: MORPHINE 4 MG/ML SYR ONE (11:50)
[2022-05-13] MEDS ORDERED: ONDANSETRON 4 MG/2 ML VIAL IV PRN (12:01)
--- NOTE | 2022-05-13 12:08 | P.HP ---
Certification for Inpatient Patient admitted to: Inpatient With expected LOS: >2 Midnights Patient will require the following post-hospital care: None Practitioner: I am a practitioner with admitting privileges, knowledge of patient current condition, hospital course, and medical plan of care. Services: Services provided to patient in accordance with Admission requirements found in Title 42 Section 412.3 of the Code of Federal Regulations <AbelaurenFarhansarah Bates - Last Filed: 05/13/22 12:20> Patient History Date of Service: 05/13/22 Reason for admission: Left foot cellulitis failed O/P therapy History of Present Illness: Patient is a 72-year-old male with a past medical history significant for COPD, hypertension, HLD, BPH who presents with complaint of left foot cellulitis failed outpatient therapy. Patient reported that he has had an ulcer on the left second digit for the past 3 months. Patient has also been having left foot redness\\swelling\\and pain in the last 3 months as well as. Patient was seen in the hospital last month and was placed on antibiotics. Patient reported completing antibiotics but did not notice any improvement. Patient currently rates left foot pain as 10/10 and described pain as throbbing in quality. Patient denies any other signs or symptoms. Symptoms are aggravated or relieved by nothing. Patient followed up with his PCP today and was referred to come to the ER for further evaluation. - Past Medical/Surgical History Diabetic: No -: Ventral hernia -: HTN -: COPD -: colon resection -: middle right finger surgery - Social History Smoking Status: Former smoker Alcohol use: No CD- Drugs: No Caffeine use: Yes Place of Residence: Home <Jesu Srinivasan - Last Filed: 05/13/22 12:20> Date of Service: 05/13/22 <Chris Pritchard - Last Filed: 05/13/22 20:01> Allergies benazepril HCl [From Lotensin] Allergy (Verified 07/04/14 22:10) Hives codeine Allergy (Verified 07/04/14 22:10) Hives/Rash codeine sulfate Allergy (Uncoded 07/04/14 22:15) Unknown iv dye Allergy (Uncoded 07/04/14 22:10) Anaphylaxis Home Medications: lisinopriL [Prinivil*] 20 mg PO DAILY 07/04/14 Bupropion HCl [Budeprion Xl] 1 tab PO DAILY 05/13/22 Clopidogrel Bisulfate [Plavix*] 1 tab PO DAILY 05/13/22 Metoprolol Succinate [Toprol Xl*] 1 tab PO DAILY 05/13/22 Pravastatin [Pravachol] 40 mg PO BEDTIME 05/13/22 Tamsulosin HCl 1 tab PO DAILY 05/13/22 Review of Systems General: Unremarkable Eyes: Unremarkable ENT: Unremarkable Respiratory: Unremarkable Cardiovascular: Unremarkable Gastrointestinal: Unremarkable Genitourinary: Unremarkable Musculoskeletal: Foot Pain, Pedal edema, Other Integumentary: Other (Left foot redness ) Neurological: Unremarkable Lymphatics: Unremarkable <Jesu Srinivasan - Last Filed: 05/13/22 12:20> Physical Examination - Physical Exam General: Alert, Oriented x3, Cooperative HEENT: Atraumatic, Normocephalic, PERRLA Neck: 2+ carotid pulse no bruit, JVD not distended, Without JVD or thyroid abnormality Respiratory: Clear to auscultation bilaterally, Normal air movement Cardiovascular: Regular rate/rhythm, Normal S1 S2, Edema Capillary refill: <2 Seconds Gastrointestinal: Normal bowel sounds, Soft and benign Musculoskeletal: Swelling, Erythema, Tenderness Integumentary: Erythema, Other (Ulcer on left 2nd Digit ) Neurological: Normal strength at 5/5 x4 extr, Sensation intact, Normal affect Lymphatics: No axilla or inguinal lymphadenopathy - Studies Laboratory Data (last 24 hrs) 05/13/22 10:55: Sodium 135 L, Potassium 4.1, BUN 16, Creatinine 1.06, Glucose 108 H, Total Bilirubin 0.5, AST 16, ALT 32, Alkaline Phosphatase 59 05/13/22 10:55: WBC 11.60 H, Hgb 13.9, Hct 41.0, Plt Count 270 <Jesu Srinivasan - Last Filed: 05/13/22 12:20> - Studies Laboratory Data (last 24 hrs) 05/13/22 10:55: Sodium 135 L, Potassium 4.1, BUN 16, Creatinine 1.06, Glucose 108 H, Total Bilirubin 0.5, AST 16, ALT 32, Alkaline Phosphatase 59 05/13/22 10:55: WBC 11.60 H, Hgb 13.9, Hct 41.0, Plt Count 270 <Chris Pritchard - Last Filed: 05/13/22 20:01> Assessment and Plan - Plan --Left foot cellulitis. MRI left foot pending to rule out osteomyelitis. Patient has an ulcer on the left second digit. Patient's PCP wanted patient to be seen by a surgeon for wound care. Surgeon consulted. Blood cultures pending. Patient placed on antibiotics. Will await further recommendation from surgeon. --Acute pain. We will manage pain with current pain medication regimen. --COPD. Stable. Continue albuterol as needed shortness of breath. --Hypertension. Stable. Continue home medications. --BPH. Continue Flomax. --Hyperlipidemia. Continue statin. --Mild leukocytosis. Blood cultures pending. Continue antibiotics. --CKD 2. Stable. We will continue to monitor renal functions. --Suspected PVD. Arterial Doppler of the left lower extremity pending. Continue supportive care. --DVT prophylaxis with heparin subQ. Discharge Plan: Home Plan to discharge in: Greater than 2 days - Advance Directives Does patient have a Living Will: No Does patient have a Durable POA for Healthcare: No - Code Status/Comfort Care Code Status Assessed: Yes Physician Review: Patient Assessed, Agree with Above Assessment and Plan Critical Care: No <CraigFarhantraviskaya Paulo - Last Filed: 05/13/22 12:20> Physician Review Additional Text: Upon my evaluation, I suspect that the ulcer on his toe is likely an arterial ulcer rather than a cellulitis/osteomyelitis. His imaging would also support that this is not osteomyelitis. 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 I performed a bedside Doppler, and was unable to appreciate a dorsal pedalis pulse. A faint posterior tibialis pulse was obtained temporarily, but quickly became inaudible. Left lower extremity Doppler revealed, "large flow restricting calcified plaque in the left common femoral artery. Left leg arterial tree shows a dampened, monophasic waveform pattern. All major arteries of the left leg are patent." I reviewed case with Dr. Cr, who agrees with transfer for vascular surgery evaluation. I have contacted the [facility] transfer center and completed a doc-to-doc with vascular surgery (Dr. Estrada), who has accepted to consult. He has advised that we admit to the hospitalist service, and I am currently waiting a callback from Dr. Castillo ([facility] hospitalist) to complete the doc to doc with him. <Chris Pritchard - Last Filed: 05/13/22 20:01>
[2022-05-13] MEDS ORDERED: ALBUTEROL 2.5 MG/3 ML NEB SOL NEB PRN (12:20)
--- NOTE | 2022-05-13 12:33 | ER ---
Nurse's Notes [facility] Name: Carlos Alberto Astorga Age: 72 yrs Sex: Male : 1950 Arrival Date: 05/13/2022 Time: 09:55 Bed 6 Private MD: Timur Millan Diagnosis: Cellulitis of left lower limb-left second toe Presentation: 05/13 10:10 Chief complaint: Spouse and/or significant other states: was sent from Dr. Millna's iw office, pt has wound on 2nd toe of left foot , has tried oral abx and it's gotten worse , was sent for admission. Coronavirus screen: At this time, the client does not indicate any symptoms associated with coronavirus-19. Ebola Screen: Patient negative for fever greater than or equal to 101.5 degrees Fahrenheit, and additional compatible Ebola Virus Disease symptoms Patient denies exposure to infectious person. Patient denies travel to an Ebola-affected area in the 21 days before illness onset. No symptoms or risks identified at this time. Initial Sepsis Screen: Does the patient meet any 2 criteria? No. Patient's initial sepsis screen is negative. Does the patient have a suspected source of infection? No. Patient's initial sepsis screen is negative. Risk Assessment: Do you want to hurt yourself or someone else? Patient reports no desire to harm self or others. Onset of symptoms was May 13, 2022. 10:10 Method Of Arrival: Ambulatory iw 10:10 Acuity: MONIKA 3 iw Historical: - Allergies: 10:12 Codeine; iw 10:12 Iodinated Contrast Media - IV Dye (Hives); iw 10:12 Lotensin; iw - Home Meds: 10:12 bupropion HCl 300 mg Oral Tb24 1 tab once daily [Active]; clopidogrel 75 mg Oral tab 1 iw tab once daily [Active]; lisinopril-hydrochlorothiazide 20-12.5 mg Oral tab 1 tab once daily [Active]; Men's Daily Oral cmpk [Active]; metoprolol tartrate 50 mg Oral tab 1 tab 2 times per day [Active]; pravastatin 40 mg Oral tab 1 tab once daily [Active]; tamsulosin 0.4 mg Oral cap 1 cap once daily [Active]; - PMHx: 10:12 Pneumonia; COPD; Hypertension; iw - PSHx: 10:12 colon resection; Perforated colon repair; iw - Immunization history:: Client reports receiving the 2nd dose of the Covid vaccine. - Social history:: Smoking status: Patient reports the use of cigarette tobacco products, Patient/guardian denies using tobacco, but has a distant history of tobacco abuse. Screenin:30 Abuse screen: Denies threats or abuse. Denies injuries from another. Nutritional ph screening: No deficits noted. Tuberculosis screening: No symptoms or risk factors identified. Fall Risk None identified. Assessment: 11:30 General: Appears in no apparent distress. Behavior is calm, cooperative, appropriate ph for age. Pain: Complains of pain in left foot. Neuro: Level of Consciousness is awake, alert, obeys commands, Oriented to person, place, time, situation. Cardiovascular: Capillary refill < 3 seconds in bilateral fingers Patient's skin is warm and dry. Respiratory: Airway is patent Respiratory effort is even, unlabored. Derm: Skin is healthy with good turgor, Skin is pink, warm \\T\\ dry. Musculoskeletal: Circulation, motion, and sensation intact. 13:00 Reassessment: Patient appears in no apparent distress at this time. Patient and/or ph family updated on plan of care and expected duration. Pain level reassessed. Patient is alert, oriented x 3, equal unlabored respirations, skin warm/dry/pink. Vital Signs: 10:10 BP 117 / 62; Pulse 92; Resp 16; Temp 98.1; Pulse Ox 96% on R/A; Weight 84.82 kg; Height iw 5 ft. 6 in. (167.64 cm); Pain 10/10; 11:43 BP 126 / 63; Pulse 78; Resp 18; Pulse Ox 100% on R/A; ld1 14:00 BP 118 / 75; Pulse 71; Resp 18; Temp 97.9; Pulse Ox 99% on R/A; ph 10:10 Body Mass Index 30.18 (84.82 kg, 167.64 cm) iw ED Course: 09:55 Patient arrived in ED. mr 09:55 Timur Millan DO is Private Physician. mr 10:12 Triage completed. iw 10:12 Arm band placed on. iw 10:13 Hermila Cody RN is Primary Nurse. ph 10:19 Heraclio Louis MD is Attending Physician. kdr 10:53 Foot Left 3 View XRAY In Process Unspecified. EDMS 10:55 Initial lab(s) drawn, by me, sent to lab. First set of blood cultures drawn by me. jw7 11:00 Inserted saline lock: 20 gauge in right antecubital area, using aseptic technique. jw7 Blood collected. 11:00 CBC with Diff Sent. jw7 11:00 CMP Sent. jw7 11:30 Patient has correct armband on for positive identification. Bed in low position. Call ph light in reach. Side rails up X 1. Client placed on continuous cardiac and pulse oximetry monitoring. NIBP monitoring applied. 11:47 COVID-19 SARS RT PCR (Document "Date of Onset" if Symptomatic): n Sent. ld1 12:31 Chris Pritchard MD is Hospitalizing Provider. kdr 13:02 Lower Extremity Artery Uni Ltd In Process Unspecified. EDMS 13:51 Foot Left Wo Cont In Process Unspecified. EDMS 15:30 No provider procedures requiring assistance completed. Patient admitted, IV remains in ph place. Administered Medications: 11:53 Drug: Zofran (Ondansetron) 4 mg Route: IVP; Site: right antecubital; ld1 12:30 Follow up: Response: No adverse reaction ph 11:53 Drug: morphine 2 mg Route: IVP; Infused Over: 4 mins; Site: right antecubital; ld1 12:30 Follow up: Response: No adverse reaction ph 14:50 Drug: morphine 2 mg Route: IVP; Infused Over: 4 mins; Site: right antecubital; ld1 15:00 Follow up: Response: No adverse reaction ph Medication: 15:30 VIS not applicable for this client. ph Outcome: 12:33 Decision to Hospitalize by Provider. kdr 15:35 Admitted to Med/surg accompanied by nurse, via wheelchair. ph 15:35 Condition: good 15:35 Instructed on the need for admit. 15:39 Patient left the ED. ld1 Signatures: Dispatcher [employer] EDMS Heraclio Louis MD MD [facility] Teixeira Irene, KEZIA MAST Hermila Cody RN RN Yamileth Fisher RN RN ld1 Liberty Pelayo jw7 Corrections: (The following items were deleted from the chart) 19:41 11:30 Pain: Complains of pain in right foot ph ph
--- NOTE | 2022-05-13 12:33 | EDPHYS ---
Physician Documentation [facility] Name: Carlos Alberto Astorga Age: 72 yrs Sex: Male : 1950 Arrival Date: 05/13/2022 Time: 09:55 Bed 6 Private MD: [facility] ED Physician Heraclio Louis HPI: 05/13 12:34 This 72 yrs old Male presents to ER via Ambulatory with complaints of Wound Infection. kdr 12:34 Patient presents with a wound, open, on his left second toe. The wound is been there kdr since February. Patient was put on antibiotics in March without significant improvement. Patient was seen by his PCP today and sent to the ED for admission for possible osteomyelitis and cellulitis. Patient is in no acute distress patient does not appear toxic at this time and does not require emergent intervention however admission for IV antibiotics would be appropriate at this time. Onset: The symptoms/episode began/occurred February. Severity of symptoms: At their worst the symptoms were mild in the emergency department the symptoms are unchanged. The patient has not experienced similar symptoms in the past. The patient has been recently seen by a physician: the patient's primary care provider. Historical: - Allergies: 10:12 Codeine; iw 10:12 Iodinated Contrast Media - IV Dye (Hives); iw 10:12 Lotensin; iw - Home Meds: 10:12 bupropion HCl 300 mg Oral Tb24 1 tab once daily [Active]; clopidogrel 75 mg Oral tab 1 iw tab once daily [Active]; lisinopril-hydrochlorothiazide 20-12.5 mg Oral tab 1 tab once daily [Active]; Men's Daily Oral cmpk [Active]; metoprolol tartrate 50 mg Oral tab 1 tab 2 times per day [Active]; pravastatin 40 mg Oral tab 1 tab once daily [Active]; tamsulosin 0.4 mg Oral cap 1 cap once daily [Active]; - PMHx: 10:12 Pneumonia; COPD; Hypertension; iw - PSHx: 10:12 colon resection; Perforated colon repair; iw - Immunization history:: Client reports receiving the 2nd dose of the Covid vaccine. - Social history:: Smoking status: Patient reports the use of cigarette tobacco products, Patient/guardian denies using tobacco, but has a distant history of tobacco abuse. ROS: 12:34 Constitutional: Negative for fever, chills, and weight loss, Eyes: Negative for injury, kdr pain, redness, and discharge. 12:34 Skin: Positive for abscess, cellulitis, erythema, of the Dorsum of left second toe. Exam: 12:34 Constitutional: This is a well developed, well nourished patient who is awake, alert, kdr and in no acute distress. 12:34 Musculoskeletal/extremity: Patient has an open wound to the dorsum of the left second toe. There is surrounding erythema. There is no drainage at this time. Vital Signs: 10:10 BP 117 / 62; Pulse 92; Resp 16; Temp 98.1; Pulse Ox 96% on R/A; Weight 84.82 kg; Height iw 5 ft. 6 in. (167.64 cm); Pain 10/10; 11:43 BP 126 / 63; Pulse 78; Resp 18; Pulse Ox 100% on R/A; ld1 14:00 BP 118 / 75; Pulse 71; Resp 18; Temp 97.9; Pulse Ox 99% on R/A; ph 10:10 Body Mass Index 30.18 (84.82 kg, 167.64 cm) iw MDM: 12:33 Patient medically screened. kdr 12:38 Data reviewed: vital signs, nurses notes, lab test result(s), radiologic studies. kdr Counseling: I had a detailed discussion with the patient and/or guardian regarding: the historical points, exam findings, and any diagnostic results supporting the discharge/admit diagnosis, lab results, radiology results, the need for further work-up and treatment in the hospital. 05/13 10:20 Order name: Blood Culture Adult (2) kdr 05/13 10:20 Order name: CBC with Diff; Complete Time: 12:38 kdr 05/13 10:20 Order name: CMP; Complete Time: 12:38 kdr 05/13 11:05 Order name: COVID-19 SARS RT PCR (Document "Date of Onset" if Symptomatic): n; Complete kdr Time: 14:20 05/13 12:03 Order name: NT PRO-BNP EDMS 05/13 12:03 Order name: Urinalysis EDMS 05/13 12:03 Order name: Basic Metabolic Panel EDMS 05/13 12:03 Order name: Basic Metabolic Panel EDMS 05/13 12:03 Order name: CBC with Automated Diff EDMS 05/13 12:03 Order name: CBC with Automated Diff EDMS 05/13 12:08 Order name: High Sensitivity-CRP EDMS 05/13 12:08 Order name: Sedimentation Rate, Wolfgang[place]ren EDMS 05/13 12:09 Order name: Lipid Profile EDMS 05/13 12:09 Order name: Hemoglobin A1c EDMS 05/13 10:20 Order name: Foot Left 3 View XRAY; Complete Time: 12:38 kdr 05/13 10:20 Order name: IV Saline Lock - Large Bore; Complete Time: 11:00 kdr 05/13 10:20 Order name: Labs collected and sent; Complete Time: 11:00 kdr 05/13 10:20 Order name: Vital Signs; Complete Time: 11:46 kdr 05/13 11:54 Order name: Foot Left Wo Cont; Complete Time: 14:20 EDMS 05/13 12:01 Order name: Lower Extremity Artery Uni Ltd; Complete Time: 14:20 EDMS Administered Medications: 11:53 Drug: Zofran (Ondansetron) 4 mg Route: IVP; Site: right antecubital; ld1 12:30 Follow up: Response: No adverse reaction ph 11:53 Drug: morphine 2 mg Route: IVP; Infused Over: 4 mins; Site: right antecubital; ld1 12:30 Follow up: Response: No adverse reaction ph 14:50 Drug: morphine 2 mg Route: IVP; Infused Over: 4 mins; Site: right antecubital; ld1 15:00 Follow up: Response: No adverse reaction ph Disposition Summary: 05/13/22 12:33 Hospitalization Ordered Hospitalization Status: Inpatient Admission kdr Provider: Chris Pritchard Location: Telemetry/MedSurg (Inpatient) kdr Condition: Fair kdr Problem: new kdr Symptoms: have improved kdr Bed/Room Type: Standard kdr Room Assignment: 220(05/13/22 13:48) bd Diagnosis - Cellulitis of left lower limb - left second toe kdr Forms: - Medication Reconciliation Form kdr - SBAR form kdr Signatures: Dispatcher [employer] EDMS Leah Sanchez Kevin, MD MD kdr Vianney Shah RN RN iw Yamileth Fisher RN RN ld1 Hermila Cody RN ph Corrections: (The following items were deleted from the chart) 13:48 12:33 kdr bd
--- NOTE | 2022-05-13 13:13 | RAD REPORT ---
EXAM DESCRIPTION: US - Lower Extremity Artery Uni Ltd - 05/13/2022 1:00 pm CLINICAL HISTORY: R O PVD COMPARISON: No comparisons TECHNIQUE: Doppler evaluation of the left leg arterial tree performed. Waveforms and velocity values were obtained along with visual inspection. FINDINGS: Large densely calcified plaque is present in the left common femoral artery causing flow r estriction. Velocity immediately distal to the large calcified plaque measures 261 cm/second.Monophas ic waveform pattern was seen proximal and distal to the large plaque. Plaquing changes to a much lesser degree identified in the superficial femoral artery. There are no l arge plaque seen in the popliteal, posterior tibial or dorsalis pedis arteries. All arteries show monophasic waveform pattern. This is not unexpected given the large flow restrictin g plaque in the common femoral artery. Patient probably has significant stenosis in the aorta or left iliac vasculature. IMPRESSION: Large flow restricting calcified plaque in the left common femoral artery. Left leg arterial tree shows a dampened, monophasic waveform pattern. All major arteries of the left leg are patent.
[2022-05-13] MEDS ORDERED: ASPIRIN EC 81 MG TAB PO ONE (14:00)
--- NOTE | 2022-05-13 14:01 | RAD REPORT ---
EXAM DESCRIPTION: MRI - Foot Left Wo Cont - 05/13/2022 1:49 pm CLINICAL HISTORY: R O Osyteomyelitis, soft tissue wound, foot pain COMPARISON: Foot Left 3 View dated 03/25/2022 TECHNIQUE: Multiplanar imaging of the left foot performed using T1 weighted, T1 fat saturation, T2 f at saturation and T2 stir sequencing. FINDINGS: Clinical history indicates the patient has a soft tissue wound on the dorsal surface of th e second toe. Hyperintense normal fatty T1 signal present in the marrow of the second toe phalanges. No cortical th inning or disruption. The T1 fat sat and T2 sequences show no edema pattern within the second toe pha langes. No abscess or abnormal fluid collections seen in the second toe soft tissues. Bone marrow signal pattern elsewhere in the foot is also normal range. No fracture, dislocation or faraz ne destructive process. No suspicious soft tissue finding. IMPRESSION: Second toe soft tissue edema signal without abscess or drainable fluid collection. No osteomyelitis of the second toe identifiable.
[2022-05-13] MEDS ORDERED: VANCOMYCIN 1.5 GM in NA CHLORIDE 0.9% 500 ML IVPB SCH (15:00)
[2022-05-13 15:48] VITALS: O2SAT 96
[2022-05-13 16:30] VITALS: BMI 30.2
[2022-05-13] MEDS ORDERED: PNEUMOCOCCAL VACCINE 0.5 ML IMVAC ONE (18:00)
[2022-05-13] MEDS: HYDROCODONE/APAP 10/325 TAB PO PRN (18:13)
[2022-05-13 18:58] LABS: Urine RBC <5 /HPF (None Seen)
[2022-05-13 19:08] LABS: Specific Gravity 1.006 (1.005-1.030); Urine Bilirubin NEGATIVE (Negative); Urine Blood Negative (Negative); Urine Clarity Clear (Clear); Urine Color Colorless (Yellow); Urine Glucose NEGATIVE (Negative); Urine Protein NEGATIVE (Negative); Urine Urobilinogen Normal (Normal); Urine pH 6.5 (5.0-7.0)
[2022-05-13] MEDS ORDERED: ATORVASTATIN 40 MG TAB PO SCH (21:00)
[2022-05-13] MEDS ORDERED: CEFEPIME 1 GM in NA CHLORIDE 0.9% 100 ML IV SCH (21:00)
[2022-05-13] MEDS ORDERED: HEPARIN 5000 UNIT/ML 1 ML VIAL SQ SCH (21:00)
[2022-05-13] MEDS ORDERED: BUPROPRION HCL S.R. 150MG TAB PO SCH (21:00)
[2022-05-14] MEDS: HYDROCODONE/APAP 10/325 TAB PO PRN (00:10)
[2022-05-14 02:40] VITALS: BP 118/62; TEMP 97
--- NOTE | 2022-05-14 03:40 | P.DS ---
Admission Date: 05/13/22 Discharge Date: 05/14/22 Disposition: TRANSFER TO [facility] Discharge Condition: FAIR Reason for Admission: Left foot cellulitis failed O/P therapy Consultations: General surgery-Dr. Cr Procedures: Doc-to-doc completed with Dr. Wu, who accepted him for transfer. Foot MRI 05/13/22 FINDINGS: Clinical history indicates the patient has a soft tissue wound on the dorsal surface of the second toe. Hyperintense normal fatty T1 signal present in the marrow of the second toe phalanges. No cortical thinning or disruption. The T1 fat sat and T2 sequences show no edema pattern within the second toe phalanges. No abscess or abnormal fluid collections seen in the second toe soft tissues. Bone marrow signal pattern elsewhere in the foot is also normal range. No fracture, dislocation or bone destructive process. No suspicious soft tissue finding. IMPRESSION: Second toe soft tissue edema signal without abscess or drainable fluid collection. No osteomyelitis of the second toe identifiable. Foot Xray 05/13/22 COMPARISON: Foot Left 3 View dated 03/25/2022 FINDINGS/IMPRESSION: No acute fracture. No malalignment. No significant focal degenerative changes. No radiographic evidence of osteomyelitis. MRI is more sensitive for osteomyelitis in the acute phase of clinically indicated Arterial doppler 05/13/22 FINDINGS: Large densely calcified plaque is present in the left common femoral artery causing flow restriction. Velocity immediately distal to the large calcified plaque measures 261 cm/second.Monophasic waveform pattern was seen proximal and distal to the large plaque. Plaquing changes to a much lesser degree identified in the superficial femoral artery. There are no large plaque seen in the popliteal, posterior tibial or dorsalis pedis arteries. All arteries show monophasic waveform pattern. This is not unexpected given the large flow restricting plaque in the common femoral artery. Patient probably has significant stenosis in the aorta or left iliac vasculature. IMPRESSION: Large flow restricting calcified plaque in the left common femoral artery. Left leg arterial tree shows a dampened, monophasic waveform pattern. All major arteries of the left leg are patent. Brief History of Present Illness: History of Present Illness: Patient is a 72-year-old male with a past medical history significant for COPD, hypertension, HLD, BPH who presents with complaint of left foot cellulitis failed outpatient therapy. Patient reported that he has had an ulcer on the left second digit for the past 3 months. Patient has also been having left foot redness\swelling\and pain in the last 3 months as well as. Patient was seen in the hospital last month and was placed on antibiotics. Patient reported completing antibiotics but did not notice any improvement. Patient currently rates left foot pain as 10/10 and described pain as throbbing in quality. Patient denies any other signs or symptoms. Symptoms are aggravated or relieved by nothing. Patient followed up with his PCP today and was referred to come to the ER for further evaluation. Hospital Course: Patient was admitted with suspected cellulitis/osteomyelitis was ultimately found to have an arterial ulceration to the left foot with a flow restricting calcification in the left common femoral artery with distal pulses in the foot. Attending physician discussed case with [facility] staff including vascular surgery and hospitalist programs who accepted patient for evaluation. Patient had previous vascular procedures on that leg performed at [facility]. Vital Signs/Physical Exam: Temp Pulse Resp BP Pulse Ox 97.0 F 77 18 118/62 98 05/14/22 00:00 05/14/22 00:00 05/14/22 00:10 05/14/22 00:00 05/14/22 00:10 General: Alert, In no apparent distress, Oriented x3 HEENT: Atraumatic, PERRLA, EOMI Neck: Supple, JVD not distended Respiratory: Clear to auscultation bilaterally, Normal air movement Cardiovascular: Regular rate/rhythm, Normal S1 S2 Capillary refill: <2 Seconds Gastrointestinal: Normal bowel sounds, No tenderness Musculoskeletal: No tenderness Integumentary: Arterial ulcer Neurological: Normal speech, Normal tone, Normal affect Laboratory Data at Discharge: WBC 11.60 K/uL (4.3-10.9) H 05/13/22 10:55 Hgb 13.9 g/dL (13.6-17.9) 05/13/22 10:55 Hct 41.0 % (39.6-49.0) 05/13/22 10:55 Plt Count 270 K/uL (152-406) 05/13/22 10:55 Sodium 135 mmol/L (136-145) L 05/13/22 10:55 Potassium 4.1 mmol/L (3.5-5.1) 05/13/22 10:55 BUN 16 mg/dL (7-18) 05/13/22 10:55 Creatinine 1.06 mg/dL (0.55-1.3) 05/13/22 10:55 Glucose 108 mg/dL (74-106) H 05/13/22 10:55 Total Bilirubin 0.5 mg/dL (0.2-1.0) 05/13/22 10:55 AST 16 U/L (15-37) 05/13/22 10:55 ALT 32 U/L (12-78) 05/13/22 10:55 Alkaline Phosphatase 59 U/L (45-117) 05/13/22 10:55 Triglycerides 127 mg/dL (<150) 05/13/22 18:12 Cholesterol 144 mg/dL (<200) 05/13/22 18:12 HDL Cholesterol 50 mg/dL (40-60) 05/13/22 18:12 Cholesterol/HDL Ratio 2.88 05/13/22 18:12 Home Medications: lisinopriL [Prinivil*] 20 mg PO DAILY 07/04/14 Bupropion HCl [Budeprion Xl] 1 tab PO DAILY 05/13/22 Clopidogrel Bisulfate [Plavix*] 1 tab PO DAILY 05/13/22 Metoprolol Succinate [Toprol Xl*] 1 tab PO DAILY 05/13/22 Pravastatin [Pravachol] 40 mg PO BEDTIME 05/13/22 Tamsulosin HCl 1 tab PO DAILY 05/13/22 Followup: Timur Millan DO [Primary Care Provider] -
[2022-05-14 04:01] LABS: Absolute Lymphocytes (CBC) 2.3 K/uL (0.7-4.9); Hematocrit 36.7 % (39.6-49.0); Lymphocytes % 23.7 % (15.3-44.8); MPV 7.2 fL (7.6-11.3); RBC Red Blood Cell Count 3.94 M/uL (4.33-5.43)
[2022-05-14 04:09] LABS: Potassium 4.8 mmol/L (3.5-5.1)
[2022-05-14] MEDS ORDERED: SERTRALINE HCL 100 MG TAB PO SCH (09:00)
[2022-05-14] MEDS ORDERED: TAMSULOSIN 0.4 MG SR CAP PO SCH (09:00)
[2022-05-14] MEDS ORDERED: METOPROLOL XL 50 MG TAB PO SCH (09:00)
[2022-05-14] MEDS ORDERED: ASPIRIN EC 81 MG TAB PO SCH (09:00)
[2022-05-14] MEDS ORDERED: lisinopriL 20 MG TAB PO SCH (09:00)
[2022-05-14] MEDS ORDERED: HOME MED 1 EA UNK (Bupropion Hcl [Budeprion Xl] 300 MG Tab.Sr.24h) PO SCH (09:00)
[2022-05-14] MEDS ORDERED: CLOPIDOGREL 75 MG TABLET PO SCH (09:00)
== END 2022-05-14 03:50 | disposition short-term general hospital (02) | DRG 300 ==
LOC: ER 09:52 → 2ND 15:07
PROVIDERS: ADMIT Internal Medicine; ATTEND Internal Medicine
DX: I70.245 Atherosclerosis of native arteries of left leg with ulceration of other part of foot (principal); K55.1 Chronic vascular disorders of intestine; J44.9 Chronic obstructive pulmonary disease, unspecified; I12.9 Hypertensive chronic kidney disease with stage 1 through stage 4 chronic kidney disease, or unspecified chronic kidney disease; N18.2 Chronic kidney disease, stage 2 (mild); E78.5 Hyperlipidemia, unspecified; N40.0 Benign prostatic hyperplasia without lower urinary tract symptoms; Z20.822 Contact with and (suspected) exposure to COVID-19; Z79.02 Long term (current) use of antithrombotics/antiplatelets; Z79.899 Other long term (current) drug therapy; Z88.5 Allergy status to narcotic agent; Z88.8 Allergy status to other drugs, medicaments and biological substances; Z91.041 Radiographic dye allergy status; Z87.891 Personal history of nicotine dependence; Z90.49 Acquired absence of other specified parts of digestive tract
CPT/HCPCS: 36415; 80048; 80053; 80061; 81003; 83036; 83880; 85025; 85652; 86141; 87040; 93926; 96374; 96375; 99285; J0692; J1644; J2405; J3370; J7040; U0003

== ENCOUNTER 2024-05-03 10:51 | Emergency (ER) | payer OTHER ==
[2024-05-03] MEDS ORDERED: FENTANYL CITR 100 MCG/2 ML ONE (11:27)
[2024-05-03 12:12] LABS: Absolute Basophils 0.1 K/uL (0-0.5); Absolute Eosinophils 0.2 K/uL (0-0.5); Absolute Lymphocytes (CBC) 1.8 K/uL (0.7-4.9); Absolute Monocytes 1.1 K/uL (0.1-1.3); Absolute Neutrophil 5.4 K/uL (1.8-8.0); Basophils % 0.9 % (0-1.3); Eosinophils % 2.2 % (0-4.4); Hematocrit 38.9 % (39.6-49.0); Lymphocytes % 20.9 % (15.3-44.8); MCH 32.3 pg (27.0-35.0); MCHC 33.4 g/dL (32.0-36.0); MCV 96.7 fL (80-100); MPV 7.2 fL (7.6-11.3); Monocytes % 12.5 % (3.3-12.3); Neutrophils % 63.5 % (41.7-73.7); Platelets 246 thou/uL (152-406); RBC Red Blood Cell Count 4.02 M/uL (4.33-5.43); Red Cell Distribution Width 13.6 % (12.1-15.2)
[2024-05-03 12:20] LABS: PT Prothrombin Time 10.4 SECONDS (9.4-12.5); PTT, Activated Partial Thromb 27.5 SECONDS (24.3-36.9); Protime INR 0.93
--- NOTE | 2024-05-03 12:35 | RAD REPORT ---
Exam:Foot Right 2 View CLINICAL HISTORY: Right foot pain FINDINGS: No fracture or dislocation seen. Hallux valgus deformity. Mild lateral subluxation first proximal phalanx. Soft tissue swelling medial forefoot. No bony destructive lesion visualized
[2024-05-03 12:36] LABS: ALT/SGPT 36 U/L (16-61); AST/SGOT 20 U/L (15-37); Albumin 3.6 g/dL (3.4-5.0); Alkaline Phosphatase 95 U/L (45-117); Anion Gap 5.3 mEq/L (5.0-15.0); BUN Blood Urea Nitrogen 16 mg/dL (7-18); Bicarbonate 31 mEq/L (21-32); Bilirubin Total 0.4 mg/dL (0.2-1.0); Globulin 3.6 g/dL (2.3-3.5); Glomerular Filtration Rate 73 ml/min (=/>90); Glucose Level 90 mg/dL (74-106); Potassium 4.3 mEq/L (3.5-5.1); Protein, Total 7.2 g/dL (6.4-8.2); Sodium Level 135 mEq/L (136-145)
[2024-05-03 12:37] LABS: C-Reactive Protein < 2.90 mg/L (<3.00)
[2024-05-03] MEDS ORDERED: CIPROFLOXACIN HCL 500 MG TAB ONE (13:23)
[2024-05-03] MEDS ORDERED: TRAMADOL HCL 50 MG TAB ONE (13:24)
--- NOTE | 2024-05-03 14:14 | EDPHYS ---
Physician Documentation [facility] Name: Carlos Alberto Astorga Age: 74 yrs Sex: Male : 1950 Arrival Date: 05/03/2024 Time: 10:51 Bed 20 Private MD: ED Physician Hilda Saucedo HPI: 05/03 12:56 This 74 yrs old Male presents to ER via Ambulatory with complaints of Right foot-Big ci toe psbl infection. 12:56 Patient is a 74-year-old male with PMH COPD, hypertension who presents to the ED with ci chief complaint of right great toe pain and wound that began 3 months ago. Patient saw PCP who thought wound may be infected and was told to come to the ER. Patient denies any drainage, increased redness, swelling, fever. No trauma/falls. Patient is not a diabetic. Patient ran out of his tramadol a week ago.. Historical: - Allergies: 11:09 Codeine; cm10 11:09 Iodinated Contrast Media - IV Dye (Hives); cm10 11:09 Lotensin; cm10 - Home Meds: 11:09 bupropion HCl 300 mg Oral Tb24 1 tab once daily [Active]; clopidogrel 75 mg Oral tab 1 cm10 tab once daily [Active]; lisinopril-hydrochlorothiazide 20-12.5 mg Oral tab 1 tab once daily [Active]; metoprolol tartrate 50 mg Oral tab 1 tab 2 times per day [Active]; tamsulosin 0.4 mg Oral cap 1 cap once daily [Active]; atorvastatin 80 mg oral tablet [Active]; - PMHx: 11:09 COPD; Hypertension; Pneumonia; cm10 - PSHx: 11:09 colon resection; Perforated colon repair; cm10 - Immunization history:: Adult Immunizations up to date. - Infectious Disease History:: Denies. - Social history:: Smoking status: Patient denies any tobacco usage or history of. - History obtained from: . ROS: 14:08 Constitutional: Negative for fever, chills, and weight loss, Cardiovascular: Negative ci for chest pain, palpitations, and edema, Respiratory: Negative for shortness of breath, cough, wheezing, and pleuritic chest pain, MS/Extremity: Negative for injury and deformity, positive right foot wound Exam: 14:08 Constitutional: This is a well developed, well nourished patient who is awake, alert, ci and in no acute distress. Head/Face: Normocephalic, atraumatic. Eyes: Pupils equal round and reactive to light, extra-ocular motions intact. Lids and lashes normal. Conjunctiva and sclera are non-icteric and not injected. Cornea within normal limits. Periorbital areas with no swelling, redness, or edema. ENT: Nares patent. No nasal discharge, no septal abnormalities noted. Tympanic membranes are normal and external auditory canals are clear. Oropharynx with no redness, swelling, or masses, exudates, or evidence of obstruction, uvula midline. Mucous membranes moist. Neck: Trachea midline, no thyromegaly or masses palpated, and no cervical lymphadenopathy. Supple, full range of motion without nuchal rigidity, or vertebral point tenderness. No Meningismus. Chest/axilla: Normal chest wall appearance and motion. Nontender with no deformity. No lesions are appreciated. Cardiovascular: Regular rate and rhythm with a normal S1 and S2. No gallops, murmurs, or rubs. Normal PMI, no JVD. No pulse deficits. Respiratory: Lungs have equal breath sounds bilaterally, clear to auscultation and percussion. No rales, rhonchi or wheezes noted. No increased work of breathing, no retractions or nasal flaring. Abdomen/GI: Soft, non-tender, with normal bowel sounds. No distension or tympany. No guarding or rebound. No evidence of tenderness throughout. Back: No spinal tenderness. No costovertebral tenderness. Full range of motion. Skin: Warm, dry with normal turgor. Normal color with no rashes, no lesions, and no evidence of cellulitis. Right great toe wound with surrounding erythema consistent with foot cellulitis. No step-offs or deformity MS/ Extremity: Pulses equal, no cyanosis. Neurovascular intact. Full, normal range of motion. Neuro: Awake and alert, GCS 15, oriented to person, place, time, and situation. Cranial nerves II-XII grossly intact. Motor strength 5/5 in all extremities. Sensory grossly intact. Cerebellar exam normal. Normal gait. Psych: Awake, alert, with orientation to person, place and time. Behavior, mood, and affect are within normal limits. Vital Signs: 11:08 BP 147 / 78; Pulse 72; Resp 16; Temp 97.7; Pulse Ox 99% on R/A; Weight 76.2 kg; Height cm10 5 ft. 6 in. ; Pain 9/10; 12:02 BP 115 / 94; Pulse 75; Resp 16; Pulse Ox 99% ; bp 14:17 BP 119 / 85; Pulse 72; Resp 16; Temp 98; Pulse Ox 99% ; rs5 11:08 Body Mass Index 27.12 (76.20 kg, 167.64 cm) cm10 11:08 Pain Scale: Adult cm10 MDM: 11:03 Medical Screening Exam initiated ci 14:08 Differential Diagnosis Cellulitis, osteomyelitis, abscess, diabetic foot ulcer, ci fracture, dislocation doubt acute ischemic limb, pulses diminished but present, 1+ DP/PT. Arterial Doppler ultrasound shows severe plaques and stenosis but no occlusion.. Data reviewed: vital signs, nurses notes, old medical records, radiologic studies, plain films. I considered the following discharge prescriptions or medication management in the emergency department Medications were administered in the Emergency Department. See MAR. Care significantly affected by the following chronic conditions: Hypertension, Chronic Obstructive Pulmonary Disease. ED course: Patient has no leukocytosis, no lactic acidosis. Does not meet SIRS criteria. CRP is unremarkable, x-ray with no bone destruction, doubt osteomyelitis. Will start on cephalexin for foot cellulitis and refer to podiatry.. 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 Patient has +1 PT/DP to right lower extremity. TA lower extremity was considered but patient has an iodine allergy. Will obtain arterial Doppler of the right lower extremity.. 05/03 11:20 Order name: Blood Culture Adult (2) ci 05/03 11:20 Order name: CBC with Diff; Complete Time: 12:20 ci 05/03 11:20 Order name: CMP; Complete Time: 12:47 ci 05/03 11:20 Order name: Lactate w/ 2H reflex if indic.; Complete Time: 12:36 ci 05/03 11:20 Order name: Protime (+inr); Complete Time: 12:20 ci 05/03 11:20 Order name: Ptt, Activated; Complete Time: 12:20 ci 05/03 11:20 Order name: CRP; Complete Time: 12:47 ci 05/03 11:20 Order name: Foot Right 2 View XRAY; Complete Time: 12:36 ci 05/03 12:49 Interpretation: No fx, no osteo. Mild soft tissue swelling. ci 05/03 14:38 Order name: Lower Extremity Artery Uni Ltd; Complete Time: 15:08 EDMS 05/03 15:33 Interpretation: PAD, stenosis, no occlusion. ci 05/03 11:20 Order name: Accucheck; Complete Time: 11:34 ci 05/03 11:20 Order name: Cardiac monitoring; Complete Time: 11:34 ci 05/03 11:20 Order name: EKG - Nurse/Tech; Complete Time: 11:47 ci 05/03 11:20 Order name: IV Saline Lock - Large Bore; Complete Time: 12:03 ci 05/03 11:20 Order name: Labs collected and sent; Complete Time: 12:03 ci 05/03 11:20 Order name: O2 Per Protocol; Complete Time: 11:35 ci 05/03 11:20 Order name: O2 Sat Monitoring; Complete Time: 11:35 ci 05/03 11:20 Order name: Vital Signs; Complete Time: 11:35 ci Administered Medications: 12:00 Drug: fentaNYL (PF) IVP 25 mcg IVP once Route: IVP; Site: right forearm; bp 12:59 Follow up: Response: No adverse reaction bp 13:15 Drug: Cephalexin PO 500 mg PO once Route: PO; bp 14:22 Follow up: Response: No adverse reaction bp 13:39 Drug: traMADol PO 50 mg PO once Route: PO; bp 14:22 Follow up: Response: No adverse reaction bp 14:57 Drug: morphine IVP or IV 4 mg IVP once over 4 mins Route: IVP; Infused Over: 4 mins; bp Site: right forearm; 16:20 Follow up: Response: No adverse reaction bp Disposition Summary: 05/03/24 15:35 Discharge Ordered Notes: Location: Home(05/03/24 15:35) ci Condition: Stable(05/03/24 15:35) ci Diagnosis - Peripheral vascular disease, unspecified ci - Cellulitis, unspecified - Right foot cellulitis ci Followup: ci - With: Private Physician - When: 2 - 3 days - Reason: Recheck today's complaints, Re-evaluation by your physician Discharge Instructions: - Discharge Summary Sheet ci - Cellulitis, Adult, [id number] ci - Peripheral Vascular Disease, [id number] ci Forms: - Medication Reconciliation Form ci - Antibiotic Education ci - Prescription Opioid Use ci - Patient Portal Instructions ci - Leadership Thank You Letter ci Prescriptions: - Tramadol 50 mg Oral tablet - take 1 tablet ORAL route every 8 hours as needed; 10 tablet; Refills: 0, ci Product Selection Permitted Signatures: Dispatcher [employer] EDMS Farzad Gunderson RN RN Natali Cobian RN RN cm10 Hilda Saucedo ci Corrections: (The following items were deleted from the chart) 11:20 11:20 BLOOD CULTURE*+BA.LAB.BRZ ordered. EDMS EDMS 11:20 11:20 CBC+H.LAB.BRZ ordered. EDMS EDMS 11:20 11:20 COMPREHENSIVE METABOLIC PANEL+C.LAB.BRZ ordered. EDMS EDMS 11:20 11:20 LACTATE+C.LAB.BRZ ordered. EDMS EDMS 11:20 11:20 PROTIME (+INR)+COAG.LAB.BRZ ordered. EDMS EDMS 11:20 11:20 PTT, ACTIVATED+COAG.LAB.BRZ ordered. EDMS EDMS 11:20 11:20 C-REACTIVE PROTEIN+C.LAB.BRZ ordered. EDMS EDMS 11:20 11:20 Foot Right 2 View+RAD.RAD.BRZ ordered. EDMS EDMS 14:40 14:14 Home ci bd 14:40 14:14 Stable ci bd 14:40 14:14 Cellulitis of other parts of limb - Right foot cellulitis ci bd 14:40 14:14 chronic ci bd 14:40 14:14 are unchanged ci bd 20:45 12:56 Patient is a 74-year-old male with PMH COPD, hypertension who presents to the ED ci with chief complaint of right great toe pain and wound that began 3 months ago. Patient saw PCP who thought wound may be infected and was told to come to the ER. Patient denies any drainage, increased redness, swelling, fever. No trauma/falls. Patient is not a diabetic. He. ci 20:46 14:08 Differential Diagnosis Cellulitis, osteomyelitis, abscess, diabetic foot ulcer, ci fracture, dislocation. ci
--- NOTE | 2024-05-03 14:14 | ER ---
Nurse's Notes [facility] Name: Carlos Alberto Astorga Age: 74 yrs Sex: Male : 1950 Arrival Date: 05/03/2024 Time: 10:51 Bed 20 Private MD: Diagnosis: Peripheral vascular disease, unspecified;Cellulitis, unspecified-Right foot cellulitis Presentation: 05/03 11:08 Chief complaint: Patient states: Wound to great toe on right foot onset 3 months ago. cm10 No fever, no drainage. Coronavirus screen: Client denies travel out of the [place] in the last 14 days. Ebola Screen: Patient denies travel to an Ebola-affected area in the 21 days before illness onset. No symptoms or risks identified at this time. Initial Sepsis Screen: Does the patient meet any 2 criteria? No. Patient's initial sepsis screen is negative. Does the patient have a suspected source of infection? No. Patient's initial sepsis screen is negative. Risk Assessment: Do you want to hurt yourself or someone else? Patient reports no desire to harm self or others. Onset of symptoms was May 03, 2024. 11:08 Method Of Arrival: Ambulatory cm10 11:08 Acuity: MONIKA 3 cm10 Triage Assessment: 11:10 General: Appears in no apparent distress. uncomfortable, Behavior is cooperative, rs5 appropriate for age, anxious. Pain: Complains of pain in right first toe. EENT: No deficits noted. Neuro: No deficits noted. Cardiovascular: No deficits noted. Respiratory: No deficits noted. GI: No signs and/or symptoms were reported involving the gastrointestinal system. : No signs and/or symptoms were reported regarding the genitourinary system. Derm: Wound noted right first toe. Musculoskeletal: No deficits noted. Historical: - Allergies: 11:09 Codeine; cm10 11:09 Iodinated Contrast Media - IV Dye (Hives); cm10 11:09 Lotensin; cm10 - Home Meds: 11:09 bupropion HCl 300 mg Oral Tb24 1 tab once daily [Active]; clopidogrel 75 mg Oral tab 1 cm10 tab once daily [Active]; lisinopril-hydrochlorothiazide 20-12.5 mg Oral tab 1 tab once daily [Active]; metoprolol tartrate 50 mg Oral tab 1 tab 2 times per day [Active]; tamsulosin 0.4 mg Oral cap 1 cap once daily [Active]; atorvastatin 80 mg oral tablet [Active]; - PMHx: 11:09 COPD; Hypertension; Pneumonia; cm10 - PSHx: 11:09 colon resection; Perforated colon repair; cm10 - Immunization history:: Adult Immunizations up to date. - Infectious Disease History:: Denies. - Social history:: Smoking status: Patient denies any tobacco usage or history of. - History obtained from: . Screenin:01 [facility] ED Fall Risk Assessment (Adult) History of falling in the last 3 months, bp including since admission No falls in past 3 months (0 pts) Confusion or Disorientation No (0 pts) Intoxicated or Sedated No (0 pts) Impaired Gait No (0 pts) Mobility Assist Device Used No (0 pt) Altered Elimination No (0 pt) Score/Fall Risk Level 0 - 2 = Low Risk. Abuse screen: Denies threats or abuse. Denies injuries from another. Nutritional screening: No deficits noted. Tuberculosis screening: No symptoms or risk factors identified. Assessment: 11:10 General: Appears uncomfortable, Behavior is calm, cooperative, appropriate for age. bp Pain: Complains of pain in right foot. Neuro: No deficits noted. Cardiovascular: No deficits noted. Respiratory: No deficits noted. GI: No signs and/or symptoms were reported involving the gastrointestinal system. : No signs and/or symptoms were reported regarding the genitourinary system. EENT: No deficits noted. Derm: Wound noted right first toe. 12:30 Reassessment: No changes from previously documented assessment. Patient is alert, bp oriented x 3, equal unlabored respirations, skin warm/dry/pink. 14:30 Reassessment: D/C ON HOLD FOR U/S. bp 14:43 Reassessment: PT TO [place]/S. bp Vital Signs: 11:08 BP 147 / 78; Pulse 72; Resp 16; Temp 97.7; Pulse Ox 99% on R/A; Weight 76.2 kg; Height cm10 5 ft. 6 in. ; Pain 9/10; 12:02 BP 115 / 94; Pulse 75; Resp 16; Pulse Ox 99% ; bp 14:17 BP 119 / 85; Pulse 72; Resp 16; Temp 98; Pulse Ox 99% ; rs5 11:08 Body Mass Index 27.12 (76.20 kg, 167.64 cm) cm10 11:08 Pain Scale: Adult cm10 ED Course: 10:55 Patient arrived in ED. ra3 11:00 Farzad Gunderson, RN is Primary Nurse. bp 11:03 Hilda Saucedo is Attending Physician. ci 11:09 Triage completed. cm10 11:10 Arm band placed on Patient placed in an exam room, on a stretcher. cm10 12:00 Inserted saline lock: 22 gauge in right forearm, using aseptic technique. Blood bp collected. Flushed with 10 mL NS. 12:00 Initial lab(s) drawn, by ED staff, sent to lab. First set of blood cultures drawn by ED bp staff, EKG done, by ED staff, reviewed by Hilda Saucedo. 12:01 Patient has correct armband on for positive identification. bp 12:26 Foot Right 2 View XRAY In Process Unspecified. EDMS 14:17 Provided Education on: N/A. rs5 14:17 No provider procedures requiring assistance completed. rs5 14:56 Lower Extremity Artery Uni Ltd In Process Unspecified. EDMS 16:20 IV discontinued, intact, bleeding controlled, No redness/swelling at site. Pressure bp dressing applied. Administered Medications: 12:00 Drug: fentaNYL (PF) IVP 25 mcg IVP once Route: IVP; Site: right forearm; bp 12:59 Follow up: Response: No adverse reaction bp 13:15 Drug: Cephalexin PO 500 mg PO once Route: PO; bp 14:22 Follow up: Response: No adverse reaction bp 13:39 Drug: traMADol PO 50 mg PO once Route: PO; bp 14:22 Follow up: Response: No adverse reaction bp 14:57 Drug: morphine IVP or IV 4 mg IVP once over 4 mins Route: IVP; Infused Over: 4 mins; bp Site: right forearm; 16:20 Follow up: Response: No adverse reaction bp Medication: 14:17 VIS not applicable for this client. rs5 Outcome: 14:14 Discharge ordered by MD. ci 15:35 Discharge ordered by MD. ci 16:19 Discharged to home via wheelchair, with family, bp 16:19 Condition: stable 16:19 Discharge instructions given to patient, Instructed on discharge instructions, follow up and referral plans. medication usage, wound care, Demonstrated understanding of instructions, follow-up care, medications, wound care, Prescriptions given X 2, 16:20 Patient left the ED. bp Signatures: Dispatcher [employer] Farzad Ramirez RN RN bp Thien Haley RN RN rs5 Natali Bryant RN RN cm10 Iheluis albertounekwu, Jennifer Mejias ra3
[2024-05-03] MEDS ORDERED: MORPHINE 4 MG/ML SYR ONE (14:51)
--- NOTE | 2024-05-03 15:05 | RAD REPORT ---
EXAMINATION:Lower Extremity Artery Uni Ltd CLINICAL INDICATION: Male, 74 years old. RT RIGHT TECHNIQUE: Arterial duplex ultrasound was performed of the right with real-time, color-flow, and spec tral wave Doppler evaluation. Ankle brachial indices were not performed. COMPARISON: No prior exam. FINDINGS: Severe plaque throughout the evaluated arterial system. Monophasic waveforms are seen throughout the evaluated right lower extremity arterial system, to the level of the dorsalis pedis artery. No other suspicious findings. IMPRESSION: Diffuse monophasic waveforms which are blunted of the right lower extremity arterial system compatibl e with significant inflow stenosis. No occlusion seen.
[2024-05-03 16:38] VITALS: O2SAT 99
[2024-05-03 16:45] VITALS: BP 119/85; TEMP 98
--- NOTE | 2024-05-04 11:10 | EKG ---
Test Date: 2024-05-03 Test Time: 11:36:08 Contract Coordinator: BP MEASUREMENT RESULTS: Intervals: Rate: 66 MS: 200 QRSD: 108 QT: 414 QTc: 434 [place]: P: 57 MS: 200 QRS: -54 T: -13 INTERPRETIVE STATEMENTS: Normal sinus rhythm Left axis deviation Nonspecific ST abnormality Abnormal ECG Compared to ECG 09/16/2015 08:24:23 Left-axis deviation now present ST (T wave) deviation now present Electronically Signed On 05-04-24 11:07:50 CDT by Brooks Roth
== END 2024-05-03 16:20 | disposition home or self-care (01) ==
LOC: ER 10:51
DX: L03.115 Cellulitis of right lower limb (principal); I73.9 Peripheral vascular disease, unspecified; I10 Essential (primary) hypertension; J44.9 Chronic obstructive pulmonary disease, unspecified
CPT/HCPCS: 87040 ×2; 85025; 36415; 85610; 83605; 85730; 80053; 86140; 73620; 93926; J3010; 93005; 96374; 96375; 99284

== ENCOUNTER 2024-10-25 09:49 | Emergency (ER) | payer OTHER ==
[2024-10-25 10:58] LABS: Absolute Eosinophils 0.3 K/uL (0-0.5); Absolute Monocytes 1.2 K/uL (0.1-1.3); Absolute Neutrophil 8.7 K/uL (1.8-8.0); Basophils % 0.4 % (0-1.3); Eosinophils % 2.9 % (0-4.4); Hematocrit 40.1 % (39.6-49.0); Lymphocytes % 9.2 % (15.3-44.8); MCHC 34.9 g/dL (32.0-36.0); MCV 88.9 fL (80-100); MPV 6.9 fL (7.6-11.3); Monocytes % 10.9 % (3.3-12.3); Neutrophils % 76.6 % (41.7-73.7); Nucleated Red Blood Cells % 0.1 % (0-0); Platelets 402 thou/uL (152-406); RBC Red Blood Cell Count 4.51 M/uL (4.33-5.43); Red Cell Distribution Width 13.8 % (12.1-15.2)
[2024-10-25 11:19] LABS: Influenza A Ag Negative; Influenza B Ag Negative; SARS-CoV-2 Antigen Rapid Res Negative (Negative)
--- NOTE | 2024-10-25 11:29 | RAD REPORT ---
EXAM: CT Head Brain Wo Cont HISTORY: Weakness;Syncope COMPARISON: None TECHNIQUE: Multiple contiguous axial images were obtained for a CT of the brain without contrast. Sag ittal and coronal reformats were performed. One or more of the following dose reduction techniques were used: Automated exposure control, adjus tment of the mA and kV according to patient size, and iterative reconstruction. Unless otherwise specified, incidental findings do not require dedicated imaging follow-up. FINDINGS: No evidence of hydrocephalus, intracranial hemorrhage, or extra-axial fluid collection. Mild brain atrophy with mild periventricular and deep white matter chronic microvascular ischemic ch anges present. Small pineal calcification incidentally noted. The calvarium is intact. The visualized paranasal sinuses and mastoid air cells are essentially clear . IMPRESSION: No evidence of acute intracranial abnormality.
--- NOTE | 2024-10-25 12:07 | RAD REPORT ---
EXAMINATION: ONE VIEW CHEST XR CLINICAL INDICATION: Male, 74 years old.,MALAISE TECHNIQUE: Frontal chest projection is submitted. Examination is limited by patient positioning and t echnique. COMPARISON: 04/05/2021 FINDINGS: The lungs are diffusely emphysematous, prominent interstitium and hazy opacification particularly at the right more than left lung base. 5 calcified granuloma, stable. No pneumothorax or sizable effusion. The heart is normal in size. Medi astinal contours are unremarkable. IMPRESSION: Prominent interstitial and basilar opacities, could reflect COPD exacerbation.
[2024-10-25 12:19] LABS: PT Prothrombin Time 12.7 SECONDS (10-13.0); Protime INR 1.12
[2024-10-25 12:35] LABS: Albumin 2.8 g/dL (3.4-5.0); Albumin/Globulin Ratio 0.7 (1.1-1.8); Anion Gap 8.1 mEq/L (5.0-15.0); Bilirubin Total 0.5 mg/dL (0.2-1.0); Globulin 4.2 g/dL (2.3-3.5); Potassium 4.1 mEq/L (3.5-5.1); Troponin High Sensitivity 9.7 pg/mL (<58.9)
[2024-10-25 13:22] LABS: Urine Bilirubin NEGATIVE (Negative); Urine Blood Negative (Negative); Urine Clarity Clear (Clear); Urine Color Yellow (Yellow); Urine Glucose NEGATIVE (Negative); Urine Ketones NEGATIVE (Negative); Urine Microscopic Reflex YN NO UMIC; Urine Nitrite NEGATIVE (Negative); Urine Protein NEGATIVE (Negative); Urine Urobilinogen Normal (Normal); Urine pH 6.5 (5.0-7.0)
[2024-10-25] MEDS ORDERED: NA CHLORIDE 0.9% 500 ML ONE (13:32)
--- NOTE | 2024-10-25 13:33 | EDPHYS ---
Physician Documentation [facility] Name: Carlos Alberto Astorga Age: 74 yrs Sex: Male : 1950 Arrival Date: 10/25/2024 Time: 09:49 Bed 15 Private MD: Emilia De Leon ED Physician Nini Millan HPI: 10/25 10:15 This 74 yrs old Male presents to ER via Wheelchair with complaints of Cough, Shortness sp3 Of Breath, General Weakness. 10:15 74-year-old male with history of COPD, hypertension presents to the ED with chief sp3 complaint generalized weakness, near syncope, left arm pain and cough. Symptoms been going on for the last 3 to 4 days he states now he is so weak that he has a hard time getting up and moving around. He denies any shortness of breath, neck pain, abdominal pain, vomit, diarrhea, rash, full syncope or any other signs or symptoms on ROS at this time.. Historical: - Allergies: 09:55 Codeine; ll1 09:55 Iodinated Contrast Media - IV Dye (Hives); ll1 09:55 Lotensin; ll1 - PMHx: 09:55 COPD; Pneumonia; Hypertension; ll1 - PSHx: 09:55 colon resection; Perforated colon repair; vessel repair R leg (Perforated colon repair);ll1 - Immunization history:: Adult Immunizations up to date. - Infectious Disease History:: Denies. - Social history:: Smoking status: Patient denies any tobacco usage or history of. ROS: 10:15 Eyes: Negative for injury, pain, redness, and discharge, ENT: Negative for injury, sp3 pain, and discharge, Neck: Negative for injury, pain, and swelling, Abdomen/GI: Negative for abdominal pain, nausea, vomiting, diarrhea, and constipation, Back: Negative for injury and pain, MS/Extremity: Negative for injury and deformity, Skin: Negative for injury, rash, and discoloration, Psych: Negative for depression, anxiety, suicide ideation, homicidal ideation, and hallucinations, Allergy/Immunology: Negative for hives, rash, and allergies, Endocrine: Negative for neck swelling, polydipsia, polyuria, polyphagia, and marked weight changes, Hematologic/Lymphatic: Negative for swollen nodes, abnormal bleeding, and unusual bruising, 10:15 All other systems are negative, Exam: 10:16 Constitutional: This is a well developed, well nourished patient who is awake, alert, sp3 and in no acute distress. Head/Face: Normocephalic, atraumatic. Eyes: Pupils equal round and reactive to light, extra-ocular motions intact. Lids and lashes normal. Conjunctiva and sclera are non-icteric and not injected. Cornea within normal limits. Periorbital areas with no swelling, redness, or edema. Neck: Trachea midline, no thyromegaly or masses palpated, and no cervical lymphadenopathy. Supple, full range of motion without nuchal rigidity, or vertebral point tenderness. No Meningismus. Chest/axilla: Normal chest wall appearance and motion. Nontender with no deformity. No lesions are appreciated. Cardiovascular: Regular rate and rhythm with a normal S1 and S2. No gallops, murmurs, or rubs. Normal PMI, no JVD. No pulse deficits. Respiratory: Lungs have equal breath sounds bilaterally, clear to auscultation and percussion. No rales, rhonchi or wheezes noted. No increased work of breathing, no retractions or nasal flaring. Abdomen/GI: Soft, non-tender, with normal bowel sounds. No distension or tympany. No guarding or rebound. No evidence of tenderness throughout. Back: No spinal tenderness. No costovertebral tenderness. Full range of motion. Skin: Warm, dry with normal turgor. Normal color with no rashes, no lesions, and no evidence of cellulitis. MS/ Extremity: Pulses equal, no cyanosis. Neurovascular intact. Full, normal range of motion. Neuro: Awake and alert, GCS 15, oriented to person, place, time, and situation. Cranial nerves II-XII grossly intact. Motor strength 5/5 in all extremities. Sensory grossly intact. Cerebellar exam normal. Normal gait. Psych: Awake, alert, with orientation to person, place and time. Behavior, mood, and affect are within normal limits. 11:49 ECG was reviewed by the Attending Physician. EKG demonstrates normal sinus rhythm at 83 sp3 bpm with left bundle branch block and nonspecific diffuse ST/T changes without evidence of acute ischemia. Left bundle branch is unchanged since prior EKG dated May 03, 2024. Vital Signs: 09:56 BP 127 / 72; Pulse 96; Resp 24; Temp 98; Pulse Ox 96% ; Height 5 ft. 6 in. ; Pain 0/10; ll1 11:30 BP 110 / 69; Pulse 81; Resp 16; Pulse Ox 95% on R/A; db 12:00 BP 118 / 72; Pulse 84; Resp 16; Pulse Ox 97% on R/A; db 12:30 BP 112 / 76; Pulse 80; Resp 16; Pulse Ox 96% on R/A; db 13:30 BP 110 / 73; Pulse 81; Resp 16; Pulse Ox 96% on R/A; db 14:00 BP 117 / 73; Pulse 78; Resp 16; Pulse Ox 95% ; db 09:56 Pain Scale: Adult ll1 [place] Coma Score: 11:00 Eye Response: spontaneous(4). Motor Response: obeys commands(6). Verbal Response: db oriented(5). Total: 15. MDM: 09:51 Medical Screening Exam initiated sp3 10:16 Data reviewed: vital signs, nurses notes, old medical records, lab test result(s), EKG, sp3 radiologic studies. ED course: 74-year-old male with multiple symptoms vague in nature. Differential diagnosis is broad and includes viral illness, pneumonia, COPD exacerbation, acute coronary syndrome, electrolyte abnormality, vertigo, among others. Workup will include CT scan of the head, chest x-ray, EKG, general labs, UA, viral swabs and general supportive care with disposition pending workup and patient course. Patient is not in any extremis and is resting comfortably at this time. Vital signs are normal with normal pulse oxygenation.. 13:27 ED course: Full workup negative. Vital signs remain normal. Lungs are clear sp3 bilaterally. Sodium is slightly low and we will replenish and discharge patient home to PCP follow-up.. 10/25 10:07 Order name: Blood Culture Adult (2) sp3 10/25 10:07 Order name: CBC with Diff; Complete Time: 11:53 sp3 10/25 10:07 Order name: CMP; Complete Time: 12:50 sp3 10/25 10:07 Order name: Lactate w/ 2H reflex if indic.; Complete Time: 11:53 sp3 10/25 10:07 Order name: Protime (+inr); Complete Time: 12:50 sp3 10/25 10:07 Order name: Urinalysis w/ reflexes; Complete Time: 13:26 3 10/25 10:07 Order name: Troponin High Sensitivity; Complete Time: 12:50 3 10/25 10:07 Order name: COVID-19 Ag + Flu A+B Ag; Complete Time: 11:53 3 10/25 10:07 Order name: Chest Single View XRAY; Complete Time: 12:10 3 10/25 10:14 Order name: CT Head Brain wo Cont; Complete Time: 11:53 3 10/25 10:07 Order name: Cardiac monitoring; Complete Time: 10:36 3 10/25 10:07 Order name: EKG - Nurse/Tech; Complete Time: 10:36 3 10/25 10:07 Order name: IV Saline Lock - Large Bore; Complete Time: 11:01 10/25 10:07 Order name: Labs collected and sent; Complete Time: 11:02 3 10/25 10:07 Order name: O2 Per Protocol; Complete Time: 10:36 3 10/25 10:07 Order name: O2 Sat Monitoring; Complete Time: 10:36 10/25 10:07 Order name: Vital Signs; Complete Time: 10:36 3 10/25 11:56 Order name: Labs - recollect needed: recollect green and blue top; Complete Time: 13:53 bd Administered Medications: 13:35 Drug: NS 0.9% IV 500 ml IV at bolus once; to be given as a bolus over 30 minutes Route: db IV; Rate: bolus; Site: right hand; 14:15 Follow up: Response: No adverse reaction; IV Status: Completed infusion; IV Intake: db 500ml Disposition Summary: 10/25/24 13:32 Discharge Ordered Notes: Location: Home sp3 Condition: Stable sp3 Diagnosis - Generalized weakness, hyponatremia/mild dehydration sp3 Followup: sp3 - With: Private Physician - When: Upon discharge from the Emergency Department - Reason: Continuance of care Discharge Instructions: - Discharge Summary Sheet sp3 - Dehydration, Elderly sp3 - Hyponatremia, [id number] sp3 Forms: - Medication Reconciliation Form sp3 - Antibiotic Education sp3 - Prescription Opioid Use sp3 - Patient Portal Instructions sp3 - Leadership Thank You Letter sp3 Signatures: Dispatcher [employer] Leah Hendrix Lynsay, KEZIA RN ll1 Nini Millan MD MD sp3 Katarina Brown RN RN db Corrections: (The following items were deleted from the chart) 10:08 10:08 Chest Single View+[email or web address] ordered. EDMS EDMS 11:54 11:49 ECG was reviewed by the Attending Physician. EKG demonstrates normal sinus rhythm sp3 at 83 bpm with left bundle branch block and nonspecific diffuse ST/T changes without evidence of acute ischemia. sp3
--- NOTE | 2024-10-25 13:33 | ER ---
Nurse's Notes [facility] Name: Carlos Alberto Astorga Age: 74 yrs Sex: Male : 1950 Arrival Date: 10/25/2024 Time: 09:49 Bed 15 Private MD: Emilia De Leon Diagnosis: Generalized weakness, hyponatremia/mild dehydration Presentation: 10/25 09:56 Chief complaint: Patient states: Cough, SOB, weak for 1 week. No fever. Coronavirus ll1 screen: Client denies travel out of the [place] in the last 14 days. At this time, the client does not indicate any symptoms associated with coronavirus-19. Ebola Screen: Patient denies travel to an Ebola-affected area in the 21 days before illness onset. No acute neurological deficit is noted. Initial Sepsis Screen: Does the patient meet any 2 criteria? No. Patient's initial sepsis screen is negative. Does the patient have a suspected source of infection? No. Patient's initial sepsis screen is negative. Risk Assessment: Do you want to hurt yourself or someone else? Patient reports no desire to harm self or others. Onset of symptoms was October 18, 2024. 09:56 Method Of Arrival: Wheelchair ll1 09:56 Acuity: MONIKA 3 ll1 Stroke Activation: Symptom onset > 6 hours Physician: ED Attending; Name: ; Notified At: ; Arrived At: Physician: Mid-Level Provider; Name: ; Notified At: ; Arrived At: Physician: [not used]; Name: ; Notified At: ; Arrived At: Physician: [not used]; Name: ; Notified At: ; Arrived At: Physician: [not used]; Name: ; Notified At: ; Arrived At: Historical: - Allergies: 09:55 Codeine; ll1 09:55 Iodinated Contrast Media - IV Dye (Hives); ll1 09:55 Lotensin; ll1 - PMHx: 09:55 COPD; Pneumonia; Hypertension; ll1 - PSHx: 09:55 colon resection; Perforated colon repair; vessel repair R leg (Perforated colon repair);ll1 - Immunization history:: Adult Immunizations up to date. - Infectious Disease History:: Denies. - Social history:: Smoking status: Patient denies any tobacco usage or history of. Screenin:59 [facility] ED Fall Risk Assessment (Adult) History of falling in the last 3 months, db including since admission Yes- fall prone (multiple falls) (3 pts) Confusion or Disorientation No (0 pts) Intoxicated or Sedated No (0 pts) Impaired Gait No (0 pts) Mobility Assist Device Used No (0 pt) Altered Elimination No (0 pt) Score/Fall Risk Level 3 or more points = High Risk Oriented to surroundings, Maintained a safe environment. Abuse screen: Denies threats or abuse. Denies injuries from another. Nutritional screening: No deficits noted. Tuberculosis screening: No symptoms or risk factors identified. Assessment: 10:07 Reassessment: Patient appears in no apparent distress at this time. No changes from db previously documented assessment. 12:08 General: Appears in no apparent distress. comfortable, Behavior is calm, cooperative. db Pain:. Neuro: Level of Consciousness is awake, alert, obeys commands, Oriented to person, place, time, situation. Respiratory: Airway is patent Respiratory effort is even, unlabored, Respiratory pattern is. 13:55 Reassessment: Patient appears in no apparent distress at this time. Patient and/or db family updated on plan of care and expected duration. Pain level reassessed. Patient is alert, oriented x 3, equal unlabored respirations, skin warm/dry/pink. 14:22 Reassessment: Patient appears in no apparent distress at this time. Patient and/or db family updated on plan of care and expected duration. Pain level reassessed. Patient is alert, oriented x 3, equal unlabored respirations, skin warm/dry/pink. Vital Signs: 09:56 BP 127 / 72; Pulse 96; Resp 24; Temp 98; Pulse Ox 96% ; Height 5 ft. 6 in. ; Pain 0/10; ll1 11:30 BP 110 / 69; Pulse 81; Resp 16; Pulse Ox 95% on R/A; db 12:00 BP 118 / 72; Pulse 84; Resp 16; Pulse Ox 97% on R/A; db 12:30 BP 112 / 76; Pulse 80; Resp 16; Pulse Ox 96% on R/A; db 13:30 BP 110 / 73; Pulse 81; Resp 16; Pulse Ox 96% on R/A; db 14:00 BP 117 / 73; Pulse 78; Resp 16; Pulse Ox 95% ; db 09:56 Pain Scale: Adult ll1 [place] Coma Score: 11:00 Eye Response: spontaneous(4). Motor Response: obeys commands(6). Verbal Response: db oriented(5). Total: 15. ED Course: 09:50 Patient arrived in ED. as 09:51 Emilia De eLon is Private Physician. as 09:51 Nini Millan MD is Attending Physician. sp3 09:57 Triage completed. ll1 09:57 Arm band placed on Patient placed in an exam room, on a stretcher. ll1 10:03 Katarina Brown, RN is Primary Nurse. db 10:32 First set of blood cultures drawn by me. Missed attempt(s): 22 gauge in right db antecubital area. Bleeding controlled, band aid applied, catheter tip intact. 10:36 EKG done, by ED staff, reviewed by Nnii Millan MD. ty 10:48 Initial lab(s) drawn, by me, sent to lab. Second set of blood cultures drawn. Inserted db saline lock: 22 gauge in right hand, using aseptic technique. Blood collected. Flushed with 10 mL NS. 10:[address] db 10:59 Chest Single View XRAY In Process Unspecified. EDMS 10:59 CT Head Brain wo Cont In Process Unspecified. EDMS 10:[address] db 10:59 Patient has correct armband on for positive identification. Bed in low position. Call db light in reach. Side rails up X 1. Client placed on continuous cardiac and pulse oximetry monitoring. NIBP monitoring applied. phototypesetting equipment monitor on. Pulse ox on. NIBP on. Warm blanket given. 14:20 Provided Education on: DISCHARGE AND FOLLOWUP. db 14:20 No provider procedures requiring assistance completed. IV discontinued, intact, db bleeding controlled, No redness/swelling at site. Administered Medications: 13:35 Drug: NS 0.9% IV 500 ml IV at bolus once; to be given as a bolus over 30 minutes Route: db IV; Rate: bolus; Site: right hand; 14:15 Follow up: Response: No adverse reaction; IV Status: Completed infusion; IV Intake: db 500ml Medication: 12:08 VIS not applicable for this client. db Intake: 14:15 IV: 500ml; Total: 500ml. db Outcome: 13:32 Discharge ordered by . sp3 14:20 Discharged to home via wheelchair, with family, db 14:20 Condition: stable 14:20 Discharge instructions given to patient, family, Instructed on discharge instructions, follow up and referral plans. 14:22 Patient left the ED. db Signatures: Dispatcher [employer] Laine Hrenandes Lynsay, RN RN ll1 Nini Millan MD MD sp3 Katarina Brown RN RN db Dionicio Stapleton
[2024-10-25 15:12] VITALS: TEMP 98
[2024-10-25 15:27] VITALS: BP 117/73; O2SAT 95
--- NOTE | 2024-10-26 12:13 | EKG ---
Test Date: 2024-10-25 Test Time: 10:31:43 Civil Technician: VICTORINA MEASUREMENT RESULTS: Intervals: Rate: 83 CT: 166 QRSD: 124 QT: 386 QTc: 453 [place]: P: 34 CT: 166 QRS: -64 T: 36 INTERPRETIVE STATEMENTS: Normal sinus rhythm Left axis deviation Left bundle branch block Abnormal ECG Compared to ECG 05/03/2024 11:36:08 Left bundle-branch block now present ST (T wave) deviation no longer present Electronically Signed On 10-26-24 12:09:28 CDT by Brooks Roth
== END 2024-10-25 14:22 | disposition home or self-care (01) ==
LOC: ER 09:49
DX: E87.1 Hypo-osmolality and hyponatremia (principal); E86.0 Dehydration; R05.9 Cough, unspecified; I10 Essential (primary) hypertension; J44.9 Chronic obstructive pulmonary disease, unspecified; Z11.52 Encounter for screening for COVID-19
CPT/HCPCS: 93005; 87040 ×2; 85025; 36415; 85610; 83605; 81003; 84484; 80053; 70450; 71045; 96360; 99285; 87428; J7040